=== PATIENT | female | born 1945 | race Caucasian/White ===

== ENCOUNTER 2018-01-29 22:33 | Inpatient (IN) | payer MEDICARE, MEDICAID ==
[~2018-01-29] VITALS: Ht 152.4 cm; Wt 46.2 kg
[2018-01-29 22:36] VITALS: BP 134/92; PULSE 168; RESP 20; O2SAT 98
[2018-01-29] MEDS ORDERED: ADENOSINE IV SOLN 3 MG/ML 2 ML VIAL ONE (22:41)
[2018-01-29] MEDS ORDERED: ADENOSINE IV SOLN 3 MG/ML 2 ML VIAL IV PUSH ONE (22:45)
[2018-01-29] MEDS ORDERED: METOPROLOL TARTRATE 5 MG/5 ML VIAL IV PUSH ONE (22:45)
--- NOTE | 2018-01-29 23:15 | RADRPT ---
EXAM DATE: 01/29/2018 11:09 PM EDT AGE/SEX: 72 years / Female INDICATIONS: Palpitations. CLINICAL DATA: This is the patient's initial encounter. Patient reports that signs and symptoms have been present for 1 day and indicates a pain score of 0/10. MEDICAL/SURGICAL HISTORY: . Hypertension. Chronic obstructive pulmonary disease. SVT None. COMPARISON: POI, CT CHEST W/ CONTRAST, 02/04/2017. . FINDINGS: A single AP view of the chest demonstrates the lungs to be symmetrically aerated without evidence of mass, infiltrate or effusion. The heart is mildly enlarged. Stable prominence of the right pulmonary artery. PICC line catheter tip in mid superior vena cava.. Osseous structures are intact. CONCLUSION: The lungs are clear. Electronically signed by: Anthony Marcos MD 01/29/2018 11:14 PM EDT
[2018-01-29] MEDS ORDERED: LOSA100T PO (23:19)
[2018-01-29] MEDS ORDERED: LOPE2CAP PO (23:19)
[2018-01-29] MEDS ORDERED: ASPI-516 CHEW (23:19)
[2018-01-29] MEDS ORDERED: OMEP10CA PO (23:19)
[2018-01-29] MEDS ORDERED: MULTTAB67 PO (23:19)
[2018-01-29] MEDS ORDERED: METO50TA PO (23:19)
[2018-01-29] MEDS ORDERED: FLUT1INH INH (23:19)
[2018-01-29] MEDS ORDERED: GABA300C5 PO (23:19)
[2018-01-29] MEDS ORDERED: INVA1INJ IV (23:19)
[2018-01-29] MEDS ORDERED: TYLE325T PO (23:19)
[2018-01-29] MEDS ORDERED: ZOFR8TAB4 SL (23:19)
[2018-01-29] MEDS ORDERED: REST15CA PO (23:19)
[2018-01-29] MEDS ORDERED: IPRA0.02 NEB (23:19)
[2018-01-29 23:20] VITALS: BP 152/72; PULSE 91; RESP 20; O2SAT 97
[2018-01-29 23:30] LABS: AUTOMATED NEUTROPHIL # 9.8 TH/MM3 (1.8-7.7); BASOPHIL # 0.2 TH/MM3 (0-0.2); BASOPHIL % 1.4 % (0.0-2.0); EOSINOPHIL # 0.7 TH/MM3 (0-0.4); EOSINOPHIL % 4.9 % (0.0-4.0); HEMATOCRIT 26.8 % (35.0-46.0); HEMOGLOBIN 8.6 GM/DL (11.6-15.3); LYMPH % 15.4 % (9.0-44.0); LYMPHOCYTE # 2.1 TH/MM3 (1.0-4.8); MEAN CELL VOLUME 92.2 FL (80.0-100.0); MEAN CORPUSCULAR HEMOGLOBIN 29.5 PG (27.0-34.0); MEAN PLATELET VOLUME 8.7 FL (7.0-11.0); MONO % 6.5 % (0.0-8.0); MONOCYTE # 0.9 TH/MM3 (0-0.9); NEUT % 71.8 % (16.0-70.0); PLATELET COUNT 510 TH/MM3 (150-450); RED BLOOD COUNT 2.91 MIL/MM3 (4.00-5.30); RED CELL DISTRIBUTION WIDTH 14.5 % (11.6-17.2); WHITE BLOOD COUNT 13.6 TH/MM3 (4.0-11.0)
[2018-01-29] MEDS ORDERED: ESMOLOL 2500 MG/NS 250 ML PREMIX DRIP IV PRN (23:30)
[2018-01-29 23:55] LABS: ALKALINE PHOSPHATASE 103 U/L (45-117); ALT (GPT) 13 U/L (10-53); AST (GOT) 21 U/L (15-37); BICARBONATE 18.2 MEQ/L (21.0-32.0); BLOOD UREA NITROGEN 14 MG/DL (7-18); CALCIUM 6.7 MG/DL (8.5-10.1); CHLORIDE 107 MEQ/L (98-107); CREATININE 0.87 MG/DL (0.50-1.00); GLOMERULAR FILTRATION RATE 64 ML/MIN (>89); GLUCOSE,RANDOM 159 MG/DL (74-106); SODIUM (NA) 140 MEQ/L (136-145); TOTAL BILIRUBIN ADULT 0.2 MG/DL (0.2-1.0); TOTAL PROTEIN 6.3 GM/DL (6.4-8.2); TROPONIN I LESS THAN 0.02 NG/ML (0.02-0.05)
[2018-01-29 23:57] LABS: CALCIUM-PROTEIN CORRECTED 7.1 MG/DL (8.5-10.1)
[2018-01-30] VITALS (9 sets, daily range): BP systolic 140–188; BP diastolic 64–87; PULSE 80–94; RESP 16–20; TEMP 98.1–98.2; O2SAT 97–100
--- NOTE | 2018-01-30 00:06 | PD ---
HPI . palpitation Chief Complaint: Cardiac Complaint Time Seen by Provider: 22:38 Travel History International Travel<30 days: No Contact w/Intl Traveler<30days: No Traveled to known affect area: No History of Present Illness HPI Patient is from [facility] she had a run of palpitations she was found to be in SVT given 50 p.o. of Lopressor which helped and 20 minutes later her heart rate seemed slow to 88 that after 30 minutes it went back into SVT paramedics were called they found her to be at a rate of 170 if occult access they brought her in unable to give her adenosine she has a PICC line which we access and then pushed 6 of adenosine which broke her SVT from 167 down to 90. Patient is then given 2.5 of Lopressor and an esmolol drip at 25 mics per kick per minute is ordered and bedside in case she returns into SVT. Patient reports having a sensation that her chest is fluttering she said she knows when she is going fast she feels a little bit short of breath and she can just feel it in her chest she denies chest pain. arrives after we have given adenosine with good results and he says this happened once 2 weeks ago she was admitted into the hospital at [facility] for a week of ICU due to electrolyte imbalances and SVT. Labs are sent to check her calcium potassium magnesium and the beta-deepika drip is bedside in case needed first EKG is sinus tach at a rate of 169 after the adenosine push her repeat EKG is sinus rhythm at 94 bpm. Patient is pain-free at this time and feels much improved PFSH Past Medical History Heart Rhythm Problems: Yes (SVT) Cancer: Yes (COLON) Cardiac Catheterization: Yes (STENT PLACED ) Cardiovascular Problems: Yes COPD: Yes Diminished Hearing: Yes ([place]) Diverticulitis: Yes Gastrointestinal Disorders: Yes GERD: Yes Hypertension: Yes Respiratory: Yes Past Surgical History Cholecystectomy: Yes Hysterectomy: Yes Other Surgery: Yes ("BACK SURGERY") Social History Alcohol Use: Yes (3 DRINKS/ DAILY) Tobacco Use: Yes (1/2 PPD- HAS NOT SMOKED IN 1 MONTH ) Substance Use: No Allergies-Medications (Allergen,Severity, Reaction): Coded Allergies: No Known Allergies (Unverified , 01/29/18) Reported Meds & Prescriptions Reported Meds & Active Scripts Active Reported Zofran Odt (Ondansetron Odt) 8 Mg Tab 8 Mg SL Q8HR Tylenol (Acetaminophen) 325 Mg Tab 650 Mg PO Q6H PRN Restoril (Temazepam) 15 Mg Cap 15 Mg PO HS PRN Omeprazole 10 Mg Cap 10 Mg PO BID Multiple Vitamin 1 Tab 1 Tab PO DAILY Metoprolol Tartrate 50 Mg Tab 50 Mg PO DAILY Losartan (Losartan Potassium) 100 Mg Tab 100 Mg PO DAILY Loperamide (Loperamide HCl) 2 Mg Cap 2 Mg PO DIRECTED PRN One capsule after each loose stool. Not to exceed 8 capsules per day. Ipratropium Neb (Ipratropium [place]) 0.5 Mg/2.5 Ml Amp 0.5 Mg NEB Q6HR NEB PRN Gabapentin 300 Mg Cap 300 Mg PO BID Invanz Inj (Ertapenem) 1 Gm Addvial 1 Gm IV Q24H ADMINISTER IN 100ML NS Breo Ellipta Inh (Fluticasone/Vilanterol) 100-25 Mcg/Act Inh 1 Puff INH DAILY Use daily at the same time. Aspirin 81 Mg Chew 81 Mg CHEW DAILY Review of Systems Except as stated in HPI: all other systems reviewed are Neg Cardiovascular: Positive: Palpitations Physical Exam Narrative GENERAL: pale and tchy at 167 BPM SKIN: Warm and dry. HEAD: Atraumatic. Normocephalic. EYES: Pupils equal and round. No scleral icterus. No injection or drainage. ENT: No nasal bleeding or discharge. Mucous membranes pink and moist. NECK: Trachea midline. No JVD. CARDIOVASCULAR: 167 rapid rate and rhythm. RESPIRATORY: No accessory muscle use. Clear to auscultation. Breath sounds equal bilaterally. GASTROINTESTINAL: Abdomen soft, non-tender, nondistended. Hepatic and splenic margins not palpable. MUSCULOSKELETAL: Extremities without clubbing, cyanosis, or edema. No obvious deformities. NEUROLOGICAL: Awake and alert. No obvious cranial nerve deficits. Motor grossly within normal limits. Five out of 5 muscle strength in the arms and legs. Normal speech. PSYCHIATRIC: Appropriate mood and affect; insight and judgment normal. Data Data Last Documented VS Vital Signs Date Time Temp Pulse Resp B/P (MAP) Pulse Ox O2 Delivery O2 Flow Rate FiO2 01/30/18 00:14 89 20 162/76 (104) 100 Nasal Cannula 2.00 Orders Orders Adenosine Inj (Adenocard Inj) (01/29/18 22:41) Adenosine Inj (Adenocard Inj) (01/29/18 22:45) Metoprolol Tartrate Inj (Lopressor Inj) (01/29/18 22:45) Complete Blood Count With Diff (01/29/18 22:48) Comprehensive Metabolic Panel (01/29/18 22:48) Ckmb (Isoenzyme) Profile (01/29/18 22:48) Troponin I (01/29/18 22:48) Lipase (01/29/18 22:48) Urinalysis - C+S If Indicated (01/29/18 22:48) Thyroid Stimulating Hormone (01/29/18 22:48) Chest, Single Ap (01/29/18 22:48) Esmolol Drip Inj Premix (Brevibloc Drip (01/29/18 23:30) Calcium Gluconate Inj (Calcium Gluconate (01/30/18 00:15) Potassium Chloride (Kcl) (01/30/18 09:00) 1/2 Ns + Kcl 20 Meq Inj (1/2 Ns + Kcl 20 (01/30/18 00:45) Magnesium (Mg) (01/30/18 00:48) Admit To Inpatient (01/30/18 ) Vital Signs (Adult) Q4H (01/30/18 00:48) Activity Oob Ad Alexa (01/30/18 00:48) Sanitary Engineer / Telemetry .CONTINUOUS (01/30/18 00:48) Diet Heart Healthy (01/30/18 Breakfast) Sodium Chloride 0.9% Flush (Ns Flush) (01/30/18 01:00) Sodium Chloride 0.9% Flush (Ns Flush) (01/30/18 09:00) Acetaminophen (Tylenol) (01/30/18 01:00) Basic Metabolic Panel (Bmp) (01/31/18 06:00) Complete Blood Count With Diff (01/31/18 06:00) Resp Oxygen Froy C Titrat 1-4 L (01/30/18 ) Enoxaparin Inj (Lovenox Inj) (01/30/18 01:00) Naloxone Inj (Narcan Inj) (01/30/18 01:00) Magnesium Hydroxide Liq (Milk Of Magnesi (01/30/18 01:00) Sennosides (Senokot) (01/30/18 01:00) Bisacodyl Supp (Dulcolax Supp) (01/30/18 01:00) Lactulose Liq (Lactulose Liq) (01/30/18 01:00) Inpatient Certification (01/30/18 ) Aspirin Chew (Aspirin Chew) (01/30/18 09:00) Gabapentin (Neurontin) (01/30/18 09:00) Temazepam (Restoril) (01/30/18 01:00) Pantoprazole (Protonix) (01/30/18 09:00) Admit Order (Ed Use Only) (01/30/18 00:50) Metoprolol Tartrate (Lopressor) (01/30/18 09:00) Labs Laboratory Tests Test 01/29/18 22:58 01/29/18 23:57 White Blood Count 13.6 TH/MM3 Red Blood Count 2.91 MIL/MM3 Hemoglobin 8.6 GM/DL Hematocrit 26.8 % Mean Corpuscular Volume 92.2 FL Mean Corpuscular Hemoglobin 29.5 PG Mean Corpuscular Hemoglobin Concent 32.0 % Red Cell Distribution Width 14.5 % Platelet Count 510 TH/MM3 Mean Platelet Volume 8.7 FL Neutrophils (%) (Auto) 71.8 % Lymphocytes (%) (Auto) 15.4 % Monocytes (%) (Auto) 6.5 % Eosinophils (%) (Auto) 4.9 % Basophils (%) (Auto) 1.4 % Neutrophils # (Auto) 9.8 TH/MM3 Lymphocytes # (Auto) 2.1 TH/MM3 Monocytes # (Auto) 0.9 TH/MM3 Eosinophils # (Auto) 0.7 TH/MM3 Basophils # (Auto) 0.2 TH/MM3 CBC Comment AUTO DIFF Differential Comment AUTO DIFF CONFIRMED Platelet Estimate HIGH Platelet Morphology Comment NORMAL Blood Urea Nitrogen 14 MG/DL Creatinine 0.87 MG/DL Random Glucose 159 MG/DL Total Protein 6.3 GM/DL Albumin 2.0 GM/DL Calcium Level 6.7 MG/DL Alkaline Phosphatase 103 U/L Aspartate Amino Transf (AST/SGOT) 21 U/L Alanine Aminotransferase (ALT/SGPT) 13 U/L Total Bilirubin 0.2 MG/DL Sodium Level 140 MEQ/L Potassium Level 3.0 MEQ/L Chloride Level 107 MEQ/L Carbon Dioxide Level 18.2 MEQ/L Anion Gap 15 MEQ/L Estimat Glomerular Filtration Rate 64 ML/MIN Protein Corrected Calcium 7.1 MG/DL Magnesium Level 0.6 MG/DL Total Creatine Kinase 61 U/L Troponin I LESS THAN 0.02 NG/ML Lipase 253 U/L Thyroid Stimulating Hormone 3rd Gen 2.330 uIU/ML Urine Color YELLOW Urine Turbidity CLEAR Urine pH 6.0 Urine Specific [place] 1.020 Urine Protein 100 mg/dL Urine Glucose (UA) NEG mg/dL Urine Ketones NEG mg/dL Urine Occult Blood NEG Urine Nitrite NEG Urine Bilirubin NEG Urine Urobilinogen 2.0 MG/DL Urine Leukocyte Esterase NEG Urine RBC 1 /hpf Urine WBC 5 /hpf Urine Transitional Epithelial Cells <1 /hpf Urine Renal Epithelial Cells <1 /hpf Urine Hyaline Casts 9 /lpf Urine Mucus FEW /lpf Microscopic Urinalysis Comment CATH-CULT NOT IND MDM Medical Decision Making Medical Screen Exam Complete: Yes Emergency Medical Condition: Yes Medical Record Reviewed: Yes Differential Diagnosis afib svt VTACH vs aflutter MD pericarditis electrolytwe abnormality Narrative Course adenosine . IVP 6mg with breaking of the SVT and now she is in sinus rhythm at 90 BPM lopressor 5 mg ivp and then esmolol drip calcium replaced and admit Critical Care Narrative 30 minutes of critical care cardiac time Diagnosis Primary Impression: Supraventricular tachycardia Additional Impression: Electrolyte abnormality Nas Giles MD January 30, 2018 00:06
[2018-01-30 00:11] LABS: BILIRUBIN, URINE NEG (NEG); BLOOD, URINE NEG (NEG); GLUCOSE,URINE NEG (NEG); HYALINE CAST, URINE 9 /lpf (RARE); KETONE, URINE NEG (NEG); MUCUS URINE FEW /lpf (OCC); NITRITE,URINE NEG (NEG); RENAL EPITHELIAL CELLS <1 /hpf; TRANSITIONAL EPI CELLS, URINE <1 /hpf; URINE COLOR YELLOW (YELLW/STRAW); URINE LEUKOCYTE ESTERASE NEG (NEG)
[2018-01-30] MEDS ORDERED: CALCIUM GLUCONATE INJ 1 GM in DEXTROSE 5% IN WATER 100ML INJ 100 ML IV ONE ×2 (00:15)
[2018-01-30] MEDS ORDERED: MAGNESIUM HYDROXIDE SUSP 30 ML CUP PO PRN (01:00)
[2018-01-30] MEDS ORDERED: LACTULOSE SYRUP 20 GM/30 ML CUP PO PRN (01:00)
[2018-01-30] MEDS ORDERED: SODIUM CHLORIDE 0.9% FLUSH 10 ML FLUSH IV FLUSH PRN (01:00)
[2018-01-30] MEDS ORDERED: NALOXONE HCL 0.4 MG/ML AMP IV PUSH PRN (01:00)
[2018-01-30] MEDS ORDERED: SENNOSIDES 8.6 MG TAB PO PRN (01:00)
[2018-01-30] MEDS ORDERED: BISACODYL 10 MG SUPP RECTAL PRN (01:00)
--- NOTE | 2018-01-30 01:44 | HHI.HP ---
[facility] Silvino Bennett MD Admission Diagnosis SVT electrolyte abnormality low Ca low K Diagnoses: Chief Complaint: Palpitations. Travel History International Travel<30 Days: No Contact w/Intl Traveler <30 Da: No Traveled to Known Affected Are: No History of Present Illness Ms. Zhou is a pleasant 72-year-old female with a history of supraventricular tachycardia who presented to the emergency department due to palpitations. A day prior to this admission and on the day of admission patient felt her heart was racing. She denies any chest pain, shortness of breath, fever or chills. She reports that her medications especially metoprolol tartrate was recently changed from twice daily dosing to once a day dosing in a recent hospitalization. She believes because of this change she started having this heart racing feelings. Patient also complains of significant diarrhea in the last 9 weeks. She has been on vancomycin per rehab documentations. She denies any changes in bladder habits. No cough or abdominal pain. With regards to SVT patient was given adenosine 6 mg in the ED. Review of Systems Except as stated in HPI: all other systems reviewed are Neg Past Family Social History Past Medical History Supraventricular tachycardia, colon cancer, COPD, diverticulitis, hypertension, C. difficile colitis Past Surgical History Cholecystectomy, hysterectomy, back surgery Reported Medications Zofran Odt (Ondansetron Odt) 8 Mg Tab 8 Mg SL Q8HR Tylenol (Acetaminophen) 325 Mg Tab 650 Mg PO Q6H PRN Restoril (Temazepam) 15 Mg Cap 15 Mg PO HS PRN Omeprazole 10 Mg Cap 10 Mg PO BID Multiple Vitamin 1 Tab 1 Tab PO DAILY Metoprolol Tartrate 50 Mg Tab 50 Mg PO DAILY Losartan (Losartan Potassium) 100 Mg Tab 100 Mg PO DAILY Loperamide (Loperamide HCl) 2 Mg Cap 2 Mg PO DIRECTED PRN One capsule after each loose stool. Not to exceed 8 capsules per day. Ipratropium Neb (Ipratropium [place]) 0.5 Mg/2.5 Ml Amp 0.5 Mg NEB Q6HR NEB PRN Gabapentin 300 Mg Cap 300 Mg PO BID Invanz Inj (Ertapenem) 1 Gm Addvial 1 Gm IV Q24H ADMINISTER IN 100ML NS Breo Ellipta Inh (Fluticasone/Vilanterol) 100-25 Mcg/Act Inh 1 Puff INH DAILY Use daily at the same time. Aspirin 81 Mg Chew 81 Mg CHEW DAILY Allergies: Coded Allergies: No Known Allergies (Unverified , 01/29/18) Family History No family history of Alzheimer's dementia or Parkinson's disease Social History Alcohol Use: Yes (3 DRINKS/ DAILY) Tobacco Use: Yes (1/2 PPD- HAS NOT SMOKED IN 1 MONTH ) Substance Use: No Physical Exam Vital Signs Vital Signs Date Time Temp Pulse Resp B/P (MAP) Pulse Ox O2 Delivery O2 Flow Rate FiO2 01/30/18 00:14 89 20 162/76 (104) 100 Nasal Cannula 2.00 01/29/18 23:20 91 20 152/72 (98) 97 Nasal Cannula 2.00 01/29/18 22:42 168 20 100 Nasal Cannula 2.00 01/29/18 22:36 168 20 134/92 (106) 98 Physical Exam GENERAL: This is a well-nourished, well-developed patient, in no apparent distress. SKIN: No rashes, ecchymoses or lesions. Warm and dry. HEAD: Atraumatic. Normocephalic. No temporal or scalp tenderness. EYES: Pupils equal round and reactive. No injection or drainage. ENT: Nose without bleeding, purulent drainage or septal hematoma. Airway patent. NECK: Trachea midline. No lymphadenopathy. Supple, nontender, no meningeal signs. CARDIOVASCULAR: Regular rate and rhythm without murmurs, gallops, or rubs. No JVD. RESPIRATORY: Clear to auscultation. Breath sounds equal bilaterally. No wheezes , rales, or rhonchi. GASTROINTESTINAL: Abdomen soft, non-tender, nondistended. No guarding. MUSCULOSKELETAL: Extremities without clubbing, cyanosis, or edema. NEUROLOGICAL: Awake and alert. Cranial nerves II through XII intact. No focal neurological deficits. Normal speech. Laboratory Laboratory Tests Test 01/29/18 22:58 01/29/18 23:57 White Blood Count 13.6 Red Blood Count 2.91 Hemoglobin 8.6 Hematocrit 26.8 Mean Corpuscular Volume 92.2 Mean Corpuscular Hemoglobin 29.5 Mean Corpuscular Hemoglobin Concent 32.0 Red Cell Distribution Width 14.5 Platelet Count 510 Mean Platelet Volume 8.7 Neutrophils (%) (Auto) 71.8 Lymphocytes (%) (Auto) 15.4 Monocytes (%) (Auto) 6.5 Eosinophils (%) (Auto) 4.9 Basophils (%) (Auto) 1.4 Neutrophils # (Auto) 9.8 Lymphocytes # (Auto) 2.1 Monocytes # (Auto) 0.9 Eosinophils # (Auto) 0.7 Basophils # (Auto) 0.2 CBC Comment AUTO DIFF Differential Comment AUTO DIFF CONFIRMED Platelet Estimate HIGH Platelet Morphology Comment NORMAL Blood Urea Nitrogen 14 Creatinine 0.87 Random Glucose 159 Total Protein 6.3 Albumin 2.0 Calcium Level 6.7 Alkaline Phosphatase 103 Aspartate Amino Transf (AST/SGOT) 21 Alanine Aminotransferase (ALT/SGPT) 13 Total Bilirubin 0.2 Sodium Level 140 Potassium Level 3.0 Chloride Level 107 Carbon Dioxide Level 18.2 Anion Gap 15 Estimat Glomerular Filtration Rate 64 Protein Corrected Calcium 7.1 Magnesium Level 0.6 Total Creatine Kinase 61 Troponin I LESS THAN 0.02 Lipase 253 Thyroid Stimulating Hormone 3rd Gen 2.330 Urine Color YELLOW Urine Turbidity CLEAR Urine pH 6.0 Urine Specific [place] 1.020 Urine Protein 100 Urine Glucose (UA) NEG Urine Ketones NEG Urine Occult Blood NEG Urine Nitrite NEG Urine Bilirubin NEG Urine Urobilinogen 2.0 Urine Leukocyte Esterase NEG Urine RBC 1 Urine WBC 5 Urine Transitional Epithelial Cells <1 Urine Renal Epithelial Cells <1 Urine Hyaline Casts 9 Urine Mucus FEW Microscopic Urinalysis Comment CATH-CULT NOT IND Result Diagram: 01/29/18225701/29/182257 Imaging Last Impressions Chest X-Ray 01/29/182247 Signed Impressions: CONCLUSION: The lungs are clear. Caprini VTE Risk Assessment Caprini VTE Risk Assessment: Mod/High Risk (score >= 2) Caprini Risk Assessment Model Point Value = 1 Point Value = 2 Point Value = 3 Point Value = 5 Age 41-60 Minor surgery BMI > 25 kg/m2 Swollen legs Varicose veins or History of unexplained or recurrent spontaneous Oral contraceptives or hormone replacement Sepsis (< 1 month) Serious lung disease, including pneumonia (< 1 month) Abnormal pulmonary function Acute myocardial infarction Congestive heart failure (< 1 month) History of inflammatory bowel disease Medical patient at bed rest Age 61-74 Arthroscopic surgery Major open surgery (> 45 min) Laparoscopic surgery (> 45 min) Malignancy Confined to bed (> 72 hours) Immobilizing plaster cast Central venous access Age >= 75 History of VTE Family history of VTE Factor V Leiden Prothrombin [id number] Lupus anticoagulant Anticardiolipin antibodies Elevated serum homocysteine Heparin-induced thrombocytopenia Other congenital or acquired thrombophilia Stroke (< 1 month) Elective arthroplasty Hip, pelvis, or leg fracture Acute spinal cord injury (< 1 month) Prophylaxis Regimen Total Risk Factor Score Risk Level Prophylaxis Regimen 0-1 Low Early ambulation 2 Moderate Order ONE of the following: *Sequential Compression Device (SCD) *Heparin 5000 units SQ BID 3-4 Higher Order ONE of the following medications: *Heparin 5000 units SQ TID *Enoxaparin/Lovenox 40 mg SQ daily (WT < 150 kg, CrCl > 30 mL/min) *Enoxaparin/Lovenox 30 mg SQ daily (WT < 150 kg, CrCl > 10-29 mL/min) *Enoxaparin/Lovenox 30 mg SQ BID (WT < 150 kg, CrCl > 30 mL/min) AND/OR *Sequential Compression Device (SCD) 5 or more Highest Order ONE of the following medications: *Heparin 5000 units SQ TID (Preferred with Epidurals) *Enoxaparin/Lovenox 40 mg SQ daily (WT < 150 kg, CrCl > 30 mL/min) *Enoxaparin/Lovenox 30 mg SQ daily (WT < 150 kg, CrCl > 10-29 mL/min) *Enoxaparin/Lovenox 30 mg SQ BID (WT < 150 kg, CrCl > 30 mL/min) AND *Sequential Compression Device (SCD) Assessment and Plan Problem List: (1) Supraventricular tachycardia ICD Code: I47.1 - Supraventricular tachycardia (2) C. difficile colitis ICD Code: A04.72 - Enterocolitis due to Clostridium difficile, not specified as recurrent Assessment and Plan Ms. Zhou is a pleasant 72-year-old female with a history of C. difficile colitis, SVT who presents to the emergency department due to 2 day duration of a feeling of her heart racing. In the emergency department patient received 6 mg of adenosine. Supraventricular tachycardia -Currently patient is in normal sinus rhythm. -We will try to replete electrolytes especially potassium, calcium -Patient follows up with Dr. Arevalo with regards to SVT. C. Diff colitis -Patient is still having a lot of diarrhea. This is likely the reason for her electrolyte depletion. -We will obtain another C. difficile PCR -Start treatment with vancomycin 125 mg 3 times daily p.o. Upon discharge consider tapering dose of vancomycin oral. Hypokalemia Hypocalcemia Hypomagnesemia -Potassium and calcium replacement done in the ER. -Magnesium level 0.6. Will start patient on IV magnesium sulfate replacement. -Total 5 g of IV magnesium sulfate ordered. May need 1-2 more gram of magnesium sulfate. Full code. Lovenox. Physician Certification 2 Midnight Certification Type: Admission for Inpatient Services Order for Inpatient Services The services are ordered in accordance with Medicare regulations or non- Medicare payer requirements, as applicable. In the case of services not specified as inpatient-only, they are appropriately provided as inpatient services in accordance with the 2-midnight benchmark. Estimated LOS (days): 2 days is the estimated time the patient will need to remain in the hospital, assuming treatment plan goals are met and no additional complications. Post-Hospital Plan: Home Carlee Duron DO January 30, 2018 1:44 am
[2018-01-30] MEDS: ENOXAPARIN SODIUM 40 MG/0.4 ML SYRINGE SQ SCH (02:49)
[2018-01-30] MEDS: MAGNESIUM SULFATE 1 GM PREMIX 100 ML IV SCH ×4 (02:49→09:40)
[2018-01-30] MEDS: 1/2 NS + KCL 20 MEQ INJ 1,000 ML IV SCH ×4 (02:49→22:50)
[2018-01-30] MEDS: TEMAZEPAM 15 MG CAP PO PRN ×2 (04:01→22:05)
[2018-01-30] MEDS ORDERED: MAGNESIUM SULFATE 1 GM PREMIX 100 ML IV ONE (09:00)
[2018-01-30] MEDS ORDERED: POTASSIUM CHLORIDE 20 MEQ CONTROLLED RELEASE TAB PO SCH (09:00)
[2018-01-30] MEDS: PANTOPRAZOLE SOD 20 MG DELAYED RELEASE TAB PO SCH ×2 (09:39→22:05)
[2018-01-30] MEDS: METOPROLOL TARTRATE 25 MG TAB PO SCH ×2 (09:40→22:05)
[2018-01-30] MEDS: GABAPENTIN 300 MG CAP PO SCH ×2 (09:40→22:05)
[2018-01-30] MEDS: POTASSIUM CHLORIDE 20 MEQ CONTROLLED RELEASE TAB PO SCH ×2 (09:40→22:05)
[2018-01-30] MEDS: SODIUM CHLORIDE 0.9% FLUSH 10 ML FLUSH IV FLUSH SCH ×2 (09:44→21:00)
[2018-01-30] MEDS: ASPIRIN 81 MG CHEW TAB CHEW SCH (10:18)
[2018-01-30] MEDS: VANCOMYCIN 500 MG VIAL (FOR ORAL USE ONLY) PO SCH ×4 (10:59→22:05)
--- NOTE | 2018-01-30 11:36 | HHI.PR ---
Subjective Remarks in no acute distress. still with some diarrhea. no chest pain or palpitations today. no fever/ abdominal pain/ nausea. Objective Vitals Vital Signs Date Time Temp Pulse Resp B/P (MAP) Pulse Ox O2 Delivery O2 Flow Rate FiO2 01/30/18 09:35 92 19 176/81 (112) 99 Room Air 01/30/18 07:27 100 21 01/30/18 06:00 80 16 140/64 (89) 99 Nasal Cannula 2.00 01/30/18 04:00 82 16 188/82 (117) 99 Nasal Cannula 2.00 01/30/18 02:00 86 18 186/87 (120) 100 Nasal Cannula 2.00 01/30/18 00:14 89 20 162/76 (104) 100 Nasal Cannula 2.00 01/29/18 23:20 91 20 152/72 (98) 97 Nasal Cannula 2.00 01/29/18 22:42 168 20 100 Nasal Cannula 2.00 01/29/18 22:36 168 20 134/92 (106) 98 I/O 01/29/18 01/29/18 01/29/18 01/30/18 01/30/18 01/30/18 07:00 15:00 23:00 07:00 15:00 23:00 Intake Total 310 ml Balance 310 ml Intake IV Total 310 ml # Bowel Movements 1 Result Diagram: 01/29/18225701/29/182257 Imaging Last Impressions Chest X-Ray 01/29/182247 Signed Impressions: CONCLUSION: The lungs are clear. Objective Remarks GENERAL: This is a well-nourished, well-developed patient, in no apparent distress. CARDIOVASCULAR: Regular rate and regular rhythm without murmurs, gallops, or rubs. RESPIRATORY: Clear to auscultation. Breath sounds equal bilaterally. No wheezes , rales, or rhonchi. GASTROINTESTINAL: Abdomen soft, non-tender, nondistended. Normal, active bowel sounds MUSCULOSKELETAL: Extremities without clubbing, cyanosis, or edema. NEURO: Alert & Oriented x4 to person, place, time, situation. Moves all ext x4 Medications and IVs Inpatient Medications Acetaminophen (Tylenol) 650 mg Q4H PRN PO RTOHMAN, fever, pain 1-4; Start 01/30/18 at 01:00 Adenosine (Adenocard Inj) 6 mg ONCE ONCE IV PUSH Last administered on at 22:47; Start 01/29/18 at 22:45; Stop 01/29/18 at 22:47; Status DC Aspirin (Aspirin Chew) 81 mg DAILY CHEW Last administered on 01/30/18at 10:18; Start 01/30/18 at 09:00 Bisacodyl (Dulcolax Supp) 10 mg DAILY PRN RECTAL SEVERE CONSITIPATION / IF NPO ; Start 01/30/18 at 01:00 Calcium Gluconate 1 gm/Dextrose 110 ml @ 110 mls/hr ONCE ONCE IV Last administered on 01/30/18at 00:16; Start 01/30/18 at 00:15; Stop 01/30/18 at 01:14 ; Status DC Enoxaparin Sodium (Lovenox Inj) 40 mg Q24H SQ Last administered on 01/30/18at 02 :49; Start 01/30/18 at 01:00 Esmolol HCl/ Sodium Chloride 250 ml @ 6.75 mls/hr TITRATE PRN IV Blood Pressure Management; Start 01/29/18 at 23:30; Stop 01/30/18 at 03:25; Status DC Gabapentin (Neurontin) 300 mg BID PO Last administered on 01/30/18at 09:40; Start 01/30/18 at 09:00 Lactulose (Lactulose Liq) 30 ml DAILY PRN PO SEVERE CONSITIPATION/ IF PO; Start 01/30/18 at 01:00 Magnesium Hydroxide (Milk Of Magnesia Liq) 30 ml Q12H PRN PO Mild constipation ; Start 01/30/18 at 01:00 Magnesium Sulfate/ Dextrose 100 ml @ 100 mls/hr ONCE ONCE IV Last administered on 01/30/18at 10:59; Start 01/30/18 at 09:00; Stop 01/30/18 at 09:59 ; Status DC Metoprolol Tartrate (Lopressor Inj) 5 mg ONCE ONCE IV PUSH Last administered on 01/29/18at 22:48; Start 01/29/18 at 22:45; Stop 01/29/18 at 22:47; Status DC Metoprolol Tartrate (Lopressor) 25 mg Q12HR PO Last administered on 01/30/18at 09:40; Start 01/30/18 at 09:00 Naloxone HCl (Narcan Inj) 0.4 mg UNSCH PRN IV PUSH SEE LABEL COMMENTS; Start at 01:00 Pantoprazole Sodium (Protonix) 20 mg BID PO Last administered on 01/30/18 09: 39; Start 01/30/18 at 09:00 Potassium Chloride/Sodium Chloride 1,000 ml @ 125 mls/hr Q8H IV Last administered on 01/30/18 02:49; Start 01/30/18 at 00:45 Potassium Chloride (KCl) 20 meq BID PO Last administered on 01/30/18 09:40; Start 01/30/18 at 09:00; Stop 02/04/18 at 08:59 Sennosides (Senokot) 17.2 mg Q12H PRN PO Moderate constipation; Start 01/30/18 at 01:00 Sodium Chloride (NS Flush) 2 ml BID IV FLUSH Last administered on 01/30/18 09: 44; Start 01/30/18 at 09:00 Temazepam (Restoril) 15 mg HS PRN PO INSOMNIA Last administered on 01/30/18 04 :01; Start 01/30/18 at 01:00 Vancomycin HCl (VANCOMYCIN for oral use only) 125 mg QID PO Last administered on 01/30/18 10:59; Start 01/30/18 at 09:00 A/P Problem List: (1) Supraventricular tachycardia ICD Code: I47.1 - Supraventricular tachycardia (2) C. difficile colitis ICD Code: A04.72 - Enterocolitis due to Clostridium difficile, not specified as recurrent Assessment and Plan Supraventricular tachycardia -Currently patient is in normal sinus rhythm. -We will try to replete electrolytes especially potassium, calcium -Patient follows up with Dr. Arevalo with regards to SVT. C. Diff colitis -Patient is still having a lot of diarrhea. This is likely the reason for her electrolyte depletion. -We will obtain another C. difficile PCR -continue po Vancomycin Hypokalemia Hypocalcemia Hypomagnesemia -electrolytes replaced; will monitor the levels. Full code. Bari Castillo MD January 30, 2018 11:36
[2018-01-30 13:35] LABS: BICARBONATE 21.2 MEQ/L (21.0-32.0); CALCIUM 7.4 MG/DL (8.5-10.1); CREATININE 0.74 MG/DL (0.50-1.00)
[2018-01-30 13:49] LABS: CALCIUM-PROTEIN CORRECTED 7.8 MG/DL (8.5-10.1); TOTAL PROTEIN 6.3 GM/DL (6.4-8.2)
[2018-01-30] MEDS: ACETAMINOPHEN 325 MG TAB PO PRN ×2 (14:27→22:04)
--- NOTE | 2018-01-30 19:37 | EKG ---
Date Performed: 01/29/2018 Time Performed: 22:39:12 PTAGE: 72 years EKG: SUPRAVENTRICULAR TACHYCARDIA MODERATE ST DEPRESSION ABNORMAL ECG Compared to PREVIOUS TRACING , the patient is now tachycardic. PREVIOUS TRACING DOCTOR: Paulette Abdalla Interpretating Date/Time 01/30/2018 19:36:57
--- NOTE | 2018-01-30 19:38 | EKG ---
Date Performed: 01/29/2018 Time Performed: 22:46:20 PTAGE: 72 years EKG: Sinus rhythm NORMAL ECG Compared to PREVIOUS TRACING , the patient is no longer tachycardic. PREVIOUS TRACIN01/29/2018 22. 45 DOCTOR: Paulette Abdalla Interpretating Date/Time 01/30/2018 19:37:11
--- NOTE | 2018-01-30 19:38 | EKG ---
Date Performed: 01/30/2018 Time Performed: 09:35:36 PTAGE: 72 years EKG: Sinus rhythm WITH SINUS ARRHYTHMIA NORMAL ECG Since PREVIOUS TRACING , no significant change noted PREVIOUS TRACIN01/29/2018 22.46 DOCTOR: Paulette Abdalla Interpretating Date/Time 01/30/2018 19:37:20
[2018-01-31] VITALS (12 sets, daily range): BP systolic 154–198; BP diastolic 70–110; PULSE 90–105; RESP 17–20; TEMP 97.6–98.2; O2SAT 93–97
[2018-01-31] MEDS: ENOXAPARIN SODIUM 40 MG/0.4 ML SYRINGE SQ SCH (01:55)
[2018-01-31] MEDS: 1/2 NS + KCL 20 MEQ INJ 1,000 ML IV SCH ×2 (05:49→08:46)
[2018-01-31 06:09] LABS: AUTOMATED NEUTROPHIL # 6.3 TH/MM3 (1.8-7.7); BASOPHIL # 0.1 TH/MM3 (0-0.2); BASOPHIL % 1.2 % (0.0-2.0); EOSINOPHIL # 0.9 TH/MM3 (0-0.4); EOSINOPHIL % 9.4 % (0.0-4.0); HEMATOCRIT 21.2 % (35.0-46.0); HEMOGLOBIN 7.1 GM/DL (11.6-15.3); LYMPH % 11.6 % (9.0-44.0); LYMPHOCYTE # 1.1 TH/MM3 (1.0-4.8); MEAN CELL VOLUME 91.9 FL (80.0-100.0); MEAN CORPUSCULAR HGB CONC 33.7 % (32.0-36.0); MEAN PLATELET VOLUME 7.6 FL (7.0-11.0); MONO % 8.5 % (0.0-8.0); MONOCYTE # 0.8 TH/MM3 (0-0.9); NEUT % 69.3 % (16.0-70.0); PLATELET COUNT 408 TH/MM3 (150-450); RED CELL DISTRIBUTION WIDTH 14.5 % (11.6-17.2); WHITE BLOOD COUNT 9.1 TH/MM3 (4.0-11.0)
[2018-01-31 06:52] LABS: BICARBONATE 21.8 MEQ/L (21.0-32.0); CALCIUM 7.7 MG/DL (8.5-10.1); CREATININE 0.7 MG/DL (0.50-1.00)
[2018-01-31] MEDS: PANTOPRAZOLE SOD 20 MG DELAYED RELEASE TAB PO SCH ×2 (08:42→20:53)
[2018-01-31] MEDS: POTASSIUM CHLORIDE 20 MEQ CONTROLLED RELEASE TAB PO SCH ×2 (08:42→20:53)
[2018-01-31] MEDS: GABAPENTIN 300 MG CAP PO SCH ×2 (08:42→20:53)
[2018-01-31] MEDS: METOPROLOL TARTRATE 25 MG TAB PO SCH ×2 (08:42→20:53)
[2018-01-31] MEDS: VANCOMYCIN 500 MG VIAL (FOR ORAL USE ONLY) PO SCH ×4 (08:42→20:54)
[2018-01-31] MEDS: SODIUM CHLORIDE 0.9% FLUSH 10 ML FLUSH IV FLUSH SCH ×2 (08:43→20:54)
[2018-01-31] MEDS: ASPIRIN 81 MG CHEW TAB CHEW SCH (08:45)
--- NOTE | 2018-01-31 10:21 | HHI.PR ---
Subjective Remarks in no acute distress. but with mild sob and wheezing. still with some diarrhea. no fever or abdominal pain. Objective Vitals Vital Signs Date Time Temp Pulse Resp B/P (MAP) Pulse Ox O2 Delivery O2 Flow Rate FiO2 01/31/18 09:37 93 21 01/31/18 04:00 98.1 98 18 154/70 (98) 96 01/31/18 04:00 105 01/31/18 00:50 98.2 100 20 159/86 (110) 97 01/30/18 23:04 12 01/30/18 20:50 98.2 90 20 149/69 (95) 98 01/30/18 20:15 98 Room Air 01/30/18 15:15 98.1 94 18 154/74 (100) 97 01/30/18 15:09 01/30/18 15:00 91 16 155/72 (99) 98 Room Air I/O 01/30/18 01/30/18 01/30/18 01/31/18 01/31/18 01/31/18 07:00 15:00 23:00 07:00 15:00 23:00 Intake Total 310 ml 200 ml 240 ml Balance 310 ml 200 ml 240 ml Intake Oral 240 ml IV Total 310 ml 200 ml # Voids 2 # Bowel Movements 1 1 Result Diagram: 01/31/18 0601/31/18 0600 Imaging Last Impressions Chest X-Ray 01/29/188 Signed Impressions: CONCLUSION: The lungs are clear. Objective Remarks GENERAL: This is a well-nourished, well-developed patient, in no apparent distress. CARDIOVASCULAR: Regular rate and regular rhythm without murmurs, gallops, or rubs. RESPIRATORY: Clear to auscultation. Breath sounds equal bilaterally. No wheezes , rales, or rhonchi. GASTROINTESTINAL: Abdomen soft, non-tender, nondistended. Normal, active bowel sounds MUSCULOSKELETAL: Extremities without clubbing, cyanosis, or edema. NEURO: Alert & Oriented x4 to person, place, time, situation. Moves all ext x4 Medications and IVs Inpatient Medications Acetaminophen (Tylenol) 650 mg Q4H PRN PO ROTHMAN, fever, pain 1-4 Last administered on 01/30/18at 22:04; Start 01/30/18 at 01:00 Adenosine (Adenocard Inj) 6 mg ONCE ONCE IV PUSH Last administered on at 22:47; Start 01/29/18 at 22:45; Stop 01/29/18 at 22:47; Status DC Aspirin (Aspirin Chew) 81 mg DAILY CHEW Last administered on 01/31/18at 08:45; Start 01/30/18 at 09:00 Bisacodyl (Dulcolax Supp) 10 mg DAILY PRN RECTAL SEVERE CONSITIPATION / IF NPO ; Start 01/30/18 at 01:00 Calcium Gluconate 1 gm/Dextrose 110 ml @ 110 mls/hr ONCE ONCE IV Last administered on 01/30/18at 00:16; Start 01/30/18 at 00:15; Stop 01/30/18 at 01:14 ; Status DC Enoxaparin Sodium (Lovenox Inj) 40 mg Q24H SQ Last administered on 01/31/18at 01 :55; Start 01/30/18 at 01:00 Esmolol HCl/ Sodium Chloride 250 ml @ 6.75 mls/hr TITRATE PRN IV Blood Pressure Management; Start 01/29/18 at 23:30; Stop 01/30/18 at 03:25; Status DC Gabapentin (Neurontin) 300 mg BID PO Last administered on 01/31/18at 08:42; Start 01/30/18 at 09:00 Lactulose (Lactulose Liq) 30 ml DAILY PRN PO SEVERE CONSITIPATION/ IF PO; Start 01/30/18 at 01:00 Magnesium Hydroxide (Milk Of Magnesia Liq) 30 ml Q12H PRN PO Mild constipation ; Start 01/30/18 at 01:00 Magnesium Sulfate/ Dextrose 100 ml @ 100 mls/hr ONCE ONCE IV Last administered on 01/30/18at 10:59; Start 01/30/18 at 09:00; Stop 01/30/18 at 09:59 ; Status DC Metoprolol Tartrate (Lopressor Inj) 5 mg ONCE ONCE IV PUSH Last administered on 01/29/18at 22:48; Start 01/29/18 at 22:45; Stop 01/29/18 at 22:47; Status DC Metoprolol Tartrate (Lopressor) 25 mg Q12HR PO Last administered on 01/31/18at 08:42; Start 01/30/18 at 09:00 Naloxone HCl (Narcan Inj) 0.4 mg UNSCH PRN IV PUSH SEE LABEL COMMENTS; Start at 01:00 Pantoprazole Sodium (Protonix) 20 mg BID PO Last administered on 01/31/18 08: 42; Start 01/30/18 at 09:00 Potassium Chloride/Sodium Chloride 1,000 ml @ 125 mls/hr Q8H IV Last administered on 01/31/18 08:46; Start 01/30/18 at 00:45 Potassium Chloride (KCl) 20 meq BID PO Last administered on 01/31/18 08:42; Start 01/30/18 at 09:00; Stop 02/04/18 at 08:59 Sennosides (Senokot) 17.2 mg Q12H PRN PO Moderate constipation; Start 01/30/18 at 01:00 Sodium Chloride (NS Flush) 2 ml BID IV FLUSH Last administered on 01/31/18 08: 43; Start 01/30/18 at 09:00 Temazepam (Restoril) 15 mg HS PRN PO INSOMNIA Last administered on 01/30/18 22 :05; Start 01/30/18 at 01:00 Vancomycin HCl (VANCOMYCIN for oral use only) 125 mg QID PO Last administered on 01/31/18 08:42; Start 01/30/18 at 09:00 A/P Problem List: (1) Supraventricular tachycardia ICD Code: I47.1 - Supraventricular tachycardia (2) C. difficile colitis ICD Code: A04.72 - Enterocolitis due to Clostridium difficile, not specified as recurrent Assessment and Plan Supraventricular tachycardia -Currently patient is in normal sinus rhythm. -Patient follows up with Dr. Arevalo with regards to SVT. C. Diff colitis -Patient is still having a lot of diarrhea. -continue po Vancomycin -will add Questran Hypokalemia Hypocalcemia Hypomagnesemia -electrolytes replaced; will monitor the levels. anemia- due to dilution?- will monitor H/H; repeat the levels this evening. mild sob/ wheezing- due to fluid overload stop IV fluid- will give one dose of lasix Full code. Lovenox. Bari Kent MD January 31, 2018 10:21
[2018-01-31] MEDS ORDERED: FUROSEMIDE 20 MG/2 ML VIAL IV PUSH ONE (10:30)
[2018-01-31] MEDS: CHOLESTYRAMINE 4 GM PACKET PO SCH ×2 (10:40→20:54)
[2018-01-31] MEDS: ACETAMINOPHEN 325 MG TAB PO PRN (16:00)
[2018-01-31 18:26] LABS: HEMATOCRIT 25.1 % (35.0-46.0); HEMOGLOBIN 8.5 GM/DL (11.6-15.3)
[2018-02-01] VITALS (11 sets, daily range): BP systolic 161–188; BP diastolic 70–103; PULSE 90–105; RESP 16–20; TEMP 97.3–98.5; O2SAT 92–98
[2018-02-01] MEDS: ENOXAPARIN SODIUM 40 MG/0.4 ML SYRINGE SQ SCH ×2 (00:06→23:55)
[2018-02-01] MEDS: TEMAZEPAM 15 MG CAP PO PRN ×2 (00:06→23:55)
[2018-02-01] MEDS: cloNIDine HCL 0.1 MG TAB PO PRN ×2 (00:06→23:55)
[2018-02-01 05:45] LABS: HEMOGLOBIN 8.4 GM/DL (11.6-15.3)
[2018-02-01] MEDS: CHOLESTYRAMINE 4 GM PACKET PO SCH ×2 (08:35→20:43)
[2018-02-01] MEDS: POTASSIUM CHLORIDE 20 MEQ CONTROLLED RELEASE TAB PO SCH ×2 (08:36→20:45)
[2018-02-01] MEDS: ASPIRIN 81 MG CHEW TAB CHEW SCH (08:36)
[2018-02-01] MEDS: GABAPENTIN 300 MG CAP PO SCH ×2 (08:36→20:45)
[2018-02-01] MEDS: VANCOMYCIN 500 MG VIAL (FOR ORAL USE ONLY) PO SCH ×4 (08:36→20:51)
[2018-02-01] MEDS: PANTOPRAZOLE SOD 20 MG DELAYED RELEASE TAB PO SCH ×2 (08:36→20:51)
[2018-02-01] MEDS: METOPROLOL TARTRATE 25 MG TAB PO SCH (08:36)
[2018-02-01] MEDS: SODIUM CHLORIDE 0.9% FLUSH 10 ML FLUSH IV FLUSH SCH ×2 (09:00→20:55)
--- NOTE | 2018-02-01 10:57 | HHI.PR ---
Subjective Remarks in no acute distress. still with diarrhea. no fever or abdominal pain. mildly tachycardic- no chest pain or sob. Objective Vitals Vital Signs Date Time Temp Pulse Resp B/P (MAP) Pulse Ox O2 Delivery O2 Flow Rate FiO2 02/01/18 08:54 98.3 99 18 169/79 (109) 92 02/01/18 04:00 97.3 101 16 161/95 (117) 95 02/01/18 03:59 90 02/01/18 00:00 98.2 104 17 182/70 (107) 98 02/01/18 00:00 102 01/31/18 20:00 97.9 103 18 197/106 (136) 96 01/31/18 19:59 103 01/31/18 19:45 Room Air 01/31/18 18:18 93 21 01/31/18 16:00 98.0 99 17 190/82 (118) 96 01/31/18 15:49 95 01/31/18 12:00 97.8 90 17 198/110 (139) 93 01/31/18 11:34 95 I/O 01/31/18 01/31/18 01/31/18 02/01/18 02/01/18 02/01/18 07:00 15:00 23:00 07:00 15:00 23:00 Intake Total 760 ml 1050 ml Output Total 150 ml Balance 760 ml 900 ml Intake Oral 760 ml 1050 ml Output Urine Total 150 ml # Voids 4 3 # Bowel Movements 3 1 Result Diagram: 02/01/18 0525 01/31/18 0600 Imaging Last Impressions Chest X-Ray 01/29/18 [id number] Signed Impressions: CONCLUSION: The lungs are clear. Objective Remarks GENERAL: This is a well-nourished, well-developed patient, in no apparent distress. CARDIOVASCULAR: Regular rate and regular rhythm without murmurs, gallops, or rubs. RESPIRATORY: Clear to auscultation. Breath sounds equal bilaterally. No wheezes , rales, or rhonchi. GASTROINTESTINAL: Abdomen soft, non-tender, nondistended. Normal, active bowel sounds MUSCULOSKELETAL: Extremities without clubbing, cyanosis, or edema. NEURO: Alert & Oriented x4 to person, place, time, situation. Moves all ext x4 Medications and IVs Inpatient Medications Acetaminophen (Tylenol) 650 mg Q4H PRN PO ROTHMAN, fever, pain 1-4 Last administered on 01/31/18at 16:00; Start 01/30/18 at 01:00 Adenosine (Adenocard Inj) 6 mg ONCE ONCE IV PUSH Last administered on at 22:47; Start 01/29/18 at 22:45; Stop 01/29/18 at 22:47; Status DC Aspirin (Aspirin Chew) 81 mg DAILY CHEW Last administered on 02/01/18at 08:36; Start 01/30/18 at 09:00 Bisacodyl (Dulcolax Supp) 10 mg DAILY PRN RECTAL SEVERE CONSITIPATION / IF NPO ; Start 01/30/18 at 01:00 Calcium Gluconate 1 gm/Dextrose 110 ml @ 110 mls/hr ONCE ONCE IV Last administered on 01/30/18at 00:16; Start 01/30/18 at 00:15; Stop 01/30/18 at 01:14 ; Status DC Cholestyramine Resin (Questran 4 Gm Pkt) 4 gm Q12HR PO Last administered on at 08:35; Start 01/31/18 at 10:30 Clonidine (Catapres) 0.1 mg Q6H PRN PO SBP>160, DBP>90 Last administered on at 00:06; Start 01/31/18 at 23:45 Enoxaparin Sodium (Lovenox Inj) 40 mg Q24H SQ Last administered on 02/01/18at 00 :06; Start 01/30/18 at 01:00 Esmolol HCl/ Sodium Chloride 250 ml @ 6.75 mls/hr TITRATE PRN IV Blood Pressure Management; Start 01/29/18 at 23:30; Stop 01/30/18 at 03:25; Status DC Furosemide (Lasix Inj) 20 mg ONCE ONCE IV PUSH Last administered on 01/31/18at 10:40; Start 01/31/18 at 10:30; Stop 01/31/18 at 10:31; Status DC Gabapentin (Neurontin) 300 mg BID PO Last administered on 02/01/18at 08:36; Start 01/30/18 at 09:00 Lactulose (Lactulose Liq) 30 ml DAILY PRN PO SEVERE CONSITIPATION/ IF PO; Start 01/30/18 at 01:00 Magnesium Hydroxide (Milk Of Magnteena Liq) 30 ml Q12H PRN PO Mild constipation ; Start 01/30/18 at 01:00 Magnesium Sulfate/ Dextrose 100 ml @ 100 mls/hr ONCE ONCE IV Last administered on 01/30/18at 10:59; Start 01/30/18 at 09:00; Stop 01/30/18 at 09:59 ; Status DC Metoprolol Tartrate (Lopressor Inj) 5 mg ONCE ONCE IV PUSH Last administered on 01/29/18at 22:48; Start 01/29/18 at 22:45; Stop 01/29/18 at 22:47; Status DC Metoprolol Tartrate (Lopressor) 25 mg Q12HR PO Last administered on 02/01/18at 08:36; Start 01/30/18 at 09:00 Naloxone HCl (Narcan Inj) 0.4 mg UNSCH PRN IV PUSH SEE LABEL COMMENTS; Start at 01:00 Pantoprazole Sodium (Protonix) 20 mg BID PO Last administered on 02/01/18at 08: 36; Start 01/30/18 at 09:00 Potassium Chloride/Sodium Chloride 1,000 ml @ 125 mls/hr Q8H IV Last administered on 01/31/18at 08:46; Start 01/30/18 at 00:45; Stop 01/31/18 at 10:19 ; Status DC Potassium Chloride (KCl) 20 meq BID PO Last administered on 02/01/18 08:36; Start 01/30/18 at 09:00; Stop 02/04/18 at 08:59 Sennosides (Senokot) 17.2 mg Q12H PRN PO Moderate constipation; Start 01/30/18 at 01:00 Sodium Chloride (NS Flush) 2 ml BID IV FLUSH Last administered on 01/31/18at 20: 54; Start 01/30/18 at 09:00 Temazepam (Restoril) 15 mg HS PRN PO INSOMNIA Last administered on 02/01/18at 00 :06; Start 01/30/18 at 01:00 Vancomycin HCl (VANCOMYCIN for oral use only) 125 mg QID PO Last administered on 02/01/18at 08:36; Start 01/30/18 at 09:00 A/P Problem List: (1) Supraventricular tachycardia ICD Code: I47.1 - Supraventricular tachycardia (2) C. difficile colitis ICD Code: A04.72 - Enterocolitis due to Clostridium difficile, not specified as recurrent Assessment and Plan Supraventricular tachycardia -Currently patient is in normal sinus rhythm. -Patient follows up with Dr. Arevalo with regards to SVT. - will increase metoprolol C. Diff colitis -continue po Vancomycin - added Questran -send stool for C/S Hypokalemia Hypocalcemia Hypomagnesemia -electrolytes replaced; will monitor the levels. anemia- due to dilution?- H/H stable. mild sob/ wheezing- due to fluid overload- better. stopped IV fluid- Full code. Lovenox. Discharge Planning dc home tomorrow if diarrhea improves. Bari Kent MD February 01, 2018 10:57
[2018-02-01] MEDS: LOPERAMIDE HCL 2 MG CAP PO PRN (20:43)
[2018-02-01] MEDS: ACETAMINOPHEN 325 MG TAB PO PRN (20:44)
[2018-02-01] MEDS: METOPROLOL TARTRATE 50 MG TAB PO SCH (20:44)
[2018-02-02] VITALS (9 sets, daily range): BP systolic 135–170; BP diastolic 68–84; PULSE 80–96; RESP 14–20; TEMP 97.4–98.6; O2SAT 95–97
[2018-02-02] MEDS: cloNIDine HCL 0.1 MG TAB PO PRN (06:28)
[2018-02-02] MEDS: METOPROLOL TARTRATE 50 MG TAB PO SCH ×2 (09:17→23:07)
[2018-02-02] MEDS: CHOLESTYRAMINE 4 GM PACKET PO SCH (09:17)
[2018-02-02] MEDS: GABAPENTIN 300 MG CAP PO SCH ×2 (09:18→23:07)
[2018-02-02] MEDS: ASPIRIN 81 MG CHEW TAB CHEW SCH (09:18)
[2018-02-02] MEDS: PANTOPRAZOLE SOD 20 MG DELAYED RELEASE TAB PO SCH ×2 (09:18→23:07)
[2018-02-02] MEDS: POTASSIUM CHLORIDE 20 MEQ CONTROLLED RELEASE TAB PO SCH ×2 (09:18→23:07)
[2018-02-02] MEDS: SODIUM CHLORIDE 0.9% FLUSH 10 ML FLUSH IV FLUSH SCH ×2 (09:19→23:07)
[2018-02-02] MEDS: VANCOMYCIN 500 MG VIAL (FOR ORAL USE ONLY) PO SCH ×4 (09:19→23:07)
--- NOTE | 2018-02-02 11:19 | HHI.PR ---
Subjective Remarks in no acute distress. says that her diarrhea is getting better. has some swelling/ erythema and tenderness over the right hand/ doesn't report any trauma. no fever. Objective Vitals Vital Signs Date Time Temp Pulse Resp B/P (MAP) Pulse Ox O2 Delivery O2 Flow Rate FiO2 02/02/18 09:19 95 02/02/18 08:05 98.0 89 17 148/78 (101) 95 02/02/18 08:00 Room Air 02/02/18 04:09 83 02/02/18 04:08 97.4 80 14 170/79 (109) 95 02/02/18 00:18 96 02/01/18 23:49 98.5 96 16 188/103 (131) 95 02/01/18 20:15 Room Air 02/01/18 20:14 105 02/01/18 17:24 95 02/01/18 16:00 90 02/01/18 15:41 98.5 95 20 183/99 (127) 96 02/01/18 12:00 94 02/01/18 12:00 98.1 94 18 178/99 (125) 95 I/O 02/01/18 02/01/18 02/01/18 02/02/18 02/02/18 02/02/18 07:00 15:00 23:00 07:00 15:00 23:00 Intake Total 1050 ml 242 ml Output Total 150 ml Balance 900 ml 242 ml Intake Oral 1050 ml 240 ml IV Total 2 ml Output Urine Total 150 ml # Voids 3 2 4 # Bowel Movements 1 4 Result Diagram: 02/01/18 0525 01/31/18 0600 Imaging Last Impressions Chest X-Ray 01/29/18 [id number] Signed Impressions: CONCLUSION: The lungs are clear. Objective Remarks GENERAL: This is a well-nourished, well-developed patient, in no apparent distress. CARDIOVASCULAR: Regular rate and regular rhythm without murmurs, gallops, or rubs. RESPIRATORY: Clear to auscultation. Breath sounds equal bilaterally. No wheezes , rales, or rhonchi. GASTROINTESTINAL: Abdomen soft, non-tender, nondistended. Normal, active bowel sounds MUSCULOSKELETAL: Extremities without clubbing, cyanosis, or edema. NEURO: Alert & Oriented x4 to person, place, time, situation. Moves all ext x4 Medications and IVs Inpatient Medications Acetaminophen (Tylenol) 650 mg Q4H PRN PO ROTHMAN, fever, pain 1-4 Last administered on 02/01/18at 20:44; Start 01/30/18 at 01:00 Adenosine (Adenocard Inj) 6 mg ONCE ONCE IV PUSH Last administered on at 22:47; Start 01/29/18 at 22:45; Stop 01/29/18 at 22:47; Status DC Aspirin (Aspirin Chew) 81 mg DAILY CHEW Last administered on 02/02/18at 09:18; Start 01/30/18 at 09:00 Bisacodyl (Dulcolax Supp) 10 mg DAILY PRN RECTAL SEVERE CONSITIPATION / IF NPO ; Start 01/30/18 at 01:00 Calcium Gluconate 1 gm/Dextrose 110 ml @ 110 mls/hr ONCE ONCE IV Last administered on 01/30/18at 00:16; Start 01/30/18 at 00:15; Stop 01/30/18 at 01:14 ; Status DC Cholestyramine Resin (Questran 4 Gm Pkt) 4 gm Q12HR PO Last administered on at 09:17; Start 01/31/18 at 10:30 Clonidine (Catapres) 0.1 mg Q6H PRN PO SBP>160, DBP>90 Last administered on at 06:28; Start 01/31/18 at 23:45 Enoxaparin Sodium (Lovenox Inj) 40 mg Q24H SQ Last administered on 02/01/18at 23 :55; Start 01/30/18 at 01:00 Esmolol HCl/ Sodium Chloride 250 ml @ 6.75 mls/hr TITRATE PRN IV Blood Pressure Management; Start 01/29/18 at 23:30; Stop 01/30/18 at 03:25; Status DC Furosemide (Lasix Inj) 20 mg ONCE ONCE IV PUSH Last administered on 01/31/18at 10:40; Start 01/31/18 at 10:30; Stop 01/31/18 at 10:31; Status DC Gabapentin (Neurontin) 300 mg BID PO Last administered on 02/02/18at 09:18; Start 01/30/18 at 09:00 Lactulose (Lactulose Liq) 30 ml DAILY PRN PO SEVERE CONSITIPATION/ IF PO; Start 01/30/18 at 01:00 Loperamide HCl (Imodium) 2 mg Q6H PRN PO DIARRHEA Last administered on at 20:43; Start 02/01/18 at 11:00 Magnesium Hydroxide (Milk Of Magnteena Liq) 30 ml Q12H PRN PO Mild constipation ; Start 01/30/18 at 01:00 Magnesium Sulfate/ Dextrose 100 ml @ 100 mls/hr ONCE ONCE IV Last administered on 01/30/18at 10:59; Start 01/30/18 at 09:00; Stop 01/30/18 at 09:59 ; Status DC Metoprolol Tartrate (Lopressor Inj) 5 mg ONCE ONCE IV PUSH Last administered on 01/29/18at 22:48; Start 01/29/18 at 22:45; Stop 01/29/18 at 22:47; Status DC Metoprolol Tartrate (Lopressor) 50 mg Q12HR PO Last administered on 02/02/18at 09:17; Start 02/01/18 at 21:00 Naloxone HCl (Narcan Inj) 0.4 mg UNSCH PRN IV PUSH SEE LABEL COMMENTS; Start at 01:00 Pantoprazole Sodium (Protonix) 20 mg BID PO Last administered on 02/02/18at 09: 18; Start 01/30/18 at 09:00 Potassium Chloride/Sodium Chloride 1,000 ml @ 125 mls/hr Q8H IV Last administered on 01/31/18at 08:46; Start 01/30/18 at 00:45; Stop 01/31/18 at 10:19 ; Status DC Potassium Chloride (KCl) 20 meq BID PO Last administered on 02/02/18at 09:18; Start 01/30/18 at 09:00; Stop 02/04/18 at 08:59 Sennosides (Senokot) 17.2 mg Q12H PRN PO Moderate constipation; Start 01/30/18 at 01:00 Sodium Chloride (NS Flush) 2 ml BID IV FLUSH Last administered on 02/02/18at 09: 19; Start 01/30/18 at 09:00 Temazepam (Restoril) 15 mg HS PRN PO INSOMNIA Last administered on 02/01/18at 23 :55; Start 01/30/18 at 01:00 Vancomycin HCl (VANCOMYCIN for oral use only) 125 mg QID PO Last administered on 02/02/18at 09:19; Start 01/30/18 at 09:00 A/P Problem List: (1) Supraventricular tachycardia ICD Code: I47.1 - Supraventricular tachycardia (2) C. difficile colitis ICD Code: A04.72 - Enterocolitis due to Clostridium difficile, not specified as recurrent Assessment and Plan A/P Supraventricular tachycardia -Currently patient is in normal sinus rhythm. -Patient follows up with Dr. Dumont with regards to SVT. - increased metoprolol metoprolol recently treated C. Diff colitis -continue po Vancomycin cellulitis of the right hand; start on IV Ancef- keep the right hand elevated- obtain the soft tissue sonogram Hypokalemia/Hypocalcemia/Hypomagnesemia -electrolytes replaced. anemia- due to dilution?- H/H stable. mild sob/ wheezing- due to fluid overload- better. Full code. Lovenox. Discharge Planning dc home tomorrow if diarrhea/ cellulitis of the right hand improves. Bari Kent MD February 02, 2018 11:19
[2018-02-02] MEDS: ACETAMINOPHEN 325 MG TAB PO PRN ×3 (12:03→23:06)
[2018-02-02 12:58] LABS: AUTOMATED NEUTROPHIL # 6.7 TH/MM3 (1.8-7.7); BASOPHIL # 0.1 TH/MM3 (0-0.2); BASOPHIL % 1.1 % (0.0-2.0); EOSINOPHIL # 0.6 TH/MM3 (0-0.4); EOSINOPHIL % 6.3 % (0.0-4.0); HEMATOCRIT 25.1 % (35.0-46.0); HEMOGLOBIN 8.4 GM/DL (11.6-15.3); LYMPH % 13.2 % (9.0-44.0); LYMPHOCYTE # 1.2 TH/MM3 (1.0-4.8); MEAN CELL VOLUME 90.9 FL (80.0-100.0); MEAN CORPUSCULAR HEMOGLOBIN 30.4 PG (27.0-34.0); MEAN CORPUSCULAR HGB CONC 33.5 % (32.0-36.0); MEAN PLATELET VOLUME 8.1 FL (7.0-11.0); MONO % 8.9 % (0.0-8.0); MONOCYTE # 0.8 TH/MM3 (0-0.9); NEUT % 70.5 % (16.0-70.0); PLATELET COUNT 446 TH/MM3 (150-450); RED BLOOD COUNT 2.76 MIL/MM3 (4.00-5.30); RED CELL DISTRIBUTION WIDTH 14.4 % (11.6-17.2); WHITE BLOOD COUNT 9.5 TH/MM3 (4.0-11.0)
[2018-02-02] MEDS: LOPERAMIDE HCL 2 MG CAP PO PRN (23:07)
[2018-02-03] VITALS (11 sets, daily range): BP systolic 134–171; BP diastolic 69–88; PULSE 82–97; RESP 16–20; TEMP 97.8–98.4; O2SAT 97–98
[2018-02-03] MEDS: CHOLESTYRAMINE 4 GM PACKET PO SCH ×2 (00:23→09:18)
[2018-02-03] MEDS: TEMAZEPAM 15 MG CAP PO PRN ×2 (00:23→23:56)
[2018-02-03] MEDS: ENOXAPARIN SODIUM 40 MG/0.4 ML SYRINGE SQ SCH ×2 (00:24→23:57)
[2018-02-03] MEDS: ACETAMINOPHEN 325 MG TAB PO PRN ×3 (08:06→18:38)
[2018-02-03] MEDS: ASPIRIN 81 MG CHEW TAB CHEW SCH (09:11)
[2018-02-03] MEDS: METOPROLOL TARTRATE 50 MG TAB PO SCH ×2 (09:11→21:26)
[2018-02-03] MEDS: PANTOPRAZOLE SOD 20 MG DELAYED RELEASE TAB PO SCH ×2 (09:12→21:27)
[2018-02-03] MEDS: VANCOMYCIN 500 MG VIAL (FOR ORAL USE ONLY) PO SCH ×4 (09:12→21:27)
[2018-02-03] MEDS: POTASSIUM CHLORIDE 20 MEQ CONTROLLED RELEASE TAB PO SCH ×2 (09:12→21:27)
[2018-02-03] MEDS: GABAPENTIN 300 MG CAP PO SCH ×2 (09:12→21:27)
[2018-02-03] MEDS: SODIUM CHLORIDE 0.9% FLUSH 10 ML FLUSH IV FLUSH SCH ×2 (09:19→21:27)
--- NOTE | 2018-02-03 10:08 | HHI.PR ---
Subjective Remarks in no acute distress. diarrhea is better; stool is soft. no fever. redness of the right hand is better but still swollen and painful. d/w the RN. Objective Vitals Vital Signs Date Time Temp Pulse Resp B/P (MAP) Pulse Ox O2 Delivery O2 Flow Rate FiO2 02/03/18 08:00 98.1 91 16 134/74 (94) 97 02/03/18 04:00 Room Air 02/03/18 04:00 97.9 86 20 148/72 (97) 97 02/03/18 03:52 87 02/03/18 00:04 97 02/03/18 00:00 Room Air 02/03/18 00:00 98.4 95 20 171/88 (115) 98 02/02/18 20:05 89 02/02/18 20:00 Room Air 02/02/18 20:00 97.9 89 20 148/84 (105) 97 02/02/18 16:05 98.6 87 17 135/71 (92) 97 02/02/18 13:03 20 02/02/18 12:05 98.1 86 17 136/68 (90) 96 I/O 02/02/18 02/02/18 02/02/18 02/03/18 02/03/18 02/03/18 07:00 15:00 23:00 07:00 15:00 23:00 Intake Total 100 ml 720 ml 670 ml Output Total 200 ml Balance 100 ml 720 ml 470 ml Intake Oral 720 ml 470 ml IV Total 100 ml 200 ml Output Urine Total 200 ml # Voids 1 6 # Bowel Movements 2 4 Result Diagram: 02/02/18 1235 01/31/18 0600 Imaging Last Impressions Chest X-Ray 01/29/18 [id number] Signed Impressions: CONCLUSION: The lungs are clear. Objective Remarks GENERAL: This is a well-nourished, well-developed patient, in no apparent distress. CARDIOVASCULAR: Regular rate and regular rhythm without murmurs, gallops, or rubs. RESPIRATORY: Clear to auscultation. Breath sounds equal bilaterally. No wheezes , rales, or rhonchi. GASTROINTESTINAL: Abdomen soft, non-tender, nondistended. Normal, active bowel sounds MUSCULOSKELETAL: Extremities without clubbing, cyanosis, or edema. NEURO: Alert & Oriented x4 to person, place, time, situation. Moves all ext x4 Medications and IVs Inpatient Medications Acetaminophen (Tylenol) 650 mg Q4H PRN PO ROTHMAN, fever, pain 1-4 Last administered on 02/03/18at 08:06; Start 01/30/18 at 01:00 Adenosine (Adenocard Inj) 6 mg ONCE ONCE IV PUSH Last administered on at 22:47; Start 01/29/18 at 22:45; Stop 01/29/18 at 22:47; Status DC Aspirin (Aspirin Chew) 81 mg DAILY CHEW Last administered on 02/03/18at 09:11; Start 01/30/18 at 09:00 Bisacodyl (Dulcolax Supp) 10 mg DAILY PRN RECTAL SEVERE CONSITIPATION / IF NPO ; Start 01/30/18 at 01:00 Calcium Gluconate 1 gm/Dextrose 110 ml @ 110 mls/hr ONCE ONCE IV Last administered on 01/30/18at 00:16; Start 01/30/18 at 00:15; Stop 01/30/18 at 01:14 ; Status DC Cefazolin Sodium 1000 mg/Sodium Chloride 100 ml @ 200 mls/hr Q8H IV Last administered on 02/03/18at 04:00; Start 02/02/18 at 12:00 Cholestyramine Resin (Questran 4 Gm Pkt) 4 gm Q12HR PO Last administered on at 09:18; Start 01/31/18 at 10:30 Clonidine (Catapres) 0.1 mg Q6H PRN PO SBP>160, DBP>90 Last administered on at 06:28; Start 01/31/18 at 23:45 Enoxaparin Sodium (Lovenox Inj) 40 mg Q24H SQ Last administered on 02/03/18at 00 :24; Start 01/30/18 at 01:00 Esmolol HCl/ Sodium Chloride 250 ml @ 6.75 mls/hr TITRATE PRN IV Blood Pressure Management; Start 01/29/18 at 23:30; Stop 01/30/18 at 03:25; Status DC Furosemide (Lasix Inj) 20 mg ONCE ONCE IV PUSH Last administered on 01/31/18at 10:40; Start 01/31/18 at 10:30; Stop 01/31/18 at 10:31; Status DC Gabapentin (Neurontin) 300 mg BID PO Last administered on 02/03/18 09:12; Start 01/30/18 at 09:00 Lactulose (Lactulose Liq) 30 ml DAILY PRN PO SEVERE CONSITIPATION/ IF PO; Start 01/30/18 at 01:00 Loperamide HCl (Imodium) 2 mg Q6H PRN PO DIARRHEA Last administered on at 23:07; Start 02/01/18 at 11:00 Magnesium Hydroxide (Milk Of Magnesia Liq) 30 ml Q12H PRN PO Mild constipation ; Start 01/30/18 at 01:00 Magnesium Sulfate/ Dextrose 100 ml @ 100 mls/hr ONCE ONCE IV Last administered on 01/30/18at 10:59; Start 01/30/18 at 09:00; Stop 01/30/18 at 09:59 ; Status DC Metoprolol Tartrate (Lopressor Inj) 5 mg ONCE ONCE IV PUSH Last administered on 01/29/18at 22:48; Start 01/29/18 at 22:45; Stop 01/29/18 at 22:47; Status DC Metoprolol Tartrate (Lopressor) 50 mg Q12HR PO Last administered on 02/03/18 09:11; Start 02/01/18 at 21:00 Naloxone HCl (Narcan Inj) 0.4 mg UNSCH PRN IV PUSH SEE LABEL COMMENTS; Start at 01:00 Pantoprazole Sodium (Protonix) 20 mg BID PO Last administered on 02/03/18 09: 12; Start 01/30/18 at 09:00 Potassium Chloride/Sodium Chloride 1,000 ml @ 125 mls/hr Q8H IV Last administered on 01/31/18at 08:46; Start 01/30/18 at 00:45; Stop 01/31/18 at 10:19 ; Status DC Potassium Chloride (KCl) 20 meq BID PO Last administered on 02/03/18 09:12; Start 01/30/18 at 09:00; Stop 02/04/18 at 08:59 Sennosides (Senokot) 17.2 mg Q12H PRN PO Moderate constipation; Start 01/30/18 at 01:00 Sodium Chloride (NS Flush) 2 ml BID IV FLUSH Last administered on 5/29/18at 09: 19; Start 01/30/18 at 09:00 Temazepam (Restoril) 15 mg HS PRN PO INSOMNIA Last administered on 02/03/18at 00 :23; Start 01/30/18 at 01:00 Vancomycin HCl (VANCOMYCIN for oral use only) 125 mg QID PO Last administered on 02/03/18at 09:12; Start 01/30/18 at 09:00 A/P Problem List: (1) Supraventricular tachycardia ICD Code: I47.1 - Supraventricular tachycardia (2) C. difficile colitis ICD Code: A04.72 - Enterocolitis due to Clostridium difficile, not specified as recurrent Assessment and Plan A/P Supraventricular tachycardia -Currently patient is in normal sinus rhythm. -Patient follows up with Dr. Dumont with regards to SVT. - increased metoprolol recently treated C. Diff colitis- diarrhea is better. -continue po Vancomycin for now cellulitis of the right hand; started on IV Ancef- keep the right hand elevated - soft tissue sonogram pending. will consider hand surgery evaluation if no improvement within the next 24 hrs - Hypokalemia/Hypocalcemia/Hypomagnesemia -electrolytes replaced. anemia- due to dilution?- H/H stable. mild sob/ wheezing- due to fluid overload- better. Full code. Lovenox. Discharge Planning not ready for discharge today. Bari Kent MD February 03, 2018 10:08
--- NOTE | 2018-02-03 11:26 | RADRPT ---
EXAM DATE: 02/03/2018 10:49 AM EDT AGE/SEX: 72 years / Female INDICATIONS: Right wrist abcess. CLINICAL DATA: This is the patient's initial encounter. Patient reports that signs and symptoms have been present for 3 days and indicates a pain score of 8/10. Location: Laterality: MEDICAL/SURGICAL HISTORY: Hypertension. Chronic obstructive pulmonary disease. Diverticulitis . Hearing loss. Supraventricular tachycardia. Gastroesophageal reflux disease. Colon cancer. Back mckeon rgery. Hysterectomy. Cholecystectomy. Cardiac catheterization with stent. COMPARISON: POI, CTA UPPER EXTREMITY, 08/05/2017. . FINDINGS: Sonographic evaluation of the dorsal right hand demonstrates mild diffuse soft tissue swelling withou t focal fluid collections. There is echogenic shadowing lesion measuring 1.2 x 1.5 x 0.7 cm likely re flecting calcification corresponding to palpable abnormality. Patient reports the palpable abnormalit y is a chronic finding. CONCLUSION: 1. 1.2 x 1.5 x 0.7 cm calcified lesion in the dorsum of the right hand corresponding to apparent chr onic palpable abnormality. This finding is nonspecific but may reflect sequela of prior infection/hem orrhage or calcific tendinitis. If this lesion is enlarging, MRI of the wrist for further characteriz ation may be performed on an outpatient basis. 2. Mild soft tissue swelling without focal drainable fluid collections. Electronically signed by: Fazal Hanna MD 02/03/2018 11:24 AM EDT
[2018-02-03] MEDS ORDERED: Vancomycin Consult Pharmacy 1 EA OTHER SCH (14:00)
[2018-02-03] MEDS ORDERED: VANCOMYCIN INJ 1,000 MG in SODIUM CHLOR 0.9% 250 ML INJ 250 ML IV ONE (15:00)
[2018-02-03] MEDS: cloNIDine HCL 0.1 MG TAB PO PRN (23:56)
[2018-02-03] MEDS: LOPERAMIDE HCL 2 MG CAP PO PRN (23:56)
[2018-02-04] VITALS (7 sets, daily range): BP systolic 128–198; BP diastolic 63–93; PULSE 81–92; RESP 15–20; TEMP 97.6–98.2; O2SAT 95–98
[2018-02-04 07:27] LABS: CREATININE 0.78 MG/DL (0.50-1.00)
[2018-02-04] MEDS: ACETAMINOPHEN 325 MG TAB PO PRN (08:59)
[2018-02-04] MEDS: VANCOMYCIN 500 MG VIAL (FOR ORAL USE ONLY) PO SCH ×4 (09:00→23:03)
[2018-02-04] MEDS: SODIUM CHLORIDE 0.9% FLUSH 10 ML FLUSH IV FLUSH SCH ×2 (09:00→23:05)
[2018-02-04] MEDS: METOPROLOL TARTRATE 50 MG TAB PO SCH ×2 (09:00→23:05)
[2018-02-04] MEDS: GABAPENTIN 300 MG CAP PO SCH ×2 (09:00→23:05)
[2018-02-04] MEDS: PANTOPRAZOLE SOD 20 MG DELAYED RELEASE TAB PO SCH ×2 (09:01→23:04)
[2018-02-04] MEDS: ASPIRIN 81 MG CHEW TAB CHEW SCH (09:01)
--- NOTE | 2018-02-04 10:54 | HHI.PR ---
Subjective Remarks in no acute distress. no fever. right hand is still swollen, tender with some erythema- hasn't changed as much over the past 24 hrs. diarrhea has resolved. Objective Vitals Vital Signs Date Time Temp Pulse Resp B/P (MAP) Pulse Ox O2 Delivery O2 Flow Rate FiO2 02/04/18 04:00 86 02/04/18 04:00 97.8 83 15 170/86 (114) 96 02/04/18 04:00 Room Air 02/04/18 00:00 97.6 83 16 198/93 (128) 95 02/04/18 00:00 81 02/04/18 00:00 Room Air 02/03/18 20:00 Room Air 02/03/18 20:00 98.1 91 16 165/81 (109) 97 02/03/18 20:00 93 02/03/18 17:24 97 21 02/03/18 16:05 82 02/03/18 16:00 98.0 83 16 146/76 (99) 97 02/03/18 12:00 86 02/03/18 12:00 97.8 83 16 143/69 (93) 98 I/O 02/03/18 02/03/18 02/03/18 02/04/18 02/04/18 02/04/18 07:00 15:00 23:00 07:00 15:00 23:00 Intake Total 670 ml 1420 ml 400 ml Output Total 200 ml Balance 470 ml 1420 ml 400 ml Intake Oral 470 ml 1320 ml 400 ml IV Total 200 ml 100 ml Output Urine Total 200 ml # Voids 6 5 5 # Bowel Movements 4 3 1 Result Diagram: 02/02/18 1235 02/04/18 0631 Imaging Last Impressions Soft Tissue Ultrasound 02/03/18 0000 Signed Impressions: CONCLUSION: 1. 1.2 x 1.5 x 0.7 cm calcified lesion in the dorsum of the right hand corresp onding to apparent chronic palpable abnormality. This finding is nonspecific bu t may reflect sequela of prior infection/hemorrhage or calcific tendinitis. If this lesion is enlarging, MRI of the wrist for further characterization may be performed on an outpatient basis. 2. Mild soft tissue swelling without focal drainable fluid collections. Chest X-Ray 01/29/18 6058 Signed Impressions: CONCLUSION: The lungs are clear. Objective Remarks GENERAL: This is a well-nourished, well-developed patient, in no apparent distress. CARDIOVASCULAR: Regular rate and regular rhythm without murmurs, gallops, or rubs. RESPIRATORY: Clear to auscultation. Breath sounds equal bilaterally. No wheezes , rales, or rhonchi. GASTROINTESTINAL: Abdomen soft, non-tender, nondistended. Normal, active bowel sounds MUSCULOSKELETAL: Extremities without clubbing, cyanosis, or edema. NEURO: Alert & Oriented x4 to person, place, time, situation. Moves all ext x4 Medications and IVs Inpatient Medications Acetaminophen (Tylenol) 650 mg Q4H PRN PO ROTHMAN, fever, pain 1-4 Last administered on 02/04/18 08:59; Start 01/30/18 at 01:00 Adenosine (Adenocard Inj) 6 mg ONCE ONCE IV PUSH Last administered on at 22:47; Start 01/29/18 at 22:45; Stop 01/29/18 at 22:47; Status DC Aspirin (Aspirin Chew) 81 mg DAILY CHEW Last administered on 02/04/18at 09:01; Start 01/30/18 at 09:00 Bisacodyl (Dulcolax Supp) 10 mg DAILY PRN RECTAL SEVERE CONSITIPATION / IF NPO ; Start 01/30/18 at 01:00 Calcium Gluconate 1 gm/Dextrose 110 ml @ 110 mls/hr ONCE ONCE IV Last administered on 01/30/18at 00:16; Start 01/30/18 at 00:15; Stop 01/30/18 at 01:14 ; Status DC Cefazolin Sodium 1000 mg/Sodium Chloride 100 ml @ 200 mls/hr Q8H IV Last administered on 02/04/18at 04:02; Start 02/02/18 at 12:00 Cholestyramine Resin (Questran 4 Gm Pkt) 4 gm Q12HR PO Last administered on at 09:18; Start 01/31/18 at 10:30; Stop 02/03/18 at 13:56; Status DC Clonidine (Catapres) 0.1 mg Q6H PRN PO SBP>160, DBP>90 Last administered on at 23:56; Start 01/31/18 at 23:45 Enoxaparin Sodium (Lovenox Inj) 40 mg Q24H SQ Last administered on 02/03/18at 23 :57; Start 01/30/18 at 01:00 Esmolol HCl/ Sodium Chloride 250 ml @ 6.75 mls/hr TITRATE PRN IV Blood Pressure Management; Start 01/29/18 at 23:30; Stop 01/30/18 at 03:25; Status DC Furosemide (Lasix Inj) 20 mg ONCE ONCE IV PUSH Last administered on 01/31/18at 10:40; Start 01/31/18 at 10:30; Stop 01/31/18 at 10:31; Status DC Gabapentin (Neurontin) 300 mg BID PO Last administered on 02/04/18at 09:00; Start 01/30/18 at 09:00 Lactulose (Lactulose Liq) 30 ml DAILY PRN PO SEVERE CONSITIPATION/ IF PO; Start 01/30/18 at 01:00 Loperamide HCl (Imodium) 2 mg Q6H PRN PO DIARRHEA Last administered on at 23:56; Start 02/01/18 at 11:00 Magnesium Hydroxide (Milk Of Magnesia Liq) 30 ml Q12H PRN PO Mild constipation ; Start 01/30/18 at 01:00 Magnesium Sulfate/ Dextrose 100 ml @ 100 mls/hr ONCE ONCE IV Last administered on 01/30/18at 10:59; Start 01/30/18 at 09:00; Stop 01/30/18 at 09:59 ; Status DC Metoprolol Tartrate (Lopressor Inj) 5 mg ONCE ONCE IV PUSH Last administered on 01/29/18at 22:48; Start 01/29/18 at 22:45; Stop 01/29/18 at 22:47; Status DC Metoprolol Tartrate (Lopressor) 50 mg Q12HR PO Last administered on 02/04/18at 09:00; Start 02/01/18 at 21:00 Miscellaneous Information ([facility] Ordered Lab Info) SPECIFIC LAB TO BE ... ONCE ONCE .XX ; Start 02/06/18 at 14:45; Stop 02/06/18 at 14:46 Naloxone HCl (Narcan Inj) 0.4 mg UNSCH PRN IV PUSH SEE LABEL COMMENTS; Start at 01:00 Pantoprazole Sodium (Protonix) 20 mg BID PO Last administered on 02/04/18at 09: 01; Start 01/30/18 at 09:00 Pharmacy Profile Note 0 ml @ 0 mls/hr UNSCH OTHER ; Start 02/03/18 at 14:00 Potassium Chloride/Sodium Chloride 1,000 ml @ 125 mls/hr Q8H IV Last administered on 01/31/18at 08:46; Start 01/30/18 at 00:45; Stop 01/31/18 at 10:19 ; Status DC Potassium Chloride (KCl) 20 meq BID PO Last administered on 02/03/18at 21:27; Start 01/30/18 at 09:00; Stop 02/04/18 at 08:59; Status DC Sennosides (Senokot) 17.2 mg Q12H PRN PO Moderate constipation; Start 01/30/18 at 01:00 Sodium Chloride (NS Flush) 2 ml BID IV FLUSH Last administered on 02/04/18at 09: 00; Start 01/30/18 at 09:00 Temazepam (Restoril) 15 mg HS PRN PO INSOMNIA Last administered on 02/03/18at 23 :56; Start 01/30/18 at 01:00 Vancomycin HCl (VANCOMYCIN for oral use only) 125 mg QID PO Last administered on 02/04/18at 09:00; Start 01/30/18 at 09:00 Vancomycin HCl 750 mg/Sodium Chloride 257.5 ml @ 250 mls/hr Q24H IV ; Start at 15:00 Vancomycin HCl 1000 mg/Sodium Chloride 250 ml @ 250 mls/hr ONCE ONCE IV Last administered on 02/03/18at 15:15; Start 02/03/18 at 15:00; Stop 02/03/18 at 15:59 ; Status DC A/P Problem List: (1) Supraventricular tachycardia ICD Code: I47.1 - Supraventricular tachycardia (2) C. difficile colitis ICD Code: A04.72 - Enterocolitis due to Clostridium difficile, not specified as recurrent Assessment and Plan A/P Supraventricular tachycardia- resolved. -Currently patient is in normal sinus rhythm. -Patient follows up with Dr. Dumont with regards to SVT. - increased metoprolol recently treated C. Diff colitis- diarrhea is better. -continue po Vancomycin for now cellulitis of the right hand- hasn't changed as much despite antibiotic treatment. consult hand surgery- continue pain control. keep the right hand elevated. Hypokalemia/Hypocalcemia/Hypomagnesemia -electrolytes replaced. anemia- due to dilution?- H/H stable. mild sob/ wheezing- due to fluid overload- resolved. Full code. Lovenox. Discharge Planning not ready for discharge today. hand surgery consulted. Bari Kent MD February 04, 2018 10:54
[2018-02-04] MEDS: PIPERACIL-TAZO 3.375 GM PREMIX 50 ML IV SCH ×2 (12:36→23:01)
[2018-02-04] MEDS: KETOROLAC TROMETHAMINE 30 MG/ML (IVP) VIAL IV PUSH PRN ×2 (12:36→18:49)
[2018-02-04] MEDS: VANCOMYCIN INJ 750 MG in SODIUM CHLOR 0.9% 250 ML INJ 250 ML IV SCH (15:25)
--- NOTE | 2018-02-04 19:57 | MB ---
cc: Sathish Garcia MD, Srikanth MD DATE: 02/04/2018 REASON FOR CONSULTATION: Right wrist and hand infection. HISTORY OF PRESENT ILLNESS: The patient is a 72-year-old right hand dominant female admitted to the hospital for irregular heartbeat about 5 days ago, was noticed to have pain, swelling and redness over the dorsal aspect of the right hand and wrist 2-3 days ago. The patient was started on antibiotics and hand surgery was consulted as there was no improvement in pain symptoms. The patient complains of pain, swelling, redness involving the right hand and wrist. She also complains of worsening pain with range of motion. Denies any injury. Denies any history of penetrating injury over the region. Denies any fever. The patient gives a history of a mass over the dorsal aspect of the right wrist of several years duration, which was asymptomatic. She now states the mass is tender to touch. She denies any tingling or numbness. Denies any drainage. Denies any history of similar complaints in the past. PAST MEDICAL HISTORY: Reviewed. Significant for SVT, COPD, diverticulitis, hypertension. C. diff colitis. PAST SURGICAL HISTORY: Significant for cholecystectomy, hysterectomy and back surgery. PHYSICAL EXAMINATION: GENERAL: The patient is alert, oriented x3. Examination of right upper extremity reveals a mass over the dorsal ulnar aspect of the wrist, just distal to the ulnar styloid process region. There is evidence of swelling and redness involving whole of the dorsal aspect of the wrist and hand. Minimal swelling of the fingers noted. Increased warmth noted over the region. Mass is palpable over the dorsal ulnar aspect of the wrist, measures about 2 cm and tender to palpate and mobile, hard in consistency. Transillumination test is negative. She has diffuse tenderness over the dorsal aspect of the wrist and the hand. Wrist range of motion is painful and limited. Finger range of motion is limited and painful. Forearm rotations are painful and limited. No fluctuation noted over the region. She has intact distal capillary refill. She has intact distal sensation. LABORATORY DATA: She has a white count of 9.5 and a neutrophil shift of 70%. IMAGING STUDIES: The patient had ultrasound of the right hand and wrist that shows a 1.2 x 1.5 x 0.7 cm calcified lesion in the dorsal aspect of the right hand and wrist corresponding to apparent chronic palpable abnormality. This finding is nonspecific, but may reflect a sequelae of prior infection, hemorrhage or calcific tendinitis. She has mild soft tissue swelling without any focal drainable fluid collection over the dorsal aspect of the hand or wrist. ASSESSMENT AND PLAN: A 72-year-old female with extensor tenosynovitis/cellulitis right hand and wrist. Plan will be to continue with antibiotics, obtain infectious disease consult, as there is no evidence of drainable collection. We will continue with IV antibiotics, limb elevation and observation. If there is no improvement in symptoms, we will proceed with incision and drainage. Sathish Garcia MD SE/ , 07:04 PM , 07:55 PM LEXIE
[2018-02-05] VITALS: BP 170/85; PULSE 85; PULSE 87; RESP 18; TEMP 98.4; O2SAT 97
[2018-02-05] MEDS: ENOXAPARIN SODIUM 40 MG/0.4 ML SYRINGE SQ SCH (01:05)
[2018-02-05] MEDS: TEMAZEPAM 15 MG CAP PO PRN (01:05)
[2018-02-05] MEDS: cloNIDine HCL 0.1 MG TAB PO PRN (02:45)
[2018-02-05 04:00] VITALS: BP 157/86; PULSE 76; PULSE 98; RESP 18; TEMP 98.4; O2SAT 98
[2018-02-05] MEDS: PIPERACIL-TAZO 3.375 GM PREMIX 50 ML IV SCH ×2 (04:43→13:19)
[2018-02-05 08:00] VITALS: BP 142/85; PULSE 85; PULSE 91; RESP 16; TEMP 98.5; O2SAT 97
[2018-02-05] MEDS: METOPROLOL TARTRATE 50 MG TAB PO SCH ×2 (09:32→22:19)
[2018-02-05] MEDS: ASPIRIN 81 MG CHEW TAB CHEW SCH (09:32)
[2018-02-05] MEDS: VANCOMYCIN 500 MG VIAL (FOR ORAL USE ONLY) PO SCH ×4 (09:32→22:18)
[2018-02-05] MEDS: GABAPENTIN 300 MG CAP PO SCH ×2 (09:32→22:19)
[2018-02-05] MEDS: PANTOPRAZOLE SOD 20 MG DELAYED RELEASE TAB PO SCH ×2 (09:32→22:20)
[2018-02-05] MEDS: KETOROLAC TROMETHAMINE 30 MG/ML (IVP) VIAL IV PUSH PRN ×2 (09:33→16:28)
[2018-02-05] MEDS: SODIUM CHLORIDE 0.9% FLUSH 10 ML FLUSH IV FLUSH SCH ×2 (09:34→22:20)
--- NOTE | 2018-02-05 10:04 | PD.ID.CON ---
History of Present Illness Service Infectious disease Consult Requested By Hospitalist service - Dr. Kent Reason for Consult Cellulitis right hand Primary Care Physician Silvino Bennett MD Diagnoses: History of Present Illness Patient seen and examined on behalf of Dr. Ahn This is a 72yo female with PMHX of supraventricular tachycardia who presented to the emergency department due to palpitations secondary to SVT and was treated with adenosine. While in the hospital, she developed increased pain, redness and swelling of the dorsal aspect of the right hand. She has a history of a mass over the dorsal aspect of the right wrist that developed several years ago. She denies any known trauma to the area. She denies the mass has been enlarging. She has not had any treatment in the past to the mass. She denies any associated fever, chills, numbness, tingling, erythema, drainage or pain associated with the mass until this admission. She does report it was bothersome because she would hit it on things. She has a history of recent Cdiff infection and was admitted at [facility] for 2 weeks then transferred to rehab about a week ago before being sent to our ED for irregular heart beat and palpitations. She was on Vancomycin at the rehab facility. Testing for Cdiff was negative here. Patient suddenly developed pain, swelling and redness of the right right hand and wrist that has improved some since she was started on IV antibiotics. She was initially treated with IV Ancef starting on 02/02 but was changed to IV Zosyn yesterday. Imaging revealed 1.2 x 1.5 x 0.7 cm calcified lesion in the dorsal aspect of the right hand and wrist with mild soft tissue swelling without any drainable fluid collection. Patient has been seen in consultation by Dr. Garcia who is observing the patient currently as no drainable fluid collection is apparent. Infectious disease consultation has been requested for evaluation and management of right hand cellulitis. Patient has not had any fever. Her white count was 13.6 at ED presentation but has been within normal limits since. She denies any fever or chills. She denies any nausea, vomiting or abdominal pain. She continues to have pain in the right hand and wrist. She reports loose stools but states her stooling is much improved since her admission at [facility]. (Jaylene Kraft) Review of Systems Except as stated in HPI: all other systems reviewed are Neg (Jaylene Kraft) Past Family Social History Allergies: Coded Allergies: No Known Allergies (Unverified , 01/29/18) Past Medical History Supraventricular tachycardia colon cancer COPD diverticulitis hypertension C. difficile colitis Past Surgical History Cholecystectomy Hysterectomy Back surgery with instrumentation Left sided subclavian stent implant Reported Medications Zofran Odt (Ondansetron Odt) 8 Mg Tab 8 Mg SL Q8HR Tylenol (Acetaminophen) 325 Mg Tab 650 Mg PO Q6H PRN Restoril (Temazepam) 15 Mg Cap 15 Mg PO HS PRN Omeprazole 10 Mg Cap 10 Mg PO BID Multiple Vitamin 1 Tab 1 Tab PO DAILY Metoprolol Tartrate 50 Mg Tab 50 Mg PO DAILY Losartan (Losartan Potassium) 100 Mg Tab 100 Mg PO DAILY Loperamide (Loperamide HCl) 2 Mg Cap 2 Mg PO DIRECTED PRN One capsule after each loose stool. Not to exceed 8 capsules per day. Ipratropium Neb (Ipratropium [place]) 0.5 Mg/2.5 Ml Amp 0.5 Mg NEB Q6HR NEB PRN Gabapentin 300 Mg Cap 300 Mg PO BID Invanz Inj (Ertapenem) 1 Gm Addvial 1 Gm IV Q24H ADMINISTER IN 100ML NS Breo Ellipta Inh (Fluticasone/Vilanterol) 100-25 Mcg/Act Inh 1 Puff INH DAILY Use daily at the same time. Aspirin 81 Mg Chew 81 Mg CHEW DAILY Active Ordered Medications IV Zosyn PO Vanco Current Medications Medications (Trade) Dose Ordered Sig/Nichelle Route Start Time Stop Time Status Last Admin (NS Flush) 2 ml UNSCH PRN IV FLUSH 01/30/18 01:00 (NS Flush) 2 ml BID IV FLUSH 01/30/18 09:00 02/05/18 09:34 (Tylenol) 650 mg Q4H PRN PO 01/30/18 01:00 02/04/18 08:59 (Lovenox Inj) 40 mg Q24H SQ 01/30/18 01:00 02/05/18 01:05 (Narcan Inj) 0.4 mg UNSCH PRN IV PUSH 01/30/18 01:00 (Milk Of Magnesia Liq) 30 ml Q12H PRN PO 01/30/18 01:00 (Senokot) 17.2 mg Q12H PRN PO 01/30/18 01:00 (Dulcolax Supp) 10 mg DAILY PRN RECTAL 01/30/18 01:00 (Lactulose Liq) 30 ml DAILY PRN PO 01/30/18 01:00 (Aspirin Chew) 81 mg DAILY CHEW 01/30/18 09:00 02/05/18 09:32 (Neurontin) 300 mg BID PO 01/30/18 09:00 02/05/18 09:32 (Restoril) 15 mg HS PRN PO 01/30/18 01:00 02/05/18 01:05 (Protonix) 20 mg BID PO 01/30/18 09:00 02/05/18 09:32 (VANCOMYCIN for oral use only) 125 mg QID PO 01/30/18 09:00 02/05/18 09:32 (Catapres) 0.1 mg Q6H PRN PO 01/31/18 23:45 02/05/18 02:45 (Lopressor) 50 mg Q12HR PO 02/01/18 21:00 02/05/18 09:32 (Imodium) 2 mg Q6H PRN PO 02/01/18 11:00 02/03/18 23:56 Pharmacy Profile Note 0 ml @ 0 mls/hr UNSCH OTHER 02/03/18 14:00 Vancomycin HCl 750 mg/Sodium Chloride 257.5 ml @ 250 mls/hr Q24H IV 02/04/18 15:00 02/04/18 15:25 ([facility] Ordered Lab Info) SPECIFIC LAB TO BE JORDAN... ONCE ONCE .XX 02/06/18 14:45 02/06/18 14:46 Piperacillin Sod/ Tazobactam Sod 50 ml @ 100 mls/hr Q8H IV 02/04/18 12:00 02/05/18 04:43 (Toradol Inj) 15 mg Q6HR PRN IV PUSH 02/04/18 11:00 02/09/18 10:59 02/05/18 09:33 Family History Reviewed with patient and noncontributory Social History Patient smokes 1/2 ppd. She reports 3 alcoholic beverages daily. She denies any illicit drug use. (Jaylene Kraft) Physical Exam Vital Signs Vital Signs Date Time Temp Pulse Resp B/P (MAP) Pulse Ox O2 Delivery O2 Flow Rate FiO2 5/31/18 04:00 98.4 76 18 157/86 (109) 98 02/05/18 04:00 98 02/05/18 00:00 98.4 87 18 170/85 (113) 97 02/05/18 00:00 85 02/04/18 20:00 92 02/04/18 20:00 97.9 89 20 159/72 (101) 95 02/04/18 20:00 Room Air 02/04/18 16:00 82 02/04/18 16:00 98.2 82 16 160/72 (101) 98 02/04/18 13:49 98 21 02/04/18 12:00 98.1 82 16 128/63 (84) 97 02/04/18 12:00 84 Physical Exam GENERAL: This is a well-nourished, well-developed elderly female patient, in no apparent distress. SKIN: No rashes, ecchymoses or lesions. Cool and dry. HEAD: Atraumatic. Normocephalic. No temporal or scalp tenderness. EYES: Pupils equal round and reactive. Extraocular motions intact. No scleral icterus. No injection or drainage. ENT: Nose without bleeding, purulent drainage or septal hematoma. Throat without erythema, tonsillar hypertrophy or exudate. Uvula midline. Airway patent. Upper and lower lips edematous and reddened with chapped skin. NECK: Trachea midline. No JVD or lymphadenopathy. Supple, nontender, no meningeal signs. CARDIOVASCULAR: Regular rate and rhythm without murmurs, gallops, or rubs. RESPIRATORY: Clear to auscultation. Breath sounds equal bilaterally. No wheezes , rales, or rhonchi. GASTROINTESTINAL: Abdomen soft, non-tender, nondistended. No hepato-splenomegaly , or palpable masses. No guarding. MUSCULOSKELETAL: Extremities without clubbing or cyanosis. No BLE edema noted. +edema and mild erythema on the dorsal aspect of the right hand extending distally over the MCP joints and proximally to the wrist, tender to palpation, + warmth. + 2x2cm tender firm mobile mass over the dorsal ulnar aspect of the right wrist. Decreased ROM, unable to make a fist, secondary to pain. NEUROLOGICAL: Awake and alert. Cranial nerves II through XII intact. Motor and sensory grossly within normal limits except right hand. No focal neurologic findings appreciated. Normal speech. PSYCHIATRIC: Calm and cooperative PIV with no e/o infection (Jaylene Kraft) Result Diagram: 02/02/18 1235 02/04/18 0631 Imaging Last Impressions Soft Tissue Ultrasound 02/03/18 0000 Signed Impressions: CONCLUSION: 1. 1.2 x 1.5 x 0.7 cm calcified lesion in the dorsum of the right hand corresp onding to apparent chronic palpable abnormality. This finding is nonspecific bu t may reflect sequela of prior infection/hemorrhage or calcific tendinitis. If this lesion is enlarging, MRI of the wrist for further characterization may be performed on an outpatient basis. 2. Mild soft tissue swelling without focal drainable fluid collections. Chest X-Ray 01/29/18 2248 Signed Impressions: CONCLUSION: The lungs are clear. (Jaylene Kraft) Assessment and Plan Assessment and Plan Right hand/wrist extensor cellulitis Right hand/wrist extensor tenosynovitis Mass dorsal ulnar aspect right wrist -US shows 1.2 x 1.5 x 0.7 cm calcified lesion in the dorsal aspect of the right hand and wrist Recent C diff infection, still on po Vancomycin RECS: Continue on po Vancomycin Continue on IV Zosyn Keep right hand elevated Monitor for clinical improvement Follow up on Dr. Garcia's recommendations (Jaylene Kraft) Assessment and Plan The exam, history, and the medical decision-making described in the above note were completed with the assistance of the mid-level provider. I reviewed and agree with the findings presented. I attest that I had a [id number] encounter with the patient on the same day, and personally performed and documented my assessment and findings in the medical record. dw patient and . showed me images from yesterday. Significantly improved since yesterday but still swollen. No fevers No rash No diarrhea On Exam CTA BL Right hand with swelling, induration and tenderness noted. Central bone spur like growth patient reports as present for years. aware and thinks likely calcification. Elevate hand Continue Vanco IV DC Zosyn IV Continue oral vanco for recent Cdiff. PCR can be negative as she was on Rx for 2 weeks prior to admission. While on systemic abx would recommend continuing vanco oral to prevent flare ups. Will follow along. (Aparna Ahn MD) Jaylene Kraft February 05, 2018 10:04 Aparna Ahn MD February 05, 2018 18:43
--- NOTE | 2018-02-05 11:02 | HHI.PR ---
Subjective Remarks f/u hand pain hand pain stable, not better, still swollen, no fever, denies sob Objective Vitals Vital Signs Date Time Temp Pulse Resp B/P (MAP) Pulse Ox O2 Delivery O2 Flow Rate FiO2 02/05/18 08:00 85 02/05/18 08:00 98.5 91 16 142/85 (104) 97 02/05/18 04:00 98.4 76 18 157/86 (109) 98 02/05/18 04:00 98 02/05/18 00:00 98.4 87 18 170/85 (113) 97 02/05/18 00:00 85 02/04/18 20:00 92 02/04/18 20:00 97.9 89 20 159/72 (101) 95 02/04/18 20:00 Room Air 02/04/18 16:00 82 02/04/18 16:00 98.2 82 16 160/72 (101) 98 02/04/18 13:49 98 21 02/04/18 12:00 98.1 82 16 128/63 (84) 97 02/04/18 12:00 84 I/O 02/04/18 02/04/18 02/04/18 02/05/18 02/05/18 02/05/18 06:59 14:59 22:59 06:59 14:59 22:59 Intake Total 400 ml Balance 400 ml Intake Oral 400 ml # Voids 5 2 # Bowel Movements 1 5 1 Result Diagram: 02/02/18 1235 02/04/18 0631 Imaging Last Impressions Soft Tissue Ultrasound 02/03/18 0000 Signed Impressions: CONCLUSION: 1. 1.2 x 1.5 x 0.7 cm calcified lesion in the dorsum of the right hand corresp onding to apparent chronic palpable abnormality. This finding is nonspecific bu t may reflect sequela of prior infection/hemorrhage or calcific tendinitis. If this lesion is enlarging, MRI of the wrist for further characterization may be performed on an outpatient basis. 2. Mild soft tissue swelling without focal drainable fluid collections. Chest X-Ray 01/29/18 9802 Signed Impressions: CONCLUSION: The lungs are clear. Objective Remarks GENERAL: This is a well-nourished, well-developed patient, in no apparent distress. CARDIOVASCULAR: Regular rate and regular rhythm without murmurs, gallops, or rubs. RESPIRATORY: Clear to auscultation. Breath sounds equal bilaterally. GASTROINTESTINAL: Abdomen soft, non-tender, nondistended. MUSCULOSKELETAL:R hand swollen, warm reid dorsal surface, erythematous, tender, decreased ROM. L hand normal NEURO: Alert & Oriented x4 to person, place, time, situation. Moves all ext x4 A/P Problem List: (1) Supraventricular tachycardia ICD Code: I47.1 - Supraventricular tachycardia (2) C. difficile colitis ICD Code: A04.72 - Enterocolitis due to Clostridium difficile, not specified as recurrent Assessment and Plan A/P Supraventricular tachycardia- resolved. -Currently patient is in normal sinus rhythm. -Patient follows up with Dr. Dumont with regards to SVT. Cont metoprolol recently treated C. Diff colitis- diarrhea is better, continue po Vancomycin for now Cellulitis/tenosynovitis of the right hand- hasn't changed as much despite antibiotic treatment. Hand surgery saw the patient, recommended to observe on ABx, if no response, will do I&D, US hand showed chronic calcification. Cont Vancomycin IV and Zosyn Hypokalemia/Hypocalcemia/Hypomagnesemia -electrolytes replaced. anemia- due to dilution?- H/H stable. mild sob/ wheezing- due to fluid overload- resolved. Full code. Lovenox. Discharge Planning dc back to [facility] once cleared by Hand Tae Dumont MD February 05, 2018 11:02
[2018-02-05 12:00] VITALS: BP 145/71; PULSE 83; RESP 16; TEMP 98.3; O2SAT 98
[2018-02-05] MEDS: VANCOMYCIN INJ 750 MG in SODIUM CHLOR 0.9% 250 ML INJ 250 ML IV SCH (15:43)
[2018-02-05 16:00] VITALS: BP 172/79; PULSE 79; PULSE 83; RESP 18; TEMP 98.1; O2SAT 98
[2018-02-05 20:00] VITALS: BP 168/82; PULSE 81; RESP 16; TEMP 97.9; O2SAT 95
--- NOTE | 2018-02-05 21:40 | HHI.PR ---
Subjective Remarks pain better decreased swelling no numbness no fever Objective Vital Signs Date Time Temp Pulse Resp B/P (MAP) Pulse Ox O2 Delivery O2 Flow Rate FiO2 02/05/18 17:27 Room Air 02/05/18 16:00 98.1 83 18 172/79 (110) 98 02/05/18 16:00 79 02/05/18 12:00 83 02/05/18 12:00 Room Air 02/05/18 12:00 98.3 83 16 145/71 (95) 98 02/05/18 08:30 Room Air 02/05/18 08:00 85 02/05/18 08:00 98.5 91 16 142/85 (104) 97 02/05/18 04:00 98.4 76 18 157/86 (109) 98 02/05/18 04:00 98 02/05/18 00:00 98.4 87 18 170/85 (113) 97 02/05/18 00:00 85 I/O 02/04/18 02/04/18 02/04/18 02/05/18 02/05/18 02/05/18 06:59 14:59 22:59 06:59 14:59 22:59 Intake Total 400 ml 480 ml Output Total 100 ml Balance 400 ml 380 ml Intake Oral 400 ml 480 ml Output Urine Total 100 ml # Voids 5 2 # Bowel Movements 1 5 1 3 right hand and wrist: decreased swelling and erythema mass noted over the dorsoulnar aspect of the wrist mass is tender no fluctuation noted able to make a better fist intact sensation distally Result Diagram: 02/02/18 1235 02/04/18 0631 Assessment and Plan Assessment and Plan 72 year old female with improving extensor tenosynovitis/cellulitis with mass over the dorso ulnar aspect of the right wrist Plan: continue with antibiotics based on ID recommendations keep the part elevated active range of motion exercises hand surgery will follow. Sathish Garcia MD February 05, 2018 21:40
[2018-02-06] VITALS (9 sets, daily range): BP systolic 154–194; BP diastolic 62–101; PULSE 77–98; RESP 18–20; TEMP 97.8–98.3; O2SAT 95–98
[2018-02-06] MEDS: TEMAZEPAM 15 MG CAP PO PRN (00:23)
[2018-02-06] MEDS: ENOXAPARIN SODIUM 40 MG/0.4 ML SYRINGE SQ SCH (00:23)
[2018-02-06] MEDS: KETOROLAC TROMETHAMINE 30 MG/ML (IVP) VIAL IV PUSH PRN ×3 (05:23→21:05)
[2018-02-06 07:59] LABS: CREATININE 0.82 MG/DL (0.50-1.00)
[2018-02-06] MEDS: SODIUM CHLORIDE 0.9% FLUSH 10 ML FLUSH IV FLUSH SCH ×2 (08:51→20:15)
[2018-02-06] MEDS: ASPIRIN 81 MG CHEW TAB CHEW SCH (08:51)
[2018-02-06] MEDS: GABAPENTIN 300 MG CAP PO SCH ×2 (08:52→20:14)
[2018-02-06] MEDS: VANCOMYCIN 500 MG VIAL (FOR ORAL USE ONLY) PO SCH ×3 (08:52→21:05)
[2018-02-06] MEDS: PANTOPRAZOLE SOD 20 MG DELAYED RELEASE TAB PO SCH (08:52)
[2018-02-06] MEDS: METOPROLOL TARTRATE 50 MG TAB PO SCH ×2 (08:52→20:14)
[2018-02-06] MEDS: LOPERAMIDE HCL 2 MG CAP PO PRN (08:59)
--- NOTE | 2018-02-06 09:15 | HHI.IDPN ---
Subjective Subjective Remarks Patient seen and examined on behalf of Dr. Ahn This is a 72yo female with PMHX of supraventricular tachycardia who presented to the emergency department due to palpitations secondary to SVT and was treated with adenosine. While in the hospital, she developed increased pain, redness and swelling of the dorsal aspect of the right hand. She has a history of a mass over the dorsal aspect of the right wrist that developed several years ago. She denies any known trauma to the area. She denies the mass has been enlarging. She has not had any treatment in the past to the mass. She denies any associated fever, chills, numbness, tingling, erythema, drainage or pain associated with the mass until this admission. She does report it was bothersome because she would hit it on things. She has a history of recent Cdiff infection and was admitted at [facility] for 2 weeks then transferred to rehab about a week ago before being sent to our ED for irregular heart beat and palpitations. She was on Vancomycin at the rehab facility. Testing for Cdiff was negative here. Patient suddenly developed pain, swelling and redness of the right right hand and wrist that has improved some since she was started on IV antibiotics. She was initially treated with IV Ancef starting on 02/02 but was changed to IV Zosyn yesterday. Imaging revealed 1.2 x 1.5 x 0.7 cm calcified lesion in the dorsal aspect of the right hand and wrist with mild soft tissue swelling without any drainable fluid collection. Patient has been seen in consultation by Dr. Garcia who is observing the patient currently as no drainable fluid collection is apparent. Infectious disease consultation has been requested for evaluation and management of right hand cellulitis. Patient has not had any fever. Her white count was 13.6 at ED presentation but has been within normal limits since. She denies any fever or chills. She denies any nausea, vomiting or abdominal pain. She continues to have pain in the right hand and wrist. She reports loose stools but states her stooling is much improved since her admission at [facility]. Notes reviewed patient reports right hand swelling has improved but still very painful no fever or chills no rash no N/V +diarrhea, reports 4-5 loose stools this morning and states she has to go again afebrile WBC WNL 02/02 BCX pending Antibiotics IV Vanco Current Medications Medications (Trade) Dose Ordered Sig/Nichelle Route Start Time Stop Time Status Last Admin (NS Flush) 2 ml UNSCH PRN IV FLUSH 01/30/18 01:00 (NS Flush) 2 ml BID IV FLUSH 01/30/18 09:00 02/06/18 08:51 (Tylenol) 650 mg Q4H PRN PO 01/30/18 01:00 02/04/18 08:59 (Lovenox Inj) 40 mg Q24H SQ 01/30/18 01:00 02/06/18 00:23 (Narcan Inj) 0.4 mg UNSCH PRN IV PUSH 01/30/18 01:00 (Milk Of Magnesia Liq) 30 ml Q12H PRN PO 01/30/18 01:00 (Senokot) 17.2 mg Q12H PRN PO 01/30/18 01:00 (Dulcolax Supp) 10 mg DAILY PRN RECTAL 01/30/18 01:00 (Lactulose Liq) 30 ml DAILY PRN PO 01/30/18 01:00 (Aspirin Chew) 81 mg DAILY CHEW 01/30/18 09:00 02/06/18 08:51 (Neurontin) 300 mg BID PO 01/30/18 09:00 02/06/18 08:52 (Restoril) 15 mg HS PRN PO 01/30/18 01:00 02/06/18 00:23 (Protonix) 20 mg BID PO 01/30/18 09:00 02/06/18 08:52 (VANCOMYCIN for oral use only) 125 mg QID PO 01/30/18 09:00 02/05/18 22:18 (Catapres) 0.1 mg Q6H PRN PO 01/31/18 23:45 02/05/18 02:45 (Lopressor) 50 mg Q12HR PO 02/01/18 21:00 02/06/18 08:52 (Imodium) 2 mg Q6H PRN PO 02/01/18 11:00 02/06/18 08:59 Pharmacy Profile Note 0 ml @ 0 mls/hr UNSCH OTHER 02/03/18 14:00 Vancomycin HCl 750 mg/Sodium Chloride 257.5 ml @ 250 mls/hr Q24H IV 02/04/18 15:00 02/05/18 15:43 ([facility] Ordered Lab Info) SPECIFIC LAB TO BE JORDAN... ONCE ONCE .XX 02/06/18 14:45 02/06/18 14:46 (Toradol Inj) 15 mg Q6HR PRN IV PUSH 02/04/18 11:00 02/09/18 10:59 02/06/18 05:23 Lines PIV with no e/o infection Past Medical History Supraventricular tachycardia colon cancer COPD diverticulitis hypertension C. difficile colitis (Jaylene Kraft) Allergies: Coded Allergies: No Known Allergies (Unverified , 01/29/18) Objective . Vital Signs Date Time Temp Pulse Resp B/P (MAP) Pulse Ox O2 Delivery O2 Flow Rate FiO2 02/06/18 04:00 98.3 88 18 158/62 (94) 95 02/06/18 00:00 98.0 81 18 166/90 (115) 97 02/05/18 20:00 Room Air 02/05/18 20:00 97.9 81 16 168/82 (110) 95 02/05/18 17:27 Room Air 02/05/18 16:00 98.1 83 18 172/79 (110) 98 02/05/18 16:00 79 02/05/18 12:00 83 02/05/18 12:00 Room Air 02/05/18 12:00 98.3 83 16 145/71 (95) 98 . Laboratory Tests Test 02/05/18 10:20 02/06/18 06:15 C-Reactive Protein 4.70 MG/DL Creatinine 0.82 MG/DL Estimat Glomerular Filtration Rate 69 ML/MIN Microbiology Date/Time Source Procedure Growth Status 02/05/18 11:30 Blood Peripheral Aerobic Blood Culture Pending Received 02/05/18 11:30 Blood Peripheral Anaerobic Blood Culture Pending Received 02/05/18 10:20 Blood Peripheral Aerobic Blood Culture Pending Received 02/05/18 10:20 Blood Peripheral Anaerobic Blood Culture Pending Received Imaging Last Impressions Soft Tissue Ultrasound 02/03/18 0000 Signed Impressions: CONCLUSION: 1. 1.2 x 1.5 x 0.7 cm calcified lesion in the dorsum of the right hand corresp onding to apparent chronic palpable abnormality. This finding is nonspecific bu t may reflect sequela of prior infection/hemorrhage or calcific tendinitis. If this lesion is enlarging, MRI of the wrist for further characterization may be performed on an outpatient basis. 2. Mild soft tissue swelling without focal drainable fluid collections. Chest X-Ray 01/29/182247 Signed Impressions: CONCLUSION: The lungs are clear. Physical Exam GENERAL: This is a well-nourished, well-developed elderly female patient, in no apparent distress. Awake and alert. SKIN: No rashes, ecchymoses or lesions. Cool and dry. HEAD: Atraumatic. Normocephalic. No temporal or scalp tenderness. EYES: Pupils equal round and reactive. Extraocular motions intact. No scleral icterus. No injection or drainage. ENT: Nose without bleeding or purulent drainage. Throat without erythema, tonsillar hypertrophy or exudate. Uvula midline. Airway patent. Upper and lower lips much less edematous. NECK: Trachea midline. No JVD or lymphadenopathy. Supple, nontender, no meningeal signs. CARDIOVASCULAR: Regular rate and rhythm without murmurs, gallops, or rubs. RESPIRATORY: Clear to auscultation. Breath sounds equal bilaterally. No wheezes , rales, or rhonchi. GASTROINTESTINAL: Abdomen soft, non-tender, nondistended. No hepato-splenomegaly , or palpable masses. No guarding. MUSCULOSKELETAL: Extremities without clubbing or cyanosis. No BLE edema noted. +mild erythema on the dorsal aspect of the right hand extending distally over the MCP joints and proximally to the wrist, tender to palpation, edema much improved today. +warmth. + 2x2cm tender firm mobile mass over the dorsal ulnar aspect of the right wrist. Decreased ROM, unable to make a fist, secondary to pain. NEUROLOGICAL: Awake and alert. Cranial nerves II through XII intact. Motor and sensory grossly within normal limits except right hand. No focal neurologic findings appreciated. Normal speech. PSYCHIATRIC: Calm and cooperative PIV with no e/o infection (Jaylene Kraft) Assessment & Plan Remarks Right hand/wrist extensor cellulitis Right hand/wrist extensor tenosynovitis Mass dorsal ulnar aspect right wrist -US shows 1.2 x 1.5 x 0.7 cm calcified lesion in the dorsal aspect of the right hand and wrist Recent C diff infection -Cdiff neg 01/30 -c/o worsening diarrhea RECS: Continue on po and IV Vancomycin Keep right hand elevated Check Cdiff PCR Hold Imodium and Protonix. Change to Zantac for now. follow blood cultures until finalized Monitor for clinical improvement (Jaylene Kraft) Remarks The exam, history, and the medical decision-making described in the above note were completed with the assistance of the mid-level provider. I reviewed and agree with the findings presented. I attest that I had a [id number] encounter with the patient on the same day, and personally performed and documented my assessment and findings in the medical record. No fevers No rash Diarrhea Cdiff neg but was on vanco for 2 wks prior to testing. On Exam CTA BL Right hand with swelling, induration and tenderness noted. Central bone spur like growth patient reports as present for years. aware and thinks likely calcification. Elevate hand DC Vanco IV Start oral Doxy (less likely to cause Cdfiff flares) Continue oral vanco for recent Cdiff. PCR can be negative as she was on Rx for 2 weeks prior to admission. While on systemic abx would recommend continuing vanco oral to prevent flare ups. If continues to do well ok to discharge from ID standpoint on following regimen: 1. Doxy 100 mg po bid for 10 days. 2. Vanco 125 mg po q6hrs for 20 days. kacy Turcios discharge plan Will sign off please call back if any change in clinical condition or questions (Aparna Ahn MD) Jaylene Kraft Feb 06, 2018 09:15 Aparna Ahn MD Feb 06, 2018 18:52
[2018-02-06] MEDS ORDERED: VANCOMYCIN 500 MG VIAL (FOR ORAL USE ONLY) PO SCH (13:00)
[2018-02-06] MEDS: LACTOBACILLUS ACIDOPHILUS TAB PO SCH ×2 (13:39→17:58)
[2018-02-06] MEDS ORDERED: PHARMACY ORDERED LAB ONE (14:45)
[2018-02-06] MEDS: VANCOMYCIN INJ 750 MG in SODIUM CHLOR 0.9% 250 ML INJ 250 ML IV SCH (16:55)
[2018-02-06 16:58] LABS: AUTOMATED NEUTROPHIL # 5.2 TH/MM3 (1.8-7.7); BASOPHIL # 0.1 TH/MM3 (0-0.2); BASOPHIL % 1.2 % (0.0-2.0); EOSINOPHIL # 0.7 TH/MM3 (0-0.4); EOSINOPHIL % 8.1 % (0.0-4.0); HEMATOCRIT 25.1 % (35.0-46.0); HEMOGLOBIN 8.3 GM/DL (11.6-15.3); LYMPH % 19.2 % (9.0-44.0); LYMPHOCYTE # 1.6 TH/MM3 (1.0-4.8); MEAN CELL VOLUME 90.3 FL (80.0-100.0); MEAN CORPUSCULAR HEMOGLOBIN 29.7 PG (27.0-34.0); MEAN CORPUSCULAR HGB CONC 32.9 % (32.0-36.0); MEAN PLATELET VOLUME 7.9 FL (7.0-11.0); MONO % 9.3 % (0.0-8.0); MONOCYTE # 0.8 TH/MM3 (0-0.9); NEUT % 62.2 % (16.0-70.0); PLATELET COUNT 472 TH/MM3 (150-450); RED BLOOD COUNT 2.78 MIL/MM3 (4.00-5.30); WHITE BLOOD COUNT 8.3 TH/MM3 (4.0-11.0)
[2018-02-06] MEDS: ALTEPLASE RECOMBINANT 2 MG VIAL INTRACATH PRN ×2 (18:38→18:39)
--- NOTE | 2018-02-06 19:02 | HHI.PR ---
Subjective Remarks Patient states that her right hand is feeling better, less painful, less red following antibiotics. She complains of diarrhea. Objective Vitals Vital Signs Date Time Temp Pulse Resp B/P (MAP) Pulse Ox O2 Delivery O2 Flow Rate FiO2 02/06/18 16:35 98.2 77 20 182/93 (122) 96 02/06/18 16:00 82 02/06/18 13:00 79 02/06/18 12:38 98.2 81 20 154/76 (102) 98 02/06/18 09:00 Room Air 02/06/18 08:40 97.8 98 20 165/71 (102) 95 02/06/18 08:00 79 02/06/18 04:00 98.3 88 18 158/62 (94) 95 02/06/18 00:00 98.0 81 18 166/90 (115) 97 02/05/18 20:00 Room Air 02/05/18 20:00 97.9 81 16 168/82 (110) 95 I/O 02/05/18 02/05/18 02/05/18 02/06/18 02/06/18 02/06/18 06:59 14:59 22:59 06:59 14:59 22:59 Intake Total 480 ml Output Total 100 ml 600 ml Balance 380 ml -600 ml Intake Oral 480 ml Output Urine Total 100 ml 600 ml # Voids 2 1 # Bowel Movements 1 3 5 Result Diagram: 02/06/18 1624 02/06/18 0615 Objective Remarks GENERAL: Well-nourished, well-developed patient. SKIN: Warm and dry. HEAD: Normocephalic. EYES: No scleral icterus. No injection or drainage. NECK: Supple, trachea midline. No JVD or lymphadenopathy. CARDIOVASCULAR: Regular rate and rhythm without murmurs, gallops, or rubs. RESPIRATORY: Breath sounds equal bilaterally. No accessory muscle use. GASTROINTESTINAL: Abdomen soft, non-tender, nondistended. EXTREMITIES: No cyanosis, or edema. Right hand is red and warm, moderately swollen, minimally tender NEUROLOGICAL: Awake, alert, and oriented x 3. Non-focal. A/P Problem List: (1) Supraventricular tachycardia ICD Code: I47.1 - Supraventricular tachycardia (2) C. difficile colitis ICD Code: A04.72 - Enterocolitis due to Clostridium difficile, not specified as recurrent Assessment and Plan Cellulitis of right hand Cellulitis versus tenosynovitis, improving with antibiotic treatment Continue IV vancomycin and Zosyn Calcified nodule is chronic Hand surgery opting for nonsurgical intervention at this time, continue antibiotics Appreciate hand surgery consult Appreciate infectious disease consult Diarrhea Recently treated for C. difficile C. difficile PCR was negative Continue p.o. vancomycin per infectious disease Continue Imodium Supraventricular tachycardia Continue metoprolol, currently stable DVT prophylaxis Lovenox Discharge Planning Back to [facility] rehab when hand improves and cleared by hand surgery Cody Lyles MD Feb 06, 2018 19:02
--- NOTE | 2018-02-06 19:45 | HHI.PR ---
Subjective Remarks still complains of pain, but better decreased swelling no numbness no fever Objective Vital Signs Date Time Temp Pulse Resp B/P (MAP) Pulse Ox O2 Delivery O2 Flow Rate FiO2 02/06/18 19:00 Room Air 02/06/18 16:35 98.2 77 20 182/93 (122) 96 02/06/18 16:00 82 02/06/18 13:00 79 02/06/18 12:38 98.2 81 20 154/76 (102) 98 02/06/18 09:00 Room Air 02/06/18 08:40 97.8 98 20 165/71 (102) 95 02/06/18 08:00 79 02/06/18 04:00 98.3 88 18 158/62 (94) 95 02/06/18 00:00 98.0 81 18 166/90 (115) 97 02/05/18 20:00 Room Air 02/05/18 20:00 97.9 81 16 168/82 (110) 95 I/O 02/05/18 02/05/18 02/05/18 02/06/18 02/06/18 02/06/18 07:00 15:00 23:00 07:00 15:00 23:00 Intake Total 480 ml 680 ml Output Total 100 ml 600 ml Balance 380 ml -600 ml 680 ml Intake Oral 480 ml 680 ml Output Urine Total 100 ml 600 ml # Voids 2 1 3 # Bowel Movements 1 3 5 5 examination of left hand: decreased swelling and erythema mass noted over the dorsoulnar aspect of the wrist, tender range of motion of the fingers limited flexion at MP Joint, improved intact circulation and sensation Result Diagram: 02/06/18 1624 02/06/18 0615 Assessment and Plan Assessment and Plan 72 year old female with improving extensor tenosynovitis/cellulitis with mass over the dorso ulnar aspect of the right wrist Plan: continue with antibiotics based on ID recommendations keep the part elevated active range of motion exercises hand surgery will follow. Sathish Garcia MD Feb 06, 2018 19:45
[2018-02-06] MEDS: DOXYCYCLINE HYCLATE 100 MG TAB PO SCH (22:28)
[2018-02-06] MEDS: cloNIDine HCL 0.1 MG TAB PO PRN (23:47)
[2018-02-07] VITALS (9 sets, daily range): BP systolic 164–210; BP diastolic 80–105; PULSE 73–84; RESP 18–20; TEMP 97.7–98.4; O2SAT 96–98
[2018-02-07] MEDS: TEMAZEPAM 15 MG CAP PO PRN (00:35)
[2018-02-07] MEDS: ENOXAPARIN SODIUM 40 MG/0.4 ML SYRINGE SQ SCH (03:03)
[2018-02-07] MEDS: cloNIDine HCL 0.1 MG TAB PO PRN ×2 (05:41→19:03)
[2018-02-07] MEDS: KETOROLAC TROMETHAMINE 30 MG/ML (IVP) VIAL IV PUSH PRN ×3 (06:10→21:01)
[2018-02-07] MEDS: METOPROLOL TARTRATE 50 MG TAB PO SCH ×2 (08:56→21:00)
[2018-02-07] MEDS: LACTOBACILLUS ACIDOPHILUS TAB PO SCH ×3 (08:56→18:00)
[2018-02-07] MEDS: GABAPENTIN 300 MG CAP PO SCH ×2 (08:56→21:00)
[2018-02-07] MEDS: VANCOMYCIN 500 MG VIAL (FOR ORAL USE ONLY) PO SCH ×4 (08:56→21:01)
[2018-02-07] MEDS: DOXYCYCLINE HYCLATE 100 MG TAB PO SCH ×2 (08:56→21:00)
[2018-02-07] MEDS: ASPIRIN 81 MG CHEW TAB CHEW SCH (08:57)
[2018-02-07] MEDS: SODIUM CHLORIDE 0.9% FLUSH 10 ML FLUSH IV FLUSH SCH ×2 (08:57→21:01)
--- NOTE | 2018-02-07 17:12 | HHI.PR ---
Subjective Remarks 72-year-old female who remains in the hospital for treatment of a right hand cellulitis. The redness has improved drastically since yesterday, swelling is also improving at a slower rate. Objective Vitals Vital Signs Date Time Temp Pulse Resp B/P (MAP) Pulse Ox O2 Delivery O2 Flow Rate FiO2 02/07/18 09:00 170/81 (110) 02/07/18 04:00 97.7 84 18 175/99 (124) 98 02/07/18 00:00 97.8 80 18 187/93 (124) 97 02/06/18 20:00 98.2 87 18 194/101 (132) 96 02/06/18 19:00 Room Air I/O 02/06/18 02/06/18 02/06/18 02/07/18 02/07/18 02/07/18 07:00 15:00 23:00 07:00 15:00 23:00 Intake Total 680 ml 800 ml Output Total 600 ml 1200 ml Balance -600 ml 680 ml -400 ml Intake Oral 680 ml 800 ml Output Urine Total 600 ml 1200 ml # Voids 1 3 # Bowel Movements 5 5 2 Result Diagram: 02/06/18 1624 02/06/18 0615 Objective Remarks GENERAL: Well-nourished, well-developed patient. SKIN: Warm and dry. HEAD: Normocephalic. EYES: No scleral icterus. No injection or drainage. NECK: Supple, trachea midline. No JVD or lymphadenopathy. CARDIOVASCULAR: Regular rate and rhythm without murmurs, gallops, or rubs. RESPIRATORY: Breath sounds equal bilaterally. No accessory muscle use. GASTROINTESTINAL: Abdomen soft, non-tender, nondistended. EXTREMITIES: No cyanosis, or edema. Right hand has significantly less redness today, reduce swelling at a slower rate NEUROLOGICAL: Awake, alert, and oriented x 3. Non-focal. A/P Problem List: (1) Supraventricular tachycardia ICD Code: I47.1 - Supraventricular tachycardia (2) C. difficile colitis ICD Code: A04.72 - Enterocolitis due to Clostridium difficile, not specified as recurrent Assessment and Plan Cellulitis of right hand Cellulitis versus tenosynovitis, improving with antibiotic treatment Continue IV vancomycin and Zosyn Calcified nodule is chronic Hand surgery opting for nonsurgical, patient cleared from their standpoint Appreciate hand surgery consult Appreciate infectious disease consult Diarrhea Recently treated for C. difficile C. difficile PCR was negative Continue p.o. vancomycin per infectious disease Lomotil added, Imodium stopped Hypertension Clonidine added for rate through Supraventricular tachycardia Continue metoprolol, currently stable DVT prophylaxis Lovenox Discharge Planning Back to [facility] rehab when infection improves and timing of treatment determined by infectious disease Cody Lyles MD Feb 07, 2018 17:12
[2018-02-07] MEDS: DIPHENOXYLATE/ATROPINE 2.5 MG/0.025 MG TAB PO PRN (21:01)
[2018-02-08] VITALS (7 sets, daily range): BP systolic 117–195; BP diastolic 71–90; PULSE 70–87; RESP 17–18; TEMP 97.5–98.3; O2SAT 96–98
[2018-02-08] MEDS: ENOXAPARIN SODIUM 40 MG/0.4 ML SYRINGE SQ SCH (01:00)
[2018-02-08] MEDS: cloNIDine HCL 0.1 MG TAB PO PRN (01:15)
[2018-02-08] MEDS: TEMAZEPAM 15 MG CAP PO PRN (01:50)
[2018-02-08] MEDS: KETOROLAC TROMETHAMINE 30 MG/ML (IVP) VIAL IV PUSH PRN ×3 (05:05→17:24)
[2018-02-08 07:29] LABS: CREATININE 0.97 MG/DL (0.50-1.00)
[2018-02-08] MEDS: DOXYCYCLINE HYCLATE 100 MG TAB PO SCH ×2 (09:35→20:24)
[2018-02-08] MEDS: METOPROLOL TARTRATE 50 MG TAB PO SCH ×2 (09:36→20:24)
[2018-02-08] MEDS: ASPIRIN 81 MG CHEW TAB CHEW SCH (09:36)
[2018-02-08] MEDS: GABAPENTIN 300 MG CAP PO SCH ×2 (09:36→20:24)
[2018-02-08] MEDS: LACTOBACILLUS ACIDOPHILUS TAB PO SCH ×3 (09:36→17:25)
[2018-02-08] MEDS: SODIUM CHLORIDE 0.9% FLUSH 10 ML FLUSH IV FLUSH SCH ×2 (09:36→20:25)
[2018-02-08] MEDS: VANCOMYCIN 500 MG VIAL (FOR ORAL USE ONLY) PO SCH ×4 (09:37→20:24)
--- NOTE | 2018-02-08 13:28 | HHI.PR ---
Subjective Remarks Patient's right hand is a lot less swelling than yesterday wants to go home Discharge to SNF when bed is available Continue on doxycycline 100 mg twice daily 10 days Vancomycin oral 125 mg p.o. every 6 hours for 20 days DC TO HOME [facility] today if bed is available SEE 3008 Objective Vitals Vital Signs Date Time Temp Pulse Resp B/P (MAP) Pulse Ox O2 Delivery O2 Flow Rate FiO2 02/08/18 12:00 73 02/08/18 12:00 98.0 72 18 146/78 (100) 98 02/08/18 08:00 97.5 73 18 158/71 (100) 97 02/08/18 08:00 70 02/08/18 07:00 Room Air 02/08/18 04:00 97.8 77 18 195/84 (121) 97 02/08/18 03:44 74 02/08/18 00:00 97.8 78 18 180/90 (120) 98 02/08/18 00:00 Room Air 02/07/18 23:43 75 02/07/18 20:00 98.4 84 20 182/80 (114) 97 02/07/18 19:43 81 02/07/18 19:00 Room Air 02/07/18 16:00 98.3 84 20 210/105 (140) 97 I/O 02/07/18 02/07/18 02/07/18 02/08/18 02/08/18 02/08/18 07:00 15:00 23:00 07:00 15:00 23:00 Intake Total 800 ml 360 ml 860 ml Output Total 1200 ml 1200 ml Balance -400 ml 360 ml -340 ml Intake Oral 800 ml 360 ml 860 ml Output Urine Total 1200 ml 1200 ml # Voids 4 # Bowel Movements 2 3 2 Result Diagram: 02/06/18 1624 02/08/18 0635 Other Results Laboratory Tests Test 02/06/18 06:15 02/06/18 10:45 02/06/18 13:30 02/06/18 16:24 Creatinine 0.82 MG/DL Estimat Glomerular Filtration Rate 69 ML/MIN Stool C. difficile Toxin (PCR) NEGATIVE Stl C. difficile Toxin Epiderm 027 PRESUMPTIVE NEGATIVE Vancomycin Level Trough 13.4 MCG/ML White Blood Count 8.3 TH/MM3 Red Blood Count 2.78 MIL/MM3 Hemoglobin 8.3 GM/DL Hematocrit 25.1 % Mean Corpuscular Volume 90.3 FL Mean Corpuscular Hemoglobin 29.7 PG Mean Corpuscular Hemoglobin Concent 32.9 % Red Cell Distribution Width 15.0 % Platelet Count 472 TH/MM3 Mean Platelet Volume 7.9 FL Neutrophils (%) (Auto) 62.2 % Lymphocytes (%) (Auto) 19.2 % Monocytes (%) (Auto) 9.3 % Eosinophils (%) (Auto) 8.1 % Basophils (%) (Auto) 1.2 % Neutrophils # (Auto) 5.2 TH/MM3 Lymphocytes # (Auto) 1.6 TH/MM3 Monocytes # (Auto) 0.8 TH/MM3 Eosinophils # (Auto) 0.7 TH/MM3 Basophils # (Auto) 0.1 TH/MM3 CBC Comment DIFF FINAL Differential Comment Test 02/08/18 06:35 Creatinine 0.97 MG/DL Estimat Glomerular Filtration Rate 57 ML/MIN Imaging Last Impressions Soft Tissue Ultrasound 02/03/18 0000 Signed Impressions: CONCLUSION: 1. 1.2 x 1.5 x 0.7 cm calcified lesion in the dorsum of the right hand corresp onding to apparent chronic palpable abnormality. This finding is nonspecific bu t may reflect sequela of prior infection/hemorrhage or calcific tendinitis. If this lesion is enlarging, MRI of the wrist for further characterization may be performed on an outpatient basis. 2. Mild soft tissue swelling without focal drainable fluid collections. Chest X-Ray 01/29/18 2248 Signed Impressions: CONCLUSION: The lungs are clear. Objective Remarks GENERAL: Awake alert and oriented 3 talkative and cooperative SKIN: Warm and dry. HEAD: Atraumatic. Normocephalic. EYES: Pupils equal and round. No scleral icterus. No injection or drainage. ENT: No nasal bleeding or discharge. Mucous membranes pink and moist. NECK: Trachea midline. No JVD. CARDIOVASCULAR: Regular rate and rhythm. S1-S2 no S3 or S4 RESPIRATORY: No accessory muscle use. Clear to auscultation. Breath sounds equal bilaterally. GASTROINTESTINAL: Abdomen soft, non-tender, nondistended. Hepatic and splenic margins not palpable. MUSCULOSKELETAL: Extremities without clubbing, cyanosis, or edema. No obvious deformities. Right hand less swelling and better range of motion NEUROLOGICAL: Awake and alert. No obvious cranial nerve deficits. Motor grossly within normal limits. 4 out of 5 muscle strength in the arms and legs. Normal speech. PSYCHIATRIC: Appropriate mood and affect; insight and judgment normal. Procedures NONE Medications and IVs Current Medications Adenosine (Adenocard Inj) 6 mg STK-MED ONCE .ROUTE ; Start 01/29/18 at 22:41; Stop 01/29/18 at 22:42; Status DC Adenosine (Adenocard Inj) 6 mg ONCE ONCE IV PUSH Last administered on at 22:47; Start 01/29/18 at 22:45; Stop 01/29/18 at 22:47; Status DC Metoprolol Tartrate (Lopressor Inj) 5 mg ONCE ONCE IV PUSH Last administered on 01/29/18at 22:48; Start 01/29/18 at 22:45; Stop 01/29/18 at 22:47; Status DC Esmolol HCl/ Sodium Chloride 250 ml @ 6.75 mls/hr TITRATE PRN IV Blood Pressure Management; Start 01/29/18 at 23:30; Stop 01/30/18 at 03:25; Status DC Calcium Gluconate 1 gm/Dextrose 110 ml @ 110 mls/hr ONCE ONCE IV Last administered on 01/30/18at 00:16; Start 01/30/18 at 00:15; Stop 01/30/18 at 01:14 ; Status DC Potassium Chloride (KCl) 20 meq DAILY PO ; Start 01/30/18 at 09:00; Stop at 09:00; Status DC Potassium Chloride/Sodium Chloride 1,000 ml @ 125 mls/hr Q8H IV Last administered on 01/31/18at 08:46; Start 01/30/18 at 00:45; Stop 01/31/18 at 10:19 ; Status DC Sodium Chloride (NS Flush) 2 ml UNSCH PRN IV FLUSH FLUSH AFTER USING IV ACCESS Last administered on 02/08/18at 05:05; Start 01/30/18 at 01:00 Sodium Chloride (NS Flush) 2 ml BID IV FLUSH Last administered on 02/08/18at 09: 36; Start 01/30/18 at 09:00 Acetaminophen (Tylenol) 650 mg Q4H PRN PO ROTHMAN, fever, pain 1-4 Last administered on 02/04/18at 08:59; Start 01/30/18 at 01:00 Enoxaparin Sodium (Lovenox Inj) 40 mg Q24H SQ Last administered on 02/08/18at 01: 00; Start 01/30/18 at 01:00 Naloxone HCl (Narcan Inj) 0.4 mg UNSCH PRN IV PUSH SEE LABEL COMMENTS; Start at 01:00 Magnesium Hydroxide (Milk Of Magnesia Liq) 30 ml Q12H PRN PO Mild constipation ; Start 01/30/18 at 01:00 Sennosides (Senokot) 17.2 mg Q12H PRN PO Moderate constipation; Start 01/30/18 at 01:00 Bisacodyl (Dulcolax Supp) 10 mg DAILY PRN RECTAL SEVERE CONSITIPATION / IF NPO ; Start 01/30/18 at 01:00 Lactulose (Lactulose Liq) 30 ml DAILY PRN PO SEVERE CONSITIPATION/ IF PO; Start 01/30/18 at 01:00 Aspirin (Aspirin Chew) 81 mg DAILY CHEW Last administered on 02/08/18at 09:36; Start 01/30/18 at 09:00 Gabapentin (Neurontin) 300 mg BID PO Last administered on 02/08/18at 09:36; Start 01/30/18 at 09:00 Temazepam (Restoril) 15 mg HS PRN PO INSOMNIA Last administered on 02/08/18at 01: 50; Start 01/30/18 at 01:00 Pantoprazole Sodium (Protonix) 20 mg BID PO Last administered on 02/06/18at 08:52 ; Start 01/30/18 at 09:00; Status Future Hold Metoprolol Tartrate (Lopressor) 25 mg Q12HR PO Last administered on 02/01/18at 08:36; Start 01/30/18 at 09:00; Stop 02/01/18 at 10:55; Status DC Magnesium Sulfate/ Dextrose 100 ml @ 100 mls/hr Q1H IV Last administered on at 04:01; Start 01/30/18 at 01:45; Stop 01/30/18 at 03:44; Status DC Magnesium Sulfate/ Dextrose 100 ml @ 100 mls/hr Q1H IV Last administered on at 09:40; Start 01/30/18 at 06:00; Stop 01/30/18 at 07:59; Status DC Magnesium Sulfate/ Dextrose 100 ml @ 100 mls/hr ONCE ONCE IV Last administered on 01/30/18at 10:59; Start 01/30/18 at 09:00; Stop 01/30/18 at 09:59 ; Status DC Vancomycin HCl (VANCOMYCIN for oral use only) 125 mg QID PO Last administered on 02/05/18at 22:18; Start 01/30/18 at 09:00; Stop 02/06/18 at 13:35; Status DC Potassium Chloride (KCl) 20 meq BID PO Last administered on 02/03/18at 21:27; Start 01/30/18 at 09:00; Stop 02/04/18 at 08:59; Status DC Furosemide (Lasix Inj) 20 mg ONCE ONCE IV PUSH Last administered on 01/31/18at 10:40; Start 01/31/18 at 10:30; Stop 01/31/18 at 10:31; Status DC Cholestyramine Resin (Questran 4 Gm Pkt) 4 gm Q12HR PO Last administered on at 09:18; Start 01/31/18 at 10:30; Stop 02/03/18 at 13:56; Status DC Clonidine (Catapres) 0.1 mg Q6H PRN PO SBP>160, DBP>90 Last administered on 02/07at 05:41; Start 01/31/18 at 23:45 Metoprolol Tartrate (Lopressor) 50 mg Q12HR PO Last administered on 02/08/18at 09 :36; Start 02/01/18 at 21:00 Loperamide HCl (Imodium) 2 mg Q6H PRN PO DIARRHEA Last administered on at 08:59; Start 02/01/18 at 11:00; Stop 02/07/18 at 12:25; Status DC Cefazolin Sodium 1000 mg/Sodium Chloride 100 ml @ 200 mls/hr Q8H IV Last administered on 02/04/18at 04:02; Start 02/02/18 at 12:00; Stop 02/04/18 at 10:51 ; Status DC Vancomycin HCl 1000 mg/Sodium Chloride 250 ml @ 250 mls/hr ONCE ONCE IV Last administered on 02/03/18at 15:15; Start 02/03/18 at 15:00; Stop 02/03/18 at 15:59 ; Status DC Pharmacy Profile Note 0 ml @ 0 mls/hr UNSCH OTHER ; Start 02/03/18 at 14:00; Stop 02/06/18 at 18:26; Status DC Vancomycin HCl 750 mg/Sodium Chloride 257.5 ml @ 250 mls/hr Q24H IV Last administered on 02/06/18at 16:55; Start 02/04/18 at 15:00; Stop 02/06/18 at 18:26; Status DC Miscellaneous Information ([facility] Ordered Lab Info) SPECIFIC LAB TO BE JORDAN... ONCE ONCE .XX Last administered on 02/06/18at 13:39; Start 02/06/18 at 14: 45; Stop 02/06/18 at 14:46; Status DC Piperacillin Sod/ Tazobactam Sod 50 ml @ 100 mls/hr Q8H IV Last administered on 02/05/18at 13:19; Start 02/04/18 at 12:00; Stop 02/05/18 at 18:43; Status DC Ketorolac Tromethamine (Toradol Inj) 15 mg Q6HR PRN IV PUSH PAIN 5-10 Last administered on 02/08/18at 11:21; Start 02/04/18 at 11:00; Stop 02/09/18 at 10:59 Vancomycin HCl (VANCOMYCIN for oral use only) 125 mg QID PO ; Start 02/06/18 at 13:00; Stop 02/06/18 at 13:35; Status DC Lactobacillus Acidophilus (Lactinex) 1 tab TID PO Last administered on at 13:01; Start 02/06/18 at 13:00 Alteplase, Recombinant (Cathflo Activase Inj) 2 mg Q2H PRN INTRACATH CLOTTED IV ACESS Last administered on 02/06/18at 18:39; Start 02/06/18 at 16:30 Heparin Sodium (Porcine) (Heparin Central Flush) 100 unit DAILY IV FLUSH Last administered on 02/08/18at 09:36; Start 02/07/18 at 09:00 Doxycycline Hyclate (Vibratab) 100 mg Q12HR PO Last administered on 02/08/18at 09 :35; Start 02/06/18 at 21:00 Vancomycin HCl (VANCOMYCIN for oral use only) 125 mg QID PO Last administered on 02/08/18at 13:04; Start 02/06/18 at 21:00 Diphenoxylate HCl/ Atropine (Lomotil Tab) 1 tab Q6H PRN PO diarrhea Last administered on 02/07/18at 21:01; Start 02/07/18 at 12:30 Clonidine (Catapres) 0.1 mg Q6H PRN PO SBP > 165 Last administered on 02/08/18at 01:15; Start 02/07/18 at 17:15 A/P Problem List: (1) Supraventricular tachycardia ICD Code: I47.1 - Supraventricular tachycardia (2) C. difficile colitis ICD Code: A04.72 - Enterocolitis due to Clostridium difficile, not specified as recurrent Assessment and Plan Cellulitis of right hand Cellulitis versus tenosynovitis, improving with antibiotic treatment Continue IV vancomycin and Zosyn Calcified nodule is chronic Hand surgery opting for nonsurgical, patient cleared from their standpoint Appreciate hand surgery consult Appreciate infectious disease consult Diarrhea Recently treated for C. difficile C. difficile PCR was negative Continue p.o. vancomycin per infectious disease Lomotil added, Imodium stopped Hypertension Clonidine added for rate through Supraventricular tachycardia Continue metoprolol, currently stable DVT prophylaxis Lovenox Discharge Planning Back to [facility] rehab when infection improves and timing of treatment determined by infectious disease Discharge Planning Back to [facility] today if bed is available Johan Carrion DO Feb 08, 2018 13:28
[2018-02-08] MEDS ORDERED: OMEP10CA PO (13:32)
[2018-02-08] MEDS ORDERED: DOXY100T PO (13:32)
[2018-02-08] MEDS ORDERED: REST15CA PO (13:32)
[2018-02-08] MEDS ORDERED: LACT PO (13:32)
[2018-02-08] MEDS ORDERED: ASPI-516 CHEW (13:32)
[2018-02-08] MEDS ORDERED: LOSA100T PO (13:32)
[2018-02-08] MEDS ORDERED: VANC500I3 PO (13:32)
[2018-02-08] MEDS ORDERED: CLON.1 PO (13:32)
[2018-02-08] MEDS ORDERED: METO50TA PO (13:32)
--- NOTE | 2018-02-08 13:38 | HHI.DS ---
Discharge Summary Admission Date January 30, 2018 at 00:52 Discharge Date: Feb 08, 2018 Admitting Diagnosis SVT electrolyte abnormality low Ca low K (1) Supraventricular tachycardia ICD Code: I47.1 - Supraventricular tachycardia Diagnosis: Secondary (2) C. difficile colitis ICD Code: A04.72 - Enterocolitis due to Clostridium difficile, not specified as recurrent Diagnosis: Principal (3) Electrolyte abnormality ICD Code: E87.8 - Other disorders of electrolyte and fluid balance, not elsewhere classified Diagnosis: Principal Status: Acute Procedures NONE Brief History - From Admission Ms. Zhou is a pleasant 72-year-old female with a history of supraventricular tachycardia who presented to the emergency department due to palpitations. A day prior to this admission and on the day of admission patient felt her heart was racing. She denies any chest pain, shortness of breath, fever or chills. She reports that her medications especially metoprolol tartrate was recently changed from twice daily dosing to once a day dosing in a recent hospitalization. She believes because of this change she started having this heart racing feelings. Patient also complains of significant diarrhea in the last 9 weeks. She has been on vancomycin per rehab documentations. She denies any changes in bladder habits. No cough or abdominal pain. With regards to SVT patient was given adenosine 6 mg in the ED. CBC/BMP: 02/06/18 1624 02/08/18 0635 Significant Findings Laboratory Tests Test 02/06/18 06:15 02/06/18 10:45 02/06/18 13:30 02/06/18 16:24 Estimat Glomerular Filtration Rate 69 ML/MIN (>89) Vancomycin Level Trough 13.4 MCG/ML (5.0-10.0) Red Blood Count 2.78 MIL/MM3 (4.00-5.30) Hemoglobin 8.3 GM/DL (11.6-15.3) Hematocrit 25.1 % (35.0-46.0) Platelet Count 472 TH/MM3 (150-450) Monocytes (%) (Auto) 9.3 % (0.0-8.0) Eosinophils (%) (Auto) 8.1 % (0.0-4.0) Eosinophils # (Auto) 0.7 TH/MM3 (0-0.4) Test 02/08/18 06:35 Estimat Glomerular Filtration Rate 57 ML/MIN (>89) Imaging Last Impressions Soft Tissue Ultrasound 02/03/18 0000 Signed Impressions: CONCLUSION: 1. 1.2 x 1.5 x 0.7 cm calcified lesion in the dorsum of the right hand corresp onding to apparent chronic palpable abnormality. This finding is nonspecific bu t may reflect sequela of prior infection/hemorrhage or calcific tendinitis. If this lesion is enlarging, MRI of the wrist for further characterization may be performed on an outpatient basis. 2. Mild soft tissue swelling without focal drainable fluid collections. Chest X-Ray 01/29/18 2248 Signed Impressions: CONCLUSION: The lungs are clear. PE at Discharge GENERAL: Awake alert and oriented 3 talkative and cooperative SKIN: Warm and dry. HEAD: Atraumatic. Normocephalic. EYES: Pupils equal and round. No scleral icterus. No injection or drainage. ENT: No nasal bleeding or discharge. Mucous membranes pink and moist. NECK: Trachea midline. No JVD. CARDIOVASCULAR: Regular rate and rhythm. S1-S2 no S3 or S4 RESPIRATORY: No accessory muscle use. Clear to auscultation. Breath sounds equal bilaterally. GASTROINTESTINAL: Abdomen soft, non-tender, nondistended. Hepatic and splenic margins not palpable. MUSCULOSKELETAL: Extremities without clubbing, cyanosis, or edema. No obvious deformities. Right hand less swelling and better range of motion NEUROLOGICAL: Awake and alert. No obvious cranial nerve deficits. Motor grossly within normal limits. 4 out of 5 muscle strength in the arms and legs. Normal speech. PSYCHIATRIC: Appropriate mood and affect; insight and judgment normal. Hospital Course Patient's right hand is a lot less swelling than yesterday wants to go home Discharge to SNF when bed is available Continue on doxycycline 100 mg twice daily 10 days Vancomycin oral 125 mg p.o. every 6 hours for 20 days DC TO HOME Back to [facility] today if bed is available SEE 3008 Cellulitis of right hand Cellulitis versus tenosynovitis, improving with antibiotic treatment Continue IV vancomycin and Zosyn Calcified nodule is chronic Hand surgery opting for nonsurgical, patient cleared from their standpoint Appreciate hand surgery consult Appreciate infectious disease consult Diarrhea Recently treated for C. difficile C. difficile PCR was negative Continue p.o. vancomycin per infectious disease Lomotil added, Imodium stopped Hypertension Clonidine added for rate through Supraventricular tachycardia Continue metoprolol, currently stable DVT prophylaxis Lovenox CAN BE SWITCHED TO PO DOXYCYCLINE SWITCH TO PO VANCO DC TO HOME TODAY 3008 DONE Pt Condition on Discharge: Good Discharge Disposition: Discharge to SNF Discharge Time: > 30 minutes Discharge Instructions DIET: Follow Instructions for: Heart Healthy Diet Speech Therapy-Diet Recommends: Regular Activities you can perform: Regular-No Restrictions Follow up Referrals: Hand Surgery - 3-5 Days with Sathish Garcia MD Infectious Disease - 3-5 Days with Patricia Reilly MD New Medications: Clonidine (Catapres) 0.1 Mg Tab 0.1 MG PO Q6H PRN for SBP>160, DBP>90, #30 TAB Doxycycline Hyclate (Doxycycline Hyclate) 100 Mg Tab 100 MG PO Q12HR for Infection, #20 TAB Lactobacillus Acidophilus (Acidophilus/l-Sporogenes) 35 Million Cell-25 Million Cell Tab 1 TAB PO TID for Nutritional Supplement, #90 TAB Vancomycin Inj (Vancomycin Inj) 500 Mg Inj 125 MG PO QID for Infection for 20 Days, #80 EACH Continued Medications: Acetaminophen (Tylenol) 325 Mg Tab 650 MG PO Q6H PRN for PAIN SCALE 1 TO 7, TAB 0 Refills Aspirin (Aspirin) 81 Mg Chew 81 MG CHEW DAILY for Blood Clot Prevention, #30 TAB 0 Refills (This prescription has been renewed) Fluticasone-Vilanterol Inh (Breo Ellipta Inh) 100-25 Mcg/Act Inh 1 PUFF INH DAILY, #1 INHALER 0 Refills Use daily at the same time. Gabapentin (Gabapentin) 300 Mg Cap 300 MG PO BID, #60 CAP 0 Refills Ipratropium Neb (Ipratropium Neb) 0.5 Mg/2.5 Ml Amp 0.5 MG NEB Q6HR NEB PRN for SHORTNESS OF BREATH, #120 NEBULE 0 Refills Loperamide (Loperamide) 2 Mg Cap 2 MG PO DIRECTED PRN for DIARRHEA, CAP 0 Refills One capsule after each loose stool. Not to exceed 8 capsules per day. Losartan (Losartan) 100 Mg Tab 100 MG PO DAILY for Blood Pressure Management, #30 TAB 0 Refills (This prescription has been renewed) Metoprolol Tartrate (Metoprolol Tartrate) 50 Mg Tab 50 MG PO DAILY for Blood Pressure Management, #60 TAB 0 Refills (This prescription has been renewed) Multiple Vitamin (Multiple Vitamin) 1 Tab 1 TAB PO DAILY for Nutritional Supplement, TAB 0 Refills Omeprazole (Omeprazole) 10 Mg Cap 10 MG PO BID for Manage Heartburn, #60 CAP 0 Refills (This prescription has been renewed) Ondansetron Odt (Zofran Odt) 8 Mg Tab 8 MG SL Q8HR for Nausea/Vomiting, TAB 0 Refills Temazepam (Restoril) 15 Mg Cap 15 MG PO HS PRN for INSOMNIA, #30 CAP 0 Refills (This prescription has been renewed) Discontinued Medications: Ertapenem Inj (Invanz Inj) 1 Gm Addvial 1 GM IV Q24H for Infection, INJECTION 0 Refills ADMINISTER IN 100ML NS Johan Carrion DO Feb 08, 2018 13:38
[2018-02-08] MEDS: LOSARTAN 50 MG TAB PO SCH (15:03)
[2018-02-09] VITALS (7 sets, daily range): BP systolic 148–181; BP diastolic 66–86; PULSE 65–86; RESP 17–20; TEMP 97.9–98.3; O2SAT 96–99
[2018-02-09] MEDS: ENOXAPARIN SODIUM 40 MG/0.4 ML SYRINGE SQ SCH (00:12)
[2018-02-09] MEDS: KETOROLAC TROMETHAMINE 30 MG/ML (IVP) VIAL IV PUSH PRN ×2 (00:13→10:55)
[2018-02-09] MEDS: TEMAZEPAM 15 MG CAP PO PRN (00:13)
[2018-02-09] MEDS: cloNIDine HCL 0.1 MG TAB PO PRN ×2 (01:57→18:48)
[2018-02-09] MEDS: SODIUM CHLORIDE 0.9% FLUSH 10 ML FLUSH IV FLUSH SCH ×2 (09:00→20:34)
[2018-02-09] MEDS: LOSARTAN 50 MG TAB PO SCH (09:47)
[2018-02-09] MEDS: DOXYCYCLINE HYCLATE 100 MG TAB PO SCH ×2 (09:48→20:33)
[2018-02-09] MEDS: METOPROLOL TARTRATE 50 MG TAB PO SCH ×2 (09:48→20:34)
[2018-02-09] MEDS: LACTOBACILLUS ACIDOPHILUS TAB PO SCH ×3 (09:48→17:29)
[2018-02-09] MEDS: ASPIRIN 81 MG CHEW TAB CHEW SCH (09:48)
[2018-02-09] MEDS: VANCOMYCIN 500 MG VIAL (FOR ORAL USE ONLY) PO SCH ×4 (09:48→20:33)
[2018-02-09] MEDS: GABAPENTIN 300 MG CAP PO SCH ×2 (09:54→20:33)
--- NOTE | 2018-02-09 13:22 | HHI.PR ---
Subjective Remarks Patient's right hand is a lot less swelling than yesterday wants to go home Discharge to SNF when bed is available Continue on doxycycline 100 mg twice daily 10 days Vancomycin oral 125 mg p.o. every 6 hours for 20 days DC TO HOME Back to [facility] today if bed is available SEE 3008 6-4 AWAIT PLACEMENT ON PO MEDS 3008 FILLED OUT RX WRITTEN AWAIT ACCEPTANCE BACK AT THE [facility] SNF HAS SOME DIARRHEA NOW BUT IS ON TREATMENT Objective Vitals Vital Signs Date Time Temp Pulse Resp B/P (MAP) Pulse Ox O2 Delivery O2 Flow Rate FiO2 02/09/18 12:00 98.0 83 18 148/66 (93) 98 02/09/18 08:00 97.9 76 18 152/76 (101) 98 02/09/18 04:00 65 02/09/18 04:00 98.3 69 18 170/79 (109) 97 02/09/18 00:00 97.9 77 17 181/86 (117) 96 02/09/18 00:00 75 02/08/18 20:00 87 02/08/18 20:00 98.3 82 17 117/88 (98) 96 02/08/18 20:00 Room Air 02/08/18 16:00 71 02/08/18 16:00 98.1 73 18 164/75 (104) 98 I/O 02/08/18 02/08/18 02/08/18 02/09/18 02/09/18 02/09/18 07:00 15:00 23:00 07:00 15:00 23:00 Intake Total 860 ml 480 ml Output Total 1200 ml Balance -340 ml 480 ml Intake Oral 860 ml 480 ml Output Urine Total 1200 ml # Voids 3 2 # Bowel Movements 2 2 4 Result Diagram: 02/06/18 1624 02/08/18 0635 Other Results Laboratory Tests Test 02/06/18 13:30 02/06/18 16:24 02/08/18 06:35 Vancomycin Level Trough 13.4 MCG/ML White Blood Count 8.3 TH/MM3 Red Blood Count 2.78 MIL/MM3 Hemoglobin 8.3 GM/DL Hematocrit 25.1 % Mean Corpuscular Volume 90.3 FL Mean Corpuscular Hemoglobin 29.7 PG Mean Corpuscular Hemoglobin Concent 32.9 % Red Cell Distribution Width 15.0 % Platelet Count 472 TH/MM3 Mean Platelet Volume 7.9 FL Neutrophils (%) (Auto) 62.2 % Lymphocytes (%) (Auto) 19.2 % Monocytes (%) (Auto) 9.3 % Eosinophils (%) (Auto) 8.1 % Basophils (%) (Auto) 1.2 % Neutrophils # (Auto) 5.2 TH/MM3 Lymphocytes # (Auto) 1.6 TH/MM3 Monocytes # (Auto) 0.8 TH/MM3 Eosinophils # (Auto) 0.7 TH/MM3 Basophils # (Auto) 0.1 TH/MM3 CBC Comment DIFF FINAL Differential Comment Creatinine 0.97 MG/DL Estimat Glomerular Filtration Rate 57 ML/MIN Imaging Last Impressions Soft Tissue Ultrasound 02/03/18 0000 Signed Impressions: CONCLUSION: 1. 1.2 x 1.5 x 0.7 cm calcified lesion in the dorsum of the right hand corresp onding to apparent chronic palpable abnormality. This finding is nonspecific bu t may reflect sequela of prior infection/hemorrhage or calcific tendinitis. If this lesion is enlarging, MRI of the wrist for further characterization may be performed on an outpatient basis. 2. Mild soft tissue swelling without focal drainable fluid collections. Chest X-Ray 01/29/18 2248 Signed Impressions: CONCLUSION: The lungs are clear. Objective Remarks GENERAL: Awake alert and oriented 3 talkative and cooperative SKIN: Warm and dry. HEAD: Atraumatic. Normocephalic. EYES: Pupils equal and round. No scleral icterus. No injection or drainage. ENT: No nasal bleeding or discharge. Mucous membranes pink and moist. NECK: Trachea midline. No JVD. CARDIOVASCULAR: Regular rate and rhythm. S1-S2 no S3 or S4 RESPIRATORY: No accessory muscle use. Clear to auscultation. Breath sounds equal bilaterally. GASTROINTESTINAL: Abdomen soft, non-tender, nondistended. Hepatic and splenic margins not palpable. MUSCULOSKELETAL: Extremities without clubbing, cyanosis, or edema. No obvious deformities. Right hand less swelling and better range of motion NEUROLOGICAL: Awake and alert. No obvious cranial nerve deficits. Motor grossly within normal limits. 4 out of 5 muscle strength in the arms and legs. Normal speech. PSYCHIATRIC: Appropriate mood and affect; insight and judgment normal. Procedures NONE Medications and IVs Current Medications Adenosine (Adenocard Inj) 6 mg STK-MED ONCE .ROUTE ; Start 01/29/18 at 22:41; Stop 01/29/18 at 22:42; Status DC Adenosine (Adenocard Inj) 6 mg ONCE ONCE IV PUSH Last administered on at 22:47; Start 01/29/18 at 22:45; Stop 01/29/18 at 22:47; Status DC Metoprolol Tartrate (Lopressor Inj) 5 mg ONCE ONCE IV PUSH Last administered on 01/29/18at 22:48; Start 01/29/18 at 22:45; Stop 01/29/18 at 22:47; Status DC Esmolol HCl/ Sodium Chloride 250 ml @ 6.75 mls/hr TITRATE PRN IV Blood Pressure Management; Start 01/29/18 at 23:30; Stop 01/30/18 at 03:25; Status DC Calcium Gluconate 1 gm/Dextrose 110 ml @ 110 mls/hr ONCE ONCE IV Last administered on 01/30/18at 00:16; Start 01/30/18 at 00:15; Stop 01/30/18 at 01:14 ; Status DC Potassium Chloride (KCl) 20 meq DAILY PO ; Start 01/30/18 at 09:00; Stop at 09:00; Status DC Potassium Chloride/Sodium Chloride 1,000 ml @ 125 mls/hr Q8H IV Last administered on 01/31/18at 08:46; Start 01/30/18 at 00:45; Stop 01/31/18 at 10:19 ; Status DC Sodium Chloride (NS Flush) 2 ml UNSCH PRN IV FLUSH FLUSH AFTER USING IV ACCESS Last administered on 02/08/18at 05:05; Start 01/30/18 at 01:00 Sodium Chloride (NS Flush) 2 ml BID IV FLUSH Last administered on 02/09/18at 09: 00; Start 01/30/18 at 09:00 Acetaminophen (Tylenol) 650 mg Q4H PRN PO ROTHMAN, fever, pain 1-4 Last administered on 02/04/18at 08:59; Start 01/30/18 at 01:00 Enoxaparin Sodium (Lovenox Inj) 40 mg Q24H SQ Last administered on 02/09/18at 00: 12; Start 01/30/18 at 01:00 Naloxone HCl (Narcan Inj) 0.4 mg UNSCH PRN IV PUSH SEE LABEL COMMENTS; Start at 01:00 Magnesium Hydroxide (Milk Of Magnesia Liq) 30 ml Q12H PRN PO Mild constipation ; Start 01/30/18 at 01:00 Sennosides (Senokot) 17.2 mg Q12H PRN PO Moderate constipation; Start 01/30/18 at 01:00 Bisacodyl (Dulcolax Supp) 10 mg DAILY PRN RECTAL SEVERE CONSITIPATION / IF NPO ; Start 01/30/18 at 01:00 Lactulose (Lactulose Liq) 30 ml DAILY PRN PO SEVERE CONSITIPATION/ IF PO; Start 01/30/18 at 01:00 Aspirin (Aspirin Chew) 81 mg DAILY CHEW Last administered on 02/09/18at 09:48; Start 01/30/18 at 09:00 Gabapentin (Neurontin) 300 mg BID PO Last administered on 02/09/18at 09:54; Start 01/30/18 at 09:00 Temazepam (Restoril) 15 mg HS PRN PO INSOMNIA Last administered on 02/09/18at 00: 13; Start 01/30/18 at 01:00 Pantoprazole Sodium (Protonix) 20 mg BID PO Last administered on 02/06/18at 08:52 ; Start 01/30/18 at 09:00; Status Future Hold Metoprolol Tartrate (Lopressor) 25 mg Q12HR PO Last administered on 02/01/18at 08:36; Start 01/30/18 at 09:00; Stop 02/01/18 at 10:55; Status DC Magnesium Sulfate/ Dextrose 100 ml @ 100 mls/hr Q1H IV Last administered on at 04:01; Start 01/30/18 at 01:45; Stop 01/30/18 at 03:44; Status DC Magnesium Sulfate/ Dextrose 100 ml @ 100 mls/hr Q1H IV Last administered on at 09:40; Start 01/30/18 at 06:00; Stop 01/30/18 at 07:59; Status DC Magnesium Sulfate/ Dextrose 100 ml @ 100 mls/hr ONCE ONCE IV Last administered on 01/30/18at 10:59; Start 01/30/18 at 09:00; Stop 01/30/18 at 09:59 ; Status DC Vancomycin HCl (VANCOMYCIN for oral use only) 125 mg QID PO Last administered on 02/05/18at 22:18; Start 01/30/18 at 09:00; Stop 02/06/18 at 13:35; Status DC Potassium Chloride (KCl) 20 meq BID PO Last administered on 02/03/18at 21:27; Start 01/30/18 at 09:00; Stop 02/04/18 at 08:59; Status DC Furosemide (Lasix Inj) 20 mg ONCE ONCE IV PUSH Last administered on 01/31/18at 10:40; Start 01/31/18 at 10:30; Stop 01/31/18 at 10:31; Status DC Cholestyramine Resin (Questran 4 Gm Pkt) 4 gm Q12HR PO Last administered on at 09:18; Start 01/31/18 at 10:30; Stop 02/03/18 at 13:56; Status DC Clonidine (Catapres) 0.1 mg Q6H PRN PO SBP>160, DBP>90 Last administered on 02/09at 01:57; Start 01/31/18 at 23:45 Metoprolol Tartrate (Lopressor) 50 mg Q12HR PO Last administered on 02/09/18at 09 :48; Start 02/01/18 at 21:00 Loperamide HCl (Imodium) 2 mg Q6H PRN PO DIARRHEA Last administered on at 08:59; Start 02/01/18 at 11:00; Stop 02/07/18 at 12:25; Status DC Cefazolin Sodium 1000 mg/Sodium Chloride 100 ml @ 200 mls/hr Q8H IV Last administered on 02/04/18at 04:02; Start 02/02/18 at 12:00; Stop 02/04/18 at 10:51 ; Status DC Vancomycin HCl 1000 mg/Sodium Chloride 250 ml @ 250 mls/hr ONCE ONCE IV Last administered on 02/03/18at 15:15; Start 02/03/18 at 15:00; Stop 02/03/18 at 15:59 ; Status DC Pharmacy Profile Note 0 ml @ 0 mls/hr UNSCH OTHER ; Start 02/03/18 at 14:00; Stop 02/06/18 at 18:26; Status DC Vancomycin HCl 750 mg/Sodium Chloride 257.5 ml @ 250 mls/hr Q24H IV Last administered on 02/06/18 16:55; Start 02/04/18 at 15:00; Stop 02/06/18 at 18:26; Status DC Miscellaneous Information ([facility] Ordered Lab Info) SPECIFIC LAB TO BE JORDAN... ONCE ONCE .XX Last administered on 02/06/18at 13:39; Start 02/06/18 at 14: 45; Stop 02/06/18 at 14:46; Status DC Piperacillin Sod/ Tazobactam Sod 50 ml @ 100 mls/hr Q8H IV Last administered on 02/05/18 13:19; Start 02/04/18 at 12:00; Stop 02/05/18 at 18:43; Status DC Ketorolac Tromethamine (Toradol Inj) 15 mg Q6HR PRN IV PUSH PAIN 5-10 Last administered on 02/09/18at 10:55; Start 02/04/18 at 11:00; Stop 02/09/18 at 10:59; Status DC Vancomycin HCl (VANCOMYCIN for oral use only) 125 mg QID PO ; Start 02/06/18 at 13:00; Stop 02/06/18 at 13:35; Status DC Lactobacillus Acidophilus (Lactinex) 1 tab TID PO Last administered on 09:48; Start 02/06/18 at 13:00 Alteplase, Recombinant (Cathflo Activase Inj) 2 mg Q2H PRN INTRACATH CLOTTED IV ACESS Last administered on 02/06/18at 18:39; Start 02/06/18 at 16:30 Heparin Sodium (Porcine) (Heparin Central Flush) 100 unit DAILY IV FLUSH Last administered on 02/09/18 09:49; Start 02/07/18 at 09:00 Doxycycline Hyclate (Vibratab) 100 mg Q12HR PO Last administered on 02/09/18 09 :48; Start 02/06/18 at 21:00 Vancomycin HCl (VANCOMYCIN for oral use only) 125 mg QID PO Last administered on 02/09/18 09:48; Start 02/06/18 at 21:00 Diphenoxylate HCl/ Atropine (Lomotil Tab) 1 tab Q6H PRN PO diarrhea Last administered on 02/07/18 21:01; Start 02/07/18 at 12:30 Clonidine (Catapres) 0.1 mg Q6H PRN PO SBP > 165 Last administered on 02/08/18at 01:15; Start 02/07/18 at 17:15 Losartan Potassium (Cozaar) 100 mg DAILY PO Last administered on 02/09/18at 09:47 ; Start 02/08/18 at 14:30 A/P Problem List: (1) Supraventricular tachycardia ICD Code: I47.1 - Supraventricular tachycardia (2) C. difficile colitis ICD Code: A04.72 - Enterocolitis due to Clostridium difficile, not specified as recurrent (3) Electrolyte abnormality ICD Code: E87.8 - Other disorders of electrolyte and fluid balance, not elsewhere classified Status: Acute Assessment and Plan Cellulitis of right hand Cellulitis versus tenosynovitis, improving with antibiotic treatment Continue IV vancomycin and Zosyn Calcified nodule is chronic Hand surgery opting for nonsurgical, patient cleared from their standpoint Appreciate hand surgery consult Appreciate infectious disease consult Diarrhea Recently treated for C. difficile C. difficile PCR was negative Continue p.o. vancomycin per infectious disease Lomotil added, Imodium stopped Hypertension Clonidine added for rate through Supraventricular tachycardia Continue metoprolol, currently stable DVT prophylaxis Lovenox Discharge Planning Back to [facility] when infection improves and timing of treatment determined by infectious disease CLEARED FOR DC TO SNF RX WRITTEN Discharge Planning Back to [facility] today if bed is available Johan Carrion DO Feb 09, 2018 13:22
[2018-02-09] MEDS: ACETAMINOPHEN 325 MG TAB PO PRN ×2 (17:30→22:23)
[2018-02-09] MEDS: DIPHENOXYLATE/ATROPINE 2.5 MG/0.025 MG TAB PO PRN (20:33)
[2018-02-10] VITALS: BP 172/84; PULSE 70; PULSE 71; RESP 20; TEMP 97.8; O2SAT 98
[2018-02-10] MEDS: TEMAZEPAM 15 MG CAP PO PRN (00:58)
[2018-02-10] MEDS: cloNIDine HCL 0.1 MG TAB PO PRN (00:58)
[2018-02-10] MEDS: ENOXAPARIN SODIUM 40 MG/0.4 ML SYRINGE SQ SCH (00:59)
[2018-02-10 04:00] VITALS: BP 142/68; PULSE 77; PULSE 81; RESP 20; TEMP 97.3; O2SAT 99
[2018-02-10 08:00] VITALS: BP 170/86; PULSE 78; PULSE 81; RESP 14; TEMP 97.8; O2SAT 99
[2018-02-10] MEDS: SODIUM CHLORIDE 0.9% FLUSH 10 ML FLUSH IV FLUSH SCH (09:00)
[2018-02-10] MEDS: GABAPENTIN 300 MG CAP PO SCH (09:01)
[2018-02-10] MEDS: ASPIRIN 81 MG CHEW TAB CHEW SCH (09:01)
[2018-02-10] MEDS: DOXYCYCLINE HYCLATE 100 MG TAB PO SCH (09:01)
[2018-02-10] MEDS: METOPROLOL TARTRATE 50 MG TAB PO SCH (09:01)
[2018-02-10] MEDS: LACTOBACILLUS ACIDOPHILUS TAB PO SCH ×2 (09:01→12:35)
[2018-02-10] MEDS: LOSARTAN 50 MG TAB PO SCH (09:01)
[2018-02-10] MEDS: VANCOMYCIN 500 MG VIAL (FOR ORAL USE ONLY) PO SCH ×2 (09:02→12:35)
[2018-02-10] MEDS: ACETAMINOPHEN 325 MG TAB PO PRN ×2 (11:23→16:33)
[2018-02-10 12:00] VITALS: BP 155/70; PULSE 82; PULSE 87; RESP 18; TEMP 97.6
--- NOTE | 2018-02-10 14:04 | HHI.PR ---
Subjective Remarks Follow-up C. difficile diarrhea/hand cellulitis/SVT February 10, 2018-patient seen and examined, still complains of loose stool, however states improved from yesterday. Denies any chest pain or shortness of breath Objective Vitals Vital Signs Date Time Temp Pulse Resp B/P (MAP) Pulse Ox O2 Delivery O2 Flow Rate FiO2 02/10/18 12:00 87 02/10/18 12:00 97.6 82 18 155/70 (98) 02/10/18 08:00 78 02/10/18 08:00 97.8 81 14 170/86 (114) 99 02/10/18 04:00 81 02/10/18 04:00 97.3 77 20 142/68 (92) 99 02/10/18 00:00 97.8 71 20 172/84 (113) 98 02/10/18 00:00 70 02/09/18 22:00 158/72 (100) 02/09/18 20:00 98.3 74 20 174/78 (110) 99 02/09/18 20:00 Room Air 02/09/18 20:00 82 02/09/18 16:00 98.1 80 20 173/82 (112) 98 02/09/18 16:00 80 I/O 02/09/18 02/09/18 02/09/18 02/10/18 02/10/18 02/10/18 07:00 15:00 23:00 07:00 15:00 23:00 Intake Total 600 ml Balance 600 ml Intake Oral 600 ml # Voids 2 5 # Bowel Movements 4 4 Result Diagram: 02/06/18 1624 02/08/18 0635 Imaging Last Impressions Soft Tissue Ultrasound 02/03/18 0000 Signed Impressions: CONCLUSION: 1. 1.2 x 1.5 x 0.7 cm calcified lesion in the dorsum of the right hand corresp onding to apparent chronic palpable abnormality. This finding is nonspecific bu t may reflect sequela of prior infection/hemorrhage or calcific tendinitis. If this lesion is enlarging, MRI of the wrist for further characterization may be performed on an outpatient basis. 2. Mild soft tissue swelling without focal drainable fluid collections. Chest X-Ray 01/29/18 4535 Signed Impressions: CONCLUSION: The lungs are clear. Objective Remarks GENERAL: NAD SKIN: Warm and dry. HEAD: Normocephalic. EYES: No scleral icterus. No injection or drainage. NECK: Supple, trachea midline. No JVD or lymphadenopathy. CARDIOVASCULAR: Irregular regular rate and rhythm without murmurs, gallops, or rubs. RESPIRATORY: Breath sounds equal bilaterally. No accessory muscle use. GASTROINTESTINAL: Abdomen soft, non-tender, nondistended. MUSCULOSKELETAL: No cyanosis, or edema. BACK: Nontender without obvious deformity. No CVA tenderness. Procedures NONE A/P Problem List: (1) Supraventricular tachycardia ICD Code: I47.1 - Supraventricular tachycardia (2) C. difficile colitis ICD Code: A04.72 - Enterocolitis due to Clostridium difficile, not specified as recurrent (3) Electrolyte abnormality ICD Code: E87.8 - Other disorders of electrolyte and fluid balance, not elsewhere classified Status: Acute Assessment and Plan 72-year-old female with Cellulitis of right hand Cellulitis versus tenosynovitis, improving with antibiotic treatment s/p IV vancomycin and Zosyn, and currently on Doxy 100 mg twice daily 10 days total Calcified nodule is chronic Hand surgery opting for nonsurgical, patient cleared from their standpoint Appreciate infectious disease consult Diarrhea Recently treated for C. difficile C. difficile PCR was negative However per ID, will continue p.o. vancomycin 20 days Hypertension Clonidine, Lopressor Supraventricular tachycardia Continue metoprolol DVT prophylaxis Lovenox Discharge Planning Awaiting for placement Russ Quach MD Feb 10, 2018 14:04
--- NOTE | 2018-02-10 14:35 | HHI.DS ---
Discharge Summary Admission Date January 30, 2018 at 00:52 Discharge Date: Feb 10, 2018 Admitting Diagnosis SVT electrolyte abnormality low Ca low K (1) Supraventricular tachycardia ICD Code: I47.1 - Supraventricular tachycardia Diagnosis: Secondary (2) C. difficile colitis ICD Code: A04.72 - Enterocolitis due to Clostridium difficile, not specified as recurrent Diagnosis: Principal (3) Electrolyte abnormality ICD Code: E87.8 - Other disorders of electrolyte and fluid balance, not elsewhere classified Diagnosis: Principal Status: Acute Procedures NONE Brief History - From Admission Ms. Zhou is a pleasant 72-year-old female with a history of supraventricular tachycardia who presented to the emergency department due to palpitations. A day prior to this admission and on the day of admission patient felt her heart was racing. She denies any chest pain, shortness of breath, fever or chills. She reports that her medications especially metoprolol tartrate was recently changed from twice daily dosing to once a day dosing in a recent hospitalization. She believes because of this change she started having this heart racing feelings. Patient also complains of significant diarrhea in the last 9 weeks. She has been on vancomycin per rehab documentations. She denies any changes in bladder habits. No cough or abdominal pain. With regards to SVT patient was given adenosine 6 mg in the ED. CBC/BMP: 02/06/18 1624 02/08/18 0635 Significant Findings Laboratory Tests Test 02/08/18 06:35 Estimat Glomerular Filtration Rate 57 ML/MIN (>89) Imaging Last Impressions Soft Tissue Ultrasound 02/03/18 0000 Signed Impressions: CONCLUSION: 1. 1.2 x 1.5 x 0.7 cm calcified lesion in the dorsum of the right hand corresp onding to apparent chronic palpable abnormality. This finding is nonspecific bu t may reflect sequela of prior infection/hemorrhage or calcific tendinitis. If this lesion is enlarging, MRI of the wrist for further characterization may be performed on an outpatient basis. 2. Mild soft tissue swelling without focal drainable fluid collections. Chest X-Ray 01/29/18 8438 Signed Impressions: CONCLUSION: The lungs are clear. PE at Discharge GENERAL: NAD SKIN: Warm and dry. HEAD: Normocephalic. EYES: No scleral icterus. No injection or drainage. NECK: Supple, trachea midline. No JVD or lymphadenopathy. CARDIOVASCULAR: Irregular regular rate and rhythm without murmurs, gallops, or rubs. RESPIRATORY: Breath sounds equal bilaterally. No accessory muscle use. GASTROINTESTINAL: Abdomen soft, non-tender, nondistended. MUSCULOSKELETAL: No cyanosis, or edema. BACK: Nontender without obvious deformity. No CVA tenderness. Hospital Course While In hospital, patient was treated for: Cellulitis of right hand Cellulitis versus tenosynovitis, improving with antibiotic treatment She was treated with IV vancomycin and Zosyn, and switched to doxy 100 mg twice daily 10 days total Calcified nodule is chronic Hand surgery opting for nonsurgical, patient cleared from their standpoint Appreciate infectious disease consult Diarrhea Recently treated for C. difficile C. difficile PCR was negative However per ID, will continue p.o. vancomycin 20 days Hypertension She was treated with clonidine, Lopressor Supraventricular tachycardia She was treated with metoprolol and placed on telemetry monitoring DVT prophylaxis Lovenox Pt Condition on Discharge: Good Discharge Disposition: Discharge to SNF Discharge Time: > 30 minutes Discharge Instructions DIET: Follow Instructions for: Heart Healthy Diet Speech Therapy-Diet Recommends: Regular Activities you can perform: Regular-No Restrictions Follow up Referrals: Hand Surgery - 3-5 Days with Sathish Garcia MD Infectious Disease - 3-5 Days with Patricia Reilly MD New Medications: Clonidine (Catapres) 0.1 Mg Tab 0.1 MG PO Q6H PRN for SBP>160, DBP>90, #30 TAB Doxycycline Hyclate (Doxycycline Hyclate) 100 Mg Tab 100 MG PO Q12HR for Infection, #20 TAB Lactobacillus Acidophilus (Acidophilus/l-Sporogenes) 35 Million Cell-25 Million Cell Tab 1 TAB PO TID for Nutritional Supplement, #90 TAB Vancomycin Inj (Vancomycin Inj) 500 Mg Inj 125 MG PO QID for Infection for 20 Days, #80 EACH Continued Medications: Acetaminophen (Tylenol) 325 Mg Tab 650 MG PO Q6H PRN for PAIN SCALE 1 TO 7, TAB 0 Refills Aspirin (Aspirin) 81 Mg Chew 81 MG CHEW DAILY for Blood Clot Prevention, #30 TAB 0 Refills (This prescription has been renewed) Fluticasone-Vilanterol Inh (Breo Ellipta Inh) 100-25 Mcg/Act Inh 1 PUFF INH DAILY, #1 INHALER 0 Refills Use daily at the same time. Gabapentin (Gabapentin) 300 Mg Cap 300 MG PO BID, #60 CAP 0 Refills Ipratropium Neb (Ipratropium Neb) 0.5 Mg/2.5 Ml Amp 0.5 MG NEB Q6HR NEB PRN for SHORTNESS OF BREATH, #120 NEBULE 0 Refills Loperamide (Loperamide) 2 Mg Cap 2 MG PO DIRECTED PRN for DIARRHEA, CAP 0 Refills One capsule after each loose stool. Not to exceed 8 capsules per day. Losartan (Losartan) 100 Mg Tab 100 MG PO DAILY for Blood Pressure Management, #30 TAB 0 Refills (This prescription has been renewed) Metoprolol Tartrate (Metoprolol Tartrate) 50 Mg Tab 50 MG PO DAILY for Blood Pressure Management, #60 TAB 0 Refills (This prescription has been renewed) Multiple Vitamin (Multiple Vitamin) 1 Tab 1 TAB PO DAILY for Nutritional Supplement, TAB 0 Refills Omeprazole (Omeprazole) 10 Mg Cap 10 MG PO BID for Manage Heartburn, #60 CAP 0 Refills (This prescription has been renewed) Ondansetron Odt (Zofran Odt) 8 Mg Tab 8 MG SL Q8HR for Nausea/Vomiting, TAB 0 Refills Temazepam (Restoril) 15 Mg Cap 15 MG PO HS PRN for INSOMNIA, #30 CAP 0 Refills (This prescription has been renewed) Discontinued Medications: Ertapenem Inj (Invanz Inj) 1 Gm Addvial 1 GM IV Q24H for Infection, INJECTION 0 Refills ADMINISTER IN 100ML NS Russ Quach MD Feb 10, 2018 14:35
[2018-02-10 16:00] VITALS: BP 166/77; PULSE 81; RESP 18; TEMP 98; O2SAT 100
[2018-02-11] MEDS ORDERED: FLUT1INH INH (17:17)
== END 2018-02-10 18:04 | DRG 309 ==
LOC: NEPE 22:33 → NEDA 01-30 00:52 → NEDH 01-30 05:04 → N04B 01-30 15:20
PROVIDERS: ADMIT Hospitalist; ATTEND Hospitalist
DX: I47.1 Supraventricular tachycardia (principal); A04.72 Enterocolitis due to Clostridium difficile, not specified as recurrent; E83.42 Hypomagnesemia; E83.51 Hypocalcemia; E87.70 Fluid overload, unspecified; L03.113 Cellulitis of right upper limb; J44.9 Chronic obstructive pulmonary disease, unspecified; H91.90 Unspecified hearing loss, unspecified ear; K21.9 Gastro-esophageal reflux disease without esophagitis; I10 Essential (primary) hypertension; E87.6 Hypokalemia; M65.831 Other synovitis and tenosynovitis, right forearm; M77.9 Enthesopathy, unspecified; D64.9 Anemia, unspecified; F17.210 Nicotine dependence, cigarettes, uncomplicated; Z85.038 Personal history of other malignant neoplasm of large intestine
CPT/HCPCS: 71045; 76999; 80048; 80053; 80202; 81001; 82550; 82565; 83690; 83735; 84155; 84443; 84484; 85014; 85018; 85025; 86140; 87040; 87493; 93005; 96365; 96375; J0153; J0610; J0690; J1650; J1885; J1940; J2543; J2997; J3370; J3475; J7050

== ENCOUNTER 2018-02-11 16:45 | Inpatient (IN) | payer MEDICARE, MEDICAID ==
[~2018-02-11] VITALS: Ht 152.4 cm; Wt 60.0 kg
[~2018-02-11 16:45] MED LIST: ASPI-516 CHEW; CLON.1 PO; DOXY100T PO; FLUT1INH INH; GABA300C5 PO; IPRA0.02 NEB; LACT PO; LOPE2CAP PO; LOSA100T PO; METO50TA PO; MULTTAB67 PO; OMEP10CA PO; REST15CA PO; TYLE325T PO; VANC500I3 PO; ZOFR8TAB4 SL
[2018-02-11 17:05] VITALS: BP 181/85; PULSE 96; RESP 16; TEMP 99; O2SAT 98
[2018-02-11] MEDS ORDERED: FLUT1INH INH (17:17)
[2018-02-11 17:27] VITALS: RESP 16; O2SAT 98
[2018-02-11] MEDS ORDERED: SODIUM CHLORIDE 0.9% FLUSH 10 ML FLUSH IV FLUSH PRN ×2 (17:30→22:45)
--- NOTE | 2018-02-11 17:43 | PD ---
HPI Chief Complaint: Abnormal Results Time Seen by Provider: 17:17 Travel History International Travel<30 days: No Contact w/Intl Traveler<30days: No Traveled to known affect area: No History of Present Illness HPI Patient is a 72-year-old female presented to the emergency department from a skilled facility for evaluation of abnormal labs. Patient is a poor historian, per medical records patient's calcium level was 5.8. She does report muscle spasms in her shoulders and neck. She also reports chronic diarrhea. She denies any shortness of breath, chest pain, abdominal pain. Patient has a history of C. difficile colitis, hypertension, weakness, diverticulitis, COPD, colon cancer. Symptom onset is unknown. PFSH Past Medical History Arthritis: Yes Heart Rhythm Problems: Yes (SVT) Cancer: Yes (COLON) Cardiac Catheterization: Yes (STENT PLACED ) COPD: Yes Diminished Hearing: Yes ([place]) Diverticulitis: Yes Gastrointestinal Disorders: Yes (C. difficile colitis) GERD: Yes Hypertension: Yes Seizures: No Tetanus Vaccination: > 5 Years Influenza Vaccination: Yes ?: Not Past Surgical History Cholecystectomy: Yes Hysterectomy: Yes Other Surgery: Yes ("BACK SURGERY") Social History Alcohol Use: Yes (3 DRINKS/ DAILY) Tobacco Use: No (QUIT ) Substance Use: No Allergies-Medications (Allergen,Severity, Reaction): Coded Allergies: No Known Allergies (Unverified , 01/29/18) Reported Meds & Prescriptions Reported Meds & Active Scripts Active Acidophilus/l-Sporogenes (Lactobacillus Acidophilus) 35 Million Cell-25 Million Cell Tab 1 Tab PO TID Catapres (Clonidine) 0.1 Mg Tab 0.1 Mg PO Q6H PRN Vancomycin Inj (Vancomycin HCl) 500 Mg Inj 125 Mg PO QID 20 Days Doxycycline Hyclate 100 Mg Tab 100 Mg PO Q12HR Restoril (Temazepam) 15 Mg Cap 15 Mg PO HS PRN Omeprazole 10 Mg Cap 10 Mg PO BID Metoprolol Tartrate 50 Mg Tab 50 Mg PO DAILY Losartan (Losartan Potassium) 100 Mg Tab 100 Mg PO DAILY Aspirin 81 Mg Chew 81 Mg CHEW DAILY Reported Breo Ellipta Inh (Fluticasone/Vilanterol) 100-25 Mcg/Act Inh 1 Puff INH DAILY Use daily at the same time. Zofran Odt (Ondansetron Odt) 8 Mg Tab 8 Mg SL Q8HR Tylenol (Acetaminophen) 325 Mg Tab 650 Mg PO Q6H PRN Multiple Vitamin 1 Tab 1 Tab PO DAILY Loperamide (Loperamide HCl) 2 Mg Cap 2 Mg PO DIRECTED PRN One capsule after each loose stool. Not to exceed 8 capsules per day. Ipratropium Neb (Ipratropium [place]) 0.5 Mg/2.5 Ml Amp 0.5 Mg NEB Q6HR NEB PRN Gabapentin 300 Mg Cap 300 Mg PO BID Review of Systems Except as stated in HPI: all other systems reviewed are Neg Gastrointestinal: Positive: Diarrhea Musculoskeletal: Positive: Myalgias, Cramping Physical Exam Narrative GENERAL: Thin, alert elderly female. Presenting in no acute distress. SKIN: Warm and dry. HEAD: Atraumatic. Normocephalic. EYES: Pupils equal and round. No scleral icterus. No injection or drainage. ENT: No nasal bleeding or discharge. Mucous membranes pink and moist. NECK: Trachea midline. No JVD. CARDIOVASCULAR: Regular rate and rhythm. RESPIRATORY: No accessory muscle use. Clear to auscultation. Breath sounds equal , diminished in bases. GASTROINTESTINAL: Abdomen soft, non-tender, nondistended. Hepatic and splenic margins not palpable. Hypoactive bowel sounds. No rebound, no guarding. MUSCULOSKELETAL: Extremities without clubbing, cyanosis, or edema. No obvious deformities. NEUROLOGICAL: Awake and alert. No obvious cranial nerve deficits. Motor grossly within normal limits. Five out of 5 muscle strength in the arms and legs. Normal speech. PSYCHIATRIC: Appropriate mood and affect; insight and judgment normal. Data Data Last Documented VS Vital Signs Date Time Temp Pulse Resp B/P (MAP) Pulse Ox O2 Delivery O2 Flow Rate FiO2 02/11/18 19:07 94 18 193/87 (122) 96 Room Air 02/11/18 17:05 99.0 Orders Orders Complete Blood Count With Diff (02/11/18 17:18) Comprehensive Metabolic Panel (02/11/18 17:18) Lipase (02/11/18 17:18) Lactic Acid (02/11/18 17:18) Urinalysis - C+S If Indicated (02/11/18 17:18) Iv Access Insert/Monitor (02/11/18 17:18) Ecg Monitoring (02/11/18 17:18) Oximetry (02/11/18 17:18) Sodium Chloride 0.9% Flush (Ns Flush) (02/11/18 17:30) Magnesium (Mg) (02/11/18 17:24) Chest, Single Ap (02/11/18 ) Electrocardiogram (02/11/18 ) Promethazine Inj (Phenergan Inj) (02/11/18 17:45) Sodium Chlorid 0.9% 500 Ml Inj (Ns 500 M (02/11/18 17:45) Magnesium Sulfate 1 Gm Premix (Magnesium (02/11/18 19:00) Calcium Gluconate Inj (Calcium Gluconate (02/11/18 19:00) Ct Thorax/ Chest W Iv Contrast (02/11/18 ) Iohexol 350 Inj (Omnipaque 350 Inj) (02/11/18 19:48) Admit Order (Ed Use Only) (02/11/18 19:51) Labs Laboratory Tests Test 02/11/18 17:20 02/11/18 17:24 White Blood Count 15.2 TH/MM3 Red Blood Count 2.94 MIL/MM3 Hemoglobin 8.8 GM/DL Hematocrit 27.1 % Mean Corpuscular Volume 92.0 FL Mean Corpuscular Hemoglobin 30.0 PG Mean Corpuscular Hemoglobin Concent 32.6 % Red Cell Distribution Width 16.3 % Platelet Count 447 TH/MM3 Mean Platelet Volume 8.2 FL Neutrophils (%) (Auto) 81.7 % Lymphocytes (%) (Auto) 9.5 % Monocytes (%) (Auto) 6.8 % Eosinophils (%) (Auto) 1.3 % Basophils (%) (Auto) 0.7 % Neutrophils # (Auto) 12.4 TH/MM3 Lymphocytes # (Auto) 1.4 TH/MM3 Monocytes # (Auto) 1.0 TH/MM3 Eosinophils # (Auto) 0.2 TH/MM3 Basophils # (Auto) 0.1 TH/MM3 CBC Comment DIFF FINAL Differential Comment Blood Urea Nitrogen 22 MG/DL Creatinine 0.93 MG/DL Random Glucose 92 MG/DL Total Protein 6.6 GM/DL Albumin 2.5 GM/DL Calcium Level 6.0 MG/DL Alkaline Phosphatase 72 U/L Aspartate Amino Transf (AST/SGOT) 19 U/L Alanine Aminotransferase (ALT/SGPT) 10 U/L Total Bilirubin 0.3 MG/DL Sodium Level 140 MEQ/L Potassium Level 4.1 MEQ/L Chloride Level 110 MEQ/L Carbon Dioxide Level 14.6 MEQ/L Anion Gap 15 MEQ/L Estimat Glomerular Filtration Rate 59 ML/MIN Lactic Acid Level 0.7 mmol/L Protein Corrected Calcium 6.2 MG/DL Lipase 156 U/L Magnesium Level 0.5 MG/DL MDM Medical Decision Making Medical Screen Exam Complete: Yes Emergency Medical Condition: Yes Medical Record Reviewed: Yes Interpretation(s) Last Impressions Chest X-Ray 02/11/18 0000 Signed Impressions: CONCLUSION: 2 nodular densities projecting over the left lower lobe and left lower ribs. I' m unsure if this relates to parenchymal consolidations involving the lung or th cameron could relate to areas of increased density involving the ribs. CT could be utilized to further assess. Laboratory Tests Test 02/11/18 17:20 02/11/18 17:24 White Blood Count 15.2 TH/MM3 Red Blood Count 2.94 MIL/MM3 Hemoglobin 8.8 GM/DL Hematocrit 27.1 % Mean Corpuscular Volume 92.0 FL Mean Corpuscular Hemoglobin 30.0 PG Mean Corpuscular Hemoglobin Concent 32.6 % Red Cell Distribution Width 16.3 % Platelet Count 447 TH/MM3 Mean Platelet Volume 8.2 FL Neutrophils (%) (Auto) 81.7 % Lymphocytes (%) (Auto) 9.5 % Monocytes (%) (Auto) 6.8 % Eosinophils (%) (Auto) 1.3 % Basophils (%) (Auto) 0.7 % Neutrophils # (Auto) 12.4 TH/MM3 Lymphocytes # (Auto) 1.4 TH/MM3 Monocytes # (Auto) 1.0 TH/MM3 Eosinophils # (Auto) 0.2 TH/MM3 Basophils # (Auto) 0.1 TH/MM3 CBC Comment DIFF FINAL Differential Comment Blood Urea Nitrogen 22 MG/DL Creatinine 0.93 MG/DL Random Glucose 92 MG/DL Total Protein 6.6 GM/DL Albumin 2.5 GM/DL Calcium Level 6.0 MG/DL Alkaline Phosphatase 72 U/L Aspartate Amino Transf (AST/SGOT) 19 U/L Alanine Aminotransferase (ALT/SGPT) 10 U/L Total Bilirubin 0.3 MG/DL Sodium Level 140 MEQ/L Potassium Level 4.1 MEQ/L Chloride Level 110 MEQ/L Carbon Dioxide Level 14.6 MEQ/L Anion Gap 15 MEQ/L Estimat Glomerular Filtration Rate 59 ML/MIN Lactic Acid Level 0.7 mmol/L Protein Corrected Calcium 6.2 MG/DL Lipase 156 U/L Magnesium Level 0.5 MG/DL Vital Signs Date Time Temp Pulse Resp B/P (MAP) Pulse Ox O2 Delivery O2 Flow Rate FiO2 02/11/18 17:27 16 98 Room Air 02/11/18 17:05 99.0 96 16 181/85 (117) 98 02/11/18 17:05 96 16 98 Room Air Differential Diagnosis Metabolic abnormality versus cardiac arrhythmia versus tetany versus other Narrative Course Patient is a 72-year-old female presenting to the emergency department for evaluation after abnormal labs resulted at her skilled facility. Patient's vital signs are stable, labs ordered and pending. Patient reported nausea on arrival, she was given Phenergan IM and IV fluids. CBC with a white count of 15.2 with left shift, hemoglobin and hematocrit 8.8/ 27.1, this is stable when compared to prior. Chemistry with a protein corrected calcium was 6.2, magnesium 0.5. 2 g of calcium gluconate and 2 g of magnesium IV ordered. Chest x-ray shows 2 nodular densities projecting over the left lower lobe and left lower ribs. Is unsure if it relates to parenchymal consolidations involving the lungs or they could relate to increased area of density involving the ribs. CT scan of the chest ordered and pending. Patient was admitted to residents, please see my attending physician's note. Diagnosis Primary Impression: Hypocalcemia Additional Impressions: Hypomagnesemia Abnormal chest x-ray Admitting Information Admitting Physician Requests: Admit Condition: Stable Mary Wallace Feb 11, 2018 17:43
[2018-02-11] MEDS ORDERED: SODIUM CHLORID 0.9% 500 ML INJ 500 ML IV ONE (17:45)
[2018-02-11] MEDS ORDERED: PROMETHAZINE INJ 25 MG/ML VIAL IM ONE (17:45)
--- NOTE | 2018-02-11 17:52 | RADRPT ---
EXAM DATE: 02/11/2018 5:46 PM EDT AGE/SEX: 72 years / Female INDICATIONS: Wheezing. CLINICAL DATA: This is the patient's initial encounter. Patient reports that signs and symptoms have been present for 1 day and indicates a pain score of 0/10. MEDICAL/SURGICAL HISTORY: Hypertension. Chronic obstructive pulmonary disease. SVT. Colon canc er. . Stent. COMPARISON: . FINDINGS: A single AP view of the chest demonstrates 2 nodular densities projecting over the left lower lobe. T hese also project over the posterior aspects of the left ninth and eighth ribs. These nodular densiti es are new from the prior exam. No effusions. No pneumothoraces. Heart is normal in size. Orthopedic hardware is seen involving the upper lumbar spine. CONCLUSION: 2 nodular densities projecting over the left lower lobe and left lower ribs. I'm unsure if this relat es to parenchymal consolidations involving the lung or these could relate to areas of increased densi ty involving the ribs. CT could be utilized to further assess. Electronically signed by: Anthony Lott MD 02/11/2018 5:50 PM EDT
[2018-02-11 18:00] LABS: AUTOMATED NEUTROPHIL # 12.4 TH/MM3 (1.8-7.7); BASOPHIL # 0.1 TH/MM3 (0-0.2); BASOPHIL % 0.7 % (0.0-2.0); EOSINOPHIL # 0.2 TH/MM3 (0-0.4); EOSINOPHIL % 1.3 % (0.0-4.0); HEMATOCRIT 27.1 % (35.0-46.0); HEMOGLOBIN 8.8 GM/DL (11.6-15.3); LYMPH % 9.5 % (9.0-44.0); LYMPHOCYTE # 1.4 TH/MM3 (1.0-4.8); MEAN CORPUSCULAR HGB CONC 32.6 % (32.0-36.0); MEAN PLATELET VOLUME 8.2 FL (7.0-11.0); MONO % 6.8 % (0.0-8.0); NEUT % 81.7 % (16.0-70.0); PLATELET COUNT 447 TH/MM3 (150-450); RED BLOOD COUNT 2.94 MIL/MM3 (4.00-5.30); RED CELL DISTRIBUTION WIDTH 16.3 % (11.6-17.2); WHITE BLOOD COUNT 15.2 TH/MM3 (4.0-11.0)
[2018-02-11 18:36] LABS: ALBUMIN 2.5 GM/DL (3.4-5.0); BICARBONATE 14.6 MEQ/L (21.0-32.0); CREATININE 0.93 MG/DL (0.50-1.00); TOTAL BILIRUBIN ADULT 0.3 MG/DL (0.2-1.0); TOTAL PROTEIN 6.6 GM/DL (6.4-8.2)
[2018-02-11 18:39] LABS: CALCIUM-PROTEIN CORRECTED 6.2 MG/DL (8.5-10.1)
[2018-02-11] MEDS ORDERED: CALCIUM GLUCONATE INJ 2 GM in DEXTROSE 5% IN WATER 100ML INJ 100 ML IV ONE ×2 (19:00)
[2018-02-11] MEDS: MAGNESIUM SULFATE 1 GM PREMIX 100 ML IV SCH ×2 (19:06→20:27)
[2018-02-11 19:07] VITALS: BP 193/87; PULSE 94; RESP 18; O2SAT 96
--- NOTE | 2018-02-11 19:30 | PD ---
Physical Exam Date Seen by Provider: Feb 11, 2018 Time Seen by Provider: 18:00 Narrative I, Dr. Bauer, have reviewed the advance practice practitioner's documentation and am in agreement, met with the patient face to face, made the diagnosis, and the medical decision making was done by me. *My assessment and Findings: Patient seen and evaluated with PA, please see PA notes for further details. Here because she has had diarrhea, and had an evaluation sent by primary care doctor, has electrolyte abnormalities, likely secondary to dehydration as well. IV electrolyte replacement for calcium and magnesium was initiated in the ER. At this point considering that she is doing poorly at home, plan would be to admit her for further evaluation. Chest x- rays also showing some abnormalities to the left lower lobe and rib area and CAT scan was ordered for further evaluation as well. Case is discussed with family practice resident service for admission. Laboratory Tests Test 02/11/18 17:20 02/11/18 17:24 White Blood Count 15.2 TH/MM3 (4.0-11.0) Red Blood Count 2.94 MIL/MM3 (4.00-5.30) Hemoglobin 8.8 GM/DL (11.6-15.3) Hematocrit 27.1 % (35.0-46.0) Neutrophils (%) (Auto) 81.7 % (16.0-70.0) Neutrophils # (Auto) 12.4 TH/MM3 (1.8-7.7) Monocytes # (Auto) 1.0 TH/MM3 (0-0.9) Blood Urea Nitrogen 22 MG/DL (7-18) Albumin 2.5 GM/DL (3.4-5.0) Calcium Level 6.0 MG/DL (8.5-10.1) Chloride Level 110 MEQ/L (98-107) Carbon Dioxide Level 14.6 MEQ/L (21.0-32.0) Estimat Glomerular Filtration Rate 59 ML/MIN (>89) Protein Corrected Calcium 6.2 MG/DL (8.5-10.1) Magnesium Level 0.5 MG/DL (1.5-2.5) Last 24 hours Impressions Chest X-Ray 02/11/18 0000 Signed Impressions: CONCLUSION: 2 nodular densities projecting over the left lower lobe and left lower ribs. I' m unsure if this relates to parenchymal consolidations involving the lung or th cameron could relate to areas of increased density involving the ribs. CT could be utilized to further assess. Data Data Last Documented VS Vital Signs Date Time Temp Pulse Resp B/P (MAP) Pulse Ox O2 Delivery O2 Flow Rate FiO2 02/11/18 19:07 94 18 193/87 (122) 96 Room Air 02/11/18 17:05 99.0 Orders Orders Complete Blood Count With Diff (02/11/18 17:18) Comprehensive Metabolic Panel (02/11/18 17:18) Lipase (02/11/18 17:18) Lactic Acid (02/11/18 17:18) Urinalysis - C+S If Indicated (02/11/18 17:18) Iv Access Insert/Monitor (02/11/18 17:18) Ecg Monitoring (02/11/18 17:18) Oximetry (02/11/18 17:18) Sodium Chloride 0.9% Flush (Ns Flush) (02/11/18 17:30) Magnesium (Mg) (02/11/18 17:24) Chest, Single Ap (02/11/18 ) Electrocardiogram (02/11/18 ) Promethazine Inj (Phenergan Inj) (02/11/18 17:45) Sodium Chlorid 0.9% 500 Ml Inj (Ns 500 M (02/11/18 17:45) Magnesium Sulfate 1 Gm Premix (Magnesium (02/11/18 19:00) Calcium Gluconate Inj (Calcium Gluconate (02/11/18 19:00) Labs Laboratory Tests Test 02/11/18 17:20 02/11/18 17:24 White Blood Count 15.2 TH/MM3 Red Blood Count 2.94 MIL/MM3 Hemoglobin 8.8 GM/DL Hematocrit 27.1 % Mean Corpuscular Volume 92.0 FL Mean Corpuscular Hemoglobin 30.0 PG Mean Corpuscular Hemoglobin Concent 32.6 % Red Cell Distribution Width 16.3 % Platelet Count 447 TH/MM3 Mean Platelet Volume 8.2 FL Neutrophils (%) (Auto) 81.7 % Lymphocytes (%) (Auto) 9.5 % Monocytes (%) (Auto) 6.8 % Eosinophils (%) (Auto) 1.3 % Basophils (%) (Auto) 0.7 % Neutrophils # (Auto) 12.4 TH/MM3 Lymphocytes # (Auto) 1.4 TH/MM3 Monocytes # (Auto) 1.0 TH/MM3 Eosinophils # (Auto) 0.2 TH/MM3 Basophils # (Auto) 0.1 TH/MM3 CBC Comment DIFF FINAL Differential Comment Blood Urea Nitrogen 22 MG/DL Creatinine 0.93 MG/DL Random Glucose 92 MG/DL Total Protein 6.6 GM/DL Albumin 2.5 GM/DL Calcium Level 6.0 MG/DL Alkaline Phosphatase 72 U/L Aspartate Amino Transf (AST/SGOT) 19 U/L Alanine Aminotransferase (ALT/SGPT) 10 U/L Total Bilirubin 0.3 MG/DL Sodium Level 140 MEQ/L Potassium Level 4.1 MEQ/L Chloride Level 110 MEQ/L Carbon Dioxide Level 14.6 MEQ/L Anion Gap 15 MEQ/L Estimat Glomerular Filtration Rate 59 ML/MIN Lactic Acid Level 0.7 mmol/L Protein Corrected Calcium 6.2 MG/DL Lipase 156 U/L Magnesium Level 0.5 MG/DL [facility] Medical Record Reviewed: Yes Supervised Visit with JOSÉ: Yes Diagnosis Primary Impression: C. difficile colitis Additional Impressions: Hypocalcemia Hypomagnesemia Admitting Information Admitting Physician Requests: Admit Winston Bauer MD Feb 11, 2018 19:30
[2018-02-11] MEDS ORDERED: IOHEXOL 350 MG/ML 10 ML VIAL (for RAD DIAG) IVCONTRAST ONE (19:48)
--- NOTE | 2018-02-11 20:05 | RADRPT ---
EXAM DATE: 02/11/2018 7:52 PM EDT AGE/SEX: 72 years / Female INDICATIONS: Shortness of breath, abnormal chest x-ray. CLINICAL DATA: This is the patient's initial encounter. Patient reports that signs and symptoms have been present for 1 day and indicates a pain score of 0/10. MEDICAL/SURGICAL HISTORY: Cardiovascular disease. Hypertension. Chronic obstructive pulmonary dis ease. Colon cancer. None. RADIATION DOSE: 4.05 CTDI (mGy) COMPARISON: . TECHNIQUE: Multiple contiguous axial images were obtained through the chest during bolus infusion of 65 ml Omnipaque 350 (iohexol) nonionic water-soluble contrast as a single exam dose. Images were obtained in suspended respiration using multiple row detector helical technique. Using automated exp osure control and adjustment of the mA and/or kV according to patient size, radiation dose was kept a s low as reasonably achievable to obtain optimal diagnostic quality images. FINDINGS: Lungs: Pronounced emphysematous changes throughout both lungs. Mild chronic interstitial changes wit hin the subpleural aspects of both lower lobes. No nodules. No infiltrates. No bronchiectasis.. Mediastinum: Diffuse calcified atherosclerotic plaque throughout the thoracic aorta. The aorta and p ulmonary arteries are normal in caliber. Heart is normal in size. No pericardial effusion. No mass or adenopathy.. Pleurae: No evidence of focal thickening or pleural effusion. Axillae: Unremarkable. Bony Structures: Old left sixth through 12th rib fractures .. This correlates to the density seen on the stressed x-ray. Old right posterior ninth rib fracture. Miscellaneous: The examination was extended to include the upper abdomen, and both adrenal glands ar e normal in size and configuration. CONCLUSION: 1. The density seen on the prior chest x-ray relates to old rib fractures. Some show lack of union. 2. Emphysematous change and chronic interstitial change. 3. No pulmonary mass. Electronically signed by: Anthony Lott MD 02/11/2018 8:03 PM EDT
[2018-02-11 21:22] VITALS: BP 171/72; PULSE 96; RESP 18; O2SAT 97
[2018-02-11 22:32] VITALS: BP 186/78; PULSE 97; RESP 18; O2SAT 95
[2018-02-11] MEDS ORDERED: SODIUM CHLOR 0.9% IV SCH (22:41)
[2018-02-11] MEDS ORDERED: POTASSIUM CHLORIDE IV SCH (22:41)
[2018-02-11] MEDS ORDERED: NALOXONE HCL 0.4 MG/ML AMP IV PUSH PRN (22:45)
[2018-02-11] MEDS ORDERED: SENNOSIDES 8.6 MG TAB PO PRN (22:45)
[2018-02-11] MEDS ORDERED: RESP: IPRATROPIUM 0.5 MG/2.5 ML NEB NEB PRN (22:45)
[2018-02-11] MEDS ORDERED: TEMAZEPAM 15 MG CAP PO PRN (22:45)
[2018-02-11] MEDS ORDERED: BISACODYL 10 MG SUPP RECTAL PRN (22:45)
[2018-02-11] MEDS ORDERED: ACETAMINOPHEN 325 MG TAB PO PRN ×2 (22:45)
[2018-02-11] MEDS ORDERED: MAGNESIUM HYDROXIDE SUSP 30 ML CUP PO PRN (22:45)
[2018-02-11] MEDS ORDERED: LACTULOSE SYRUP 20 GM/30 ML CUP PO PRN (22:45)
--- NOTE | 2018-02-11 22:50 | HHI.HP ---
[facility] Service Family Medicine Primary Care Physician Myron Bush MD Admission Diagnosis Hypocalcemia/hypomagnesemia/C. difficile diarrhea Diagnoses: International Travel<30 Days: No Contact w/Intl Traveler<30days: No Known Affected Area: No History of Present Illness Most history obtained by reviewing old records this patient is a poor historian. 72 yo female with history of essential hypertension, COPD, Clostridium difficile colitis, diverticulitis, supraventricular tachycardia, colon cancer in situ presenting with muscle aches and chills since yesterday. She was evaluated by a physician at her nursing facility, [facility], noted that her calcium level was 5.8. Therefore they sent her to the ER for further evaluation and treatment. Of note, she is also currently being treated for Clostridium difficile colitis as well as possible diverticulitis with oral vancomycin and doxycycline. She denies abdominal pain but has persistent diarrhea for the last month or so. Review of Systems ROS Limitations: Poor Historian Constitutional: COMPLAINS OF: Chills, DENIES: Fever Endocrine: COMPLAINS OF: Heat/cold intolerance Eyes: DENIES: Blurred vision Ears, nose, mouth, throat: DENIES: Nasal discharge, Throat pain, Ear Pain Respiratory: DENIES: Cough, Wheezing, Shortness of breath Cardiovascular: DENIES: Chest pain, Palpitations Gastrointestinal: COMPLAINS OF: Diarrhea, Nausea, DENIES: Abdominal pain, Vomiting Genitourinary: DENIES: Urinary frequency, Dysuria Musculoskeletal: COMPLAINS OF: Joint pain, Muscle aches, DENIES: Joint Swelling Integumentary: DENIES: Abnormal pigmentation, Rash Hematologic/lymphatic: DENIES: Bruising Immunologic/allergic: DENIES: Urticaria Neurologic: DENIES: Headache, Localized weakness Psychiatric: DENIES: Anxiety, Confusion, Depression Past Family Social History Past Medical History Supraventricular tachycardia COPD Hypertension C. difficile colitis Diverticulitis Colon cancer in situ Past Surgical History Cholecystectomy Hysterectomy Back surgery Reported Medications Reported Meds & Active Scripts Active Acidophilus/l-Sporogenes (Lactobacillus Acidophilus) 35 Million Cell-25 Million Cell Tab 1 Tab PO TID Catapres (Clonidine) 0.1 Mg Tab 0.1 Mg PO Q6H PRN Vancomycin Inj (Vancomycin HCl) 500 Mg Inj 125 Mg PO QID 20 Days Doxycycline Hyclate 100 Mg Tab 100 Mg PO Q12HR Restoril (Temazepam) 15 Mg Cap 15 Mg PO HS PRN Omeprazole 10 Mg Cap 10 Mg PO BID Metoprolol Tartrate 50 Mg Tab 50 Mg PO DAILY Losartan (Losartan Potassium) 100 Mg Tab 100 Mg PO DAILY Aspirin 81 Mg Chew 81 Mg CHEW DAILY Reported Breo Ellipta Inh (Fluticasone/Vilanterol) 100-25 Mcg/Act Inh 1 Puff INH DAILY Use daily at the same time. Zofran Odt (Ondansetron Odt) 8 Mg Tab 8 Mg SL Q8HR Tylenol (Acetaminophen) 325 Mg Tab 650 Mg PO Q6H PRN Multiple Vitamin 1 Tab 1 Tab PO DAILY Loperamide (Loperamide HCl) 2 Mg Cap 2 Mg PO DIRECTED PRN One capsule after each loose stool. Not to exceed 8 capsules per day. Ipratropium Neb (Ipratropium [place]) 0.5 Mg/2.5 Ml Amp 0.5 Mg NEB Q6HR NEB PRN Gabapentin 300 Mg Cap 300 Mg PO BID Allergies: Coded Allergies: No Known Allergies (Unverified , 01/29/18) Active Ordered Medications Current Medications Medications (Trade) Dose Ordered Sig/Nichelle Route Start Time Stop Time Status Last Admin (NS Flush) 2 ml UNSCH PRN IV FLUSH 02/11/18 17:30 02/11/18 17:33 (Tylenol) 650 mg Q6H PRN PO 02/11/18 22:45 (Aspirin Chew) 81 mg DAILY CHEW 02/12/18 09:00 (Breo Ellipta 100-25 Inh) 1 puff DAILY INH 02/12/18 09:00 (Neurontin) 300 mg BID PO 02/12/18 09:00 (Atrovent Neb) 0.5 mg Q6HR NEB PRN NEB 02/11/18 22:45 (Lactinex) 1 tab TID PO 02/12/18 09:00 (Cozaar) 100 mg DAILY PO 02/12/18 09:00 (Lopressor) 50 mg DAILY PO 02/12/18 09:00 (Restoril) 15 mg HS PRN PO 02/11/18 22:45 (Theragran) 1 tab DAILY PO 02/12/18 09:00 (Prevacid Odt) 15 mg BID PO 02/12/18 09:00 Potassium Chloride 0.04 meq/ Sodium Chloride 1 ml @ 100 mls/hr Q1M IV 02/11/18 22:41 UNV (NS Flush) 2 ml UNSCH PRN IV FLUSH 02/11/18 22:45 (NS Flush) 2 ml BID IV FLUSH 02/12/18 09:00 (Tylenol) 650 mg Q4H PRN PO 02/11/18 22:45 (Lovenox Inj) 40 mg Q24H SQ 02/11/18 22:45 02/12/18 00:39 (Narcan Inj) 0.4 mg UNSCH PRN IV PUSH 02/11/18 22:45 (Elizabeth-Colace) 1 tab BID PO 02/12/18 09:00 (Milk Of Magnesia Liq) 30 ml Q12H PRN PO 02/11/18 22:45 (Senokot) 17.2 mg Q12H PRN PO 02/11/18 22:45 (Dulcolax Supp) 10 mg DAILY PRN RECTAL 02/11/18 22:45 (Lactulose Liq) 30 ml DAILY PRN PO 02/11/18 22:45 (VANCOMYCIN for oral use only) 125 mg QID PO 02/12/18 09:00 (Flagyl) 500 mg Q8HR PO 02/12/18 06:00 (Vibramycin) 100 mg BID PO 02/12/18 09:00 (Lactinex Pkt) 1 gm TID PO 02/12/18 09:00 Magnesium Sulfate/ Dextrose 100 ml @ 100 mls/hr Q1H IV 02/12/18 01:15 02/12/18 03:14 (Ferrous Sulfate) 325 mg BID PO 02/12/18 09:00 Family History Negative for Alzheimer's disease Social History Tobacco: Smoked half pack a day, quit a couple months ago Alcohol: Drinks 2-3 liquor based beverages per day Drug use: Denies current or past use States she lives at home with her , but was transferred from [facility], so unclear Physical Exam Vital Signs Vital Signs Date Time Temp Pulse Resp B/P (MAP) Pulse Ox O2 Delivery O2 Flow Rate FiO2 02/11/18 22:32 97 18 186/78 (114) 95 Room Air 02/11/18 21:22 96 18 171/72 (105) 97 Room Air 02/11/18 19:07 94 18 193/87 (122) 96 Room Air 02/11/18 17:27 16 98 Room Air 02/11/18 17:05 99.0 96 16 181/85 (117) 98 02/11/18 17:05 96 16 98 Room Air Physical Exam GENERAL: Thin elderly white female lying on her side in bed appearing uncomfortable but in no acute distress SKIN: Cool and moist. Stage I sacral decubitus ulcer with mild erythema without skin breakdown. HEAD: NC/AT EYES: PERRL. EOMI. No conjunctival injection or drainage. ENT: MMM, OP without erythema, tonsillar swelling, or exudate. NECK: Supple, no lymphadenopathy. No JVD. CARDIOVASCULAR: NRRR. Normal S1/S2. No MRG RESPIRATORY: CTAB. No crackles or wheezes. GASTROINTESTINAL: Abdomen soft, non-distended, non-tender. No hepato- splenomegaly or palpable masses. MUSCULOSKELETAL: Extremities without clubbing, cyanosis, or edema. NEUROLOGICAL: Awake and alert. Cranial nerves II through XII grossly intact. Moves all extremities without difficulty. Normal speech. Laboratory Laboratory Tests Test 02/11/18 17:20 02/11/18 17:24 White Blood Count 15.2 Red Blood Count 2.94 Hemoglobin 8.8 Hematocrit 27.1 Mean Corpuscular Volume 92.0 Mean Corpuscular Hemoglobin 30.0 Mean Corpuscular Hemoglobin Concent 32.6 Red Cell Distribution Width 16.3 Platelet Count 447 Mean Platelet Volume 8.2 Neutrophils (%) (Auto) 81.7 Lymphocytes (%) (Auto) 9.5 Monocytes (%) (Auto) 6.8 Eosinophils (%) (Auto) 1.3 Basophils (%) (Auto) 0.7 Neutrophils # (Auto) 12.4 Lymphocytes # (Auto) 1.4 Monocytes # (Auto) 1.0 Eosinophils # (Auto) 0.2 Basophils # (Auto) 0.1 CBC Comment DIFF FINAL Differential Comment Blood Urea Nitrogen 22 Creatinine 0.93 Random Glucose 92 Total Protein 6.6 Albumin 2.5 Calcium Level 6.0 Alkaline Phosphatase 72 Aspartate Amino Transf (AST/SGOT) 19 Alanine Aminotransferase (ALT/SGPT) 10 Total Bilirubin 0.3 Sodium Level 140 Potassium Level 4.1 Chloride Level 110 Carbon Dioxide Level 14.6 Anion Gap 15 Estimat Glomerular Filtration Rate 59 Lactic Acid Level 0.7 Protein Corrected Calcium 6.2 Lipase 156 Magnesium Level 0.5 Result Diagram: 6/6/18 1720 02/11/18 1720 Imaging Last Impressions Chest X-Ray 02/11/18 0000 Signed Impressions: CONCLUSION: 2 nodular densities projecting over the left lower lobe and left lower ribs. I' m unsure if this relates to parenchymal consolidations involving the lung or th cameron could relate to areas of increased density involving the ribs. CT could be utilized to further assess. Chest CT 02/11/18 0000 Signed Impressions: CONCLUSION: 1. The density seen on the prior chest x-ray relates to old rib fractures. Bladimir e show lack of union. 2. Emphysematous change and chronic interstitial change. 3. No pulmonary mass. Caprini VTE Risk Assessment Caprin VTE Risk Assessment: Mod/High Risk (score >= 2) Assessment and Plan Assessment and Plan 72-year-old female with past medical history of C. difficile colitis, diverticulitis, COPD, hypertension, SVT, colon cancer in situ presenting with: Problem List: (1) Muscular aches ICD Codes: M79.1 - Myalgia Status: Acute Plan: Likely secondary to electrolyte abnormalities, but clinical picture could also suggest viral syndrome like flu or systemic manifestation of colitis -Treat electrolyte disturbances as below -Check viral PCR -Treat colitis as below (2) C. difficile colitis ICD Codes: A04.72 - Enterocolitis due to Clostridium difficile, not specified as recurrent Status: Chronic Plan: Persistent diarrhea without abdominal pain, currently undergoing treatment for C diff colitis plus possible diverticulitis -Check C diff PCR -Continue vancomycin PO and doxycycline PO -Add Flagyl 500 mg PO TID -Lactobacillus TID -Hemoccult stool (3) Hypomagnesemia ICD Codes: E83.42 - Hypomagnesemia Status: Acute Plan: Mg very low at 0.5, likely due to diarrhea S/p 2 gm Mg SO4 in ER - Give additional 2 gm magnesium - Neuro checks while on magnesium (4) Hypocalcemia ICD Codes: E83.51 - Hypocalcemia Status: Acute Plan: Calcium very low S/p 2 gm calcium gluconate IV in ER - Repeat calcium level in AM - Telemetry (5) Normocytic anemia ICD Codes: D64.9 - Anemia, unspecified Status: Chronic Plan: Likely due to iron deficiency from malnutrition - Check hemoccult - Check ferritin, B12, folate (6) Supraventricular tachycardia ICD Codes: I47.1 - Supraventricular tachycardia Status: Chronic Plan: h/o svt, currently stable, rate controlled - continue home metoprolol (7) Essential hypertension ICD Codes: I10 - Essential (primary) hypertension Status: Chronic Plan: BP slightly elevated - Continue home meds - Monitor BP (8) COPD (chronic obstructive pulmonary disease) ICD Codes: J44.9 - Chronic obstructive pulmonary disease, unspecified Status: Chronic Plan: Stable Continue home Breo DuoNebs PRN (9) FEN/PP Plan: Fluids: NS + KCL 40 meq/L at 100 cc/hr Elecs: See above Nutrition: Diet regular basic DVT: Lovenox Code status: Full code Discussed case with ER physician Physician Certification 2 Midnight Certification Type: Admission for Inpatient Services Order for Inpatient Services The services are ordered in accordance with Medicare regulations or non- Medicare payer requirements, as applicable. In the case of services not specified as inpatient-only, they are appropriately provided as inpatient services in accordance with the 2-midnight benchmark. Estimated LOS (days): 2 days is the estimated time the patient will need to remain in the hospital, assuming treatment plan goals are met and no additional complications. Post-Hospital Plan: SNF Problem Qualifiers (1) COPD (chronic obstructive pulmonary disease): Qualified Codes: J44.9 - Chronic obstructive pulmonary disease, unspecified Jeff Edwards MD R2 Feb 11, 2018 10:50 pm
[2018-02-11 23:46] LABS: FOLATE 4.8 NG/ML (3.1-17.5)
[2018-02-12] VITALS (15 sets, daily range): BP systolic 138–205; BP diastolic 76–95; PULSE 66–185; RESP 16–20; TEMP 97.3–98.1; O2SAT 93–99
[2018-02-12] MEDS: ENOXAPARIN SODIUM 40 MG/0.4 ML SYRINGE SQ SCH ×2 (00:39→23:15)
[2018-02-12 01:27] LABS: BACTERIA, URINE OCC /hpf; BILIRUBIN, URINE NEG (NEG); BLOOD, URINE SMALL (NEG); GLUCOSE,URINE NEG (NEG); KETONE, URINE NEG (NEG); MUCUS URINE FEW /lpf (OCC); NITRITE,URINE NEG (NEG); PH, URINE 5.5 (5.0-8.5); SQUAMOUS EPITHELIAL CELL URINE 1 /hpf (0-5); URINE COLOR YELLOW (YELLW/STRAW); URINE LEUKOCYTE ESTERASE LARGE (NEG)
[2018-02-12] MEDS: MAGNESIUM SULFATE 1 GM PREMIX 100 ML IV SCH ×2 (01:40→03:46)
[2018-02-12] MEDS ORDERED: ADENOSINE IV SOLN 3 MG/ML 2 ML VIAL ONE (05:48)
[2018-02-12] MEDS ORDERED: metroNIDAZOLE 500 MG TAB PO SCH (06:00)
[2018-02-12] MEDS ORDERED: METOPROLOL TARTRATE 5 MG/5 ML VIAL IV PUSH SCH (06:00)
--- NOTE | 2018-02-12 06:12 | HHI.PR ---
Addendum to Inpatient Note Addendum Reason: Additional Documentation Additional Information Responded to [facility] for patient having HR in the 180s and chest pressure. Patient has history of SVT and was in SVT on telemetry on MD arrival. Awake and endorsing chest pain and palpitations and malaise. No shortness of breath. Vitals: HR 184, BP 139/92, O2 97% on 2L NC Gen: Sitting up in bed, anxious, mild distress CV: Tachycardic and regular, no murmur Resp: CTAB MSK: No edema Neuro: Awake, alert, oriented to place and person Lopressor 5 mg IV push given, HR decreased to 84, patient felt better (no more chest pain/palpitation) A/P 72 yo female with h/o SVT admitted for colitis, electrolyte disturbance now in SVT -HR corrected after lopressor IV -Give AM lopressor dose -Check troponin, CBC, BMP -Continue telemetry sdw Jeff Lee MD R2 Feb 12, 2018 06:12
[2018-02-12 06:21] LABS: BASOPHIL # 0.1 TH/MM3 (0-0.2); BASOPHIL % 0.9 % (0.0-2.0); EOSINOPHIL # 0.1 TH/MM3 (0-0.4); EOSINOPHIL % 0.4 % (0.0-4.0); HEMATOCRIT 29.8 % (35.0-46.0); HEMOGLOBIN 9.8 GM/DL (11.6-15.3); LYMPH % 12.6 % (9.0-44.0); LYMPHOCYTE # 2.1 TH/MM3 (1.0-4.8); MEAN CELL VOLUME 90.3 FL (80.0-100.0); MEAN CORPUSCULAR HEMOGLOBIN 29.9 PG (27.0-34.0); MEAN CORPUSCULAR HGB CONC 33.1 % (32.0-36.0); MONOCYTE # 1.2 TH/MM3 (0-0.9); NEUT % 79.1 % (16.0-70.0); PLATELET COUNT 459 TH/MM3 (150-450); WHITE BLOOD COUNT 16.4 TH/MM3 (4.0-11.0)
[2018-02-12] MEDS: METOPROLOL TARTRATE 50 MG TAB PO SCH ×3 (06:34→20:33)
[2018-02-12 07:05] LABS: BICARBONATE 13.8 MEQ/L (21.0-32.0); CALCIUM 7.4 MG/DL (8.5-10.1); CREATININE 0.92 MG/DL (0.50-1.00); MAGNESIUM 2.3 MG/DL (1.5-2.5); PHOSPHORUS 4.3 MG/DL (2.5-4.9); TROPONIN I 0.04 NG/ML (0.02-0.05)
[2018-02-12] MEDS ORDERED: POTASSIUM CHLORIDE 25 MEQ EFFERVESCENT TAB PO ONE (07:15)
[2018-02-12 07:24] LABS: CALCIUM-PROTEIN CORRECTED 7.6 MG/DL (8.5-10.1); TOTAL PROTEIN 6.8 GM/DL (6.4-8.2)
[2018-02-12] MEDS: VANCOMYCIN 500 MG VIAL (FOR ORAL USE ONLY) PO SCH ×4 (08:45→20:32)
[2018-02-12] MEDS: LACTOBACILLUS ACIDOPHILUS TAB PO SCH ×3 (08:45→17:31)
[2018-02-12] MEDS: LOSARTAN 50 MG TAB PO SCH (08:45)
[2018-02-12] MEDS: GABAPENTIN 300 MG CAP PO SCH ×2 (08:45→20:32)
[2018-02-12] MEDS: MULTIVITAMIN TAB PO SCH (08:45)
[2018-02-12] MEDS: FERROUS SULFATE 325 MG (65 MG ELEMENTAL IRON) TAB PO SCH ×2 (08:45→20:33)
[2018-02-12] MEDS: ASPIRIN 81 MG CHEW TAB CHEW SCH (08:45)
[2018-02-12] MEDS: CALCIUM CARBONATE 500 MG CHEWABLE TAB CHEW SCH ×2 (08:45→20:31)
[2018-02-12] MEDS: DOCUSATE SODIUM 50 MG/SENNA 8.6 MG TAB PO SCH ×2 (08:46→20:32)
[2018-02-12] MEDS: SODIUM CHLORIDE 0.9% FLUSH 10 ML FLUSH IV FLUSH SCH ×2 (08:47→20:34)
[2018-02-12] MEDS ORDERED: LACTOBACILLUS ACIDOPHILUS 1 GM PACKET PO SCH (09:00)
[2018-02-12] MEDS ORDERED: METOPROLOL TARTRATE 50 MG TAB PO SCH (09:00)
[2018-02-12] MEDS: FLUTICASONE 100 MCG/VILANTEROL 25 MCG INHALER INH SCH (09:12)
[2018-02-12] MEDS: DOXYCYCLINE HYCLATE 100 MG CAP PO SCH ×2 (09:12→22:32)
[2018-02-12] MEDS: LANSOPRAZOLE SOLUTAB 15 MG TAB PO SCH ×2 (09:12→20:34)
[2018-02-12] MEDS: cloNIDine HCL 0.1 MG TAB PO PRN ×2 (11:52→22:42)
[2018-02-12] MEDS: ONDANSETRON ODT 4 MG TAB PO PRN ×2 (11:52→20:47)
--- NOTE | 2018-02-12 13:43 | HHI.FPPN ---
Subjective Remarks This is a 72-year-old female from [facility] who presented to the emergency department with a 24-hour history of muscle aches, chills, and pain in her neck and shoulder. She is chronically on vancomycin and doxycycline for colitis. She had some electrolyte abnormalities at the time of admission. Gives history of SVT and colon cancer, hypertension and C. difficile colitis. Early this morning, Maria L was called because she had SVT and she was given Lopressor IV which resolved the issue. This morning, she does not have an appetite due to her medications. She still has pain in her left shoulder and her neck. No further heart racing today. She still feels chilled. No chest pain, no shortness of breath this morning. Objective Vitals Vital Signs Date Time Temp Pulse Resp B/P (MAP) Pulse Ox O2 Delivery O2 Flow Rate FiO2 02/12/18 06:05 78 20 161/76 (104) 98 02/12/18 06:02 82 20 164/76 (105) 98 02/12/18 05:55 185 20 139/94 (109) 98 02/12/18 05:40 98 3.00 02/12/18 05:34 97.3 183 19 138/92 (107) 96 02/12/18 05:33 99 2.00 02/12/18 04:00 98.1 101 16 139/82 (101) 95 02/12/18 00:33 02/12/18 00:00 97.7 96 16 143/83 (103) 94 02/11/18 22:32 97 18 186/78 (114) 95 Room Air 02/11/18 21:22 96 18 171/72 (105) 97 Room Air 02/11/18 19:07 94 18 193/87 (122) 96 Room Air 02/11/18 17:27 16 98 Room Air 02/11/18 17:05 99.0 96 16 181/85 (117) 98 02/11/18 17:05 96 16 98 Room Air I/O 02/11/18 02/11/18 02/11/18 02/12/18 02/12/18 02/12/18 07:00 15:00 23:00 07:00 15:00 23:00 Intake Total 720 ml 440 ml Balance 720 ml 440 ml Intake Oral 240 ml IV Total 720 ml 200 ml # Voids 3 # Bowel Movements 6 Result Diagram: 02/12/18 0611 02/12/18 0611 Other Results Laboratory Tests Test 02/11/18 17:20 02/11/18 17:24 02/11/18 22:30 02/12/18 01:00 White Blood Count 15.2 TH/MM3 Red Blood Count 2.94 MIL/MM3 Hemoglobin 8.8 GM/DL Hematocrit 27.1 % Mean Corpuscular Volume 92.0 FL Mean Corpuscular Hemoglobin 30.0 PG Mean Corpuscular Hemoglobin Concent 32.6 % Red Cell Distribution Width 16.3 % Platelet Count 447 TH/MM3 Mean Platelet Volume 8.2 FL Neutrophils (%) (Auto) 81.7 % Lymphocytes (%) (Auto) 9.5 % Monocytes (%) (Auto) 6.8 % Eosinophils (%) (Auto) 1.3 % Basophils (%) (Auto) 0.7 % Neutrophils # (Auto) 12.4 TH/MM3 Lymphocytes # (Auto) 1.4 TH/MM3 Monocytes # (Auto) 1.0 TH/MM3 Eosinophils # (Auto) 0.2 TH/MM3 Basophils # (Auto) 0.1 TH/MM3 CBC Comment DIFF FINAL Differential Comment Blood Urea Nitrogen 22 MG/DL Creatinine 0.93 MG/DL Random Glucose 92 MG/DL Total Protein 6.6 GM/DL Albumin 2.5 GM/DL Calcium Level 6.0 MG/DL Alkaline Phosphatase 72 U/L Aspartate Amino Transf (AST/SGOT) 19 U/L Alanine Aminotransferase (ALT/SGPT) 10 U/L Total Bilirubin 0.3 MG/DL Sodium Level 140 MEQ/L Potassium Level 4.1 MEQ/L Chloride Level 110 MEQ/L Carbon Dioxide Level 14.6 MEQ/L Anion Gap 15 MEQ/L Estimat Glomerular Filtration Rate 59 ML/MIN Lactic Acid Level 0.7 mmol/L Protein Corrected Calcium 6.2 MG/DL Ferritin 11 NG/ML Lipase 156 U/L Vitamin B12 Level 624 PG/ML Folate 4.8 NG/ML Magnesium Level 0.5 MG/DL Adenovirus (PCR) NOT DETECTED Bordetella holmesii (PCR) NOT DETECTED Bordetella pertussis DNA (PCR) NOT DETECTED B. parapertussis/bronchi (PCR) NOT DETECTED Human Metapneumovirus (PCR) NOT DETECTED Influenza Type A (RT-PCR) NOT DETECTED Influenza Type A (H1) (PCR) NOT DETECTED Influenza Type A (H3) (PCR) NOT DETECTED Influenza Type B (RT-PCR) NOT DETECTED Parainfluenza Type 1 (PCR) NOT DETECTED Parainfluenza Type 2 (PCR) NOT DETECTED Parainfluenza Type 3 (PCR) NOT DETECTED Parainfluenza Type 4 (PCR) NOT DETECTED Resp Syncytial Virus Type A (PCR) NOT DETECTED Resp Syncytial Virus Type B (PCR) NOT DETECTED Rhinovirus (PCR) NOT DETECTED Urine Color YELLOW Urine Turbidity HAZY Urine pH 5.5 Urine Specific [place] 1.041 Urine Protein 30 mg/dL Urine Glucose (UA) NEG mg/dL Urine Ketones NEG mg/dL Urine Occult Blood SMALL Urine Nitrite NEG Urine Bilirubin NEG Urine Urobilinogen LESS THAN 2.0 MG/DL Urine Leukocyte Esterase LARGE Urine RBC 3 /hpf Urine WBC 7 /hpf Urine Squamous Epithelial Cells 1 /hpf Urine Bacteria OCC /hpf Urine Granular Casts 2 /lpf Urine Mucus FEW /lpf Microscopic Urinalysis Comment CULT NOT INDICATED Test 02/12/18 03:00 02/12/18 06:11 Stool C. difficile Toxin (PCR) NEGATIVE Stl C. difficile Toxin Epiderm 027 PRESUMPTIVE NEGATIVE White Blood Count 16.4 TH/MM3 Red Blood Count 3.30 MIL/MM3 Hemoglobin 9.8 GM/DL Hematocrit 29.8 % Mean Corpuscular Volume 90.3 FL Mean Corpuscular Hemoglobin 29.9 PG Mean Corpuscular Hemoglobin Concent 33.1 % Red Cell Distribution Width 16.0 % Platelet Count 459 TH/MM3 Mean Platelet Volume 8.0 FL Neutrophils (%) (Auto) 79.1 % Lymphocytes (%) (Auto) 12.6 % Monocytes (%) (Auto) 7.0 % Eosinophils (%) (Auto) 0.4 % Basophils (%) (Auto) 0.9 % Neutrophils # (Auto) 13.0 TH/MM3 Lymphocytes # (Auto) 2.1 TH/MM3 Monocytes # (Auto) 1.2 TH/MM3 Eosinophils # (Auto) 0.1 TH/MM3 Basophils # (Auto) 0.1 TH/MM3 CBC Comment DIFF FINAL Differential Comment Blood Urea Nitrogen 19 MG/DL Creatinine 0.92 MG/DL Random Glucose 114 MG/DL Total Protein 6.8 GM/DL Calcium Level 7.4 MG/DL Phosphorus Level 4.3 MG/DL Magnesium Level 2.3 MG/DL Sodium Level 139 MEQ/L Potassium Level 3.2 MEQ/L Chloride Level 109 MEQ/L Carbon Dioxide Level 13.8 MEQ/L Anion Gap 16 MEQ/L Estimat Glomerular Filtration Rate 60 ML/MIN Protein Corrected Calcium 7.6 MG/DL Troponin I 0.04 NG/ML Imaging Last Impressions Chest X-Ray 02/11/18 Signed Impressions: CONCLUSION: 2 nodular densities projecting over the left lower lobe and left lower ribs. I' m unsure if this relates to parenchymal consolidations involving the lung or th cameron could relate to areas of increased density involving the ribs. CT could be utilized to further assess. Chest CT 02/11/18 Signed Impressions: CONCLUSION: 1. The density seen on the prior chest x-ray relates to old rib fractures. Bladimir e show lack of union. 2. Emphysematous change and chronic interstitial change. 3. No pulmonary mass. Objective Remarks O. CONSTITUTIONAL/GEN: under nourished, pale, complaining of anorexia. EYES: conjunctiva pale, PERRLA, EOMI. ENT: Mouth and pharynx with dry mucous membranes. NECK: No thyromegaly LUNGS: clear A-P, respiratory effort is normal. CARDIOVASCULAR: RR without murmur or gallop. No significant edema. GI/ABD: soft without masses, without organomegaly. Active bowel sounds NEURO: No focal deficits. Gait is normal SKIN: color normal, no rashes noted. HEME/LYMPH: no bruising, petechia or significant adenopathy MUSC: back is normal in appearance. Extremities show some muscle wasting. PSYCH/MENTAL STATUS: Alert and oriented x 3. A/P Assessment and Plan 72-year-old female with past medical history of C. difficile colitis, diverticulitis, COPD, hypertension, SVT, colon cancer in situ presenting with: Attending Attestation Patient seen and examined. Case reviewed and discussed with the resident team. Agree with plan of care as discussed with me and documented in the resident note. Problem List: (1) Muscular aches ICD Codes: M79.1 - Myalgia Status: Acute Plan: Likely secondary to electrolyte abnormalities, but clinical picture could also suggest viral syndrome like flu or systemic manifestation of colitis -Treat electrolyte disturbances as below -Check viral PCR -Treat colitis as below (2) C. difficile colitis ICD Codes: A04.72 - Enterocolitis due to Clostridium difficile, not specified as recurrent Status: Chronic Plan: Persistent diarrhea without abdominal pain, currently undergoing treatment for C diff colitis plus possible diverticulitis -C diff PCR negative -Continue vancomycin PO and doxycycline PO -Discontinue Flagyl -Lactobacillus TID -Hemoccult stool positive (3) Hypomagnesemia ICD Codes: E83.42 - Hypomagnesemia Status: Acute Plan: Mg very low at 0.5, likely due to diarrhea S/p 2 gm Mg SO4 in ER - Give additional 2 gm magnesium - Neuro checks while on magnesium (4) Hypocalcemia ICD Codes: E83.51 - Hypocalcemia Status: Acute Plan: Calcium very low S/p 2 gm calcium gluconate IV in ER - Repeat calcium level in AM - Telemetry (5) Normocytic anemia ICD Codes: D64.9 - Anemia, unspecified Status: Chronic Plan: Likely due to iron deficiency from malnutrition - Check hemoccult -Ferritin level 11 -B12 and folate within normal limits (6) Supraventricular tachycardia ICD Codes: I47.1 - Supraventricular tachycardia Status: Chronic Plan: h/o svt, currently stable, rate controlled - continue home metoprolol 50 mg twice daily (7) Essential hypertension ICD Codes: I10 - Essential (primary) hypertension Status: Chronic Plan: BP slightly elevated - Continue home meds - Monitor BP (8) COPD (chronic obstructive pulmonary disease) ICD Codes: J44.9 - Chronic obstructive pulmonary disease, unspecified Status: Chronic Plan: Stable Continue home Breo DuoNebs PRN (9) FEN/PP Plan: Fluids: NS + KCL 40 meq/L at 100 cc/hr Elecs: See above Nutrition: Diet regular basic DVT: Lovenox Code status: Full code Discussed case with ER physician Problem Qualifiers (1) COPD (chronic obstructive pulmonary disease): Qualified Codes: J44.9 - Chronic obstructive pulmonary disease, unspecified Khushboo Chapman MD Feb 12, 2018 13:43
[2018-02-12] MEDS: NS + KCL 40 MEQ INJ 1,000 ML IV SCH ×2 (15:51→23:15)
--- NOTE | 2018-02-12 19:59 | EKG ---
Date Performed: 02/11/2018 Time Performed: 17:39:22 PTAGE: 72 years EKG: Sinus rhythm WITH OCCASIONAL SUPRAVENTRICULAR PREMATURE COMPLEXES BORDERLINE ECG Since PREVIOUS TRACING ,the premature atrial contractions are new. PREVIOUS TRACIN01/30/2018 09.35 DOCTOR: Daniela Rosen Interpretating Date/Time 02/12/2018 19:57:31
--- NOTE | 2018-02-12 20:01 | EKG ---
Date Performed: 02/12/2018 Time Performed: 05:48:12 PTAGE: 72 years EKG: Probable supraventricular tachycardia Lead(s) unsuitable for analysis: V2 rSr'(V1) - probab le normal variant Poor R wave progression - probable normal variant Extensive ST-T changes suggest my ocardial injury/ischemia Since previous tracing,the rapid superventricular tachycardia is new. it is probably on the basis of re-entry. Although i can't entirely exclude atrial flutter. The diffuse ST s egment changes are also new. Clinical correlation is recommended Abnormal ECG PREVIOUS TRACING : 02/11/2018 17.39 DOCTOR: Daniela Rosen Interpretating Date/Time 02/12/2018 19:59:29
[2018-02-13] VITALS (7 sets, daily range): BP systolic 155–215; BP diastolic 70–86; PULSE 66–81; RESP 16–18; TEMP 97.2–98.4; O2SAT 95–98
[2018-02-13 04:57] LABS: AUTOMATED NEUTROPHIL # 12.3 TH/MM3 (1.8-7.7); BASOPHIL # 0.1 TH/MM3 (0-0.2); BASOPHIL % 0.7 % (0.0-2.0); EOSINOPHIL # 0.1 TH/MM3 (0-0.4); HEMATOCRIT 27.1 % (35.0-46.0); LYMPH % 9.8 % (9.0-44.0); LYMPHOCYTE # 1.5 TH/MM3 (1.0-4.8); MEAN CELL VOLUME 89.7 FL (80.0-100.0); MEAN CORPUSCULAR HEMOGLOBIN 29.7 PG (27.0-34.0); MEAN CORPUSCULAR HGB CONC 33.1 % (32.0-36.0); MEAN PLATELET VOLUME 8.1 FL (7.0-11.0); MONOCYTE # 1.1 TH/MM3 (0-0.9); NEUT % 81.5 % (16.0-70.0); PLATELET COUNT 431 TH/MM3 (150-450); RED BLOOD COUNT 3.02 MIL/MM3 (4.00-5.30); RED CELL DISTRIBUTION WIDTH 15.9 % (11.6-17.2)
[2018-02-13 05:24] LABS: CALCIUM 7.6 MG/DL (8.5-10.1)
[2018-02-13 05:27] LABS: ALBUMIN 2.3 GM/DL (3.4-5.0); AST (GOT) 9 U/L (15-37); BICARBONATE 17.8 MEQ/L (21.0-32.0); BLOOD UREA NITROGEN 21 MG/DL (7-18); CALCIUM 7.7 MG/DL (8.5-10.1); CHLORIDE 113 MEQ/L (98-107); CREATININE 0.89 MG/DL (0.50-1.00); GLOMERULAR FILTRATION RATE 63 ML/MIN (>89); GLUCOSE,RANDOM 104 MG/DL (74-106); SODIUM (NA) 143 MEQ/L (136-145)
[2018-02-13 05:28] LABS: ALT (GPT) 11 U/L (10-53)
[2018-02-13 05:31] LABS: ALKALINE PHOSPHATASE 71 U/L (45-117); CALCIUM-PROTEIN CORRECTED 8.2 MG/DL (8.5-10.1); TOTAL BILIRUBIN ADULT 0.3 MG/DL (0.2-1.0); TOTAL PROTEIN 6.1 GM/DL (6.4-8.2)
[2018-02-13] MEDS: CALCIUM CARBONATE 500 MG CHEWABLE TAB CHEW SCH (08:01)
[2018-02-13] MEDS: ASPIRIN 81 MG CHEW TAB CHEW SCH (08:02)
[2018-02-13] MEDS: DOXYCYCLINE HYCLATE 100 MG CAP PO SCH (08:02)
[2018-02-13] MEDS: METOPROLOL TARTRATE 50 MG TAB PO SCH (08:03)
[2018-02-13] MEDS: LOSARTAN 50 MG TAB PO SCH (08:03)
[2018-02-13] MEDS ORDERED: METO50TA PO (08:04)
[2018-02-13] MEDS: GABAPENTIN 300 MG CAP PO SCH (08:04)
[2018-02-13] MEDS: MULTIVITAMIN TAB PO SCH (08:04)
[2018-02-13] MEDS: DOCUSATE SODIUM 50 MG/SENNA 8.6 MG TAB PO SCH (08:05)
[2018-02-13] MEDS: LACTOBACILLUS ACIDOPHILUS TAB PO SCH ×2 (08:05→11:29)
[2018-02-13] MEDS: LANSOPRAZOLE SOLUTAB 15 MG TAB PO SCH (08:05)
[2018-02-13] MEDS: VANCOMYCIN 500 MG VIAL (FOR ORAL USE ONLY) PO SCH ×2 (08:06→11:30)
[2018-02-13] MEDS: FLUTICASONE 100 MCG/VILANTEROL 25 MCG INHALER INH SCH (08:07)
[2018-02-13] MEDS: SODIUM CHLORIDE 0.9% FLUSH 10 ML FLUSH IV FLUSH SCH (08:07)
[2018-02-13] MEDS: FERROUS SULFATE 325 MG (65 MG ELEMENTAL IRON) TAB PO SCH (08:12)
[2018-02-13] MEDS ORDERED: LOPERAMIDE HCL 2 MG CAP PO PRN (08:15)
--- NOTE | 2018-02-13 08:54 | HHI.FPPN ---
Subjective Remarks 72 yo female with COPD admitted for electrolyte abnormalities likely secondary to malnutrition and diarrhea being seen today for follow up. This morning her body aches have improved. She continues to have diarrhea which is chronic for her. No fevers or chills, no CP/SOB. No abdominal pain. (Jeff Edwards MD R2) Objective Vitals Vital Signs Date Time Temp Pulse Resp B/P (MAP) Pulse Ox O2 Delivery O2 Flow Rate FiO2 02/13/18 04:59 97.8 76 18 176/75 (108) 97 02/13/18 00:00 98.4 81 18 192/86 (121) 98 02/12/18 22:40 76 205/86 (125) 02/12/18 20:09 76 02/12/18 20:00 97.8 70 16 195/81 (119) 97 02/12/18 16:00 98.1 66 18 183/84 (117) 93 02/12/18 14:12 95 Nasal Cannula 2.00 02/12/18 12:00 97.6 68 16 198/95 (129) 97 I/O 02/12/18 02/12/18 02/12/18 02/13/18 02/13/18 02/13/18 07:00 15:00 23:00 07:00 15:00 23:00 Intake Total 440 ml 620 ml 1000 ml Output Total 104 ml 500 ml Balance 440 ml 516 ml 500 ml Intake Oral 240 ml 620 ml IV Total 200 ml 1000 ml Output Urine Total 4 ml Stool Total 500 ml Emesis 100 ml # Voids 3 2 # Bowel Movements 6 10 (Jeff Edwards MD R2) Result Diagram: 02/13/181 02/13/18 0441 Imaging Last Impressions Chest X-Ray 02/11/18 0000 Signed Impressions: CONCLUSION: 2 nodular densities projecting over the left lower lobe and left lower ribs. I' m unsure if this relates to parenchymal consolidations involving the lung or th cameron could relate to areas of increased density involving the ribs. CT could be utilized to further assess. Chest CT 02/11/18 0000 Signed Impressions: CONCLUSION: 1. The density seen on the prior chest x-ray relates to old rib fractures. Bladimir e show lack of union. 2. Emphysematous change and chronic interstitial change. 3. No pulmonary mass. Objective Remarks CONSTITUTIONAL/GEN: under nourished, pale, resting comfortably in bed, pleasant , NAD LUNGS: CTAB, respiratory effort is normal. CARDIOVASCULAR: RR without murmur or gallop. No edema. GI/ABD: Soft, NDNT NEURO: No focal deficits. SKIN: color normal, no rashes noted. MUSC: back is normal in appearance. Extremities show some muscle wasting. PSYCH/MENTAL STATUS: Alert and oriented x 3. Medications and IVs Current Medications Medications (Trade) Dose Ordered Sig/Nichelle Route Start Time Stop Time Status Last Admin (Tylenol) 650 mg Q6H PRN PO 02/11/18 22:45 (Aspirin Chew) 81 mg DAILY CHEW 02/12/18 09:00 02/13/18 08:02 (Breo Ellipta 100-25 Inh) 1 puff DAILY INH 02/12/18 09:00 02/13/18 08:07 (Neurontin) 300 mg BID PO 02/12/18 09:00 02/13/18 08:04 (Atrovent Neb) 0.5 mg Q6HR NEB PRN NEB 02/11/18 22:45 (Lactinex) 1 tab TID PO 02/12/18 09:00 02/13/18 08:05 (Cozaar) 100 mg DAILY PO 02/12/18 09:00 02/13/18 08:03 (Restoril) 15 mg HS PRN PO 02/11/18 22:45 02/12/18 22:33 (Theragran) 1 tab DAILY PO 02/12/18 09:00 02/13/18 08:04 (Prevacid Odt) 15 mg BID PO 02/12/18 09:00 02/13/18 08:05 (NS Flush) 2 ml UNSCH PRN IV FLUSH 02/11/18 22:45 (NS Flush) 2 ml BID IV FLUSH 02/12/18 09:00 02/12/18 08:47 (Tylenol) 650 mg Q4H PRN PO 02/11/18 22:45 02/12/18 01:40 (Lovenox Inj) 40 mg Q24H SQ 02/11/18 22:45 02/12/18 23:15 (Narcan Inj) 0.4 mg UNSCH PRN IV PUSH 02/11/18 22:45 (Elizabeth-Colace) 1 tab BID PO 02/12/18 09:00 (Milk Of Magnesia Liq) 30 ml Q12H PRN PO 02/11/18 22:45 (Senokot) 17.2 mg Q12H PRN PO 02/11/18 22:45 (Dulcolax Supp) 10 mg DAILY PRN RECTAL 02/11/18 22:45 (Lactulose Liq) 30 ml DAILY PRN PO 02/11/18 22:45 (VANCOMYCIN for oral use only) 125 mg QID PO 02/12/18 09:00 02/13/18 08:06 (Vibramycin) 100 mg BID PO 02/12/18 09:00 02/13/18 08:02 (Ferrous Sulfate) 325 mg BID PO 02/12/18 09:00 02/13/18 08:12 (Tums Chew) 1,000 mg Q12HR CHEW 02/12/18 09:00 02/13/18 08:01 (Lopressor) 50 mg BID PO 02/12/18 21:00 02/13/18 08:03 (Zofran Odt) 4 mg Q6H PRN PO 02/12/18 10:15 02/12/18 20:47 (Catapres) 0.1 mg Q6H PRN PO 02/12/18 11:15 02/12/18 22:42 Potassium Chloride/Sodium Chloride 1,000 ml @ 100 mls/hr Q10H IV 02/12/18 14:30 02/12/18 23:15 (Imodium) 2 mg Q6H PRN PO 02/13/18 08:15 (Jeff Edwards MD R2) A/P Assessment and Plan 72-year-old female with past medical history of C. difficile colitis, diverticulitis, COPD, hypertension, SVT, colon cancer in situ presenting with: (Jeff Edwards MD R2) Attending Attestation Patient seen and examined. Case reviewed and discussed with the resident team. Agree with plan of care as discussed with me and documented in the resident note. (Khushboo Chapman MD) Problem List: (1) Muscular aches ICD Codes: M79.1 - Myalgia Status: Acute Plan: Patient reports improvement Likely secondary to electrolyte abnormalities, but clinical picture could be systemic manifestation of colitis Respiratory viral panel negative -Treat electrolyte disturbances as below -Treat diarrhea as below (2) C. difficile colitis ICD Codes: A04.72 - Enterocolitis due to Clostridium difficile, not specified as recurrent Status: Resolved Plan: Persistent diarrhea without abdominal pain, had beenundergoing treatment for C diff colitis plus possible diverticulitis Hemoccult stool positive C diff PCR negative -Discontinue antibiotics as C diff is negative and it is likely her diarrhea is not infectious -Lactobacillus TID (3) Diarrhea ICD Codes: R19.7 - Diarrhea, unspecified Plan: The diarrhea patient is having may be in fact due to antibiotic use versus GI bleed from possible malignancy. - Stop Abx as above - Resume loperamide - Lactinex as above - Recommend f/u with her GI physician for repeat colonoscopy (4) Hypomagnesemia ICD Codes: E83.42 - Hypomagnesemia Status: Resolved Plan: Mg corrected On admission very low at 0.5, likely due to diarrhea Received 4 gm magnesium IV in total - Replete via diet (multivitamin) (5) Hypocalcemia ICD Codes: E83.51 - Hypocalcemia Status: Resolved Plan: Calcium improved to 7.7 S/p 2 gm calcium gluconate IV in ER - Continue Calcium carbonate 1 gm PO BID (6) Normocytic anemia ICD Codes: D64.9 - Anemia, unspecified Status: Chronic Plan: Due to iron deficiency Hemoccult positive B12, Folate normal - Ferrous sulfate 325 mg PO BID (7) Supraventricular tachycardia ICD Codes: I47.1 - Supraventricular tachycardia Status: Chronic Plan: h/o svt, currently stable, rate controlled - continue home metoprolol 50 mg twice daily (8) Essential hypertension ICD Codes: I10 - Essential (primary) hypertension Status: Chronic Plan: BP slightly elevated - Continue home meds - Monitor BP (9) COPD (chronic obstructive pulmonary disease) ICD Codes: J44.9 - Chronic obstructive pulmonary disease, unspecified Status: Chronic Plan: Stable Continue home Breo DuoNebs PRN (10) FEN/PP Plan: Fluids: Stopping Elecs: See above Nutrition: Diet regular basic DVT: Lovenox Code status: Full code Dispo: Likely can be discharged back to rehab facility today (Jeff Edwards MD R2) Problem Qualifiers (1) Diarrhea: Qualified Codes: R19.7 - Diarrhea, unspecified (2) COPD (chronic obstructive pulmonary disease): Qualified Codes: J44.9 - Chronic obstructive pulmonary disease, unspecified Jeff Edwards MD R2 Feb 13, 2018 08:54 Khushboo Chapman MD Feb 13, 2018 12:33
[2018-02-13] MEDS: NS + KCL 40 MEQ INJ 1,000 ML IV SCH (10:30)
[2018-02-13] MEDS ORDERED: Calcium Carbonate Chew CHEW (10:40)
--- NOTE | 2018-02-13 10:41 | HHI.DCPOC ---
Discharge Care Plan Diagnosis: (1) Hypomagnesemia (2) Hypocalcemia (3) Diarrhea (4) Supraventricular tachycardia (5) Essential hypertension (6) COPD (chronic obstructive pulmonary disease) Goals to Promote Your Health * To prevent worsening of your condition and complications * To maintain your health at the optimal level Directions to Meet Your Goals Take your medications as prescribed Follow your dietary instruction Follow activity as directed Keep your appointments as scheduled Take your immunizations and boosters as scheduled If your symptoms worsen call your PCP, if no PCP go to Urgent Care Center or Emergency Room Smoking is Dangerous to Your Health. Avoid second hand smoke Call the 24-hour hour crisis hotline for domestic abuse at Jeff Edwards MD R2 Feb 13, 2018 10:41 am
[2018-02-13] MEDS ORDERED: FERR325T20 PO (10:53)
[2018-02-13] MEDS: cloNIDine HCL 0.1 MG TAB PO PRN (14:01)
--- NOTE | 2018-02-13 15:18 | HHI.DS ---
Discharge Summary Admission Date Feb 11, 2018 at 7:52 pm Discharge Date: Feb 13, 2018 Admitting Diagnosis Hypocalcemia/hypomagnesemia/C. difficile diarrhea (1) Muscular aches Diagnosis: Principal ICD Codes: M79.1 - Myalgia Status: Acute (2) Diarrhea Diagnosis: Secondary ICD Codes: R19.7 - Diarrhea, unspecified (3) Hypocalcemia Diagnosis: Principal ICD Codes: E83.51 - Hypocalcemia Status: Resolved (4) Hypomagnesemia Diagnosis: Principal ICD Codes: E83.42 - Hypomagnesemia Status: Resolved (5) Normocytic anemia Diagnosis: Secondary ICD Codes: D64.9 - Anemia, unspecified Status: Chronic (6) Supraventricular tachycardia Diagnosis: Secondary ICD Codes: I47.1 - Supraventricular tachycardia Status: Chronic (7) Essential hypertension Diagnosis: Secondary ICD Codes: I10 - Essential (primary) hypertension Status: Chronic (8) COPD (chronic obstructive pulmonary disease) Diagnosis: Secondary ICD Codes: J44.9 - Chronic obstructive pulmonary disease, unspecified Status: Chronic Brief History Most history obtained by reviewing old records this patient is a poor historian. 72 yo female with history of essential hypertension, COPD, Clostridium difficile colitis, diverticulitis, supraventricular tachycardia, colon cancer in situ presenting with muscle aches and chills since yesterday. She was evaluated by a physician at her nursing facility, [facility], noted that her calcium level was 5.8. Therefore they sent her to the ER for further evaluation and treatment. Of note, she is also currently being treated for Clostridium difficile colitis as well as possible diverticulitis with oral vancomycin and doxycycline. She denies abdominal pain but has persistent diarrhea for the last month or so. CBC/BMP: 02/13/18 0441 02/13/18 0441 Significant Findings Laboratory Tests Test 02/11/18 17:20 02/11/18 17:24 02/11/18 22:30 02/12/18 01:00 White Blood Count 15.2 TH/MM3 (4.0-11.0) Red Blood Count 2.94 MIL/MM3 (4.00-5.30) Hemoglobin 8.8 GM/DL (11.6-15.3) Hematocrit 27.1 % (35.0-46.0) Neutrophils (%) (Auto) 81.7 % (16.0-70.0) Neutrophils # (Auto) 12.4 TH/MM3 (1.8-7.7) Monocytes # (Auto) 1.0 TH/MM3 (0-0.9) Blood Urea Nitrogen 22 MG/DL (7-18) Albumin 2.5 GM/DL (3.4-5.0) Calcium Level 6.0 MG/DL (8.5-10.1) Chloride Level 110 MEQ/L (98-107) Carbon Dioxide Level 14.6 MEQ/L (21.0-32.0) Estimat Glomerular Filtration Rate 59 ML/MIN (>89) Protein Corrected Calcium 6.2 MG/DL (8.5-10.1) Magnesium Level 0.5 MG/DL (1.5-2.5) Urine Turbidity HAZY (CLEAR) Urine Specific [employer] 1.041 (1.002-1.035) Urine Protein 30 mg/dL (NEG-TRACE) Urine Occult Blood SMALL (NEG) Urine Leukocyte Esterase LARGE (NEG) Urine WBC 7 /hpf (0-5) Urine Bacteria OCC /hpf (NONE) Urine Mucus FEW /lpf (OCC) Test 02/12/18 03:00 02/12/18 06:11 02/13/18 04:41 White Blood Count 16.4 TH/MM3 (4.0-11.0) 15.0 TH/MM3 (4.0-11.0) Red Blood Count 3.30 MIL/MM3 (4.00-5.30) 3.02 MIL/MM3 (4.00-5.30) Hemoglobin 9.8 GM/DL (11.6-15.3) 9.0 GM/DL (11.6-15.3) Hematocrit 29.8 % (35.0-46.0) 27.1 % (35.0-46.0) Platelet Count 459 TH/MM3 (150-450) Neutrophils (%) (Auto) 79.1 % (16.0-70.0) 81.5 % (16.0-70.0) Neutrophils # (Auto) 13.0 TH/MM3 (1.8-7.7) 12.3 TH/MM3 (1.8-7.7) Monocytes # (Auto) 1.2 TH/MM3 (0-0.9) 1.1 TH/MM3 (0-0.9) Blood Urea Nitrogen 19 MG/DL (7-18) 21 MG/DL (7-18) Random Glucose 114 MG/DL (74-106) Calcium Level 7.4 MG/DL (8.5-10.1) 7.7 MG/DL (8.5-10.1) Potassium Level 3.2 MEQ/L (3.5-5.1) Chloride Level 109 MEQ/L (98-107) 113 MEQ/L (98-107) Carbon Dioxide Level 13.8 MEQ/L (21.0-32.0) 17.8 MEQ/L (21.0-32.0) Anion Gap 16 MEQ/L (5-15) Estimat Glomerular Filtration Rate 60 ML/MIN (>89) 63 ML/MIN (>89) Protein Corrected Calcium 7.6 MG/DL (8.5-10.1) 8.2 MG/DL (8.5-10.1) Total Protein 6.1 GM/DL (6.4-8.2) Albumin 2.3 GM/DL (3.4-5.0) Aspartate Amino Transf (AST/SGOT) 9 U/L (15-37) Imaging Last Impressions Chest X-Ray 02/11/18 0000 Signed Impressions: CONCLUSION: 2 nodular densities projecting over the left lower lobe and left lower ribs. I' m unsure if this relates to parenchymal consolidations involving the lung or th cameron could relate to areas of increased density involving the ribs. CT could be utilized to further assess. Chest CT 02/11/18 0000 Signed Impressions: CONCLUSION: 1. The density seen on the prior chest x-ray relates to old rib fractures. Bladimir e show lack of union. 2. Emphysematous change and chronic interstitial change. 3. No pulmonary mass. PE at Discharge CONSTITUTIONAL/GEN: under nourished, pale, resting comfortably in bed, pleasant , NAD LUNGS: CTAB, respiratory effort is normal. CARDIOVASCULAR: RR without murmur or gallop. No edema. GI/ABD: Soft, NDNT NEURO: No focal deficits. SKIN: color normal, no rashes noted. MUSC: back is normal in appearance. Extremities show some muscle wasting. PSYCH/MENTAL STATUS: Alert and oriented x 3. Hospital Course Admitted due to muscle aches likely secondary to severe hypocalcemia and hypomagnesemia, which are themselves secondary to chronic diarrhea. Her muscle aches improved with correction of the electrolyte abnormalities. Regarding her diarrhea, she had been receiving treatment for a cellulitis with doxycycline and suspected C difficile colitis with vancomycin. Her cellulitis has resolved so doxycycline was discontinued to avoid antibiotic associated diarrhea. Her C difficile PCR was negative this hospital stay as well as last admission in late January, but at last admission infectious disease recommended 20 days of antibiotics with oral vancomycin, so this was continued. Of note, her hemoccult was positive and she has a documented history of colonic carcinoma in situ, though patient does not recall ever having been told she has colon cancer. It is recommended she get a repeat colonoscopy as an outpatient. She was also started on iron secondary to iron deficiency anemia, a likely side effect of malnutrition and low grade GIB. Pt Condition on Discharge: Stable Discharge Disposition: Discharge to SNF Discharge Instructions DIET: Follow Instructions for: As Tolerated, No Restrictions Activities you can perform: Regular-No Restrictions Follow up Referrals: Gastroenterology - 1 Week with Obed Aguero M.d. PCP Follow-up - 3-5 Days New Orders: BASIC METABOLIC PROF - 1 Week CALCIUM - 1 Week CBC WITH DIFF - 1 Week MAGNESIUM (MG) - 1 Week New Medications: Ferrous Sulfate (Ferosul) 325 Mg (65 Mg Iron) Tablet 325 MG PO BID, #60 TAB [Calcium Carbonate Chew] () 500 MG CHEW 1000 MG CHEW Q12HR, #120 CHEW Continued Medications: Acetaminophen (Tylenol) 325 Mg Tab 650 MG PO Q6H PRN for PAIN SCALE 1 TO 7, TAB 0 Refills Aspirin (Aspirin) 81 Mg Chew 81 MG CHEW DAILY for Blood Clot Prevention, #30 TAB 0 Refills Fluticasone-Vilanterol Inh (Breo Ellipta Inh) 100-25 Mcg/Act Inh 1 PUFF INH DAILY, #1 INHALER 0 Refills Use daily at the same time. Gabapentin (Gabapentin) 300 Mg Cap 300 MG PO BID, #60 CAP 0 Refills Ipratropium Neb (Ipratropium Neb) 0.5 Mg/2.5 Ml Amp 0.5 MG NEB Q6HR NEB PRN for SHORTNESS OF BREATH, #120 NEBULE 0 Refills Lactobacillus Acidophilus (Acidophilus/l-Sporogenes) 35 Million Cell-25 Million Cell Tab 1 TAB PO TID for Nutritional Supplement, #90 TAB Loperamide (Loperamide) 2 Mg Cap 2 MG PO DIRECTED PRN for DIARRHEA, CAP 0 Refills One capsule after each loose stool. Not to exceed 8 capsules per day. Losartan (Losartan) 100 Mg Tab 100 MG PO DAILY for Blood Pressure Management, #30 TAB 0 Refills Metoprolol Tartrate (Metoprolol Tartrate) 50 Mg Tab 50 MG PO BID for Blood Pressure Management, #60 TAB 0 Refills Multiple Vitamin (Multiple Vitamin) 1 Tab 1 TAB PO DAILY for Nutritional Supplement, TAB 0 Refills Omeprazole (Omeprazole) 10 Mg Cap 10 MG PO BID for Manage Heartburn, #60 CAP 0 Refills Ondansetron Odt (Zofran Odt) 8 Mg Tab 8 MG SL Q8HR for Nausea/Vomiting, TAB 0 Refills Temazepam (Restoril) 15 Mg Cap 15 MG PO HS PRN for INSOMNIA, #30 CAP 0 Refills Vancomycin Inj (Vancomycin Inj) 500 Mg Inj 125 MG PO QID for Infection for 20 Days, #80 EACH Discontinued Medications: Clonidine (Catapres) 0.1 Mg Tab 0.1 MG PO Q6H PRN for SBP>160, DBP>90, #30 TAB Doxycycline Hyclate (Doxycycline Hyclate) 100 Mg Tab 100 MG PO Q12HR for Infection, #20 TAB Jeff Edwards MD R2 Feb 13, 2018 3:18 pm
[2018-02-13] MEDS ORDERED: TEMA15CA PO (16:13)
== END 2018-02-13 18:15 | DRG 372 ==
LOC: NEPC 16:45 → NEDA 19:52 → N07A 23:15
PROVIDERS: ADMIT Family Medicine; ATTEND Family Medicine
DX: A04.72 Enterocolitis due to Clostridium difficile, not specified as recurrent (principal); E46 Unspecified protein-calorie malnutrition; L89.151 Pressure ulcer of sacral region, stage 1; J44.9 Chronic obstructive pulmonary disease, unspecified; I47.1 Supraventricular tachycardia; E83.51 Hypocalcemia; E83.42 Hypomagnesemia; D50.9 Iron deficiency anemia, unspecified; Z68.25 Body mass index [BMI] 25.0-25.9, adult; I10 Essential (primary) hypertension; H91.90 Unspecified hearing loss, unspecified ear; Z95.5 Presence of coronary angioplasty implant and graft; Z85.038 Personal history of other malignant neoplasm of large intestine; Z87.891 Personal history of nicotine dependence
CPT/HCPCS: 71045; 71260; 80048; 80053; 81001; 82272; 82330; 82607; 82728; 82746; 83605; 83690; 83735; 84100; 84155; 84484; 85025; 87493; 87633; 93005; 96361; 96365; 96372; J0153; J0610; J1650; J2550; J3475; J3480; J7040; Q9967

== ENCOUNTER 2018-04-11 12:10 | Inpatient (IN) ==
[2018-04-11] MEDS ORDERED: Naloxone Inj 0.4 MG/ML Vial IV.PUSH PRN ×2 (12:47→12:54)
[2018-04-11] MEDS: Morphine Inj 4 MG/ML Vial IV.PUSH PRN ×3 (13:02→22:29)
[2018-04-11] MEDS: Sod Chloride 0.9% Inj 1,000 ML IV.CONT SCH (13:12)
--- NOTE | 2018-04-11 14:20 | P.CONGS ---
[facility] Gen Surgery Consult Note Consult date: 04/11/18 Reason for consult: abdominal pain Narrative: 72 yo F with complicated recent medical history now with ileus, abdominal pain, nausea. She underwent ileocectomy on 03/25/18 at [facility] for ischemia bowel questionable acute mesenteric ischemia. I have not seen an op note. 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 She was transferred to inpatient rehab here on 04/08/18 and has had persistent and worsening abdominal pain and nausea. She has started to have some nonbloody emesis. She has longstanding h/o c dif colitis but stool testing on 04/09/18 negative. Review of Systems All other systems reviewed negative except as stated in [facility] - History History Provided By: Patient - Medical History Medical History: Medical History (Last Reviewed 04/09/18 @ 14:13 by SAVAGE Kline) COPD (chronic obstructive pulmonary disease) History of hysterectomy Hypertension Insomnia SVT (supraventricular tachycardia) - Surgical History Surgical History: Surgical History (Last Reviewed 04/09/18 @ 14:13 by SAVAGE Kline) Previous back surgery Stented coronary artery - Family History Family History: Family History (Last Reviewed 04/09/18 @ 14:13 by SAVAGE Kline) Other Unknown family medical history - Tobacco History Second Hand Smoke Exposure: No Tobacco Use In Past 30 Days: No Smoking Status: Former smoker Tobacco Type: Cigarettes - Alcohol History How Often Do You Have a Drink Containing Alcohol: 4 or more times a week - Substance Use History Substance History: No History of Abuse Medications and Allergies Active Medications: Active Medications Acetaminophen (Tylenol) 650 mg PO Q4H PRN PRN Reason: Temp > 100.4 Clonidine HCl (Catapress-Tts 0.1 Mg Patch.7d) 1 patch T-DERMAL Q7D [facility] Enalaprilat (Vasotec Inj) 1.25 mg IV.PUSH Q6H PRN PRN Reason: SEE LABEL COMMENTS Ergocalciferol (Vitamind2) 50,000 unit PO Q7D [facility] Last Admin: 04/11/18 14:06 Dose: Not Given Fluticasone/Vilanterol (Breo Ellipta 100/25 Mcg Inh) 1 puff INH DAILY [facility] Gabapentin (Neurontin) 100 mg PO BID [facility] Sodium Chloride (Ns Inj) 1,000 mls @ 100 mls/hr IV.CONT .Q10H [facility] Last Admin: 04/11/18 13:12 Dose: 100 mls/hr Metronidazole/Sodium Chloride (Flagyl 500 Mg Inj) 100 mls @ 100 mls/hr IV.SIG Q8H [facility] Stop: 04/17/18 14:00 Cefepime HCl 1,000 mg/ Sodium (Chloride) 100 mls @ 200 mls/hr IV.SIG Q12H [facility] Stop: 04/16/18 13:59 Metoprolol Tartrate (Lopressor) 100 mg PO BID [facility] Morphine Sulfate (Morphine Inj) 2 mg IV.PUSH Q4H PRN PRN Reason: BREAKTHROUGH PAIN Last Admin: 04/11/18 13:02 Dose: 2 mg Naloxone HCl (Narcan Inj) 0.4 mg IV.PUSH UNSCH PRN PRN Reason: SEE LABEL COMMENTS Naloxone HCl (Narcan Inj) 0.4 mg IV.PUSH UNSCH PRN PRN Reason: SEE LABEL COMMENTS Ondansetron HCl (Zofran Inj) 4 mg IV.PUSH Q6H PRN PRN Reason: NAUSEA OR VOMITING Last Admin: 04/11/18 13:03 Dose: 4 mg Oxycodone/Acetaminophen (Percocet 10/325 Mg) 1 tab PO Q6H PRN PRN Reason: PAIN SCALE 6 TO 10 Oxycodone/Acetaminophen (Percocet 5/325 Mg) 1 tab PO Q6H PRN PRN Reason: PAIN SCALE 3 TO 5 Pantoprazole Sodium (Protonix Inj) 40 mg IV.PUSH Q24H [facility] Patch Removal (Remove Old Patch) 1 each T-DERMAL Q7D [facility] Allergies Allergy/AdvReac Type Severity Reaction Status Date / Time No Known Allergies Allergy Unverified 01/29/18 22:40 Home Medications Medication Instructions Recorded Confirmed Type Saccharomyces boulardii 250 mg PO BID 04/08/18 04/11/18 History aspirin 81 mg PO DAILY 04/08/18 04/11/18 History ergocalciferol (vitamin D2) 50,000 unit PO QWEEK 04/08/18 04/11/18 History fluticasone-vilanterol 1 inh INHALATION DAILY 04/08/18 04/11/18 History gabapentin 100 mg PO BID 04/08/18 04/11/18 History metoprolol tartrate 100 mg PO BID 04/08/18 04/11/18 History metronidazole 500 mg PO TID 04/08/18 04/11/18 History nitroglycerin 0.4 mg SUBLINGUAL Q5-15M PRN 04/08/18 04/11/18 History oxycodone-acetaminophen [Percocet] 2 tab PO Q6H PRN 04/08/18 04/11/18 History simvastatin 40 mg PO QPM 04/08/18 04/11/18 History tramadol 50 mg PO Q4H PRN 04/08/18 04/11/18 History Exam Vital signs: Vital Signs 04/11/18 14:06 Respiratory Rate 16 Intake & Output 04/10/18 04/11/18 04/11/18 18:59 06:59 18:59 Weight 43.4 kg Other: Weight On Admission 43.4 kg Narrative: GENERAL: Awake and alert. Frail. Uncomfortable. Actively vomiting. HEAD: Normocephalic. Atraumatic. EYES: Pupils equal round and reactive to light bilaterally. No scleral icterus. ENT: Moist oral mucosa. NECK: Trachea midline. CHEST: Lungs clear to auscultation bilaterally with no wheezing or rhonchi. No respiratory distress. CARDIOVASCULAR: Regular rate and rhythm. ABDOMEN: distended, diffuse moderate ttp. Inc with patrick intact some old blood oozing from midlline EXTREMITIES: No cyanosis or edema. SKIN: cool, dry, nonjaundiced. Results - Labs 04/11/18 14:02 All other labs normal. - Imaging CT scan - abdomen: report reviewed, image reviewed CT scan - pelvis: report reviewed, image reviewed (CT a/p d/w Dr. Morillo) Assessment and Plan - Plan 72 yo F recent ex lap and ileocectomy. Severe peripheral vascular disease. ? occlusion of SMA. Now with ileus unclear etiology. Unsure what the cause of her pain is but I am concerned about persistent chronic or subacute vascular disease at the SMA. Place NGT to LIS. Obtain op report. May required CTA or angiogram for further evaluation.
[2018-04-11 14:32] LABS: Anion Gap 11 meq/L (5-15); Blood Urea Nitrogen 10 mg/dL (7-18); Calcium 7.3 mg/dL (8.5-10.1); Carbon Dioxide 21.6 meq/L (21.0-32.0); Chloride 105 meq/L (98-107); Glomerular Filtration Rate Greater Than 89 mL/min (>89); Glucose,Random 106 mg/dL (74-106); Sodium 138 meq/L (136-145)
[2018-04-11 14:43] LABS: Total Protein 5.9 g/dL (6.4-8.2)
[2018-04-11] MEDS: Pantoprazole Inj 40 MG Vial IV.PUSH SCH (15:10)
[2018-04-11] MEDS: Potassium Chlor 10 mEq Premix 10 MEQ/100 ML PIGGYBACK IV.SIG SCH ×3 (15:11→22:28)
[2018-04-11] MEDS ORDERED: Potassium Phosphate Inj 30 MMOL in Sodium Chlor 0.9% Inj 250 ML IV.SIG PRN (15:13)
[2018-04-11] MEDS ORDERED: Magnesium Sulfate Inj 4 GM in Sodium Chlor 0.9% Inj 92 ML IV.SIG PRN (15:13)
[2018-04-11] MEDS ORDERED: Potassium Phosphate 500 MG Soluble Tablet PO PRN ×2 (15:13)
[2018-04-11] MEDS ORDERED: Potassium Chlor 40 mEq Premix 40 MEQ/100 ML PIGGYBACK IV.SIG PRN ×2 (15:13)
[2018-04-11] MEDS ORDERED: Magnesium Sulfate Inj 2 GM in Sodium Chlor 0.9% Inj 96 ML IV.SIG PRN (15:13)
[2018-04-11] MEDS ORDERED: Potassium Chloride 25 MEQ Effervescent Tablet PO PRN (15:13)
[2018-04-11] MEDS ORDERED: Sodium Phosphate Inj 30 MMOL in Sodium Chlor 0.9% Inj 250 ML IV.SIG PRN (15:13)
[2018-04-11] MEDS ORDERED: Potassium Chlor 20 mEq Premix 20 MEQ/100 ML PIGGYBACK IV.SIG PRN ×2 (15:13)
[2018-04-11] MEDS ORDERED: Magnesium Oxide 400 MG Tablet PO PRN (15:13)
[2018-04-11] MEDS ORDERED: Dextrose 50% in Water 50 ML Vial IV.PUSH PRN (15:15)
[2018-04-11 16:17] LABS: Magnesium 1.5 mg/dL (1.5-2.5); Phosphorus 2.5 mg/dL (2.5-4.9)
--- NOTE | 2018-04-11 17:03 | P.HP ---
History of Present Illness Service: Hospitalist Primary Care Physician: UNKNOWN Chief Complaint: Abdominal pain History of Present Illness: Patient is a 72-year-old female with past medical history of alcohol abuse, hypertension, hyperlipidemia, paroxysmal A. fib that initially presented to the emergency department 03/21/18 with complaints of generalized weakness and palpitations. She was found to be in A. fib with RVR and placed on a Cardizem drip. CT abdomen and pelvis revealed mesenteric ischemia and occlusion of the SMA and she was transferred to [facility] as an emergency transfer. She is now status post ileocecectomy with primary anastomosis and abdominal closure on March 25 for necrotic sternal ileum and diffuse ischemia. Patient was also found to have an ischemic left lower extremity apparently a thrombectomy was performed but failed. She is now status post left BKA. Postoperative course was complicated by supraventricular tachycardia and patient was treated with amiodarone, metoprolol heart rate was noted to have improved. Also was treated for acute renal failure that apparently resolved. Prior to admit, her last set of labs appears to be April 01, 2018 at that time her white blood cell count was again 15.5, INR was 0.97, sodium 133, potassium 4.8, creatinine was down to 0.7. Hemoglobin was 10.4, platelet count 310. Leukocytosis was treated with IV Flagyl and vancomycin she was then transitioned to p.o. Flagyl 500 mg 3 times daily for 7 days. Admitted to [facility] for inpatient rehab on April 08, 2018 -patient continued to have uncontrolled nausea vomiting w/ ileus so was transferred back to [facility]. Patient is seen lying in bed. Patient reports that she is experiencing increasing abdominal pain as well as near constant nausea. She has vomited all p.o. intake including meds. She is complaining of some midsternal chest pain that she describes as a "burning". Denies any left-sided chest pain, radiating pain, or palpitations. No dizziness. No shortness of breath. She continues to have diarrhea and stomach cramping. Inpatient Certification: I certify that the inpatient services were ordered in accordance with Medicare regulations governing the order. This includes certification that hospital inpatient services are reasonable and necessary and in the case of services not specified as inpatient-only under 42 CFR 419.22(n), that they are appropriately provided as inpatient services in accordance to with the 2-midnight benchmark under 43 CFR 412.3(e) Estimated Total Length of Stay (Days): 3 Plans for Post Hospital Care: Not yet determined Review of Systems All other systems reviewed negative except as stated in [facility] - History History Provided By: Patient, Medical Record - Medical History Medical History: Medical History (Last Reviewed 04/11/18 @ 17:36 by SAVAGE Kline) COPD (chronic obstructive pulmonary disease) History of hysterectomy Hypertension Insomnia SVT (supraventricular tachycardia) - Surgical History Surgical History: Surgical History (Last Reviewed 04/11/18 @ 17:36 by SAVAGE Kline) Previous back surgery Stented coronary artery - Family History Family History: Family History (Last Reviewed 04/11/18 @ 17:36 by SAVAGE Kline) Other Unknown family medical history - Tobacco History Second Hand Smoke Exposure: No Tobacco Use In Past 30 Days: No Smoking Status: Former smoker Tobacco Type: Cigarettes - Alcohol History How Often Do You Have a Drink Containing Alcohol: 4 or more times a week - Substance Use History Substance History: No History of Abuse Medications and Allergies Active Medications: Active Medications Acetaminophen (Tylenol) 650 mg PO Q4H PRN PRN Reason: Temp > 100.4 Clonidine HCl (Catapress-Tts 0.1 Mg Patch.7d) 1 patch T-DERMAL Q7D [facility] Last Admin: 04/11/18 15:11 Dose: 1 patch Dextrose (D50w Vial) 50 ml IV.PUSH UNSCH PRN PRN Reason: PER HYPOGLYCEMIA PROTOCOL Enalaprilat (Vasotec Inj) 1.25 mg IV.PUSH Q6H PRN PRN Reason: SEE LABEL COMMENTS Last Admin: 04/11/18 16:43 Dose: 1.25 mg Ergocalciferol (Vitamind2) 50,000 unit PO Q7D [facility] Last Admin: 04/11/18 14:06 Dose: Not Given Fluticasone/Vilanterol (Breo Ellipta 100/25 Mcg Inh) 1 puff INH DAILY [facility] Gabapentin (Neurontin) 100 mg PO BID [facility] Glucagon (Glucagon Inj) 1 mg OTHER PRN PRN PRN Reason: for Hypoglycemia Protocol Sodium Chloride (Ns Inj) 1,000 mls @ 100 mls/hr IV.CONT .Q10H [facility] Last Admin: 04/11/18 13:12 Dose: 100 mls/hr Metronidazole/Sodium Chloride (Flagyl 500 Mg Inj) 100 mls @ 100 mls/hr IV.SIG Q8H [facility] Stop: 04/17/18 14:00 Last Admin: 04/11/18 15:11 Dose: 100 mls/hr Cefepime HCl 1,000 mg/ Sodium (Chloride) 100 mls @ 200 mls/hr IV.SIG Q12H [facility] Stop: 04/16/18 13:59 Last Admin: 04/11/18 15:11 Dose: 200 mls/hr Potassium Chloride (Kcl 10 Meq Premix Inj) 10 meq in 100 mls @ 100 mls/hr IV.SIG Q1H [facility] Stop: 04/11/18 17:59 Last Admin: 04/11/18 15:11 Dose: 100 mls/hr Magnesium Sulfate Inj 4 gm/ (Sodium Chloride) 100 mls @ 50 mls/hr IV.SIG UNSCH PRN PRN Reason: For Magnesium 0.9 - 1.1 mg/dL Magnesium Sulfate Inj 2 gm/ (Sodium Chloride) 100 mls @ 50 mls/hr IV.SIG UNSCH PRN PRN Reason: For Magnesium 1.2 - 1.6 mg/dL Potassium Chloride (Kcl 40 Meq Premix Inj) 40 meq in 100 mls @ 25 mls/hr IV.SIG Q2H PRN PRN Reason: For Potassium 2.8 - 3.2 mEq/L Potassium Chloride (Kcl 20 Meq Premix Inj) 20 meq in 100 mls @ 50 mls/hr IV.SIG Q2H PRN PRN Reason: For Potassium 3.3 - 3.5 mEq/L Potassium Chloride (Kcl 40 Meq Premix Inj) 40 meq in 100 mls @ 25 mls/hr IV.SIG UNSCH PRN PRN Reason: For Potassium 3.3 - 3.5 mEq/L Potassium Phosphate 30 mmol/ (Sodium Chloride) 260 mls @ 42 mls/hr IV.SIG UNSCH PRN PRN Reason: SEE LABEL COMMENTS Sodium Phosphate 30 mmol/ (Sodium Chloride) 260 mls @ 42 mls/hr IV.SIG UNSCH PRN PRN Reason: For Phosphorus < 2.5 mg/dL Potassium Chloride (Kcl 20 Meq Premix Inj) 20 meq in 100 mls @ 50 mls/hr IV.SIG Q2H PRN PRN Reason: For Potassium 2.8 - 3.2 mEq/L Magnesium Oxide (Mag-Ox) 800 mg PO UNSCH PRN PRN Reason: For Magnesium 1.2 - 1.6 mg/dL Metoprolol Tartrate (Lopressor) 100 mg PO BID [facility] Morphine Sulfate (Morphine Inj) 2 mg IV.PUSH Q4H PRN PRN Reason: BREAKTHROUGH PAIN Last Admin: 04/11/18 13:02 Dose: 2 mg Naloxone HCl (Narcan Inj) 0.4 mg IV.PUSH UNSCH PRN PRN Reason: SEE LABEL COMMENTS Naloxone HCl (Narcan Inj) 0.4 mg IV.PUSH UNSCH PRN PRN Reason: SEE LABEL COMMENTS Ondansetron HCl (Zofran Inj) 4 mg IV.PUSH Q6H PRN PRN Reason: NAUSEA OR VOMITING Last Admin: 04/11/18 13:03 Dose: 4 mg Oxycodone/Acetaminophen (Percocet 10/325 Mg) 1 tab PO Q6H PRN PRN Reason: PAIN SCALE 6 TO 10 Oxycodone/Acetaminophen (Percocet 5/325 Mg) 1 tab PO Q6H PRN PRN Reason: PAIN SCALE 3 TO 5 Pantoprazole Sodium (Protonix Inj) 40 mg IV.PUSH Q24H [facility] Last Admin: 04/11/18 15:10 Dose: 40 mg Patch Removal (Remove Old Patch) 1 each T-DERMAL Q7D [facility] Potassium Bicarb/Potassium Chloride (K-Lyte Cl Eff) 50 meq PO UNSCH PRN PRN Reason: For Potassium 3.3 - 3.5 mEq/L Potassium Phosphate (K-Phos Original) 2,000 mg PO Q4H PRN PRN Reason: Phosphorus Less Than 2.5 mg/dL Potassium Phosphate (K-Phos Original) 2,000 mg PO UNSCH PRN PRN Reason: SEE LABEL COMMENTS Allergies Allergy/AdvReac Type Severity Reaction Status Date / Time No Known Allergies Allergy Unverified 01/29/18 22:40 Home Medications Medication Instructions Recorded Confirmed Type Saccharomyces boulardii 250 mg PO BID 04/08/18 04/11/18 History aspirin 81 mg PO DAILY 04/08/18 04/11/18 History ergocalciferol (vitamin D2) 50,000 unit PO QWEEK 04/08/18 04/11/18 History fluticasone-vilanterol 1 inh INHALATION DAILY 04/08/18 04/11/18 History gabapentin 100 mg PO BID 04/08/18 04/11/18 History metoprolol tartrate 100 mg PO BID 04/08/18 04/11/18 History metronidazole 500 mg PO TID 04/08/18 04/11/18 History nitroglycerin 0.4 mg SUBLINGUAL Q5-15M PRN 04/08/18 04/11/18 History oxycodone-acetaminophen [Percocet] 2 tab PO Q6H PRN 04/08/18 04/11/18 History simvastatin 40 mg PO QPM 04/08/18 04/11/18 History tramadol 50 mg PO Q4H PRN 04/08/18 04/11/18 History Exam Vital signs: Vital Signs 04/11/18 14:06 04/11/18 16:00 Temperature 99 F Pulse Rate 94 H Respiratory Rate 16 14 Blood Pressure 174/126 H Pulse Oximetry 96 Intake & Output 04/10/18 04/11/18 04/11/18 18:59 06:59 18:59 Weight 43.4 kg Other: Weight On Admission 43.4 kg Narrative: GENERAL: Thin, well-developed adult female in mild distress. SKIN: Warm and dry. HEAD: Atraumatic. Normocephalic. CARDIOVASCULAR: Regular rate and rhythm. RESPIRATORY: No accessory muscle use. Clear to auscultation. Breath sounds equal bilaterally. GASTROINTESTINAL: Abdomen soft, tender, non-distended. Incision dressed with drainage noted. + bowel sounds. MUSCULOSKELETAL: Left BKA. All other extremities without clubbing, cyanosis, or edema. No obvious deformities. NEUROLOGICAL: Awake and alert. No obvious cranial nerve deficits. Motor grossly within normal limits. Normal speech. PSYCHIATRIC: Appropriate mood and affect; insight and judgment good. Results - Labs CBC & Chem 7: 04/11/18 14:02 Labs: Laboratory Results - last 24 hr 04/11/18 04/11/18 04/11/18 12:10 14:02 14:02 Sodium 138 Potassium 3.0 L Chloride 105 Carbon Dioxide 21.6 Anion Gap 11 BUN 10 Creatinine 0.63 Estimated GFR Greater than 89 Random Glucose 106 Lactic Acid Calcium 7.3 L* Prot Corrected Calcium 7.9 L Phosphorus 2.5 Magnesium 1.5 Total Protein 5.9 L Nasal Screen MRSA (PCR) Not detected 04/11/18 16:20 Sodium Potassium Chloride Carbon Dioxide Anion Gap BUN Creatinine Estimated GFR Random Glucose Lactic Acid 1.0 Calcium Prot Corrected Calcium Phosphorus Magnesium Total Protein Nasal Screen MRSA (PCR) Caprini VTE Risk Assessment Caprini VTE Risk Assessment: Moderate/High Risk (score >= 2) Caprini Risk Assessment Model: Point Value = 1 Point Value = 2 Point Value = 3 Point Value = 5 Age 41-60 Minor surgery BMI > 25 kg/m2 Swollen legs Varicose veins or History of unexplained or recurrent spontaneous Oral contraceptives or hormone replacement Sepsis (< 1 month) Serious lung disease, including pneumonia (< 1 month) Abnormal pulmonary function Acute myocardial infarction Congestive heart failure (< 1 month) History of inflammatory bowel disease Medical patient at bed rest Age 61-74 Arthroscopic surgery Major open surgery (> 45 min) Laparoscopic surgery (> 45 min) Malignancy Confined to bed (> 72 hours) Immobilizing plaster cast Central venous access Age >= 75 History of VTE Family history of VTE Factor V Leiden Prothrombin [id number] Lupus anticoagulant Anticardiolipin antibodies Elevated serum homocysteine Heparin-induced thrombocytopenia Other congenital or acquired thrombophilia Stroke (< 1 month) Elective arthroplasty Hip, pelvis, or leg fracture Acute spinal cord injury (< 1 month) Prophylaxis Regimen: Total Risk Factor Score Risk Level Prophylaxis Regimen 0-1 Low Early ambulation 2 Moderate Order ONE of the following: *Sequential Compression Device (SCD) *Heparin 5000 units SQ BID 3-4 Higher Order ONE of the following medications: *Heparin 5000 units SQ TID *Enoxaparin/Lovenox 40 mg SQ daily (WT < 150 kg, CrCl > 30 mL/min) *Enoxaparin/Lovenox 30 mg SQ daily (WT < 150 kg, CrCl > 10-29 mL/min) *Enoxaparin/Lovenox 30 mg SQ BID (WT < 150 kg, CrCl > 30 mL/min) AND/OR *Sequential Compression Device (SCD) 5 or more Highest Order ONE of the following medications: *Heparin 5000 units SQ TID (Preferred with Epidurals) *Enoxaparin/Lovenox 40 mg SQ daily (WT < 150 kg, CrCl > 30 mL/min) *Enoxaparin/Lovenox 30 mg SQ daily (WT < 150 kg, CrCl > 10-29 mL/min) *Enoxaparin/Lovenox 30 mg SQ BID (WT < 150 kg, CrCl > 30 mL/min) AND *Sequential Compression Device (SCD) Assessment and Plan - Plan 72-year-old female with past medical history of alcohol abuse, hypertension, hyperlipidemia, paroxysmal A. fib that initially presented to the emergency department 03/21/18 with complaints of generalized weakness and palpitations. She was found to be in A. fib with RVR and placed on a Cardizem drip. CT ab/pelvis revealed mesenteric ischemia and occlusion of the SMA and she was transferred to [facility] as an emergency transfer. She is now status post ileocecectomy with primary anastomosis and abdominal closure on March 25 for necrotic sternal ileum and diffuse ischemia. Patient was also found to have an ischemic left lower extremity apparently a thrombectomy was performed but failed. She is now status post left BKA. Postoperative course was complicated by supraventricular tachycardia and patient was treated with amiodarone & metoprolol. TIM resolved. Prior to admit , her last set of labs appears to be April 01, 2018 at that time her white blood cell count was again 15.5, INR was 0.97, sodium 133, potassium 4.8, creatinine was down to 0.7. Hemoglobin was 10.4, platelet count 310. Leukocytosis was treated with IV Flagyl and vancomycin she was then transitioned to p.o. Flagyl 500 mg 3 times daily for 7 days. Admitted to [facility] for inpatient rehab on 04/08; admitted back to [facility] on 04/11 due to nausea vomiting with ileus. Ischemic bowel S/P ileocecectomy -Monitor abdominal incision -On Flagyl -stop date 04/15 -changed from p.o. to IV on 04/11 due to NV. -Repeat CT AB/pelvis 04/11 -progressive ileus ; small stable bilateral pleural effusions; stable midline postoperative seroma -Surgical and GI consult placed; appreciate assistance A. fib RVR (w prior episode of SVT) / Hypertension -EKG done 04/08: Sinus rhythm with occasional supraventricular premature complexes. Repeat EKG done 04/11: SR -Continue metoprolol 100 mg twice daily; 04/11 -unable to give due to nausea vomiting. Add clonidine patch -ASA; denies blood thinners in past Anemia - stable -Postoperative but also likely due to chronic disease/EtOH -Hemoglobin currently stable as of 04/09; monitor Leukocytosis; resolved -Initially treated with IV Vanco and Flagyl; transitioned to Cipro and Flagyl; admitted on Flagyl p.o. only. -Cultures and C. difficile negative prior to admit. -WBC's WNL on 04/09. Afebrile C. difficile; resolved -Complaint of diarrhea -send stool for C. difficile -negative on 04/09 -Questran stopped by primary on 04/10 UTI - acute -UA sent for culture 04/08/18. Positive for E. coli and Enterobacter. Started cefepime 04/10. Hypokalemia - acute -Potassium 2.9 and magnesium 1.1 On 04/09. Replaced both potassium and magnesium 04/09. Magnesium normal and potassium 3.3 on 04/10. Primary ordered additional IV potassium. Likely due to ongoing diarrhea and possibly Questran. -04/11 - NS @ 100/ml hr. Will likely need TPN / cont electrolyte replacement. Consult placed to dietary; appreciate assistance COPD -On Brio and PRN DuoNeb DVT prophylaxis: Lovenox (hold 04/11 pending sx consult) Discussed with: Patient, nurse, Dr. Morton
--- NOTE | 2018-04-11 17:06 | P.CONGI ---
History of Present Illness Consult date: 04/11/18 Consult reason: Diarrhea abdominal pain Chief complaint: [facility] History of Present Illness: This is a 72-year-old female who was initially on rehabilitation today room 812. Patient has noted diarrhea for the past 24-48 hours with C. difficile negative on 04/09/2018 patient also has significant history of anemia and alcohol COPD atrial fib and positive UTI. Patient according to the record is status post ileocectomy on 03/25/2018 in [place] for ischemia bowel. Once she was stabilized she was sent to acute rehab for further conditioning. GI was consulted to assist with her abdominal pain and diarrhea. This a.m. patient became unstable per the rehab unit and was transitioned to intensive care patient was seen in room 525 and currently remains n.p.o. Patient is having some mild shortness of breath and continues to have some nausea. Heart rate 95 abdominal generalized discomfort with tautness noted with minimal bowel sounds. Patient not sure but she thinks she is passing gas. Currently patient is being managed with hydration increased IV rate to 100 cc an hour impending NG tube. Patient notes EGD approximately 3 years ago and last colonoscopy approximately 5 years ago when [place] unknown timing and findings otherwise. Patient appears to be uncomfortable with pain scale 9 out of 10 and currently being in given her pain meds. Patient states cholecystectomy many years ago as well as hysterectomy. No family history of colon cancer <Khushboo [place] - Last Filed: 04/11/18 17:08> Review of Systems All other systems reviewed negative except as stated in HPI (Limited review secondary to pa) <Khushboo [place] - Last Filed: 04/11/18 17:08> [facility] - History History Provided By: Patient - Medical History Medical History: Medical History (Last Reviewed 04/09/18 @ 14:13 by SAVAGE Kline) COPD (chronic obstructive pulmonary disease) History of hysterectomy Hypertension Insomnia SVT (supraventricular tachycardia) - Surgical History Surgical History: Surgical History (Last Reviewed 04/09/18 @ 14:13 by SAVAGE Kline) Previous back surgery Stented coronary artery - Family History Family History: Family History (Last Reviewed 04/09/18 @ 14:13 by SAVAGE Kline) Other Unknown family medical history - Tobacco History Second Hand Smoke Exposure: No Tobacco Use In Past 30 Days: No Smoking Status: Former smoker Tobacco Type: Cigarettes - Alcohol History How Often Do You Have a Drink Containing Alcohol: 4 or more times a week - Substance Use History Substance History: No History of Abuse <Khushboo [place] - Last Filed: 04/11/18 17:08> - Medical History Medical History: Medical History (Last Reviewed 04/09/18 @ 14:13 by SAVAGE Kline) COPD (chronic obstructive pulmonary disease) History of hysterectomy Hypertension Insomnia SVT (supraventricular tachycardia) - Surgical History Surgical History: Surgical History (Last Reviewed 04/09/18 @ 14:13 by SAVAGE Kline) Previous back surgery Stented coronary artery - Family History Family History: Family History (Last Reviewed 04/09/18 @ 14:13 by SAVAGE Kline) Other Unknown family medical history <Ernestina Hernandez - Last Filed: 04/12/18 14:28> Medications and Allergies Active Medications: Active Medications Acetaminophen (Tylenol) 650 mg PO Q4H PRN PRN Reason: Temp > 100.4 Clonidine HCl (Catapress-Tts 0.1 Mg Patch.7d) 1 patch T-DERMAL Q7D [facility] Last Admin: 04/11/18 15:11 Dose: 1 patch Dextrose (D50w Vial) 50 ml IV.PUSH UNSCH PRN PRN Reason: PER HYPOGLYCEMIA PROTOCOL Enalaprilat (Vasotec Inj) 1.25 mg IV.PUSH Q6H PRN PRN Reason: SEE LABEL COMMENTS Last Admin: 04/11/18 16:43 Dose: 1.25 mg Ergocalciferol (Vitamind2) 50,000 unit PO Q7D [facility] Last Admin: 04/11/18 14:06 Dose: Not Given Fluticasone/Vilanterol (Breo Ellipta 100/25 Mcg Inh) 1 puff INH DAILY [facility] Gabapentin (Neurontin) 100 mg PO BID [facility] Glucagon (Glucagon Inj) 1 mg OTHER PRN PRN PRN Reason: for Hypoglycemia Protocol Sodium Chloride (Ns Inj) 1,000 mls @ 100 mls/hr IV.CONT .Q10H [facility] Last Admin: 04/11/18 13:12 Dose: 100 mls/hr Metronidazole/Sodium Chloride (Flagyl 500 Mg Inj) 100 mls @ 100 mls/hr IV.SIG Q8H [facility] Stop: 04/17/18 14:00 Last Admin: 04/11/18 15:11 Dose: 100 mls/hr Cefepime HCl 1,000 mg/ Sodium (Chloride) 100 mls @ 200 mls/hr IV.SIG Q12H [facility] Stop: 04/16/18 13:59 Last Admin: 04/11/18 15:11 Dose: 200 mls/hr Potassium Chloride (Kcl 10 Meq Premix Inj) 10 meq in 100 mls @ 100 mls/hr IV.SIG Q1H [facility] Stop: 04/11/18 17:59 Last Admin: 04/11/18 15:11 Dose: 100 mls/hr Magnesium Sulfate Inj 4 gm/ (Sodium Chloride) 100 mls @ 50 mls/hr IV.SIG UNSCH PRN PRN Reason: For Magnesium 0.9 - 1.1 mg/dL Magnesium Sulfate Inj 2 gm/ (Sodium Chloride) 100 mls @ 50 mls/hr IV.SIG UNSCH PRN PRN Reason: For Magnesium 1.2 - 1.6 mg/dL Potassium Chloride (Kcl 40 Meq Premix Inj) 40 meq in 100 mls @ 25 mls/hr IV.SIG Q2H PRN PRN Reason: For Potassium 2.8 - 3.2 mEq/L Potassium Chloride (Kcl 20 Meq Premix Inj) 20 meq in 100 mls @ 50 mls/hr IV.SIG Q2H PRN PRN Reason: For Potassium 3.3 - 3.5 mEq/L Potassium Chloride (Kcl 40 Meq Premix Inj) 40 meq in 100 mls @ 25 mls/hr IV.SIG UNSCH PRN PRN Reason: For Potassium 3.3 - 3.5 mEq/L Potassium Phosphate 30 mmol/ (Sodium Chloride) 260 mls @ 42 mls/hr IV.SIG UNSCH PRN PRN Reason: SEE LABEL COMMENTS Sodium Phosphate 30 mmol/ (Sodium Chloride) 260 mls @ 42 mls/hr IV.SIG UNSCH PRN PRN Reason: For Phosphorus < 2.5 mg/dL Potassium Chloride (Kcl 20 Meq Premix Inj) 20 meq in 100 mls @ 50 mls/hr IV.SIG Q2H PRN PRN Reason: For Potassium 2.8 - 3.2 mEq/L Magnesium Oxide (Mag-Ox) 800 mg PO UNSCH PRN PRN Reason: For Magnesium 1.2 - 1.6 mg/dL Metoprolol Tartrate (Lopressor) 100 mg PO BID [facility] Morphine Sulfate (Morphine Inj) 2 mg IV.PUSH Q4H PRN PRN Reason: BREAKTHROUGH PAIN Last Admin: 04/11/18 13:02 Dose: 2 mg Naloxone HCl (Narcan Inj) 0.4 mg IV.PUSH UNSCH PRN PRN Reason: SEE LABEL COMMENTS Naloxone HCl (Narcan Inj) 0.4 mg IV.PUSH UNSCH PRN PRN Reason: SEE LABEL COMMENTS Ondansetron HCl (Zofran Inj) 4 mg IV.PUSH Q6H PRN PRN Reason: NAUSEA OR VOMITING Last Admin: 04/11/18 13:03 Dose: 4 mg Oxycodone/Acetaminophen (Percocet 10/325 Mg) 1 tab PO Q6H PRN PRN Reason: PAIN SCALE 6 TO 10 Oxycodone/Acetaminophen (Percocet 5/325 Mg) 1 tab PO Q6H PRN PRN Reason: PAIN SCALE 3 TO 5 Pantoprazole Sodium (Protonix Inj) 40 mg IV.PUSH Q24H [facility] Last Admin: 04/11/18 15:10 Dose: 40 mg Patch Removal (Remove Old Patch) 1 each T-DERMAL Q7D [facility] Potassium Bicarb/Potassium Chloride (K-Lyte Cl Eff) 50 meq PO UNSCH PRN PRN Reason: For Potassium 3.3 - 3.5 mEq/L Potassium Phosphate (K-Phos Original) 2,000 mg PO Q4H PRN PRN Reason: Phosphorus Less Than 2.5 mg/dL Potassium Phosphate (K-Phos Original) 2,000 mg PO UNSCH PRN PRN Reason: SEE LABEL COMMENTS <Khushboo [place] M - Last Filed: 04/11/18 17:08> Active Medications: Active Medications Acetaminophen (Tylenol) 650 mg PO Q4H PRN PRN Reason: Temp > 100.4 Dextrose (D50w Vial) 50 ml IV.PUSH UNSCH PRN PRN Reason: PER HYPOGLYCEMIA PROTOCOL Enalaprilat (Vasotec Inj) 1.25 mg IV.PUSH Q6H PRN PRN Reason: SEE LABEL COMMENTS Last Admin: 04/11/18 16:43 Dose: 1.25 mg Ergocalciferol (Vitamind2) 50,000 unit PO Q7D [facility] Last Admin: 04/11/18 14:06 Dose: Not Given Fluticasone/Vilanterol (Breo Ellipta 100/25 Mcg Inh) 1 puff INH DAILY [facility] Last Admin: 04/12/18 08:33 Dose: 1 puff Gabapentin (Neurontin) 100 mg PO BID [facility] Glucagon (Glucagon Inj) 1 mg OTHER PRN PRN PRN Reason: for Hypoglycemia Protocol Metronidazole/Sodium Chloride (Flagyl 500 Mg Inj) 100 mls @ 100 mls/hr IV.SIG Q8H [facility] Stop: 04/17/18 14:00 Last Infusion: 04/12/18 07:04 Dose: Infused Cefepime HCl 1,000 mg/ Sodium (Chloride) 100 mls @ 200 mls/hr IV.SIG Q12H [facility] Stop: 04/16/18 13:59 Last Infusion: 04/12/18 01:57 Dose: Infused Multivitamins 10 ml/ Folic Acid 1 mg/ Amino Acids/Electrolytes/Dextrose 2, 010.2 mls @ 55 mls/hr IV.SIG Q24H [facility] Fat Emulsion Intravenous (Intralipid 20% Inj) 250 mls @ 10 mls/hr IV.CENTRAL Q24H [facility] Magnesium Sulfate/Dextrose (Magnesium Sulfate 1 Gm/D5w 100 Ml Premix) 100 mls @ 100 mls/hr IV.SIG ONCE ONE Stop: 04/12/18 15:10 Magnesium Oxide (Mag-Ox) 800 mg PO UNSCH PRN PRN Reason: For Magnesium 1.2 - 1.6 mg/dL Metoprolol Tartrate (Lopressor) 100 mg PO BID [facility] Morphine Sulfate (Morphine Inj) 2 mg IV.PUSH Q4H PRN PRN Reason: BREAKTHROUGH PAIN Last Admin: 04/12/18 13:51 Dose: 2 mg Naloxone HCl (Narcan Inj) 0.4 mg IV.PUSH UNSCH PRN PRN Reason: SEE LABEL COMMENTS Naloxone HCl (Narcan Inj) 0.4 mg IV.PUSH UNSCH PRN PRN Reason: SEE LABEL COMMENTS Ondansetron HCl (Zofran Inj) 4 mg IV.PUSH Q6H PRN PRN Reason: NAUSEA OR VOMITING Last Admin: 04/12/18 10:01 Dose: 4 mg Oxycodone/Acetaminophen (Percocet 10/325 Mg) 1 tab PO Q6H PRN PRN Reason: PAIN SCALE 6 TO 10 Oxycodone/Acetaminophen (Percocet 5/325 Mg) 1 tab PO Q6H PRN PRN Reason: PAIN SCALE 3 TO 5 Pantoprazole Sodium (Protonix Inj) 40 mg IV.PUSH Q24H [facility] Last Admin: 04/11/18 15:10 Dose: 40 mg Patch Removal (Remove Old Patch) 1 each T-DERMAL Q7D [facility] Temazepam (Restoril) 15 mg PO HS PRN PRN Reason: SLEEP <Ernestina Hernandez - Last Filed: 04/12/18 14:28> Allergies Allergy/AdvReac Type Severity Reaction Status Date / Time No Known Allergies Allergy Unverified 01/29/18 22:40 Home Medications Medication Instructions Recorded Confirmed Type Saccharomyces boulardii 250 mg PO BID 04/08/18 04/11/18 History aspirin 81 mg PO DAILY 04/08/18 04/11/18 History ergocalciferol (vitamin D2) 50,000 unit PO QWEEK 04/08/18 04/11/18 History fluticasone-vilanterol 1 inh INHALATION DAILY 04/08/18 04/11/18 History gabapentin 100 mg PO BID 04/08/18 04/11/18 History metoprolol tartrate 100 mg PO BID 04/08/18 04/11/18 History metronidazole 500 mg PO TID 04/08/18 04/11/18 History nitroglycerin 0.4 mg SUBLINGUAL Q5-15M PRN 04/08/18 04/11/18 History oxycodone-acetaminophen [Percocet] 2 tab PO Q6H PRN 04/08/18 04/11/18 History simvastatin 40 mg PO QPM 04/08/18 04/11/18 History tramadol 50 mg PO Q4H PRN 04/08/18 04/11/18 History Exam Vital signs: Vital Signs 04/11/18 14:06 04/11/18 16:00 Temperature 99 F Pulse Rate 94 H Respiratory Rate 16 14 Blood Pressure 174/126 H Pulse Oximetry 96 Intake & Output 04/10/18 04/11/18 04/11/18 18:59 06:59 18:59 Weight 43.4 kg Other: Weight On Admission 43.4 kg - Constitutional moderate distress, thin - Routine HEENT Exam Head: Present: normocephalic ENT: Present: mucous membranes dry - Routine Neck Exam Present: supple - Routine Respiratory Exam Present: decreased breath sounds (Mild shortness of breath with current pain level) - Routine Cardiovascular Exam Present: RRR (Heart rate 93) - Routine Abdominal Exam Present: distended (Mild, taut, with some guarding, minimal bowel sounds) - Routine Skin Exam Present: intact (Midline incision clean dry and intact abdomen) - Routine Neurological Exam Present: alert (Awake but in a great deal of pain now) <Khushboo [place] - Last Filed: 04/11/18 17:08> Vital signs: Vital Signs 04/11/18 16:00 04/11/18 16:33 04/11/18 17:00 Temperature 99 F Pulse Rate 94 H 93 H 93 H Respiratory Rate 14 14 14 Blood Pressure 174/126 H 119/71 Pulse Oximetry 96 95 93 L 04/11/18 18:09 04/11/18 18:10 04/11/18 19:00 Temperature Pulse Rate 98 H 97 H 93 H Respiratory Rate 15 16 16 Blood Pressure 106/70 104/69 Pulse Oximetry 93 L 93 L 95 04/11/18 20:00 04/11/18 21:00 04/11/18 22:00 Temperature 97.9 F Pulse Rate 92 H 92 H 92 H Respiratory Rate 15 15 14 Blood Pressure 98/68 L 97/60 L 93/63 L Pulse Oximetry 93 L 93 L 95 04/11/18 22:58 04/11/18 23:00 04/12/18 00:00 Temperature 98 F Pulse Rate 92 H 91 H 106 H Respiratory Rate 14 20 Blood Pressure 89/65 L 99/69 L Pulse Oximetry 93 L 94 L 04/12/18 00:01 04/12/18 01:00 04/12/18 02:00 Temperature Pulse Rate 104 H 90 93 H Respiratory Rate 17 11 L 14 Blood Pressure 99/69 L 108/65 96/56 L Pulse Oximetry 95 89 L 90 L 04/12/18 03:00 04/12/18 04:00 04/12/18 05:00 Temperature 97.9 F Pulse Rate 96 H 86 95 H Respiratory Rate 19 13 15 Blood Pressure 102/67 98/61 L 90/59 L Pulse Oximetry 93 L 93 L 91 L 04/12/18 06:00 04/12/18 07:00 04/12/18 08:00 Temperature 98 F Pulse Rate 100 H 97 H 102 H Respiratory Rate 18 14 15 Blood Pressure 88/56 L 85/56 L 87/55 L Pulse Oximetry 93 L 94 L 88 L 04/12/18 09:00 04/12/18 10:00 04/12/18 11:00 Temperature Pulse Rate 88 98 H 96 H Respiratory Rate 15 18 16 Blood Pressure 94/61 L 96/54 L 94/59 L Pulse Oximetry 93 L 93 L 92 L 04/12/18 12:33 Temperature Pulse Rate Respiratory Rate Blood Pressure 106/72 Pulse Oximetry Intake & Output 04/11/18 04/12/18 04/12/18 18:59 06:59 18:59 Intake Total 500 / 500 1500 / 1500 200 / 200 Output Total 180 / 180 Balance 500 / 500 1500 / 1500 20 / 20 Weight 43.4 kg 44 kg Intake: IV 300 / 300 1400 / 1400 200 / 200 NS Inj 1,000 ML @ 100 mls/hr IV 1000 / 1000 .CONT .Q10H [facility] Rx#:[id number] Maxipime Inj 1,000 MG In NS Inj 100 / 100 100 / 100 100 ML @ 200 mls/hr IV.SIG Q12H [facility] Rx#:[id number] KCl 10 mEq Premix Inj 10 meq In 100 / 100 200 / 200 100 ml @ 100 mls/hr IV.SIG Q1H [facility] Rx#:[id number] KCl 20 mEq Premix Inj 20 meq In 100 / 100 100 ml @ 50 mls/hr IV.SIG Q2H PRN Rx#:[id number] Flagyl 500 MG Inj 100 ML @ 100 100 / 100 100 / 100 100 / 100 mls/hr IV.SIG Q8H [facility] Rx#: [id number] Oral 200 / 200 100 / 100 Output: Gastric Drainage 180 / 180 Right Nare 180 / 180 Other: # Voids 2 4 Date of Last Bowel Movement 04/11/18 # Bowel Movements 1 Weight On Admission 43.4 kg <Ernestina Hernandez - Last Filed: 04/12/18 14:28> Results - Labs CBC & Chem 7: 04/11/18 14:02 Labs: Laboratory Results - last 24 hr 04/11/18 04/11/18 04/11/18 12:10 14:02 14:02 Sodium 138 Potassium 3.0 L Chloride 105 Carbon Dioxide 21.6 Anion Gap 11 BUN 10 Creatinine 0.63 Estimated GFR Greater than 89 Random Glucose 106 Calcium 7.3 L* Prot Corrected Calcium 7.9 L Phosphorus 2.5 Magnesium 1.5 Total Protein 5.9 L Nasal Screen MRSA (PCR) Not detected <Khushboo [place] - Last Filed: 04/11/18 17:08> - Labs CBC & Chem 7: 04/12/18 05:46 04/12/18 05:46 Labs: Laboratory Results - last 24 hr 04/11/18 04/11/18 04/11/18 12:10 14:02 14:02 WBC RBC Hgb Hct MCV MCH MCHC RDW Plt Count MPV Neut % (Auto) Lymph % (Auto) [place] % (Auto) Eos % (Auto) Baso % (Auto) Neut # (Auto) Lymph # (Auto) [place] # (Auto) Eos # (Auto) Baso # (Auto) WBC Differential Differential Comment Sodium 138 Potassium 3.0 L Chloride 105 Carbon Dioxide 21.6 Anion Gap 11 BUN 10 Creatinine 0.63 Estimated GFR Greater than 89 Random Glucose 106 Lactic Acid Calcium 7.3 L* Prot Corrected Calcium 7.9 L Phosphorus 2.5 Magnesium 1.5 Total Protein 5.9 L Nasal Screen MRSA (PCR) Not detected 04/11/18 04/12/18 04/12/18 16:20 05:46 05:46 WBC 7.9 RBC 3.28 L Hgb 9.1 L D Hct 29.1 L MCV 88.6 MCH 27.8 MCHC 31.4 L RDW 18.1 H Plt Count 430 MPV 8.2 Neut % (Auto) 79.2 H Lymph % (Auto) 14.3 [place] % (Auto) 5.9 Eos % (Auto) 0.3 Baso % (Auto) 0.3 Neut # (Auto) 6.3 Lymph # (Auto) 1.1 [place] # (Auto) 0.5 Eos # (Auto) 0.0 Baso # (Auto) 0.0 WBC Differential . Differential Comment Auto diff final Sodium 141 Potassium 3.4 L Chloride 109 H Carbon Dioxide 19.1 L Anion Gap 13 BUN 8 Creatinine 0.57 Estimated GFR Greater than 89 Random Glucose 82 Lactic Acid 1.0 Calcium 6.7 L* Prot Corrected Calcium 7.9 L Phosphorus Magnesium 1.2 L Total Protein 4.8 L D Nasal Screen MRSA (PCR) - Imaging Impressions Abdomen MRA 04/11/18 00:00 CONCLUSION: 1. 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 2. 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 3. 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 <Ernestina Hernandez - Last Filed: 04/12/18 14:28> Assessment and Plan (1) Abdominal pain Status: Acute Code(s): R10.9 - Unspecified abdominal pain (2) Ischemia, bowel Status: Acute Code(s): K55.9 - Vascular disorder of intestine, unspecified (3) Anemia Status: Acute Code(s): D64.9 - Anemia, unspecified - Plan Abdominal pain nausea, Ileus with symptoms noted on #1 Diarrhea 48 hours placed on Questran, continued worsening of her abdominal pain as well as nausea and vomiting on 04/11/2018. Gastroenterology was initially consulted to see her on rehab patient's condition worsened and was sent to CT scan now with an ileus. Initial diarrhea could have been partial ileus forming . NG tube is pending IV fluids are infusing at 100 cc an hour Patient is status post ileocecostomy in the [place] area. General surgery also reviewed and evaluated today. Questionable mesenteric ischemia. Currently patient is having pain and nausea scale of 9-10. Most of any information is being gathered from the record and she is being monitored in the intensive care setting now. Plan N.p.o. NG tube clamped or to low intermittent suction Monitor labs and transfuse if necessary Further evaluation with MRA Small bowel follow-through with Gastrografin ordered Further recommendations to follow PPI Patient was seen per myself and Dr. Hernandez, note was written on his behalf <Khushboo [place] - Last Filed: 04/11/18 17:08> (1) Abdominal pain Status: Acute Code(s): R10.9 - Unspecified abdominal pain (2) Ischemia, bowel Status: Acute Code(s): K55.9 - Vascular disorder of intestine, unspecified (3) Anemia Status: Acute Code(s): D64.9 - Anemia, unspecified - Plan Seen and examined with SALES PROGRAM COORDINATOR< suspect mesenteric ischemia. MRA and gastrografin SBFT ordered. GS consult. NG to LIS. - Attending Attestation The exam, history, and the medical decision-making described in the above note were completed with the assistance of the mid-level provider. I reviewed and agree with the findings presented. I attest that I had a [id number] encounter with the patient on the same day, and personally performed and documented my assessment and findings in the medical record. <Ernestina Hernandez - Last Filed: 04/12/18 14:28> <Khushboo [place] - Last Filed: 04/11/18 17:08> (3) Anemia Qualifiers: Anemia type: unspecified type Qualified Code(s): D64.9 - Anemia, unspecified <Ernestina Hernandez - Last Filed: 04/12/18 14:28> (3) Anemia Qualifiers: Anemia type: unspecified type Qualified Code(s): D64.9 - Anemia, unspecified
--- NOTE | 2018-04-11 17:21 | P.PNGS ---
Subjective Interval history: Asked to see the patient in the capacity of general surgeon photoresist contact printer and received referral from the call service today. Dr Silvino Curiel already saw the patient, so I don't see any reason to have two general surgery evaluations. If vascular eval or intervention is contemplated please consult. Thanks J Physical Exam Vital signs: Vital Signs 04/11/18 14:06 04/11/18 16:00 Temperature 99 F Pulse Rate 94 H Respiratory Rate 16 14 Blood Pressure 174/126 H Pulse Oximetry 96 Intake & Output 04/10/18 04/11/18 04/11/18 18:59 06:59 18:59 Weight 43.4 kg Other: Weight On Admission 43.4 kg
[2018-04-11] MEDS ORDERED: Gadobutrol PF 10 MMOL/10 ML Vial (for RAD) IV.SIG ONE (17:31)
--- NOTE | 2018-04-11 18:48 | MR ---
EXAM DATE: 04/11/2018 6:30 PM EDT AGE/SEX: 72 years / Female INDICATIONS: . Mesenteric Ischemia. CLINICAL DATA: This is the patient's initial encounter. Patient reports that signs and symptoms have been present for 1 day and indicates a pain score of 0/10. MEDICAL/SURGICAL HISTORY: Hypertension. Chronic obstructive pulmonary disease. Coronary artery stent. Fusion, lumbar. BKA left, Ileocecectomy COMPARISON: [facility], CT ABDOMEN & PELVIS W CONTRAST, 04/11/2018. . TECHNIQUE: 20 ml Gadavist (gadobutrol) contrast infused MR angiography (single exam dose) was perfo rmed with digital subtraction. The data was postprocessed with a variety of visualization algorithms including full-volume maximum-intensity projection, multiplanar sliding thin slab reformation, and c urved planar reformation. FINDINGS: Abdominal Aorta: Diffuse atherosclerotic disease of the abdominal aorta. No evidence for aneurysm. There is plaque seen dorsally at the celiac origin indicating [id number] stenosis. A patent SMA origin is not seen. There are likely reconstitutes via collaterals approximately 3 cm distal to the origin but is very diminutive. Patent inferior mesenteric artery is seen proximally. Renal Arteries: There is a 6 mm segment of the proximal right renal artery that is not visualized an d likely represents a high-grade stenosis. This is 4 mm distal to the origin. Left renal artery is wi thin normal limits in diameter. Kidneys: Kidneys are symmetric in size and within normal limits. Pelvis: Atherosclerotic disease of the proximal common iliac arteries noted with focal plaque posteri tyrone in the proximal right common iliac artery resulting in mild to moderate external iliac and inter nal iliac arteries are widely patent. Grade stenosis. Retroperitoneum: The adrenal glands are unremarkable. No adenopathy seen. CONCLUSION: 1. 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 2. 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 3. 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 Electronically signed by: Ricardo Brown MD 04/11/2018 6:47 PM EDT
[2018-04-11] MEDS ORDERED: Metoprolol Tartrate 100 MG Tablet PO SCH (21:00)
[2018-04-11] MEDS ORDERED: Gabapentin 100 MG Capsule PO SCH (21:00)
[2018-04-12] MEDS: Sod Chloride 0.9% Inj 1,000 ML IV.CONT SCH (01:26)
[2018-04-12] MEDS: Morphine Inj 4 MG/ML Vial IV.PUSH PRN ×5 (06:01→22:16)
[2018-04-12 06:42] LABS: Baso % (Auto) 0.3 % (0.0-2.0); Eos % (Auto) 0.3 % (0.0-4.0); Hematocrit 29.1 % (35.0-46.0); Hemoglobin 9.1 gm/dL (11.6-15.3); Lymph # (Auto) 1.1 th/mm3 (1.0-4.8); Lymph % (Auto) 14.3 % (9.0-44.0); Mean Corpuscular HGB Conc 31.4 % (32.0-36.0); Mean Corpuscular Hemoglobin 27.8 pg (27.0-34.0); Mean Corpuscular Volume 88.6 fL (80.0-100.0); Mean Platelet Volume 8.2 fL (7.0-11.0); Mono # (Auto) 0.5 th/mm3 (0.0-0.9); Mono % (Auto) 5.9 % (0.0-8.0); Neut # (Auto) 6.3 th/mm3 (1.8-7.7); Neut % (Auto) 79.2 % (16.0-70.0); Platelet Count 430 th/mm3 (150-450); Red Blood Count 3.28 mil/mm3 (4.00-5.30); Red Cell Distribution Width 18.1 % (11.6-17.2); White Blood Count 7.9 th/mm3 (4.0-11.0)
[2018-04-12 06:50] LABS: Anion Gap 13 meq/L (5-15); Blood Urea Nitrogen 8 mg/dL (7-18); Calcium 6.7 mg/dL (8.5-10.1); Carbon Dioxide 19.1 meq/L (21.0-32.0); Chloride 109 meq/L (98-107); Glomerular Filtration Rate Greater Than 89 mL/min (>89); Glucose,Random 82 mg/dL (74-106); Magnesium 1.2 mg/dL (1.5-2.5); Potassium 3.4 meq/L (3.5-5.1); Sodium 141 meq/L (136-145)
[2018-04-12 07:06] LABS: Total Protein 4.8 g/dL (6.4-8.2)
[2018-04-12] MEDS ORDERED: KCL 20 mEq/NACL 0.45% Inj 1,000 ML IV.CONT SCH (07:45)
[2018-04-12] MEDS ORDERED: Sod Chloride 0.9% Inj 1,000 ML IV.SIG ONE ×2 (08:14→23:35)
--- NOTE | 2018-04-12 10:52 | P.DIET ---
Nutritional Evaluation Type of nutrition evaluation: initial Nutrition consult regarding: TPN/PPN Nutrition screening: [facility] Subjective Subjective Comments: Pt w/a 60kg(132-lb)Actual wt during previous admission here 02/11/18 Objective - Diagnosis Critical Care Unit - Objective Part of Body Amputated: Left below knee (6%) Weight Subtracted: Other (6.6lb(3kg)for LBKA) [place] body weight: 47 kg % IBW: 93 Body Weight Used for Calculations: Actual (43.4kg) Energy Needs - Lower Range (kCal/kg): 25 Energy Needs - Upper Range (kCal/kg): 30 Lower Limit kCal/kg (kCals): 1,085 Upper Limit kCal/kg (kCals): 1,302 Lower Limit Protein Factor (Grams per Kg): 1.2 Upper Limit Protein Factor (Grams per Kg): 1.5 Lower Protein Needs (Protein): 52 Upper Protein Needs (Protein): 65 Dietitian Reviewed in Medical Record: Current diet, Curent medications, Intake & Output, Labs, Medical history, Wound/DTI Diet Order: NPO Objective Comments: PMH: COPD, HTN, Insomnia, SVT, Alcohol abuse, hyperlipidemia, paroximal AFib, Ileocectomy 03/25 for ischemic bowel, questionale acute mesenteric ischemia, left lower below knee amputation; h/o [id number] 04/09/18; CT abd/pelvis 04/11 progressive ileus Labs Include: glucose 82 Mar Includes: Vit D, Neurontin, Protonix, Metoprolol, Flagyl, Zofran +1BM Assessment Assessment: Pt is at high nutritional risk r/t recent wt loss, progressive ileus w/need for alternative method of nutrition. Pt currently w/a peripheral line. For PPN, Rec Clinimix E 4.25/5 @ 55ml/hr and 20% Lipids @ 10ml/hr to offer 56g Protein and 929 kcal. PPN will provide 100% for protein needs and 86% for kcal needs. For PPN greater than 7-days, then Rec TPN w/ Clinimix E 5/25 @ 50ml/hr and 20% Lipids @ 31.25ml/hr twice weekly over 8-hours to offer 60g Protein and 1260 kcal. Lipids will offer an additional 1000 kcal/week. Rec an initial TG level, prior to initiating PN and repeat weekly. Additional Recs to follow r/t Clinical Course. Recommendations: 1. For PPN, Rec Clinimix E 4.25/5 @ 55ml/hr and 20% Lipids @ 10ml/hr 2. For PPN greater than 7-days, then Rec TPN w/ Clinimix E 5/25 @ 50ml/hr and 20 % Lipids @ 31.25ml/hr twice weekly over 8-hours 3. Rec an initial TG level, prior to initiating PN and repeat weekly 4. Additional Recs to follow r/t Clinical Course Dietitian to Monitor: Lab values, Electrolytes, Glucose level, Intake & Output, TPN/PPN tolerance, Weight change, Medical course (TG level)
[2018-04-12] MEDS ORDERED: Diatrizoate Meglum/Diatrizoate Sod Liq 120 ML Bottle (for RAD diag) PO ONE (11:05)
--- NOTE | 2018-04-12 11:32 | P.PN ---
Subjective Interval history: Patient is seen lying comfortably in bed. She reports the pain control has improved but her abdomen is still very painful and she continues to have cramping as well as nausea. Complains that her mouth is very dry. She is also complaining of intermittent pains in her left leg. Denies any chest pain or shortness of breath. Physical Exam Vital signs: Vital Signs 04/11/18 14:06 04/11/18 16:00 04/11/18 16:33 Temperature 99 F Pulse Rate 94 H 93 H Respiratory Rate 16 14 14 Blood Pressure 174/126 H Pulse Oximetry 96 95 04/11/18 17:00 04/11/18 18:09 04/11/18 18:10 Temperature Pulse Rate 93 H 98 H 97 H Respiratory Rate 14 15 16 Blood Pressure 119/71 106/70 Pulse Oximetry 93 L 93 L 93 L 04/11/18 19:00 04/11/18 20:00 04/11/18 21:00 Temperature 97.9 F Pulse Rate 93 H 92 H 92 H Respiratory Rate 16 15 15 Blood Pressure 104/69 98/68 L 97/60 L Pulse Oximetry 95 93 L 93 L 04/11/18 22:00 04/11/18 22:58 04/11/18 23:00 Temperature Pulse Rate 92 H 92 H 91 H Respiratory Rate 14 14 Blood Pressure 93/63 L 89/65 L Pulse Oximetry 95 93 L 04/12/18 00:00 04/12/18 00:01 04/12/18 01:00 Temperature 98 F Pulse Rate 106 H 104 H 90 Respiratory Rate 20 17 11 L Blood Pressure 99/69 L 99/69 L 108/65 Pulse Oximetry 94 L 95 89 L 04/12/18 02:00 04/12/18 03:00 04/12/18 04:00 Temperature 97.9 F Pulse Rate 93 H 96 H 86 Respiratory Rate 14 19 13 Blood Pressure 96/56 L 102/67 98/61 L Pulse Oximetry 90 L 93 L 93 L 04/12/18 05:00 04/12/18 06:00 04/12/18 07:00 Temperature Pulse Rate 95 H 100 H 97 H Respiratory Rate 15 18 14 Blood Pressure 90/59 L 88/56 L 85/56 L Pulse Oximetry 91 L 93 L 94 L 04/12/18 08:00 Temperature 98 F Pulse Rate 102 H Respiratory Rate 15 Blood Pressure 87/55 L Pulse Oximetry 88 L Intake & Output 04/11/18 04/12/18 04/12/18 18:59 06:59 18:59 Intake Total 500 / 500 1500 / 1500 200 / 200 Output Total 180 / 180 Balance 500 / 500 1500 / 1500 20 / 20 Weight 43.4 kg 44 kg Intake: IV 300 / 300 1400 / 1400 200 / 200 NS Inj 1,000 ML @ 100 mls/hr IV 1000 / 1000 .CONT .Q10H FRANCA Rx#:[id number] Maxipime Inj 1,000 MG In NS Inj 100 / 100 100 / 100 100 ML @ 200 mls/hr IV.SIG Q12H FRANCA Rx#:[id number] KCl 10 mEq Premix Inj 10 meq In 100 / 100 200 / 200 100 ml @ 100 mls/hr IV.SIG Q1H FRANCA Rx#:[id number] KCl 20 mEq Premix Inj 20 meq In 100 / 100 100 ml @ 50 mls/hr IV.SIG Q2H PRN Rx#:[id number] Flagyl 500 MG Inj 100 ML @ 100 100 / 100 100 / 100 100 / 100 mls/hr IV.SIG Q8H FRANCA Rx#: [id number] Oral 200 / 200 100 / 100 Output: Gastric Drainage 180 / 180 Right Nare 180 / 180 Other: # Voids 2 4 Date of Last Bowel Movement 04/11/18 # Bowel Movements 1 Weight On Admission 43.4 kg Narrative: GENERAL: Thin, well-developed adult female in no obvious distress. SKIN: Warm and dry. HEAD: Atraumatic. Normocephalic. CARDIOVASCULAR: Regular rate and rhythm. RESPIRATORY: No accessory muscle use. Clear to auscultation. Breath sounds equal bilaterally. GASTROINTESTINAL: Abdomen soft, tender, mildly-distended. Incision dressed with drainage noted. hypoactive bowel sounds. NG tube. MUSCULOSKELETAL: Left BKA. All other extremities without clubbing, cyanosis, or edema. No obvious deformities. NEUROLOGICAL: Awake and alert. No obvious cranial nerve deficits. Motor grossly within normal limits. Normal speech. PSYCHIATRIC: Appropriate mood and affect; insight and judgment good. Results - Labs CBC & Chem 7: 04/12/18 05:46 04/12/18 05:46 Laboratory Results - last 24 hr 04/11/18 04/11/18 04/11/18 12:10 14:02 14:02 WBC RBC Hgb Hct MCV MCH MCHC RDW Plt Count MPV Neut % (Auto) Lymph % (Auto) [place] % (Auto) Eos % (Auto) Baso % (Auto) Neut # (Auto) Lymph # (Auto) [place] # (Auto) Eos # (Auto) Baso # (Auto) WBC Differential Differential Comment Sodium 138 Potassium 3.0 L Chloride 105 Carbon Dioxide 21.6 Anion Gap 11 BUN 10 Creatinine 0.63 Estimated GFR Greater than 89 Random Glucose 106 Lactic Acid Calcium 7.3 L* Prot Corrected Calcium 7.9 L Phosphorus 2.5 Magnesium 1.5 Total Protein 5.9 L Nasal Screen MRSA (PCR) Not detected 04/11/18 04/12/18 04/12/18 16:20 05:46 05:46 WBC 7.9 RBC 3.28 L Hgb 9.1 L D Hct 29.1 L MCV 88.6 MCH 27.8 MCHC 31.4 L RDW 18.1 H Plt Count 430 MPV 8.2 Neut % (Auto) 79.2 H Lymph % (Auto) 14.3 [place] % (Auto) 5.9 Eos % (Auto) 0.3 Baso % (Auto) 0.3 Neut # (Auto) 6.3 Lymph # (Auto) 1.1 [place] # (Auto) 0.5 Eos # (Auto) 0.0 Baso # (Auto) 0.0 WBC Differential . Differential Comment Auto diff final Sodium 141 Potassium 3.4 L Chloride 109 H Carbon Dioxide 19.1 L Anion Gap 13 BUN 8 Creatinine 0.57 Estimated GFR Greater than 89 Random Glucose 82 Lactic Acid 1.0 Calcium 6.7 L* Prot Corrected Calcium 7.9 L Phosphorus Magnesium 1.2 L Total Protein 4.8 L D Nasal Screen MRSA (PCR) - Imaging Impressions Abdomen MRA 04/11/18 00:00 CONCLUSION: 1. 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 2. 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 3. 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 Assessment and Plan - Plan 72-year-old female with past medical history of alcohol abuse, hypertension, hyperlipidemia, paroxysmal A. fib that initially presented to the emergency department 03/21/18 with complaints of generalized weakness and palpitations. She was found to be in A. fib with RVR and placed on a Cardizem drip. CT ab/pelvis revealed mesenteric ischemia and occlusion of the SMA and she was transferred to [facility] as an emergency transfer. She is now status post ileocecectomy with primary anastomosis and abdominal closure on March 25 for necrotic sternal ileum and diffuse ischemia. Patient was also found to have an ischemic left lower extremity apparently a thrombectomy was performed but failed. She is now status post left BKA. Postoperative course was complicated by supraventricular tachycardia and patient was treated with amiodarone & metoprolol. TIM resolved. Prior to admit , her last set of labs appears to be April 01, 2018 at that time her white blood cell count was again 15.5, INR was 0.97, sodium 133, potassium 4.8, creatinine was down to 0.7. Hemoglobin was 10.4, platelet count 310. Leukocytosis was treated with IV Flagyl and vancomycin she was then transitioned to p.o. Flagyl 500 mg 3 times daily for 7 days. Admitted to [facility] for inpatient rehab on 04/08; admitted back to [place] on 04/11 due to nausea vomiting with ileus. Ischemic bowel S/P ileocecectomy -Monitor abdominal incision -On Flagyl -stop date 04/15 -changed from p.o. to IV on 04/11 due to NV. -Repeat CT AB/pelvis 04/11 -progressive ileus ; small stable bilateral pleural effusions; stable midline postoperative seroma. MRA of the abdomen done 04/11 indicates occlusion of the SMA proximally with reconstitution of small SMA. -Surgical and GI consult placed; appreciate assistance -NG tube placed 04/11. NPO -Surgery considering persistent chronic or subacute vascular disease at the SMA. Possible transfer back to her original surgeon in [place]. A. fib RVR (w prior episode of SVT) / Hypertension -EKG done 04/08: Sinus rhythm with occasional supraventricular premature complexes. Repeat EKG done 04/11: SR -Continue metoprolol 100 mg twice daily; 04/11 -unable to give due to nausea vomiting. Added clonidine patch - removed 04/12 due to hypotension. PRN Vasotec. -ASA; denies blood thinners in past Anemia - stable -Postoperative but also likely due to chronic disease/EtOH -Hemoglobin currently stable as of 04/09; monitor Leukocytosis; resolved -Initially treated with IV Vanco and Flagyl; transitioned to Cipro and Flagyl; admitted on Flagyl p.o. only. -Cultures and C. difficile negative prior to admit. -WBC's WNL on 04/09. Afebrile C. difficile; resolved -Complaint of diarrhea -send stool for C. difficile -negative on 04/09 -Questran stopped by primary on 04/10 UTI - acute -UA sent for culture 04/08/18. Positive for E. coli and Enterobacter. Started cefepime 04/10. Hypokalemia - acute - 04/12 Stop IVF fluid and change to PPN as recommended by dietary. -Patient has poor vascular access; request for PICC placed COPD -On Brio and PRN DuoNeb DVT prophylaxis: Lovenox Discussed with: Patient, nurse, Dr. Morton
[2018-04-12] MEDS ORDERED: KCL 20 mEq/D5W/LR Inj 1,000 ML IV.CONT SCH (12:00)
--- NOTE | 2018-04-12 12:24 | P.PNGI ---
Subjective Interval history: Patient is awake resting in the bed still notes some mid abdominal and left lower quadrant pain off and on requiring pain meds, pain scale 8 out of 10 NG tube now clamped preparing to go down for further radiology testing , previously was connected to low intermittent suction with light green bilious fluid noted No current nausea or vomiting Current hemoglobin 9.1 <Khushboo [place] M - Last Filed: 04/12/18 14:05> Physical Exam Vital signs: Vital Signs 04/11/18 14:06 04/11/18 16:00 04/11/18 16:33 Temperature 99 F Pulse Rate 94 H 93 H Respiratory Rate 16 14 14 Blood Pressure 174/126 H Pulse Oximetry 96 95 04/11/18 17:00 04/11/18 18:09 04/11/18 18:10 Temperature Pulse Rate 93 H 98 H 97 H Respiratory Rate 14 15 16 Blood Pressure 119/71 106/70 Pulse Oximetry 93 L 93 L 93 L 04/11/18 19:00 04/11/18 20:00 04/11/18 21:00 Temperature 97.9 F Pulse Rate 93 H 92 H 92 H Respiratory Rate 16 15 15 Blood Pressure 104/69 98/68 L 97/60 L Pulse Oximetry 95 93 L 93 L 04/11/18 22:00 04/11/18 22:58 04/11/18 23:00 Temperature Pulse Rate 92 H 92 H 91 H Respiratory Rate 14 14 Blood Pressure 93/63 L 89/65 L Pulse Oximetry 95 93 L 04/12/18 00:00 04/12/18 00:01 04/12/18 01:00 Temperature 98 F Pulse Rate 106 H 104 H 90 Respiratory Rate 20 17 11 L Blood Pressure 99/69 L 99/69 L 108/65 Pulse Oximetry 94 L 95 89 L 04/12/18 02:00 04/12/18 03:00 04/12/18 04:00 Temperature 97.9 F Pulse Rate 93 H 96 H 86 Respiratory Rate 14 19 13 Blood Pressure 96/56 L 102/67 98/61 L Pulse Oximetry 90 L 93 L 93 L 04/12/18 05:00 04/12/18 06:00 04/12/18 07:00 Temperature Pulse Rate 95 H 100 H 97 H Respiratory Rate 15 18 14 Blood Pressure 90/59 L 88/56 L 85/56 L Pulse Oximetry 91 L 93 L 94 L 04/12/18 08:00 Temperature 98 F Pulse Rate 102 H Respiratory Rate 15 Blood Pressure 87/55 L Pulse Oximetry 88 L Intake & Output 04/11/18 04/12/18 04/12/18 18:59 06:59 18:59 Intake Total 500 / 500 1500 / 1500 200 / 200 Output Total 180 / 180 Balance 500 / 500 1500 / 1500 20 / 20 Weight 43.4 kg 44 kg Intake: IV 300 / 300 1400 / 1400 200 / 200 NS Inj 1,000 ML @ 100 mls/hr IV 1000 / 1000 .CONT .Q10H FRANCA Rx#:[id number] Maxipime Inj 1,000 MG In NS Inj 100 / 100 100 / 100 100 ML @ 200 mls/hr IV.SIG Q12H FRANCA Rx#:[id number] KCl 10 mEq Premix Inj 10 meq In 100 / 100 200 / 200 100 ml @ 100 mls/hr IV.SIG Q1H FRANCA Rx#:[id number] KCl 20 mEq Premix Inj 20 meq In 100 / 100 100 ml @ 50 mls/hr IV.SIG Q2H PRN Rx#:[id number] Flagyl 500 MG Inj 100 ML @ 100 100 / 100 100 / 100 100 / 100 mls/hr IV.SIG Q8H FRANCA Rx#: [id number] Oral 200 / 200 100 / 100 Output: Gastric Drainage 180 / 180 Right Nare 180 / 180 Other: # Voids 2 4 Date of Last Bowel Movement 04/11/18 # Bowel Movements 1 Weight On Admission 43.4 kg - Constitutional mild distress, thin, cachectic (Pale), chronically ill appearing - Routine HEENT Exam Head: Present: normocephalic - Routine Neck Exam Present: supple - Routine Cardiovascular Exam Present: S1, S2, tachycardia (Mild heart rate 102) - Routine Abdominal Exam Present: soft (Round, soft minimal bowel sounds), guarding (Mid abdominal dressing without any obvious bleeding clean dry and intact), surgical scars - Routine Skin Exam Present: dry, pallor - Routine Neurological Exam Present: alert (Answer simple questions mild drowsiness) <Khushboo [place] - Last Filed: 04/12/18 14:05> Vital signs: Vital Signs 04/11/18 16:00 04/11/18 16:33 04/11/18 17:00 Temperature 99 F Pulse Rate 94 H 93 H 93 H Respiratory Rate 14 14 14 Blood Pressure 174/126 H 119/71 Pulse Oximetry 96 95 93 L 04/11/18 18:09 04/11/18 18:10 04/11/18 19:00 Temperature Pulse Rate 98 H 97 H 93 H Respiratory Rate 15 16 16 Blood Pressure 106/70 104/69 Pulse Oximetry 93 L 93 L 95 04/11/18 20:00 04/11/18 21:00 04/11/18 22:00 Temperature 97.9 F Pulse Rate 92 H 92 H 92 H Respiratory Rate 15 15 14 Blood Pressure 98/68 L 97/60 L 93/63 L Pulse Oximetry 93 L 93 L 95 04/11/18 22:58 04/11/18 23:00 04/12/18 00:00 Temperature 98 F Pulse Rate 92 H 91 H 106 H Respiratory Rate 14 20 Blood Pressure 89/65 L 99/69 L Pulse Oximetry 93 L 94 L 04/12/18 00:01 04/12/18 01:00 04/12/18 02:00 Temperature Pulse Rate 104 H 90 93 H Respiratory Rate 17 11 L 14 Blood Pressure 99/69 L 108/65 96/56 L Pulse Oximetry 95 89 L 90 L 04/12/18 03:00 04/12/18 04:00 04/12/18 05:00 Temperature 97.9 F Pulse Rate 96 H 86 95 H Respiratory Rate 19 13 15 Blood Pressure 102/67 98/61 L 90/59 L Pulse Oximetry 93 L 93 L 91 L 04/12/18 06:00 04/12/18 07:00 04/12/18 08:00 Temperature 98 F Pulse Rate 100 H 97 H 102 H Respiratory Rate 18 14 15 Blood Pressure 88/56 L 85/56 L 87/55 L Pulse Oximetry 93 L 94 L 88 L 04/12/18 09:00 04/12/18 10:00 04/12/18 11:00 Temperature Pulse Rate 88 98 H 96 H Respiratory Rate 15 18 16 Blood Pressure 94/61 L 96/54 L 94/59 L Pulse Oximetry 93 L 93 L 92 L 04/12/18 12:33 Temperature Pulse Rate Respiratory Rate Blood Pressure 106/72 Pulse Oximetry Intake & Output 04/11/18 04/12/18 04/12/18 18:59 06:59 18:59 Intake Total 500 / 500 1500 / 1500 200 / 200 Output Total 180 / 180 Balance 500 / 500 1500 / 1500 20 / 20 Weight 43.4 kg 44 kg Intake: IV 300 / 300 1400 / 1400 200 / 200 NS Inj 1,000 ML @ 100 mls/hr IV 1000 / 1000 .CONT .Q10H FRANCA Rx#:[id number] Maxipime Inj 1,000 MG In NS Inj 100 / 100 100 / 100 100 ML @ 200 mls/hr IV.SIG Q12H FRANCA Rx#:[id number] KCl 10 mEq Premix Inj 10 meq In 100 / 100 200 / 200 100 ml @ 100 mls/hr IV.SIG Q1H FRANCA Rx#:[id number] KCl 20 mEq Premix Inj 20 meq In 100 / 100 100 ml @ 50 mls/hr IV.SIG Q2H PRN Rx#:[id number] Flagyl 500 MG Inj 100 ML @ 100 100 / 100 100 / 100 100 / 100 mls/hr IV.SIG Q8H FRANCA Rx#: [id number] Oral 200 / 200 100 / 100 Output: Gastric Drainage 180 / 180 Right Nare 180 / 180 Other: # Voids 2 4 Date of Last Bowel Movement 04/11/18 # Bowel Movements 1 Weight On Admission 43.4 kg <Ernestina Hernandez - Last Filed: 04/12/18 14:38> Results - Labs CBC & Chem 7: 04/12/18 05:46 04/12/18 05:46 Laboratory Results - last 24 hr 04/11/18 04/11/18 04/11/18 12:10 14:02 14:02 WBC RBC Hgb Hct MCV MCH MCHC RDW Plt Count MPV Neut % (Auto) Lymph % (Auto) [place] % (Auto) Eos % (Auto) Baso % (Auto) Neut # (Auto) Lymph # (Auto) [place] # (Auto) Eos # (Auto) Baso # (Auto) WBC Differential Differential Comment Sodium 138 Potassium 3.0 L Chloride 105 Carbon Dioxide 21.6 Anion Gap 11 BUN 10 Creatinine 0.63 Estimated GFR Greater than 89 Random Glucose 106 Lactic Acid Calcium 7.3 L* Prot Corrected Calcium 7.9 L Phosphorus 2.5 Magnesium 1.5 Total Protein 5.9 L Nasal Screen MRSA (PCR) Not detected 04/11/18 04/12/18 04/12/18 16:20 05:46 05:46 WBC 7.9 RBC 3.28 L Hgb 9.1 L D Hct 29.1 L MCV 88.6 MCH 27.8 MCHC 31.4 L RDW 18.1 H Plt Count 430 MPV 8.2 Neut % (Auto) 79.2 H Lymph % (Auto) 14.3 [place] % (Auto) 5.9 Eos % (Auto) 0.3 Baso % (Auto) 0.3 Neut # (Auto) 6.3 Lymph # (Auto) 1.1 [place] # (Auto) 0.5 Eos # (Auto) 0.0 Baso # (Auto) 0.0 WBC Differential . Differential Comment Auto diff final Sodium 141 Potassium 3.4 L Chloride 109 H Carbon Dioxide 19.1 L Anion Gap 13 BUN 8 Creatinine 0.57 Estimated GFR Greater than 89 Random Glucose 82 Lactic Acid 1.0 Calcium 6.7 L* Prot Corrected Calcium 7.9 L Phosphorus Magnesium 1.2 L Total Protein 4.8 L D Nasal Screen MRSA (PCR) - Imaging Impressions Abdomen MRA 04/11/18 00:00 CONCLUSION: 1. 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 2. 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 3. 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 <Khushboo [place] - Last Filed: 04/12/18 14:05> - Labs CBC & Chem 7: 04/12/18 14:12 04/12/18 05:46 Laboratory Results - last 24 hr 04/11/18 04/11/18 04/11/18 12:10 14:02 14:02 WBC RBC Hgb Hct MCV MCH MCHC RDW Plt Count MPV Neut % (Auto) Lymph % (Auto) [place] % (Auto) Eos % (Auto) Baso % (Auto) Neut # (Auto) Lymph # (Auto) [place] # (Auto) Eos # (Auto) Baso # (Auto) WBC Differential Differential Comment PT INR Sodium Potassium Chloride Carbon Dioxide Anion Gap BUN Creatinine Estimated GFR Random Glucose Lactic Acid Calcium Prot Corrected Calcium 7.9 L Phosphorus 2.5 Magnesium 1.5 Total Protein 5.9 L Nasal Screen MRSA (PCR) Not detected 04/11/18 04/12/18 04/12/18 16:20 05:46 05:46 WBC 7.9 RBC 3.28 L Hgb 9.1 L D Hct 29.1 L MCV 88.6 MCH 27.8 MCHC 31.4 L RDW 18.1 H Plt Count 430 MPV 8.2 Neut % (Auto) 79.2 H Lymph % (Auto) 14.3 [place] % (Auto) 5.9 Eos % (Auto) 0.3 Baso % (Auto) 0.3 Neut # (Auto) 6.3 Lymph # (Auto) 1.1 [place] # (Auto) 0.5 Eos # (Auto) 0.0 Baso # (Auto) 0.0 WBC Differential . Differential Comment Auto diff final PT INR Sodium 141 Potassium 3.4 L Chloride 109 H Carbon Dioxide 19.1 L Anion Gap 13 BUN 8 Creatinine 0.57 Estimated GFR Greater than 89 Random Glucose 82 Lactic Acid 1.0 Calcium 6.7 L* Prot Corrected Calcium 7.9 L Phosphorus Magnesium 1.2 L Total Protein 4.8 L D Nasal Screen MRSA (PCR) 04/12/18 04/12/18 14:12 14:12 WBC 7.3 RBC 3.30 L Hgb 10.2 L Hct 30.2 L MCV 91.7 MCH 30.9 MCHC 33.7 RDW 18.1 H Plt Count 383 MPV 7.8 Neut % (Auto) 78.2 H Lymph % (Auto) 15.3 [place] % (Auto) 5.7 Eos % (Auto) 0.5 Baso % (Auto) 0.3 Neut # (Auto) 5.7 Lymph # (Auto) 1.1 [place] # (Auto) 0.4 Eos # (Auto) 0.0 Baso # (Auto) 0.0 WBC Differential . Differential Comment Auto diff final PT 14.2 H INR 1.4 Sodium Potassium Chloride Carbon Dioxide Anion Gap BUN Creatinine Estimated GFR Random Glucose Lactic Acid Calcium Prot Corrected Calcium Phosphorus Magnesium Total Protein Nasal Screen MRSA (PCR) - Imaging Impressions Abdomen MRA 04/11/18 00:00 CONCLUSION: 1. 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 2. 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 3. 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 <Ernestina Hernandez - Last Filed: 04/12/18 14:38> Assessment and Plan (1) Abdominal pain Status: Acute Code(s): R10.9 - Unspecified abdominal pain (2) Ischemia, bowel Status: Acute Code(s): K55.9 - Vascular disorder of intestine, unspecified (3) Anemia Status: Acute Code(s): D64.9 - Anemia, unspecified - Plan Abdominal pain nausea, Ileus with symptoms noted on #1 Diarrhea 48 hours placed on Questran, continued worsening of her abdominal pain as well as nausea and vomiting on 04/11/2018. Gastroenterology was initially consulted to see her on rehab patient's condition worsened and was sent to CT scan now with an ileus. Initial diarrhea could have been partial ileus forming . NG tube is pending IV fluids are infusing at 100 cc an hour Patient is status post ileocecostomy in the [facility]. General surgery also reviewed and evaluated today. Questionable mesenteric ischemia. Currently patient is having pain and nausea scale of 9-10. Most of any information is being gathered from the record and she is being monitored in the intensive care setting now. 04/12/2018 patient continues to rest in the intensive care unit NG tube in place and has been connected to low intermittent suction all night light green bilious fluid noted. NG tube now clamped patient is going for further radiology testing Gastrografin small bowel follow-through pending. 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 Current hemoglobin 9.1 no obvious bleeding noted for now Plan N.p.o. NG tube clamped for transport Small bowel follow-through with Gastrografin pending Monitor labs and transfuse if necessary Cefepime IV Flagyl Protonix Pain management narcotic per attending Anti-emetics Further recommendations to follow Patient was seen per myself and Dr. Hernandez, note was written on his behalf <Khushboo [place] - Last Filed: 04/12/18 14:05> (1) Abdominal pain Status: Acute Code(s): R10.9 - Unspecified abdominal pain (2) Ischemia, bowel Status: Acute Code(s): K55.9 - Vascular disorder of intestine, unspecified (3) Anemia Status: Acute Code(s): D64.9 - Anemia, unspecified - Plan Seen and examined with [employer], still with abdominal pain. MRA reviewed. SBFT pending. GS on case. NG to LIS. - Attending Attestation The exam, history, and the medical decision-making described in the above note were completed with the assistance of the mid-level provider. I reviewed and agree with the findings presented. I attest that I had a [id number] encounter with the patient on the same day, and personally performed and documented my assessment and findings in the medical record. <Ernestina Heranndez - Last Filed: 04/12/18 14:38> <Khushboo [place] - Last Filed: 04/12/18 14:05> (3) Anemia Qualifiers: Anemia type: unspecified type Qualified Code(s): D64.9 - Anemia, unspecified <Ernestina Hernandez - Last Filed: 04/12/18 14:38> (3) Anemia Qualifiers: Anemia type: unspecified type Qualified Code(s): D64.9 - Anemia, unspecified
--- NOTE | 2018-04-12 14:10 | P.PNGS ---
Subjective Interval history: C/o persistent pain. Having loose stools. Currently undergoing SBFT. Physical Exam Vital signs: Vital Signs 04/11/18 16:00 04/11/18 16:33 04/11/18 17:00 Temperature 99 F Pulse Rate 94 H 93 H 93 H Respiratory Rate 14 14 14 Blood Pressure 174/126 H 119/71 Pulse Oximetry 96 95 93 L 04/11/18 18:09 04/11/18 18:10 04/11/18 19:00 Temperature Pulse Rate 98 H 97 H 93 H Respiratory Rate 15 16 16 Blood Pressure 106/70 104/69 Pulse Oximetry 93 L 93 L 95 04/11/18 20:00 04/11/18 21:00 04/11/18 22:00 Temperature 97.9 F Pulse Rate 92 H 92 H 92 H Respiratory Rate 15 15 14 Blood Pressure 98/68 L 97/60 L 93/63 L Pulse Oximetry 93 L 93 L 95 04/11/18 22:58 04/11/18 23:00 04/12/18 00:00 Temperature 98 F Pulse Rate 92 H 91 H 106 H Respiratory Rate 14 20 Blood Pressure 89/65 L 99/69 L Pulse Oximetry 93 L 94 L 04/12/18 00:01 04/12/18 01:00 04/12/18 02:00 Temperature Pulse Rate 104 H 90 93 H Respiratory Rate 17 11 L 14 Blood Pressure 99/69 L 108/65 96/56 L Pulse Oximetry 95 89 L 90 L 04/12/18 03:00 04/12/18 04:00 04/12/18 05:00 Temperature 97.9 F Pulse Rate 96 H 86 95 H Respiratory Rate 19 13 15 Blood Pressure 102/67 98/61 L 90/59 L Pulse Oximetry 93 L 93 L 91 L 04/12/18 06:00 04/12/18 07:00 04/12/18 08:00 Temperature 98 F Pulse Rate 100 H 97 H 102 H Respiratory Rate 18 14 15 Blood Pressure 88/56 L 85/56 L 87/55 L Pulse Oximetry 93 L 94 L 88 L 04/12/18 09:00 04/12/18 10:00 04/12/18 11:00 Temperature Pulse Rate 88 98 H 96 H Respiratory Rate 15 18 16 Blood Pressure 94/61 L 96/54 L 94/59 L Pulse Oximetry 93 L 93 L 92 L 04/12/18 12:33 Temperature Pulse Rate Respiratory Rate Blood Pressure 106/72 Pulse Oximetry Intake & Output 04/11/18 04/12/18 04/12/18 18:59 06:59 18:59 Intake Total 500 / 500 1500 / 1500 200 / 200 Output Total 180 / 180 Balance 500 / 500 1500 / 1500 20 / 20 Weight 43.4 kg 44 kg Intake: IV 300 / 300 1400 / 1400 200 / 200 NS Inj 1,000 ML @ 100 mls/hr IV 1000 / 1000 .CONT .Q10H [facility] Rx#:[id number] Maxipime Inj 1,000 MG In NS Inj 100 / 100 100 / 100 100 ML @ 200 mls/hr IV.SIG Q12H [facility] Rx#:[id number] KCl 10 mEq Premix Inj 10 meq In 100 / 100 200 / 200 100 ml @ 100 mls/hr IV.SIG Q1H [facility] Rx#:[id number] KCl 20 mEq Premix Inj 20 meq In 100 / 100 100 ml @ 50 mls/hr IV.SIG Q2H PRN Rx#:[id number] Flagyl 500 MG Inj 100 ML @ 100 100 / 100 100 / 100 100 / 100 mls/hr IV.SIG Q8H [facility] Rx#: [id number] Oral 200 / 200 100 / 100 Output: Gastric Drainage 180 / 180 Right Nare 180 / 180 Other: # Voids 2 4 Date of Last Bowel Movement 04/11/18 # Bowel Movements 1 Weight On Admission 43.4 kg Narrative: Uncomfortable Abd: mod distention, diffuse ttp, bandage in place, ng minimal output Assessment and Plan - Plan 72 yo F recent ex lap and ileocectomy. Severe peripheral vascular disease. ? occlusion of SMA. Now with ileus unclear etiology. MRA shows SMA occlusion. Vascular surgery consulted yesterday by me and d/w Dr. Mercado. Small bowel series pending. Unclear etiology of her ileus. Electrolytes need to be maintained. Consider transfer back to operating surgeon.
[2018-04-12] MEDS ORDERED: Mag Sulf 1 gm/100 ml Premix 100 ML IV.SIG ONE (14:11)
[2018-04-12 14:27] LABS: Baso % (Auto) 0.3 % (0.0-2.0); Eos % (Auto) 0.5 % (0.0-4.0); Hematocrit 30.2 % (35.0-46.0); Hemoglobin 10.2 gm/dL (11.6-15.3); Lymph # (Auto) 1.1 th/mm3 (1.0-4.8); Lymph % (Auto) 15.3 % (9.0-44.0); Mean Corpuscular HGB Conc 33.7 % (32.0-36.0); Mean Corpuscular Hemoglobin 30.9 pg (27.0-34.0); Mean Corpuscular Volume 91.7 fL (80.0-100.0); Mean Platelet Volume 7.8 fL (7.0-11.0); Mono # (Auto) 0.4 th/mm3 (0.0-0.9); Mono % (Auto) 5.7 % (0.0-8.0); Neut # (Auto) 5.7 th/mm3 (1.8-7.7); Neut % (Auto) 78.2 % (16.0-70.0); Platelet Count 383 th/mm3 (150-450); Red Cell Distribution Width 18.1 % (11.6-17.2); White Blood Count 7.3 th/mm3 (4.0-11.0)
[2018-04-12 14:35] LABS: INR 1.4 Ratio; Prothrombin Time 14.2 sec (9.8-11.6)
--- NOTE | 2018-04-12 14:52 | MB ---
cc: Iram Mercado MD DATE: 04/12/2018 CONSULTING PHYSICIAN: Dr. Mercado, vascular surgery. REASON FOR CONSULTATION: Superior mesenteric artery occlusion. HISTORY OF PRESENT ILLNESS: This 72-year-old female patient was in the hospital in [place], sometime in mid March and complained about general pain. The patient was noted to have mesenteric ischemia, occlusion of the SMA, and then she was transferred to [facility] in [place]. The patient underwent a right colon resection, ileum resection for a presumptive occlusion of the ileocolic flow in the right colic artery. The patient had then diffuse ischemia. Apparently, the patient was also found to have ischemic left leg, underwent thrombectomy, and then ended up with a BKA. The patient then went to the rehab and now comes back after 2 days in the rehab to our hospital with more abdominal pain. Question arises about vascular implication. PAST MEDICAL HISTORY: Obviously complex, in part is described as above noted. In addition, the patient has COPD, hypertension, and supraventricular tachycardia with periods of paroxysmal atrial fibrillation, which were probably the cause of the patient's obstruction of the leg blood flow and may be contributed to the flow interruption to the abdomen. SURGICAL HISTORY: Coronary artery angioplasty, stenting. Previous laminectomy. As above noted right colon resection, small bowel resection 2 weeks ago. SOCIAL HISTORY: The patient smokes about a pack a day for most of her adult life and drinks fairly heavily. PHYSICAL EXAMINATION: GENERAL: A 72-year-old female. HEENT: Normocephalic. No trauma to the head. Pupils are equal and reactive. Extraocular muscles are intact. NECK: Bilateral carotid pulses, faint carotid bruits. CHEST: Bilateral breath sounds, decreased over both lungs pierre, consistent with quite advanced COPD. HEART: Regular rhythm. While I was in the room, the patient had no arrhythmias. ABDOMEN: Mildly distended, soft, hypoactive bowel sounds. Tender in all 4 quadrants. Healing incision from previous surgery noted. There is no point tenderness or any area that looked suspicious as to acute ischemia. PELVIC: Normal. EXTREMITIES: Within normal limits. BACK: Normal. NEUROLOGIC: The patient is neurologically intact. Left leg, the patient has a BKA which is healing nicely. RECOMMENDATIONS: I reviewed laboratory and diagnostic procedures. 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 As far as that is concerned, this is not reconstructable disease at this time, especially by an open procedure. It looks old and chronically occluded. While we may make an attempt to cross this with a wire I do not believe this is actually doable in the face of chronicity. 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 As far as general further care is concerned, I believe, it should and would be most appropriate for this patient to return back to the original surgeons considering the short time between the operation and the patient's admission to this hospital. If this was my patient, I would want to see the patient within the first few months of surgery rather than have somebody else struggle to catch up with my work, but that is just a just suggestion. I will continue to follow up with you, and I will see if we can do something about the celiac. MD EDUARD García/guevara , 01:44 PM , 01:56 PM LEXIE
[2018-04-12 14:57] LABS: Alanine Aminotransferase 9 U/L (10-53); Albumin 1.8 g/dL (3.4-5.0); Alkaline Phosphatase 93 U/L (45-117); Anion Gap 14 meq/L (5-15); Aspartate Aminotransferase 17 U/L (15-37); Blood Urea Nitrogen 7 mg/dL (7-18); Carbon Dioxide 15.4 meq/L (21.0-32.0); Chloride 112 meq/L (98-107); Glomerular Filtration Rate Greater Than 89 mL/min (>89); Glucose,Random 68 mg/dL (74-106); Potassium 3.7 meq/L (3.5-5.1); Sodium 141 meq/L (136-145); Total Protein 5.4 g/dL (6.4-8.2)
[2018-04-12] MEDS: Pantoprazole Inj 40 MG Vial IV.PUSH SCH (14:58)
--- NOTE | 2018-04-12 16:33 | FL ---
EXAM DATE: 04/12/2018 4:06 PM EDT AGE/SEX: 72 years / Female INDICATIONS: Abdominal distention, concern for obstruction. CLINICAL DATA: This is the patient's initial encounter. Patient reports that signs and symptoms have been present for 2 days and indicates a pain score of 4/10. MEDICAL/SURGICAL HISTORY: Hypertension. Chronic obstructive pulmonary disease. . Coronary art enedina stent. Fusion, lumbar. BKA left, Ileocecectomy. COMPARISON: No prior exams available for comparison. FLUORO TIME: 0 IMAGE COUNT: 10 CONTRAST: FINDINGS: Stomach fills normally. NG tube is present. There is fairly slow progression of contrast through the proximal and distal small bowel but there is no evidence for obstruction or significant dilatation. C ontrast does reach the colon by 4 hours. Postoperative changes noted in the lumbar spine. CONCLUSION: Negative for small bowel obstruction or significant dilatation. Transit time is less than 4 hours. NG tip in distal stomach. Electronically signed by: Otoniel Morillo MD 04/12/2018 4:31 PM EDT
[2018-04-12] MEDS ORDERED: Heparin Central Flush 100 UNIT/ML 5 ML Vial IV.FLUSH PRN (17:48)
[2018-04-12] MEDS: Multivitamin Inj 10 ML, Folic Acid Inj 1 MG in AA 4.25 %/D5W - Electrolytes 2,000 ML IV.SIG SCH (19:49)
[2018-04-12] MEDS ORDERED: Adenosine Inj 6 MG/2 ML Syringe IV.PUSH ONE ×4 (23:29→23:40)
[2018-04-13] MEDS ORDERED: Sodium Bicarbonate 8.4% Inj 50 MEQ/50 ML Syringe ONE
[2018-04-13] MEDS ORDERED: Midazolam Inj 5 MG/ML 1 ML Vial ONE
[2018-04-13] MEDS ORDERED: fentaNYL Citrate Inj 100 MCG/2 ML Ampul ONE ×2 (00:01→00:21)
[2018-04-13] MEDS ORDERED: Metoprolol Inj 5 MG/5 ML Vial ONE (00:10)
[2018-04-13] MEDS ORDERED: Digoxin Inj 500 MCG/2 ML Ampul ONE (00:23)
[2018-04-13] MEDS ORDERED: Phenylephrine Inj 40 MG in Dextrose 5% in Water Inj 496 ML IV.CONT PRN ×2 (01:00)
--- NOTE | 2018-04-13 05:07 | P.CONCC ---
History of Present Illness Primary Care Provider: UNKNOWN Chief Complaint: Abdominal pain History of Present Illness: 72-year-old female with multiple medical issues admitted now with ileus, abdominal pain, and nausea. She underwent ileocectomy on 03/25/18 at [facility] for ischemia of the bowel and questionable acute mesenteric ischemia. 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 She was transferred to inpatient rehab here on 04/08/18 and has had persistent and worsening abdominal pain and nausea. She has started to have some nonbloody emesis. She has longstanding history of Clostridium difficile colitis but stool testing on 04/09/18 negative. MRA shows SMA occlusion. The patient has been followed by Dr. Nas Curiel/general surgery. Today shortly after midnight critical care medicine was consulted by hospitalist service for unstable SVT with hypotension. Patient was started on aggressive volume resuscitation, has received adenosine 02/18/12 without any response. Attempt of electric cardioversion multiple times again without improvement of tachycardia. Patient was then started with amiodarone infusion after bolus of 2 doses of 150 mg IV push and dose of digoxin 0.25 with improvement of hemodynamics. Review of Systems unobtainable due to mental condition PMFSH - History History Provided By: Patient, Medical Record - Medical History Medical History: Medical History (Last Reviewed 04/11/18 @ 17:36 by SAVAGE Kline) COPD (chronic obstructive pulmonary disease) History of hysterectomy Hypertension Insomnia SVT (supraventricular tachycardia) - Surgical History Surgical History: Surgical History (Last Reviewed 04/11/18 @ 17:36 by SAVAGE Kline) Previous back surgery Stented coronary artery - Family History Family History: Family History (Last Reviewed 04/11/18 @ 17:36 by SAVAGE Kline) Other Unknown family medical history - Tobacco History Second Hand Smoke Exposure: No Tobacco Use In Past 30 Days: No Smoking Status: Former smoker Tobacco Type: Cigarettes - Alcohol History How Often Do You Have a Drink Containing Alcohol: 4 or more times a week - Substance Use History Substance History: No History of Abuse Medications and Allergies Active Medications: Active Medications Acetaminophen (Tylenol) 650 mg PO Q4H PRN PRN Reason: Temp > 100.4 Dextrose (D50w Vial) 50 ml IV.PUSH UNSCH PRN PRN Reason: PER HYPOGLYCEMIA PROTOCOL Enalaprilat (Vasotec Inj) 1.25 mg IV.PUSH Q6H PRN PRN Reason: SEE LABEL COMMENTS Last Admin: 04/11/18 16:43 Dose: 1.25 mg Ergocalciferol (Vitamind2) 50,000 unit PO Q7D [facility] Last Admin: 04/11/18 14:06 Dose: Not Given Fluticasone/Vilanterol (Breo Ellipta 100/25 Mcg Inh) 1 puff INH DAILY [facility] Last Admin: 04/12/18 08:33 Dose: 1 puff Gabapentin (Neurontin) 100 mg PO BID [facility] Glucagon (Glucagon Inj) 1 mg OTHER PRN PRN PRN Reason: for Hypoglycemia Protocol Heparin Sodium (Porcine) (Heparin Central Flush) 0 unit IV.FLUSH PRN PRN PRN Reason: Flush PICC Line Heparin Sodium (Porcine) (Heparin Central Flush) 0 unit IV.FLUSH DAILY [facility] Metronidazole/Sodium Chloride (Flagyl 500 Mg Inj) 100 mls @ 100 mls/hr IV.SIG Q8H [facility] Stop: 04/17/18 14:00 Last Infusion: 04/12/18 23:16 Dose: Infused Cefepime HCl 1,000 mg/ Sodium (Chloride) 100 mls @ 200 mls/hr IV.SIG Q12H [facility] Stop: 04/16/18 13:59 Last Infusion: 04/13/18 02:20 Dose: Infused Multivitamins 10 ml/ Folic Acid 1 mg/ Amino Acids/Electrolytes/Dextrose 2, 010.2 mls @ 55 mls/hr IV.SIG Q24H [facility] Last Admin: 04/12/18 19:49 Dose: 55 mls/hr Fat Emulsion Intravenous (Intralipid 20% Inj) 250 mls @ 10 mls/hr IV.CENTRAL Q24H [facility] Last Admin: 04/12/18 19:49 Dose: 10 mls/hr Phenylephrine HCl 40 mg/ (Dextrose) 500 mls @ 30 mls/hr IV.CONT TITRATE PRN; Protocol PRN Reason: Per Protocol Last Admin: 04/13/18 01:19 Dose: 40 mcg/min, 30 mls/hr Amiodarone HCl 450 mg/ (Dextrose) 250 mls @ 33.33 mls/hr IV.CONT TITRATE PRN; Protocol PRN Reason: Per Protocol Last Admin: 04/13/18 01:20 Dose: 1 mg/min, 33.33 mls/hr Magnesium Oxide (Mag-Ox) 800 mg PO UNSCH PRN PRN Reason: For Magnesium 1.2 - 1.6 mg/dL Metoprolol Tartrate (Lopressor) 100 mg PO BID [facility] Morphine Sulfate (Morphine Inj) 2 mg IV.PUSH Q4H PRN PRN Reason: BREAKTHROUGH PAIN Last Admin: 04/12/18 22:16 Dose: 2 mg Naloxone HCl (Narcan Inj) 0.4 mg IV.PUSH UNSCH PRN PRN Reason: SEE LABEL COMMENTS Naloxone HCl (Narcan Inj) 0.4 mg IV.PUSH UNSCH PRN PRN Reason: SEE LABEL COMMENTS Ondansetron HCl (Zofran Inj) 4 mg IV.PUSH Q6H PRN PRN Reason: NAUSEA OR VOMITING Last Admin: 04/12/18 18:06 Dose: 4 mg Oxycodone/Acetaminophen (Percocet 10/325 Mg) 1 tab PO Q6H PRN PRN Reason: PAIN SCALE 6 TO 10 Oxycodone/Acetaminophen (Percocet 5/325 Mg) 1 tab PO Q6H PRN PRN Reason: PAIN SCALE 3 TO 5 Pantoprazole Sodium (Protonix Inj) 40 mg IV.PUSH Q24H [facility] Last Admin: 04/12/18 14:58 Dose: 40 mg Patch Removal (Remove Old Patch) 1 each T-DERMAL Q7D [facility] Sodium Chloride (Ns Flush) 0 ml IV.FLUSH DAILY [facility] Sodium Chloride (Ns Flush) 0 ml IV.FLUSH PRN PRN PRN Reason: Flush After Blood Draws Sodium Chloride (Ns Flush) 0 ml IV.FLUSH PRN PRN PRN Reason: FLUSH AFTER USING IV ACCESS Temazepam (Restoril) 15 mg PO HS PRN PRN Reason: SLEEP Terbutaline Sulfate (Brethine Inj) 1 mg SQ UNSCH PRN PRN Reason: For Extravasation Allergies Allergy/AdvReac Type Severity Reaction Status Date / Time No Known Allergies Allergy Unverified 01/29/18 22:40 Home Medications Medication Instructions Recorded Confirmed Type Saccharomyces boulardii 250 mg PO BID 04/08/18 04/11/18 History aspirin 81 mg PO DAILY 04/08/18 04/11/18 History ergocalciferol (vitamin D2) 50,000 unit PO QWEEK 04/08/18 04/11/18 History fluticasone-vilanterol 1 inh INHALATION DAILY 04/08/18 04/11/18 History gabapentin 100 mg PO BID 04/08/18 04/11/18 History metoprolol tartrate 100 mg PO BID 04/08/18 04/11/18 History metronidazole 500 mg PO TID 04/08/18 04/11/18 History nitroglycerin 0.4 mg SUBLINGUAL Q5-15M PRN 04/08/18 04/11/18 History oxycodone-acetaminophen [Percocet] 2 tab PO Q6H PRN 04/08/18 04/11/18 History simvastatin 40 mg PO QPM 04/08/18 04/11/18 History tramadol 50 mg PO Q4H PRN 04/08/18 04/11/18 History Physical Exam Vital signs: Vital Signs 04/12/18 06:00 04/12/18 07:00 04/12/18 08:00 Temperature 98 F Pulse Rate 100 H 97 H 102 H Respiratory Rate 18 14 15 Blood Pressure 88/56 L 85/56 L 87/55 L Pulse Oximetry 93 L 94 L 88 L 04/12/18 09:00 04/12/18 10:00 04/12/18 11:00 Temperature Pulse Rate 88 98 H 96 H Respiratory Rate 15 18 16 Blood Pressure 94/61 L 96/54 L 94/59 L Pulse Oximetry 93 L 93 L 92 L 04/12/18 12:33 04/12/18 13:36 04/12/18 13:47 Temperature Pulse Rate 102 H 108 H Respiratory Rate 18 19 Blood Pressure 106/72 103/67 Pulse Oximetry 91 L 93 L 04/12/18 14:00 04/12/18 15:00 04/12/18 16:00 Temperature 98.8 F Pulse Rate 101 H 100 H 105 H Respiratory Rate 18 17 19 Blood Pressure 105/73 110/71 115/68 Pulse Oximetry 93 L 04/12/18 18:00 04/12/18 20:00 04/12/18 22:00 Temperature 99 F Pulse Rate 113 H 112 H 116 H Respiratory Rate 20 Blood Pressure 102/75 Pulse Oximetry 96 04/13/18 00:00 04/13/18 02:00 04/13/18 04:00 Temperature 99.1 F 98.4 F Pulse Rate 200 H 93 H 200 H Respiratory Rate 21 16 Blood Pressure 108/57 L 99/64 L Pulse Oximetry 96 98 Intake & Output 04/12/18 04/12/18 04/13/18 06:59 18:59 06:59 Intake Total 1500 / 1500 500 / 500 2300 / 2300 Output Total / 205 Balance 1500 / 1500 295 / 295 2300 / 2300 Weight 44 kg Intake: IV 1400 / 1400 400 / 400 2300 / 2300 NS Inj 1,000 ML @ 100 mls/hr IV 1000 / 1000 .CONT .Q10H [facility] Rx#:[id number] Maxipime Inj 1,000 MG In NS Inj 100 / 100 100 / 100 100 / 100 100 ML @ 200 mls/hr IV.SIG Q12H [facility] Rx#:[id number] Magnesium Sulfate Inj 2 GM In 100 / 100 NS Inj 96 ML @ 50 mls/hr IV.SIG UNSCH PRN Rx#:[id number] KCl 10 mEq Premix Inj 10 meq In 200 / 200 100 ml @ 100 mls/hr IV.SIG Q1H [facility] Rx#:[id number] KCl 20 mEq Premix Inj 20 meq In 100 / 100 100 ml @ 50 mls/hr IV.SIG Q2H PRN Rx#:[id number] Flagyl 500 MG Inj 100 ML @ 100 100 / 100 200 / 200 100 / 100 mls/hr IV.SIG Q8H [facility] Rx#: [id number] Oral 100 / 100 100 / 100 Output: Urine Amount (Catheter) 0 / 0 Female External 0 / 0 Gastric Drainage Right Nare Other: # Voids 4 5 Date of Last Bowel Movement 04/12/18 04/12/18 # Bowel Movements 6 - Constitutional moderate distress - Routine HEENT Exam Head: Present: normocephalic, atraumatic Eye: Present: PERRL ENT: Present: mucous membranes moist - Routine Neck Exam Present: supple, full ROM. Absent: JVD, carotid bruit - Routine Respiratory Exam Absent: accessory muscle use, rhonchi, stridor, wheezes - Routine Cardiovascular Exam Present: S1, S2, gallop, tachycardia - Routine Abdominal Exam Present: soft, normoactive bowel sounds - Routine Extremities Exam Absent: cyanosis, clubbing, edema - Routine Skin Exam Present: intact. Absent: cyanosis, erythema - Routine Neurological Exam Present: alert - Routine Psychiatric Exam Present: normal affect - Urinary Catheter Management Female External Cath placed during this visit: no Assessment and Plan - Assessment and Plan Plan: Ischemic bowel S/P ileocecectomy -Management per surgical and GI consultants -Flagyl IV -Repeat CT abdomen/pelvis 04/11 -progressive ileus -MRA of the abdomen done 04/11 indicates occlusion of the SMA -NG tube to low wall suction -TPN while n.p.o. Unstable SVT -History of A. fib RVR (w prior episode of SVT) -No improvement with multiple synchronized electric shocks delivery -Initiated infusion of amiodarone -ASA Anemia - stable -due to chronic disease -Continue to monitor and transfuse to keep hemoglobin above 8 C. difficile -resolved -negative on 04/09 -Questran stopped by primary on 04/10 UTI - acute -E. coli and Enterobacter -cefepime tolerated 04/10. COPD -On Brio and PRN DuoNeb DVT GI prophylaxis -Teds SCDs -Subcu Lovenox -Pepcid Critical Care: The total critical care time was 35 minutes. Time to perform other separately billable procedures was not included in the critical care time.
[2018-04-13] MEDS ORDERED: Magnesium Sulfate Inj 4 GM in Sodium Chlor 0.9% Inj 92 ML IV.SIG ONE (05:15)
[2018-04-13] MEDS ORDERED: CALCIUM CHLORIDE IV.SIG ONE (05:15)
[2018-04-13] MEDS ORDERED: SODIUM CHLOR 0.9% IV.SIG ONE (05:15)
[2018-04-13 05:26] LABS: Baso % (Auto) 0.2 % (0.0-2.0); Eos % (Auto) 0.2 % (0.0-4.0); Hematocrit 24.7 % (35.0-46.0); Hemoglobin 8.2 gm/dL (11.6-15.3); Lymph # (Auto) 1.1 th/mm3 (1.0-4.8); Lymph % (Auto) 12.5 % (9.0-44.0); Mean Corpuscular HGB Conc 33.4 % (32.0-36.0); Mean Corpuscular Hemoglobin 29.3 pg (27.0-34.0); Mean Corpuscular Volume 87.9 fL (80.0-100.0); Mono # (Auto) 0.6 th/mm3 (0.0-0.9); Mono % (Auto) 6.9 % (0.0-8.0); Neut # (Auto) 7.2 th/mm3 (1.8-7.7); Neut % (Auto) 80.2 % (16.0-70.0); Platelet Count 479 th/mm3 (150-450); Red Blood Count 2.81 mil/mm3 (4.00-5.30); Red Cell Distribution Width 17.5 % (11.6-17.2)
[2018-04-13 05:52] LABS: Anion Gap 9 meq/L (5-15); Blood Urea Nitrogen 8 mg/dL (7-18); Calcium 6.5 mg/dL (8.5-10.1); Carbon Dioxide 21.7 meq/L (21.0-32.0); Chloride 113 meq/L (98-107); Glomerular Filtration Rate Greater Than 89 mL/min (>89); Glucose,Random 140 mg/dL (74-106); Magnesium 1.6 mg/dL (1.5-2.5); Sodium 144 meq/L (136-145)
[2018-04-13 05:59] LABS: Potassium 2.9 meq/L (3.5-5.1)
[2018-04-13 06:10] LABS: Total Protein 4.6 g/dL (6.4-8.2)
[2018-04-13] MEDS ORDERED: Potassium Phosphate 500 MG Soluble Tablet PO PRN ×2 (07:33)
[2018-04-13] MEDS ORDERED: Magnesium Oxide 400 MG Tablet PO PRN (07:33)
[2018-04-13] MEDS ORDERED: Potassium Chlor 20 mEq Premix 20 MEQ/100 ML PIGGYBACK IV.SIG PRN ×2 (07:33)
[2018-04-13] MEDS ORDERED: Magnesium Sulfate Inj 4 GM in Sodium Chlor 0.9% Inj 92 ML IV.SIG PRN (07:33)
[2018-04-13] MEDS ORDERED: Magnesium Sulfate Inj 2 GM in Sodium Chlor 0.9% Inj 96 ML IV.SIG PRN (07:33)
[2018-04-13] MEDS ORDERED: Potassium Chlor 40 mEq Premix 40 MEQ/100 ML PIGGYBACK IV.SIG PRN (07:33)
[2018-04-13] MEDS ORDERED: Potassium Chloride 25 MEQ Effervescent Tablet PO PRN (07:33)
[2018-04-13] MEDS ORDERED: Potassium Phosphate Inj 30 MMOL in Sodium Chlor 0.9% Inj 250 ML IV.SIG PRN (07:33)
[2018-04-13] MEDS ORDERED: Sodium Phosphate Inj 30 MMOL in Sodium Chlor 0.9% Inj 250 ML IV.SIG PRN (07:33)
[2018-04-13] MEDS: Morphine Inj 4 MG/ML Vial IV.PUSH PRN ×4 (07:37→20:30)
[2018-04-13] MEDS ORDERED: Dextrose 50% in Water 50 ML Vial IV.PUSH PRN (07:46)
[2018-04-13] MEDS: Heparin Central Flush 100 UNIT/ML 5 ML Vial IV.FLUSH SCH (09:16)
[2018-04-13] MEDS: Insulin NovoLIN Regular Correctional Sugar Inj SQ SCH ×3 (09:26→20:12)
--- NOTE | 2018-04-13 11:13 | P.PNGS ---
Subjective Interval history: Persistent abdominal pain. had SVT overnight was shocked multiple times now on amiodarone gtt. On small dose neosynpehrine. SBFT had normal transit through small bowel now she is having liquid stools. Physical Exam Vital signs: Vital Signs 04/12/18 12:33 04/12/18 13:36 04/12/18 13:47 Temperature Pulse Rate 102 H 108 H Respiratory Rate 18 19 Blood Pressure 106/72 103/67 Pulse Oximetry 91 L 93 L 04/12/18 14:00 04/12/18 15:00 04/12/18 16:00 Temperature 98.8 F Pulse Rate 101 H 100 H 105 H Respiratory Rate 18 17 19 Blood Pressure 105/73 110/71 115/68 Pulse Oximetry 93 L 04/12/18 18:00 04/12/18 20:00 04/12/18 22:00 Temperature 99 F Pulse Rate 113 H 112 H 116 H Respiratory Rate 20 Blood Pressure 102/75 Pulse Oximetry 96 04/13/18 00:00 04/13/18 02:00 04/13/18 02:30 Temperature 99.1 F Pulse Rate 200 H 93 H Respiratory Rate 21 Blood Pressure 108/57 L 112/63 Pulse Oximetry 96 04/13/18 02:45 04/13/18 03:00 04/13/18 03:15 Temperature Pulse Rate 84 81 81 Respiratory Rate 14 13 14 Blood Pressure 100/64 91/61 L 90/61 L Pulse Oximetry 100 100 100 04/13/18 03:30 04/13/18 03:45 04/13/18 04:00 Temperature 98.4 F Pulse Rate 80 87 95 H Respiratory Rate 15 16 16 Blood Pressure 96/60 L 94/60 L 99/64 L Pulse Oximetry 100 99 98 04/13/18 04:15 04/13/18 04:30 04/13/18 04:45 Temperature Pulse Rate 85 83 97 H Respiratory Rate 16 15 16 Blood Pressure 99/63 L 98/62 L 100/65 Pulse Oximetry 98 98 100 04/13/18 05:00 04/13/18 05:01 04/13/18 05:15 Temperature Pulse Rate 92 H 92 H 94 H Respiratory Rate 21 24 17 Blood Pressure 100/56 L 105/62 Pulse Oximetry 97 98 97 04/13/18 05:30 04/13/18 05:45 04/13/18 06:00 Temperature Pulse Rate 83 82 85 Respiratory Rate 16 15 17 Blood Pressure 98/67 L 104/69 106/68 Pulse Oximetry 99 100 99 04/13/18 06:15 04/13/18 06:30 04/13/18 06:45 Temperature Pulse Rate 87 79 85 Respiratory Rate 19 16 18 Blood Pressure 94/68 L 101/66 98/65 L Pulse Oximetry 98 99 99 04/13/18 07:00 04/13/18 07:15 04/13/18 07:30 Temperature Pulse Rate 81 86 83 Respiratory Rate 15 17 19 Blood Pressure 98/65 L 100/63 103/65 Pulse Oximetry 96 97 99 04/13/18 07:46 04/13/18 07:56 04/13/18 08:00 Temperature 97.5 F L Pulse Rate 83 83 Respiratory Rate 17 15 Blood Pressure 94/65 L 97/66 L Pulse Oximetry 100 97 100 04/13/18 08:15 04/13/18 08:30 04/13/18 10:00 Temperature Pulse Rate 80 81 85 Respiratory Rate 16 15 Blood Pressure 104/64 102/64 Pulse Oximetry 100 100 Intake & Output 04/12/18 04/13/18 04/13/18 18:59 06:59 18:59 Intake Total 500 / 500 2300 / 2300 250 / 250 Output Total 205 / 205 1400 / 1400 Balance 295 / 295 900 / 900 250 / 250 Weight 44 kg Intake: IV 400 / 400 2300 / 2300 250 / 250 Cordarone Inj 450 MG In D5W Inj 250 / 250 241 ML @ 1 MG/MIN 33.33 mls/hr IV.CONT TITRATE PRN Rx#: [id number] Maxipime Inj 1,000 MG In NS Inj 100 / 100 100 / 100 100 ML @ 200 mls/hr IV.SIG Q12H [facility] Rx#:[id number] Magnesium Sulfate Inj 2 GM In 100 / 100 NS Inj 96 ML @ 50 mls/hr IV.SIG UNSCH PRN Rx#:[id number] KCl 20 mEq Premix Inj 20 meq In 100 / 100 100 ml @ 50 mls/hr IV.SIG Q2H PRN Rx#:[id number] Flagyl 500 MG Inj 100 ML @ 100 200 / 200 100 / 100 mls/hr IV.SIG Q8H [facility] Rx#: [id number] Oral 100 / 100 Output: Urine 450 / 450 Stool 750 / 750 Urine Amount (Catheter) 0 / 0 Female External 0 / 0 Gastric Drainage 200 / 200 Right Nare 200 / 200 Other: # Voids 5 2 # Urine Diapers 3 Date of Last Bowel Movement 04/12/18 04/12/18 04/13/18 # Bowel Movements 6 Narrative: Appears weak and frail Abd: mild distention, soft, diffuse moderate ttp, inc intact with some old blood drainage - Urinary Catheter Management Female External Cath placed during this visit: no Assessment and Plan - Plan 72 yo F recent ex lap and ileocectomy. Severe peripheral vascular disease. ? occlusion of SMA. Now with ileus unclear etiology. MRA shows SMA occlusion. Dr. Galvez has seen her. IR consulted to consider SMA stent if feasible. Having bowel movts can likely remove NGT soon if no procedure planned.
[2018-04-13] MEDS ORDERED: fentaNYL Citrate Inj 250 MCG/5 ML Ampul ONE (13:43)
--- NOTE | 2018-04-13 14:41 | ECHRPT ---
Indication: ATRIAL FIB CONCLUSIONS The left ventricular systolic function is hyperdynamic with an estimated ejection fraction in the ra nge of 65- 70%. Normal left ventricular size. Mild concentric left ventricular hypertrophy. No regional wall motion abnormalities are present. Mild thickening of the mitral valve leaflets. Mitral annular calcification is present. There is trace tricuspid valve regurgitation. The estimated pulmonary arterial pressure is 48.7 mmHg. BP: / HR: Rhythm: Atrial fibrillation MEASUREMENTS (Male / Female) Normal Values Technical Quality:Fair 2D ECHO LV Diastolic Diameter PLAX 3.4 cm 4.2 - 5.9 / 3.9 - 5.3 cm LV Systolic Diameter PLAX 2.1 cm IVS Diastolic Thickness 1.3 cm 0.6 - 1.0 / 0.6 - 0.9 cm LVPW Diastolic Thickness 1.3 cm 0.6 - 1.0 / 0.6 - 0.9 cm LV Relative Wall Thickness 0.8 RV Internal Dim ED PLAX 2.2 cm LVOT Diameter 1.5 cm LA Systolic Diameter LX 2.2 cm 3.0 - 4.0 / 2.7 - 3.8 cm M-MODE Aortic Root Diameter MM 2.3 cm LA Systolic Diameter MM 2.6 cm LA Ao Ratio MM 1.1 AV Cusp Separation MM 1.7 cm DOPPLER AV Peak Velocity 126.0 cm/s AV Peak Gradient 6.4 mmHg LVOT Peak Velocity 107.0 cm/s LVOT Peak Gradient 4.6 mmHg AV Area Cont Eq pk 1.5 cm MV Area PHT 4.0 cm Mitral E Point Velocity 89.8 cm/s Mitral A Point Velocity 89.3 cm/s Mitral E to A Ratio 1.0 LV E' Lateral Velocity 4.8 cm/s Mitral E to LV E' Lateral Ratio 18.8 LV E' Septal Velocity 6.4 cm/s Mitral E to LV E' Septal Ratio 14.0 TR Peak Velocity 311.0 cm/s TR Peak Gradient 38.7 mmHg Right Atrial Pressure 10.0 mmHg Pulmonary Artery Systolic Pressu 48.7 mmHg Right Ventricular Systolic Press 48.7 mmHg PV Peak Velocity 137.0 cm/s PV Peak Gradient 7.5 mmHg FINDINGS LEFT VENTRICLE The left ventricular systolic function is hyperdynamic with an estimated ejection fraction in the ra nge of 65- 70%. Normal left ventricular size. Mild concentric left ventricular hypertrophy. No regional wall motion abnormalities are present. RIGHT VENTRICLE Normal right ventricular size and systolic function. LEFT ATRIUM The left atrial size is normal. RIGHT ATRIUM The right atrial size is normal. ATRIAL SEPTUM Normal atrial septal thickness without atrial level shunting by limited color doppler interrogation. AORTA The aortic root and proximal ascending aorta are normal in size on limited imaging. MITRAL VALVE Mild thickening of the mitral valve leaflets. Mitral annular calcification is present. AORTIC VALVE Trileaflet aortic valve. No aortic valve stenosis or regurgitation. TRICUSPID VALVE Structurally normal tricuspid valve. There is trace tricuspid valve regurgitation. The estimated pulmonary arterial pressure is 48.7 mmHg. PULMONARY VALVE No pulmonary valve regurgitation or stenosis. VESSELS The inferior vena cava is normal in size. PERICARDIUM No pericardial effusion. Phillip Peterson MD, FACC (Electronically Signed) Final Date:13 April 2018 14:40
--- NOTE | 2018-04-13 14:42 | P.CONCA ---
<Yamile Urrutia - Last Filed: 04/13/18 14:43> History of Present Illness Service: cardiology Consult date: 04/13/18 Reason for Consult: SVT Primary Care Provider: UNKNOWN Chief Complaint: Abdominal pain History of Present Illness: 72 yo F with HTN, HLD and paroxysmal atrial fibrillation presented with abdominal pain and nausea from inpatient rehab after recent hospitalization for ischemic bowel requiring colectomy (03/25/18) in [place]. This was complicated by left lower leg ischemia and unsuccessful thrombectomy ultimately requiring left BKA. patient has had persistent abdominal pain and nausea; RN reports she has missed several days of metoprolol due to stomach upset and developed SVT last night. Adenosine along with several shocks were administered without benefit; she was then given amiodarone and digoxin with improvement. SBP has been in the 90s, HR 80-90bpm. Patient currently down in IR for mesenteric artery stenting; RN provides history. Review of Systems All other systems reviewed negative except as stated in [facility] - History History Provided By: Patient, Medical Record - Medical History Medical History: Medical History (Last Reviewed 04/11/18 @ 17:36 by SAVAGE Kline) COPD (chronic obstructive pulmonary disease) History of hysterectomy Hypertension Insomnia SVT (supraventricular tachycardia) - Surgical History Surgical History: Surgical History (Last Reviewed 04/11/18 @ 17:36 by SAVAGE Kline) Previous back surgery Stented coronary artery - Family History Family History: Family History (Last Reviewed 04/11/18 @ 17:36 by SAVAGE Kline) Other Unknown family medical history - Tobacco History Second Hand Smoke Exposure: No Tobacco Use In Past 30 Days: No Smoking Status: Former smoker Tobacco Type: Cigarettes - Alcohol History How Often Do You Have a Drink Containing Alcohol: 4 or more times a week - Substance Use History Substance History: No History of Abuse Medications and Allergies Allergies Allergy/AdvReac Type Severity Reaction Status Date / Time No Known Allergies Allergy Unverified 01/29/18 22:40 Home Medications Medication Instructions Recorded Confirmed Type Saccharomyces boulardii 250 mg PO BID 04/08/18 04/11/18 History aspirin 81 mg PO DAILY 04/08/18 04/11/18 History ergocalciferol (vitamin D2) 50,000 unit PO QWEEK 04/08/18 04/11/18 History fluticasone-vilanterol 1 inh INHALATION DAILY 04/08/18 04/11/18 History gabapentin 100 mg PO BID 04/08/18 04/11/18 History metoprolol tartrate 100 mg PO BID 04/08/18 04/11/18 History metronidazole 500 mg PO TID 04/08/18 04/11/18 History nitroglycerin 0.4 mg SUBLINGUAL Q5-15M PRN 04/08/18 04/11/18 History oxycodone-acetaminophen [Percocet] 2 tab PO Q6H PRN 04/08/18 04/11/18 History simvastatin 40 mg PO QPM 04/08/18 04/11/18 History tramadol 50 mg PO Q4H PRN 04/08/18 04/11/18 History Active Medications: Active Medications Acetaminophen (Tylenol) 650 mg PO Q4H PRN PRN Reason: Temp > 100.4 Dextrose (D50w Vial) 50 ml IV.PUSH UNSCH PRN PRN Reason: PER HYPOGLYCEMIA PROTOCOL Dextrose (D50w Vial) 50 ml IV.PUSH UNSCH PRN PRN Reason: PER HYPOGLYCEMIA PROTOCOL Enalaprilat (Vasotec Inj) 1.25 mg IV.PUSH Q6H PRN PRN Reason: SEE LABEL COMMENTS Last Admin: 04/11/18 16:43 Dose: 1.25 mg Ergocalciferol (Vitamind2) 50,000 unit PO Q7D [facility] Last Admin: 04/11/18 14:06 Dose: Not Given Fluticasone/Vilanterol (Breo Ellipta 100/25 Mcg Inh) 1 puff INH DAILY [facility] Last Admin: 04/13/18 09:16 Dose: 1 puff Gabapentin (Neurontin) 100 mg PO BID [facility] Glucagon (Glucagon Inj) 1 mg OTHER PRN PRN PRN Reason: for Hypoglycemia Protocol Glucagon (Glucagon Inj) 1 mg OTHER PRN PRN PRN Reason: for Hypoglycemia Protocol Heparin Sodium (Porcine) (Heparin Central Flush) 0 unit IV.FLUSH PRN PRN PRN Reason: Flush PICC Line Heparin Sodium (Porcine) (Heparin Central Flush) 0 unit IV.FLUSH DAILY [facility] Last Admin: 04/13/18 09:16 Dose: Not Given Metronidazole/Sodium Chloride (Flagyl 500 Mg Inj) 100 mls @ 100 mls/hr IV.SIG Q8H [facility] Stop: 04/17/18 14:00 Last Admin: 04/13/18 05:43 Dose: 100 mls/hr Cefepime HCl 1,000 mg/ Sodium (Chloride) 100 mls @ 200 mls/hr IV.SIG Q12H [facility] Stop: 04/16/18 13:59 Last Infusion: 04/13/18 02:20 Dose: Infused Multivitamins 10 ml/ Folic Acid 1 mg/ Amino Acids/Electrolytes/Dextrose 2, 010.2 mls @ 55 mls/hr IV.SIG Q24H [facility] Last Admin: 04/12/18 19:49 Dose: 55 mls/hr Fat Emulsion Intravenous (Intralipid 20% Inj) 250 mls @ 10 mls/hr IV.CENTRAL Q24H [facility] Last Admin: 04/12/18 19:49 Dose: 10 mls/hr Phenylephrine HCl 40 mg/ (Dextrose) 500 mls @ 30 mls/hr IV.CONT TITRATE PRN; Protocol PRN Reason: Per Protocol Last Admin: 04/13/18 01:19 Dose: 40 mcg/min, 30 mls/hr Amiodarone HCl 450 mg/ (Dextrose) 250 mls @ 33.33 mls/hr IV.CONT TITRATE PRN; Protocol PRN Reason: Per Protocol Last Admin: 04/13/18 09:17 Dose: 1 mg/min, 33.33 mls/hr Magnesium Sulfate Inj 2 gm/ (Sodium Chloride) 100 mls @ 50 mls/hr IV.SIG UNSCH PRN PRN Reason: For Magnesium 1.2 - 1.6 mg/dL Potassium Chloride (Kcl 40 Meq Premix Inj) 40 meq in 100 mls @ 25 mls/hr IV.SIG Q2H PRN PRN Reason: For Potassium 2.8 - 3.2 mEq/L Potassium Chloride (Kcl 20 Meq Premix Inj) 20 meq in 100 mls @ 50 mls/hr IV.SIG Q2H PRN PRN Reason: For Potassium 3.3 - 3.5 mEq/L Potassium Chloride (Kcl 40 Meq Premix Inj) 40 meq in 100 mls @ 25 mls/hr IV.SIG UNSCH PRN PRN Reason: For Potassium 3.3 - 3.5 mEq/L Last Admin: 04/13/18 09:17 Dose: 25 mls/hr Potassium Chloride (Kcl 20 Meq Premix Inj) 20 meq in 100 mls @ 50 mls/hr IV.SIG Q2H PRN PRN Reason: For Potassium 2.8 - 3.2 mEq/L Potassium Phosphate 30 mmol/ (Sodium Chloride) 260 mls @ 42 mls/hr IV.SIG UNSCH PRN PRN Reason: SEE LABEL COMMENTS Sodium Phosphate 30 mmol/ (Sodium Chloride) 260 mls @ 42 mls/hr IV.SIG UNSCH PRN PRN Reason: For Phosphorus < 2.5 mg/dL Magnesium Sulfate Inj 4 gm/ (Sodium Chloride) 100 mls @ 50 mls/hr IV.SIG UNSCH PRN PRN Reason: For Magnesium 0.9 - 1.1 mg/dL Insulin Human Regular (Novolin R Correctional Sugar Inj) 0 units SQ Q4HR [facility]; Protocol Last Admin: 04/13/18 09:26 Dose: 1 units Magnesium Oxide (Mag-Ox) 800 mg PO UNSCH PRN PRN Reason: For Magnesium 1.2 - 1.6 mg/dL Magnesium Oxide (Mag-Ox) 800 mg PO UNSCH PRN PRN Reason: For Magnesium 1.2 - 1.6 mg/dL Metoprolol Tartrate (Lopressor) 100 mg PO BID [facility] Morphine Sulfate (Morphine Inj) 2 mg IV.PUSH Q4H PRN PRN Reason: BREAKTHROUGH PAIN Last Admin: 04/13/18 11:23 Dose: 2 mg Naloxone HCl (Narcan Inj) 0.4 mg IV.PUSH UNSCH PRN PRN Reason: SEE LABEL COMMENTS Naloxone HCl (Narcan Inj) 0.4 mg IV.PUSH UNSCH PRN PRN Reason: SEE LABEL COMMENTS Ondansetron HCl (Zofran Inj) 4 mg IV.PUSH Q6H PRN PRN Reason: NAUSEA OR VOMITING Last Admin: 04/13/18 07:38 Dose: 4 mg Oxycodone/Acetaminophen (Percocet 10/325 Mg) 1 tab PO Q6H PRN PRN Reason: PAIN SCALE 6 TO 10 Oxycodone/Acetaminophen (Percocet 5/325 Mg) 1 tab PO Q6H PRN PRN Reason: PAIN SCALE 3 TO 5 Pantoprazole Sodium (Protonix Inj) 40 mg IV.PUSH Q24H [facility] Last Admin: 04/12/18 14:58 Dose: 40 mg Patch Removal (Remove Old Patch) 1 each T-DERMAL Q7D [facility] Potassium Bicarb/Potassium Chloride (K-Lyte Cl Eff) 50 meq PO UNSCH PRN PRN Reason: For Potassium 3.3 - 3.5 mEq/L Potassium Phosphate (K-Phos Original) 2,000 mg PO Q4H PRN PRN Reason: Phosphorus Less Than 2.5 mg/dL Potassium Phosphate (K-Phos Original) 2,000 mg PO UNSCH PRN PRN Reason: SEE LABEL COMMENTS Sodium Chloride (Ns Flush) 0 ml IV.FLUSH DAILY [facility] Last Admin: 04/13/18 09:16 Dose: Not Given Sodium Chloride (Ns Flush) 0 ml IV.FLUSH PRN PRN PRN Reason: Flush After Blood Draws Sodium Chloride (Ns Flush) 0 ml IV.FLUSH PRN PRN PRN Reason: FLUSH AFTER USING IV ACCESS Temazepam (Restoril) 15 mg PO HS PRN PRN Reason: SLEEP Terbutaline Sulfate (Brethine Inj) 1 mg SQ UNSCH PRN PRN Reason: For Extravasation Exam Vital signs: Vital Signs 04/12/18 15:00 04/12/18 16:00 04/12/18 18:00 Temperature 98.8 F Pulse Rate 100 H 105 H 113 H Respiratory Rate 17 19 Blood Pressure 110/71 115/68 Pulse Oximetry 93 L 04/12/18 20:00 04/12/18 22:00 04/13/18 00:00 Temperature 99 F 99.1 F Pulse Rate 112 H 116 H 200 H Respiratory Rate 20 21 Blood Pressure 102/75 108/57 L Pulse Oximetry 96 96 04/13/18 02:00 04/13/18 02:30 04/13/18 02:45 Temperature Pulse Rate 93 H 84 Respiratory Rate 14 Blood Pressure 112/63 100/64 Pulse Oximetry 100 04/13/18 03:00 04/13/18 03:15 04/13/18 03:30 Temperature Pulse Rate 81 81 80 Respiratory Rate 13 14 15 Blood Pressure 91/61 L 90/61 L 96/60 L Pulse Oximetry 100 100 100 04/13/18 03:45 04/13/18 04:00 04/13/18 04:15 Temperature 98.4 F Pulse Rate 87 95 H 85 Respiratory Rate 16 16 16 Blood Pressure 94/60 L 99/64 L 99/63 L Pulse Oximetry 99 98 98 08/06/18 04:30 04/13/18 04:45 04/13/18 05:00 Temperature Pulse Rate 83 97 H 92 H Respiratory Rate 15 16 21 Blood Pressure 98/62 L 100/65 Pulse Oximetry 98 100 97 04/13/18 05:01 04/13/18 05:15 04/13/18 05:30 Temperature Pulse Rate 92 H 94 H 83 Respiratory Rate 24 17 16 Blood Pressure 100/56 L 105/62 98/67 L Pulse Oximetry 98 97 99 04/13/18 05:45 04/13/18 06:00 04/13/18 06:15 Temperature Pulse Rate 82 85 87 Respiratory Rate 15 17 19 Blood Pressure 104/69 106/68 94/68 L Pulse Oximetry 100 99 98 04/13/18 06:30 04/13/18 06:45 04/13/18 07:00 Temperature Pulse Rate 79 85 81 Respiratory Rate 16 18 15 Blood Pressure 101/66 98/65 L 98/65 L Pulse Oximetry 99 99 96 04/13/18 07:15 04/13/18 07:30 04/13/18 07:46 Temperature Pulse Rate 86 83 83 Respiratory Rate 17 19 17 Blood Pressure 100/63 103/65 94/65 L Pulse Oximetry 97 99 100 04/13/18 07:56 04/13/18 08:00 04/13/18 08:15 Temperature 97.5 F L Pulse Rate 83 80 Respiratory Rate 15 16 Blood Pressure 97/66 L 104/64 Pulse Oximetry 97 100 100 04/13/18 08:30 04/13/18 08:45 04/13/18 09:00 Temperature Pulse Rate 81 83 83 Respiratory Rate 15 17 14 Blood Pressure 102/64 104/64 101/63 Pulse Oximetry 100 100 100 04/13/18 09:15 04/13/18 09:30 04/13/18 09:45 Temperature Pulse Rate 92 H 92 H 82 Respiratory Rate 23 18 16 Blood Pressure 103/63 100/65 95/62 L Pulse Oximetry 100 100 99 04/13/18 10:00 04/13/18 10:15 04/13/18 10:30 Temperature Pulse Rate 85 95 H 89 Respiratory Rate 14 20 18 Blood Pressure 101/62 94/55 L 99/58 L Pulse Oximetry 100 100 100 04/13/18 10:45 04/13/18 11:00 04/13/18 11:15 Temperature Pulse Rate 82 90 85 Respiratory Rate 14 17 17 Blood Pressure 98/59 L 97/61 L 100/63 Pulse Oximetry 100 100 100 04/13/18 11:30 04/13/18 11:45 04/13/18 12:00 Temperature 97 F L Pulse Rate 88 90 88 Respiratory Rate 19 18 15 Blood Pressure 98/63 L 93/58 L 91/59 L Pulse Oximetry 100 100 100 04/13/18 12:15 04/13/18 12:30 04/13/18 12:45 Temperature Pulse Rate 89 91 H 93 H Respiratory Rate 16 16 18 Blood Pressure 90/61 L 90/64 L 96/60 L Pulse Oximetry 100 100 100 Intake & Output 04/12/18 04/13/18 04/13/18 18:59 06:59 18:59 Intake Total 500 / 500 2300 / 2300 250 / 250 Output Total 205 / 205 1400 / 1400 Balance 295 / 295 900 / 900 250 / 250 Weight 44 kg Intake: IV 400 / 400 2300 / 2300 250 / 250 Cordarone Inj 450 MG In D5W Inj 250 / 250 241 ML @ 1 MG/MIN 33.33 mls/hr IV.CONT TITRATE PRN Rx#: [id number] Maxipime Inj 1,000 MG In NS Inj 100 / 100 100 / 100 100 ML @ 200 mls/hr IV.SIG Q12H [facility] Rx#:[id number] Magnesium Sulfate Inj 2 GM In 100 / 100 NS Inj 96 ML @ 50 mls/hr IV.SIG UNSCH PRN Rx#:[id number] KCl 20 mEq Premix Inj 20 meq In 100 / 100 100 ml @ 50 mls/hr IV.SIG Q2H PRN Rx#:[id number] Flagyl 500 MG Inj 100 ML @ 100 200 / 200 100 / 100 mls/hr IV.SIG Q8H [facility] Rx#: [id number] Oral 100 / 100 Output: Urine 450 / 450 Stool 750 / 750 Urine Amount (Catheter) 0 / 0 Female External 0 / 0 Gastric Drainage 205 / 200 / 200 Right Nare 205 / 205 200 / 200 Other: # Voids 5 2 # Urine Diapers 3 Date of Last Bowel Movement 04/12/18 04/12/18 04/13/18 # Bowel Movements 6 Narrative: patient is currently out of the room with IR Results 04/13/18 04:40 04/13/18 04:40 Cardiac Enzymes 04/12/18 Range/Units 14:12 AST 17 (15-37) U/L Coagulation 04/12/18 Range/Units 14:12 PT 14.2 H (9.8-11.6) sec CBC 04/13/18 Range/Units 04:40 WBC 9.0 (4.0-11.0) th/mm3 RBC 2.81 L (4.00-5.30) mil/mm3 Hgb 8.2 L D (11.6-15.3) gm/dL Hct 24.7 L (35.0-46.0) % Plt Count 479 H (150-450) th/mm3 Neut # (Auto) 7.2 (1.8-7.7) th/mm3 Lymph # (Auto) 1.1 (1.0-4.8) th/mm3 Lake # (Auto) 0.6 (0.0-0.9) th/mm3 Eos # (Auto) 0.0 (0.0-0.4) th/mm3 Baso # (Auto) 0.0 (0.0-0.2) th/mm3 Comprehensive Metabolic Panel 04/12/18 04/13/18 Range/Units 14:12 04:40 Sodium 141 144 (136-145) meq/L Potassium 3.7 2.9 L* D (3.5-5.1) meq/L Chloride 112 H 113 H (98-107) meq/L Carbon Dioxide 15.4 L 21.7 (21.0-32.0) meq/L BUN 7 8 (7-18) mg/dL Creatinine 0.63 0.64 (0.50-1.00) mg/dL Calcium 7.0 L* 6.5 L* (8.5-10.1) mg/dL AST 17 (15-37) U/L ALT 9 L (10-53) U/L Alkaline Phosphatase 93 (45-117) U/L Total Protein 5.4 L D 4.6 L D (6.4-8.2) g/dL Albumin 1.8 L (3.4-5.0) g/dL Intake and Output 04/12/18 04/13/18 04/13/18 22:59 06:59 14:59 Intake Total 2400 / 2400 200 / 200 250 / 250 Output Total 25 / 25 1400 / 1400 Balance 2375 / 2375 -1200 / -1200 250 / 250 Intake: IV 2300 / 2300 200 / 200 250 / 250 Cordarone Inj 450 MG In D5W Inj 250 / 250 241 ML @ 1 MG/MIN 33.33 mls/hr IV.CONT TITRATE PRN Rx#: [id number] Maxipime Inj 1,000 MG In NS Inj 100 / 100 100 / 100 100 ML @ 200 mls/hr IV.SIG Q12H [facility] Rx#:[id number] Magnesium Sulfate Inj 2 GM In 100 / 100 NS Inj 96 ML @ 50 mls/hr IV.SIG UNSCH PRN Rx#:[id number] Flagyl 500 MG Inj 100 ML @ 100 100 / 100 100 / 100 mls/hr IV.SIG Q8H [facility] Rx#: [id number] Oral 100 / 100 Output: Urine 450 / 450 Stool 750 / 750 Urine Amount (Catheter) 0 / 0 Female External 0 / 0 Gastric Drainage 25 / 25 200 / 200 Right Nare 25 / 25 200 / 200 Other: # Voids 5 2 # Urine Diapers 3 Date of Last Bowel Movement 04/12/18 04/12/18 04/13/18 # Bowel Movements 6 Weight 44 kg Assessment and Plan - Plan 72 yo F with HTN, HLD and paroxysmal atrial fibrillation presented with abdominal pain and nausea from inpatient rehab after recent hospitalization for ischemic bowel requiring colectomy (03/25/18) in [place]. This was complicated by left lower leg ischemia and unsuccessful thrombectomy ultimately requiring left BKA. patient has had persistent abdominal pain and nausea; RN reports she has missed several days of metoprolol due to stomach upset and developed SVT last night. Adenosine along with several shocks were administered without benefit; she was then given amiodarone and digoxin with improvement. SBP has been in the 90s, HR 80-90bpm. SVT- continue amiodarone gtt hypokalemic- cont repletion and rehydration. 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 <Phillip Peterson - Last Filed: 04/13/18 16:09> History of Present Illness Primary Care Provider: UNKNOWN [facility] - Medical History Medical History: Medical History (Last Reviewed 04/11/18 @ 17:36 by SAVAGE Kline) COPD (chronic obstructive pulmonary disease) History of hysterectomy Hypertension Insomnia SVT (supraventricular tachycardia) - Surgical History Surgical History: Surgical History (Last Reviewed 04/11/18 @ 17:36 by SAVAGE Kline) Previous back surgery Stented coronary artery - Family History Family History: Family History (Last Reviewed 04/11/18 @ 17:36 by SAVAGE Kline) Other Unknown family medical history Medications and Allergies Active Medications: Active Medications Acetaminophen (Tylenol) 650 mg PO Q4H PRN PRN Reason: Temp > 100.4 Clopidogrel Bisulfate (Plavix) 300 mg PO ONCE ONE Stop: 04/13/18 18:01 Clopidogrel Bisulfate (Plavix) 75 mg PO DAILY [facility] Dextrose (D50w Vial) 50 ml IV.PUSH UNSCH PRN PRN Reason: PER HYPOGLYCEMIA PROTOCOL Dextrose (D50w Vial) 50 ml IV.PUSH UNSCH PRN PRN Reason: PER HYPOGLYCEMIA PROTOCOL Enalaprilat (Vasotec Inj) 1.25 mg IV.PUSH Q6H PRN PRN Reason: SEE LABEL COMMENTS Last Admin: 04/11/18 16:43 Dose: 1.25 mg Ergocalciferol (Vitamind2) 50,000 unit PO Q7D [facility] Last Admin: 04/11/18 14:06 Dose: Not Given Fluticasone/Vilanterol (Breo Ellipta 100/25 Mcg Inh) 1 puff INH DAILY [facility] Last Admin: 04/13/18 09:16 Dose: 1 puff Gabapentin (Neurontin) 100 mg PO BID [facility] Glucagon (Glucagon Inj) 1 mg OTHER PRN PRN PRN Reason: for Hypoglycemia Protocol Glucagon (Glucagon Inj) 1 mg OTHER PRN PRN PRN Reason: for Hypoglycemia Protocol Heparin Sodium (Porcine) (Heparin Central Flush) 0 unit IV.FLUSH PRN PRN PRN Reason: Flush PICC Line Heparin Sodium (Porcine) (Heparin Central Flush) 0 unit IV.FLUSH DAILY [facility] Last Admin: 04/13/18 09:16 Dose: Not Given Metronidazole/Sodium Chloride (Flagyl 500 Mg Inj) 100 mls @ 100 mls/hr IV.SIG Q8H [facility] Stop: 04/17/18 14:00 Last Admin: 04/13/18 15:42 Dose: 100 mls/hr Cefepime HCl 1,000 mg/ Sodium (Chloride) 100 mls @ 200 mls/hr IV.SIG Q12H [facility] Stop: 04/16/18 13:59 Last Admin: 04/13/18 15:41 Dose: 200 mls/hr Multivitamins 10 ml/ Folic Acid 1 mg/ Amino Acids/Electrolytes/Dextrose 2, 010.2 mls @ 55 mls/hr IV.SIG Q24H [facility] Last Admin: 04/12/18 19:49 Dose: 55 mls/hr Fat Emulsion Intravenous (Intralipid 20% Inj) 250 mls @ 10 mls/hr IV.CENTRAL Q24H [facility] Last Admin: 04/12/18 19:49 Dose: 10 mls/hr Phenylephrine HCl 40 mg/ (Dextrose) 500 mls @ 30 mls/hr IV.CONT TITRATE PRN; Protocol PRN Reason: Per Protocol Last Titration: 04/13/18 14:57 Dose: Infused Amiodarone HCl 450 mg/ (Dextrose) 250 mls @ 33.33 mls/hr IV.CONT TITRATE PRN; Protocol PRN Reason: Per Protocol Last Admin: 04/13/18 09:17 Dose: 1 mg/min, 33.33 mls/hr Magnesium Sulfate Inj 2 gm/ (Sodium Chloride) 100 mls @ 50 mls/hr IV.SIG UNSCH PRN PRN Reason: For Magnesium 1.2 - 1.6 mg/dL Potassium Chloride (Kcl 40 Meq Premix Inj) 40 meq in 100 mls @ 25 mls/hr IV.SIG Q2H PRN PRN Reason: For Potassium 2.8 - 3.2 mEq/L Potassium Chloride (Kcl 20 Meq Premix Inj) 20 meq in 100 mls @ 50 mls/hr IV.SIG Q2H PRN PRN Reason: For Potassium 3.3 - 3.5 mEq/L Potassium Chloride (Kcl 40 Meq Premix Inj) 40 meq in 100 mls @ 25 mls/hr IV.SIG UNSCH PRN PRN Reason: For Potassium 3.3 - 3.5 mEq/L Last Infusion: 04/13/18 14:57 Dose: Infused Potassium Chloride (Kcl 20 Meq Premix Inj) 20 meq in 100 mls @ 50 mls/hr IV.SIG Q2H PRN PRN Reason: For Potassium 2.8 - 3.2 mEq/L Potassium Phosphate 30 mmol/ (Sodium Chloride) 260 mls @ 42 mls/hr IV.SIG UNSCH PRN PRN Reason: SEE LABEL COMMENTS Sodium Phosphate 30 mmol/ (Sodium Chloride) 260 mls @ 42 mls/hr IV.SIG UNSCH PRN PRN Reason: For Phosphorus < 2.5 mg/dL Magnesium Sulfate Inj 4 gm/ (Sodium Chloride) 100 mls @ 50 mls/hr IV.SIG UNSCH PRN PRN Reason: For Magnesium 0.9 - 1.1 mg/dL Insulin Human Regular (Novolin R Correctional Sugar Inj) 0 units SQ Q4HR [facility]; Protocol Last Admin: 04/13/18 15:42 Dose: Not Given Magnesium Oxide (Mag-Ox) 800 mg PO UNSCH PRN PRN Reason: For Magnesium 1.2 - 1.6 mg/dL Magnesium Oxide (Mag-Ox) 800 mg PO UNSCH PRN PRN Reason: For Magnesium 1.2 - 1.6 mg/dL Metoprolol Tartrate (Lopressor) 100 mg PO BID [facility] Morphine Sulfate (Morphine Inj) 2 mg IV.PUSH Q4H PRN PRN Reason: BREAKTHROUGH PAIN Last Admin: 04/13/18 11:23 Dose: 2 mg Naloxone HCl (Narcan Inj) 0.4 mg IV.PUSH UNSCH PRN PRN Reason: SEE LABEL COMMENTS Naloxone HCl (Narcan Inj) 0.4 mg IV.PUSH UNSCH PRN PRN Reason: SEE LABEL COMMENTS Ondansetron HCl (Zofran Inj) 4 mg IV.PUSH Q6H PRN PRN Reason: NAUSEA OR VOMITING Last Admin: 04/13/18 07:38 Dose: 4 mg Oxycodone/Acetaminophen (Percocet 10/325 Mg) 1 tab PO Q6H PRN PRN Reason: PAIN SCALE 6 TO 10 Oxycodone/Acetaminophen (Percocet 5/325 Mg) 1 tab PO Q6H PRN PRN Reason: PAIN SCALE 3 TO 5 Pantoprazole Sodium (Protonix Inj) 40 mg IV.PUSH Q24H [facility] Last Admin: 04/13/18 15:42 Dose: 40 mg Patch Removal (Remove Old Patch) 1 each T-DERMAL Q7D [facility] Potassium Bicarb/Potassium Chloride (K-Lyte Cl Eff) 50 meq PO UNSCH PRN PRN Reason: For Potassium 3.3 - 3.5 mEq/L Potassium Phosphate (K-Phos Original) 2,000 mg PO Q4H PRN PRN Reason: Phosphorus Less Than 2.5 mg/dL Potassium Phosphate (K-Phos Original) 2,000 mg PO UNSCH PRN PRN Reason: SEE LABEL COMMENTS Sodium Chloride (Ns Flush) 0 ml IV.FLUSH DAILY [facility] Last Admin: 04/13/18 09:16 Dose: Not Given Sodium Chloride (Ns Flush) 0 ml IV.FLUSH PRN PRN PRN Reason: Flush After Blood Draws Sodium Chloride (Ns Flush) 0 ml IV.FLUSH PRN PRN PRN Reason: FLUSH AFTER USING IV ACCESS Temazepam (Restoril) 15 mg PO HS PRN PRN Reason: SLEEP Terbutaline Sulfate (Brethine Inj) 1 mg SQ UNSCH PRN PRN Reason: For Extravasation Exam Vital signs: Vital Signs 04/12/18 18:00 04/12/18 20:00 04/12/18 22:00 Temperature 99 F Pulse Rate 113 H 112 H 116 H Respiratory Rate 20 Blood Pressure 102/75 Pulse Oximetry 96 04/13/18 00:00 04/13/18 02:00 04/13/18 02:30 Temperature 99.1 F Pulse Rate 200 H 93 H Respiratory Rate 21 Blood Pressure 108/57 L 112/63 Pulse Oximetry 96 04/13/18 02:45 04/13/18 03:00 04/13/18 03:15 Temperature Pulse Rate 84 81 81 Respiratory Rate 14 13 14 Blood Pressure 100/64 91/61 L 90/61 L Pulse Oximetry 100 100 100 04/13/18 03:30 04/13/18 03:45 04/13/18 04:00 Temperature 98.4 F Pulse Rate 80 87 95 H Respiratory Rate 15 16 16 Blood Pressure 96/60 L 94/60 L 99/64 L Pulse Oximetry 100 99 98 04/13/18 04:15 04/13/18 04:30 04/13/18 04:45 Temperature Pulse Rate 85 83 97 H Respiratory Rate 16 15 16 Blood Pressure 99/63 L 98/62 L 100/65 Pulse Oximetry 98 98 100 04/13/18 05:00 04/13/18 05:01 04/13/18 05:15 Temperature Pulse Rate 92 H 92 H 94 H Respiratory Rate 21 24 17 Blood Pressure 100/56 L 105/62 Pulse Oximetry 97 98 97 04/13/18 05:30 04/13/18 05:45 04/13/18 06:00 Temperature Pulse Rate 83 82 85 Respiratory Rate 16 15 17 Blood Pressure 98/67 L 104/69 106/68 Pulse Oximetry 99 100 99 04/13/18 06:15 04/13/18 06:30 04/13/18 06:45 Temperature Pulse Rate 87 79 85 Respiratory Rate 19 16 18 Blood Pressure 94/68 L 101/66 98/65 L Pulse Oximetry 98 99 99 04/13/18 07:00 04/13/18 07:15 04/13/18 07:30 Temperature Pulse Rate 81 86 83 Respiratory Rate 15 17 19 Blood Pressure 98/65 L 100/63 103/65 Pulse Oximetry 96 97 99 04/13/18 07:46 04/13/18 07:56 04/13/18 08:00 Temperature 97.5 F L Pulse Rate 83 83 Respiratory Rate 17 15 Blood Pressure 94/65 L 97/66 L Pulse Oximetry 100 97 100 04/13/18 08:15 04/13/18 08:30 04/13/18 08:45 Temperature Pulse Rate 80 81 83 Respiratory Rate 16 15 17 Blood Pressure 104/64 102/64 104/64 Pulse Oximetry 100 100 100 04/13/18 09:00 04/13/18 09:15 04/13/18 09:30 Temperature Pulse Rate 83 92 H 92 H Respiratory Rate 14 23 18 Blood Pressure 101/63 103/63 100/65 Pulse Oximetry 100 100 100 04/13/18 09:45 04/13/18 10:00 04/13/18 10:15 Temperature Pulse Rate 82 85 95 H Respiratory Rate 16 14 20 Blood Pressure 95/62 L 101/62 94/55 L Pulse Oximetry 99 100 100 04/13/18 10:30 04/13/18 10:45 04/13/18 11:00 Temperature Pulse Rate 89 82 90 Respiratory Rate 18 14 17 Blood Pressure 99/58 L 98/59 L 97/61 L Pulse Oximetry 100 100 100 04/13/18 11:15 04/13/18 11:30 04/13/18 11:45 Temperature Pulse Rate 85 88 90 Respiratory Rate 17 19 18 Blood Pressure 100/63 98/63 L 93/58 L Pulse Oximetry 100 100 100 04/13/18 12:00 04/13/18 12:15 04/13/18 12:30 Temperature 97 F L Pulse Rate 88 89 91 H Respiratory Rate 15 16 16 Blood Pressure 91/59 L 90/61 L 90/64 L Pulse Oximetry 100 100 100 04/13/18 12:45 Temperature Pulse Rate 93 H Respiratory Rate 18 Blood Pressure 96/60 L Pulse Oximetry 100 Intake & Output 04/12/18 04/13/18 04/13/18 18:59 06:59 18:59 Intake Total 500 / 500 2400 / 2400 863 / 863 Output Total 205 / 205 1400 / 1400 450 / 450 Balance 295 / 295 1000 / 1000 413 / 413 Weight 44 kg Intake: IV 400 / 400 2400 / 2400 863 / 863 Cordarone Inj 450 MG In D5W Inj 250 / 250 241 ML @ 1 MG/MIN 33.33 mls/hr IV.CONT TITRATE PRN Rx#: [id number] Neosynephrine Inj 40 MG In D5W 306 / 306 Inj 496 ML @ 40 MCG/MIN 30 mls/ hr IV.CONT TITRATE PRN Rx#: [id number] Calcium Chloride Inj 0.667 GM 107 / 107 In NS Inj 100 ML @ 120 mls/hr IV.SIG ONCE ONE Rx#:[id number] Maxipime Inj 1,000 MG In NS Inj 100 / 100 100 / 100 100 ML @ 200 mls/hr IV.SIG Q12H FRANCA Rx#:[id number] Magnesium Sulfate Inj 4 GM In 100 / 100 100 / 100 NS Inj 92 ML @ 25 mls/hr IV.SIG ONCE ONE Rx#:[id number] KCl 20 mEq Premix Inj 20 meq In 100 / 100 100 ml @ 50 mls/hr IV.SIG Q2H PRN Rx#:[id number] KCl 40 mEq Premix Inj 40 meq In 100 / 100 100 ml @ 25 mls/hr IV.SIG UNSCH PRN Rx#:[id number] Flagyl 500 MG Inj 100 ML @ 100 200 / 200 200 / 200 mls/hr IV.SIG Q8H FRANCA Rx#: [id number] Oral 100 / 100 Output: Urine 450 / 450 Stool 750 / 750 Urine Amount (Catheter) 0 / 0 450 / 450 Female External 0 / 0 450 / 450 Gastric Drainage / 200 / 200 Right Nare 200 / 200 Other: # Voids 5 2 # Urine Diapers 3 Date of Last Bowel Movement 04/12/18 04/12/18 04/13/18 # Bowel Movements 6 Results 04/13/18 04:40 04/13/18 04:40 CBC 04/13/18 Range/Units 04:40 WBC 9.0 (4.0-11.0) th/mm3 RBC 2.81 L (4.00-5.30) mil/mm3 Hgb 8.2 L D (11.6-15.3) gm/dL Hct 24.7 L (35.0-46.0) % Plt Count 479 H (150-450) th/mm3 Neut # (Auto) 7.2 (1.8-7.7) th/mm3 Lymph # (Auto) 1.1 (1.0-4.8) th/mm3 [place] # (Auto) 0.6 (0.0-0.9) th/mm3 Eos # (Auto) 0.0 (0.0-0.4) th/mm3 Baso # (Auto) 0.0 (0.0-0.2) th/mm3 Comprehensive Metabolic Panel 04/13/18 Range/Units 04:40 Sodium 144 (136-145) meq/L Potassium 2.9 L* D (3.5-5.1) meq/L Chloride 113 H (98-107) meq/L Carbon Dioxide 21.7 (21.0-32.0) meq/L BUN 8 (7-18) mg/dL Creatinine 0.64 (0.50-1.00) mg/dL Calcium 6.5 L* (8.5-10.1) mg/dL Total Protein 4.6 L D (6.4-8.2) g/dL Intake and Output 04/13/18 04/13/18 04/13/18 06:59 14:59 22:59 Intake Total 300 / 300 863 / 863 Output Total 1400 / 1400 450 / 450 Balance -1100 / -1100 413 / 413 Intake: IV 300 / 300 863 / 863 Cordarone Inj 450 MG In D5W Inj 250 / 250 241 ML @ 1 MG/MIN 33.33 mls/hr IV.CONT TITRATE PRN Rx#: [id number] Neosynephrine Inj 40 MG In D5W 306 / 306 Inj 496 ML @ 40 MCG/MIN 30 mls/ hr IV.CONT TITRATE PRN Rx#: [id number] Calcium Chloride Inj 0.667 GM 107 / 107 In NS Inj 100 ML @ 120 mls/hr IV.SIG ONCE ONE Rx#:[id number] Maxipime Inj 1,000 MG In NS Inj 100 / 100 100 ML @ 200 mls/hr IV.SIG Q12H FRANCA Rx#:[id number] Magnesium Sulfate Inj 4 GM In 100 / 100 NS Inj 92 ML @ 25 mls/hr IV.SIG ONCE ONE Rx#:[id number] KCl 40 mEq Premix Inj 40 meq In 100 / 100 100 ml @ 25 mls/hr IV.SIG UNSCH PRN Rx#:[id number] Flagyl 500 MG Inj 100 ML @ 100 200 / 200 mls/hr IV.SIG Q8H FRANCA Rx#: [id number] Output: Urine 450 / 450 Stool 750 / 750 Urine Amount (Catheter) 450 / 450 Female External 450 / 450 Gastric Drainage 200 / 200 Right Nare 200 / 200 Other: # Voids 2 # Urine Diapers 3 Date of Last Bowel Movement 04/12/18 04/13/18 Weight 44 kg Assessment and Plan - Attending Attestation afib hypotension digoxin load + PO daily Cr normal hold BB due to hypotension. Dc amio gtt
[2018-04-13] MEDS ORDERED: ceFAZolin 2 GM Premix Inj 2 GM/50 ML PIGGYBACK IV.SIG ONE (15:35)
[2018-04-13] MEDS: Pantoprazole Inj 40 MG Vial IV.PUSH SCH (15:42)
--- NOTE | 2018-04-13 15:49 | P.PNVS ---
Subjective Subjective/Hospital Course: 04/13/2018 Patient with abdominal pain and vascular occlusive disease diffusely and particularly in the visceral branches of the aorta. 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 As I stated in my original consult, it is unclear whether this patient's abdominal pain is due to combination of abdominal incision GI propulsion issues and dynamics or does the vascular supply play any role. 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 I discussed this case with interventional radiology and patient was taken to the interventional suite today. Celiac axis initial opening gradient was over 100 mmHg and therefore patient underwent successful celiac axis balloon angioplasty and stenting. Grateful for expert work by Dr. Khan. Nothing further to add to care Objective Vital Signs / I&O: Vital Signs 04/12/18 16:00 04/12/18 18:00 04/12/18 20:00 Temperature 98.8 F 99 F Pulse Rate 105 H 113 H 112 H Respiratory Rate 19 20 Blood Pressure 115/68 102/75 Pulse Oximetry 93 L 96 04/12/18 22:00 04/13/18 00:00 04/13/18 02:00 Temperature 99.1 F Pulse Rate 116 H 200 H 93 H Respiratory Rate 21 Blood Pressure 108/57 L Pulse Oximetry 96 04/13/18 02:30 04/13/18 02:45 04/13/18 03:00 Temperature Pulse Rate 84 81 Respiratory Rate 14 13 Blood Pressure 112/63 100/64 91/61 L Pulse Oximetry 100 100 04/13/18 03:15 04/13/18 03:30 04/13/18 03:45 Temperature Pulse Rate 81 80 87 Respiratory Rate 14 15 16 Blood Pressure 90/61 L 96/60 L 94/60 L Pulse Oximetry 100 100 99 04/13/18 04:00 04/13/18 04:15 04/13/18 04:30 Temperature 98.4 F Pulse Rate 95 H 85 83 Respiratory Rate 16 16 15 Blood Pressure 99/64 L 99/63 L 98/62 L Pulse Oximetry 98 98 98 04/13/18 04:45 04/13/18 05:00 04/13/18 05:01 Temperature Pulse Rate 97 H 92 H 92 H Respiratory Rate 16 21 24 Blood Pressure 100/65 100/56 L Pulse Oximetry 100 97 98 04/13/18 05:15 04/13/18 05:30 04/13/18 05:45 Temperature Pulse Rate 94 H 83 82 Respiratory Rate 17 16 15 Blood Pressure 105/62 98/67 L 104/69 Pulse Oximetry 97 99 100 04/13/18 06:00 04/13/18 06:15 04/13/18 06:30 Temperature Pulse Rate 85 87 79 Respiratory Rate 17 19 16 Blood Pressure 106/68 94/68 L 101/66 Pulse Oximetry 99 98 99 04/13/18 06:45 04/13/18 07:00 04/13/18 07:15 Temperature Pulse Rate 85 81 86 Respiratory Rate 18 15 17 Blood Pressure 98/65 L 98/65 L 100/63 Pulse Oximetry 99 96 97 04/13/18 07:30 04/13/18 07:46 04/13/18 07:56 Temperature Pulse Rate 83 83 Respiratory Rate 19 17 Blood Pressure 103/65 94/65 L Pulse Oximetry 99 100 97 04/13/18 08:00 04/13/18 08:15 04/13/18 08:30 Temperature 97.5 F L Pulse Rate 83 80 81 Respiratory Rate 15 16 15 Blood Pressure 97/66 L 104/64 102/64 Pulse Oximetry 100 100 100 04/13/18 08:45 04/13/18 09:00 04/13/18 09:15 Temperature Pulse Rate 83 83 92 H Respiratory Rate 17 14 23 Blood Pressure 104/64 101/63 103/63 Pulse Oximetry 100 100 100 04/13/18 09:30 04/13/18 09:45 04/13/18 10:00 Temperature Pulse Rate 92 H 82 85 Respiratory Rate 18 16 14 Blood Pressure 100/65 95/62 L 101/62 Pulse Oximetry 100 99 100 04/13/18 10:15 04/13/18 10:30 04/13/18 10:45 Temperature Pulse Rate 95 H 89 82 Respiratory Rate 20 18 14 Blood Pressure 94/55 L 99/58 L 98/59 L Pulse Oximetry 100 100 100 04/13/18 11:00 04/13/18 11:15 04/13/18 11:30 Temperature Pulse Rate 90 85 88 Respiratory Rate 17 17 19 Blood Pressure 97/61 L 100/63 98/63 L Pulse Oximetry 100 100 100 04/13/18 11:45 08/06/18 12:00 04/13/18 12:15 Temperature 97 F L Pulse Rate 90 88 89 Respiratory Rate 18 15 16 Blood Pressure 93/58 L 91/59 L 90/61 L Pulse Oximetry 100 100 100 04/13/18 12:30 04/13/18 12:45 Temperature Pulse Rate 91 H 93 H Respiratory Rate 16 18 Blood Pressure 90/64 L 96/60 L Pulse Oximetry 100 100 Intake & Output 04/12/18 04/13/18 04/13/18 18:59 06:59 18:59 Intake Total 500 / 500 2400 / 2400 863 / 863 Output Total 205 / 205 1400 / 1400 450 / 450 Balance 295 / 295 1000 / 1000 413 / 413 Weight 44 kg Intake: IV 400 / 400 2400 / 2400 863 / 863 Cordarone Inj 450 MG In D5W Inj 250 / 250 241 ML @ 1 MG/MIN 33.33 mls/hr IV.CONT TITRATE PRN Rx#: [id number] Neosynephrine Inj 40 MG In D5W 306 / 306 Inj 496 ML @ 40 MCG/MIN 30 mls/ hr IV.CONT TITRATE PRN Rx#: [id number] Calcium Chloride Inj 0.667 GM 107 / 107 In NS Inj 100 ML @ 120 mls/hr IV.SIG ONCE ONE Rx#:[id number] Maxipime Inj 1,000 MG In NS Inj 100 / 100 100 / 100 100 ML @ 200 mls/hr IV.SIG Q12H FRANCA Rx#:[id number] Magnesium Sulfate Inj 4 GM In 100 / 100 100 / 100 NS Inj 92 ML @ 25 mls/hr IV.SIG ONCE ONE Rx#:[id number] KCl 20 mEq Premix Inj 20 meq In 100 / 100 100 ml @ 50 mls/hr IV.SIG Q2H PRN Rx#:[id number] KCl 40 mEq Premix Inj 40 meq In 100 / 100 100 ml @ 25 mls/hr IV.SIG UNSCH PRN Rx#:[id number] Flagyl 500 MG Inj 100 ML @ 100 200 / 200 200 / 200 mls/hr IV.SIG Q8H FRANCA Rx#: [id number] Oral 100 / 100 Output: Urine 450 / 450 Stool 750 / 750 Urine Amount (Catheter) 0 / 0 450 / 450 Female External 0 / 0 450 / 450 Gastric Drainage 205 / 205 200 / 200 Right Nare 205 / 200 / 200 Other: # Voids 5 2 # Urine Diapers 3 Date of Last Bowel Movement 04/12/18 04/12/18 04/13/18 # Bowel Movements 6 Laboratory Results - last 24 hr 04/13/18 04/13/18 04/13/18 04:40 04:40 09:23 WBC 9.0 RBC 2.81 L Hgb 8.2 L D Hct 24.7 L MCV 87.9 D MCH 29.3 MCHC 33.4 RDW 17.5 H Plt Count 479 H MPV 8.0 Neut % (Auto) 80.2 H Lymph % (Auto) 12.5 [place] % (Auto) 6.9 Eos % (Auto) 0.2 Baso % (Auto) 0.2 Neut # (Auto) 7.2 Lymph # (Auto) 1.1 [place] # (Auto) 0.6 Eos # (Auto) 0.0 Baso # (Auto) 0.0 WBC Differential . Differential Comment Auto diff final Sodium 144 Potassium 2.9 L* D Chloride 113 H Carbon Dioxide 21.7 Anion Gap 9 BUN 8 Creatinine 0.64 Estimated GFR Greater than 89 POC Glucose 159 H Random Glucose 140 H Calcium 6.5 L* Prot Corrected Calcium 7.8 L Magnesium 1.6 Total Protein 4.6 L D Microbiology 04/12/18 15:39 Stool Occult Blood (JESSICA) - Final Stool Hemoccult positive Impressions Abdomen MRA 04/11/18 00:00 CONCLUSION: 1. 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 2. 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 3. 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 Small Bowel X-Ray 04/12/18 00:00 CONCLUSION: Negative for small bowel obstruction or significant dilatation. Transit time is less than 4 hours. NG tip in distal stomach.
--- NOTE | 2018-04-13 15:59 | P.RAD ---
Post Procedure Progress Note - Pre Procedure Diagnosis (1) Ischemia, bowel - Post Procedure Diagnosis (1) Mesenteric artery stenosis (2) Ischemia, bowel (3) Abdominal pain - Procedure Information Procedure Date: 04/13/18 Supervising Radiologist: Mckay Khan MD Estimated blood loss (mL): 4 Anesthesia: Local, Analgesia, Conscious Sedation - Plan of Activity Patient to Unit: Critical Care Patient Condition: Good See PACS Report for procedural detail/treatment. Vascular - Arterial Procedure Celiac Procedure: Angiogram, Stent Placement - Access right Leg vascular closure device (PerClose) - Additional Information Findings: SMA appeared chronically occluded on CTA. 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 Stented with 7x17 Express stent with excellent angiographic result
[2018-04-13] MEDS ORDERED: Digoxin Inj 500 MCG/2 ML Ampul IV.PUSH ONE (16:07)
--- NOTE | 2018-04-13 16:22 | P.PNGI ---
Subjective Interval history: Pt resting in bed, just returned from IR for celiac stent placement. Pt with NG to LIWS. Rectal bag with liquid green stool. <Gloria Campos - Last Filed: 04/13/18 16:35> Physical Exam Vital signs: Vital Signs 04/12/18 18:00 04/12/18 20:00 04/12/18 22:00 Temperature 99 F Pulse Rate 113 H 112 H 116 H Respiratory Rate 20 Blood Pressure 102/75 Pulse Oximetry 96 04/13/18 00:00 04/13/18 02:00 04/13/18 02:30 Temperature 99.1 F Pulse Rate 200 H 93 H Respiratory Rate 21 Blood Pressure 108/57 L 112/63 Pulse Oximetry 96 04/13/18 02:45 04/13/18 03:00 04/13/18 03:15 Temperature Pulse Rate 84 81 81 Respiratory Rate 14 13 14 Blood Pressure 100/64 91/61 L 90/61 L Pulse Oximetry 100 100 100 04/13/18 03:30 04/13/18 03:45 04/13/18 04:00 Temperature 98.4 F Pulse Rate 80 87 95 H Respiratory Rate 15 16 16 Blood Pressure 96/60 L 94/60 L 99/64 L Pulse Oximetry 100 99 98 04/13/18 04:15 04/13/18 04:30 04/13/18 04:45 Temperature Pulse Rate 85 83 97 H Respiratory Rate 16 15 16 Blood Pressure 99/63 L 98/62 L 100/65 Pulse Oximetry 98 98 100 04/13/18 05:00 04/13/18 05:01 04/13/18 05:15 Temperature Pulse Rate 92 H 92 H 94 H Respiratory Rate 21 24 17 Blood Pressure 100/56 L 105/62 Pulse Oximetry 97 98 97 04/13/18 05:30 04/13/18 05:45 04/13/18 06:00 Temperature Pulse Rate 83 82 85 Respiratory Rate 16 15 17 Blood Pressure 98/67 L 104/69 106/68 Pulse Oximetry 99 100 99 04/13/18 06:15 04/13/18 06:30 04/13/18 06:45 Temperature Pulse Rate 87 79 85 Respiratory Rate 19 16 18 Blood Pressure 94/68 L 101/66 98/65 L Pulse Oximetry 98 99 99 04/13/18 07:00 04/13/18 07:15 04/13/18 07:30 Temperature Pulse Rate 81 86 83 Respiratory Rate 15 17 19 Blood Pressure 98/65 L 100/63 103/65 Pulse Oximetry 96 97 99 04/13/18 07:46 04/13/18 07:56 04/13/18 08:00 Temperature 97.5 F L Pulse Rate 83 83 Respiratory Rate 17 15 Blood Pressure 94/65 L 97/66 L Pulse Oximetry 100 97 100 04/13/18 08:15 04/13/18 08:30 04/13/18 08:45 Temperature Pulse Rate 80 81 83 Respiratory Rate 16 15 17 Blood Pressure 104/64 102/64 104/64 Pulse Oximetry 100 100 100 04/13/18 09:00 04/13/18 09:15 04/13/18 09:30 Temperature Pulse Rate 83 92 H 92 H Respiratory Rate 14 23 18 Blood Pressure 101/63 103/63 100/65 Pulse Oximetry 100 100 100 04/13/18 09:45 04/13/18 10:00 04/13/18 10:15 Temperature Pulse Rate 82 85 95 H Respiratory Rate 16 14 20 Blood Pressure 95/62 L 101/62 94/55 L Pulse Oximetry 99 100 100 04/13/18 10:30 04/13/18 10:45 04/13/18 11:00 Temperature Pulse Rate 89 82 90 Respiratory Rate 18 14 17 Blood Pressure 99/58 L 98/59 L 97/61 L Pulse Oximetry 100 100 100 04/13/18 11:15 04/13/18 11:30 04/13/18 11:45 Temperature Pulse Rate 85 88 90 Respiratory Rate 17 19 18 Blood Pressure 100/63 98/63 L 93/58 L Pulse Oximetry 100 100 100 04/13/18 12:00 04/13/18 12:15 04/13/18 12:30 Temperature 97 F L Pulse Rate 88 89 91 H Respiratory Rate 15 16 16 Blood Pressure 91/59 L 90/61 L 90/64 L Pulse Oximetry 100 100 100 04/13/18 12:45 Temperature Pulse Rate 93 H Respiratory Rate 18 Blood Pressure 96/60 L Pulse Oximetry 100 Intake & Output 04/12/18 04/13/18 04/13/18 18:59 06:59 18:59 Intake Total 500 / 500 2400 / 2400 863 / 863 Output Total 205 / 205 1400 / 1400 450 / 450 Balance 295 / 295 1000 / 1000 413 / 413 Weight 44 kg Intake: IV 400 / 400 2400 / 2400 863 / 863 Cordarone Inj 450 MG In D5W Inj 250 / 250 241 ML @ 1 MG/MIN 33.33 mls/hr IV.CONT TITRATE PRN Rx#: [id number] Neosynephrine Inj 40 MG In D5W 306 / 306 Inj 496 ML @ 40 MCG/MIN 30 mls/ hr IV.CONT TITRATE PRN Rx#: [id number] Calcium Chloride Inj 0.667 GM 107 / 107 In NS Inj 100 ML @ 120 mls/hr IV.SIG ONCE ONE Rx#:[id number] Maxipime Inj 1,000 MG In NS Inj 100 / 100 100 / 100 100 ML @ 200 mls/hr IV.SIG Q12H FRANCA Rx#:[id number] Magnesium Sulfate Inj 4 GM In 100 / 100 100 / 100 NS Inj 92 ML @ 25 mls/hr IV.SIG ONCE ONE Rx#:[id number] KCl 20 mEq Premix Inj 20 meq In 100 / 100 100 ml @ 50 mls/hr IV.SIG Q2H PRN Rx#:[id number] KCl 40 mEq Premix Inj 40 meq In 100 / 100 100 ml @ 25 mls/hr IV.SIG UNSCH PRN Rx#:[id number] Flagyl 500 MG Inj 100 ML @ 100 200 / 200 200 / 200 mls/hr IV.SIG Q8H FRANCA Rx#: [id number] Oral 100 / 100 Output: Urine 450 / 450 Stool 750 / 750 Urine Amount (Catheter) 0 / 0 450 / 450 Female External 0 / 0 450 / 450 Gastric Drainage 205 / 205 200 / 200 Right Nare 205 / 205 200 / 200 Other: # Voids 5 2 # Urine Diapers 3 Date of Last Bowel Movement 04/12/18 04/12/18 04/13/18 # Bowel Movements 6 - Constitutional no acute distress - Routine HEENT Exam Head: Present: normocephalic, atraumatic - Routine Abdominal Exam Comments: Abdominal exam deferred due to pain - Urinary Catheter Management Female External Cath placed during this visit: no <Gloria Campos - Last Filed: 04/13/18 16:35> Vital signs: Vital Signs 04/12/18 20:00 04/12/18 22:00 04/13/18 00:00 Temperature 99 F 99.1 F Pulse Rate 112 H 116 H 200 H Respiratory Rate 20 21 Blood Pressure 102/75 108/57 L Pulse Oximetry 96 96 04/13/18 02:00 04/13/18 02:30 04/13/18 02:45 Temperature Pulse Rate 93 H 84 Respiratory Rate 14 Blood Pressure 112/63 100/64 Pulse Oximetry 100 04/13/18 03:00 04/13/18 03:15 04/13/18 03:30 Temperature Pulse Rate 81 81 80 Respiratory Rate 13 14 15 Blood Pressure 91/61 L 90/61 L 96/60 L Pulse Oximetry 100 100 100 04/13/18 03:45 04/13/18 04:00 04/13/18 04:15 Temperature 98.4 F Pulse Rate 87 95 H 85 Respiratory Rate 16 16 16 Blood Pressure 94/60 L 99/64 L 99/63 L Pulse Oximetry 99 98 98 04/13/18 04:30 04/13/18 04:45 04/13/18 05:00 Temperature Pulse Rate 83 97 H 92 H Respiratory Rate 15 16 21 Blood Pressure 98/62 L 100/65 Pulse Oximetry 98 100 97 04/13/18 05:01 04/13/18 05:15 04/13/18 05:30 Temperature Pulse Rate 92 H 94 H 83 Respiratory Rate 24 17 16 Blood Pressure 100/56 L 105/62 98/67 L Pulse Oximetry 98 97 99 04/13/18 05:45 04/13/18 06:00 04/13/18 06:15 Temperature Pulse Rate 82 85 87 Respiratory Rate 15 17 19 Blood Pressure 104/69 106/68 94/68 L Pulse Oximetry 100 99 98 04/13/18 06:30 04/13/18 06:45 04/13/18 07:00 Temperature Pulse Rate 79 85 81 Respiratory Rate 16 18 15 Blood Pressure 101/66 98/65 L 98/65 L Pulse Oximetry 99 99 96 04/13/18 07:15 04/13/18 07:30 04/13/18 07:46 Temperature Pulse Rate 86 83 83 Respiratory Rate 17 19 17 Blood Pressure 100/63 103/65 94/65 L Pulse Oximetry 97 99 100 04/13/18 07:56 04/13/18 08:00 04/13/18 08:15 Temperature 97.5 F L Pulse Rate 83 80 Respiratory Rate 15 16 Blood Pressure 97/66 L 104/64 Pulse Oximetry 97 100 100 04/13/18 08:30 04/13/18 08:45 04/13/18 09:00 Temperature Pulse Rate 81 83 83 Respiratory Rate 15 17 14 Blood Pressure 102/64 104/64 101/63 Pulse Oximetry 100 100 100 04/13/18 09:15 04/13/18 09:30 04/13/18 09:45 Temperature Pulse Rate 92 H 92 H 82 Respiratory Rate 23 18 16 Blood Pressure 103/63 100/65 95/62 L Pulse Oximetry 100 100 99 04/13/18 10:00 04/13/18 10:15 04/13/18 10:30 Temperature Pulse Rate 85 95 H 89 Respiratory Rate 14 20 18 Blood Pressure 101/62 94/55 L 99/58 L Pulse Oximetry 100 100 100 04/13/18 10:45 04/13/18 11:00 04/13/18 11:15 Temperature Pulse Rate 82 90 85 Respiratory Rate 14 17 17 Blood Pressure 98/59 L 97/61 L 100/63 Pulse Oximetry 100 100 100 04/13/18 11:30 04/13/18 11:45 04/13/18 12:00 Temperature 97 F L Pulse Rate 88 90 88 Respiratory Rate 19 18 15 Blood Pressure 98/63 L 93/58 L 91/59 L Pulse Oximetry 100 100 100 04/13/18 12:15 04/13/18 12:30 04/13/18 12:45 Temperature Pulse Rate 89 91 H 93 H Respiratory Rate 16 16 18 Blood Pressure 90/61 L 90/64 L 96/60 L Pulse Oximetry 100 100 100 04/13/18 13:00 04/13/18 13:15 04/13/18 13:29 Temperature Pulse Rate 92 H 90 92 H Respiratory Rate 16 19 17 Blood Pressure 94/62 L 89/61 L 94/63 L Pulse Oximetry 100 100 98 04/13/18 13:45 04/13/18 15:44 04/13/18 15:50 Temperature Pulse Rate 91 H 90 90 Respiratory Rate 16 19 Blood Pressure 97/63 L 98/63 L Pulse Oximetry 98 100 100 04/13/18 16:00 04/13/18 17:00 04/13/18 18:00 Temperature 98 F Pulse Rate 92 H 95 H 93 H Respiratory Rate 20 17 16 Blood Pressure 98/63 L Pulse Oximetry 98 94 L 100 Intake & Output 08/05/18 08/06/18 08/06/18 18:59 06:59 18:59 Intake Total 500 / 500 2400 / 2400 4267 / 4267 Output Total 205 / 205 1400 / 1400 900 / 900 Balance 295 / 295 1000 / 1000 3367 / 3367 Weight 44 kg Intake: IV 400 / 400 2400 / 2400 3647 / 3647 Intralipid 20% Inj 250 ML @ 10 211 / 211 mls/hr IV.CENTRAL Q24H FRANCA Rx#: [id number] Cordarone Inj 450 MG In D5W Inj 405 / 405 241 ML @ 1 MG/MIN 33.33 mls/hr IV.CONT TITRATE PRN Rx#: [id number] Neosynephrine Inj 40 MG In D5W 306 / 306 Inj 496 ML @ 40 MCG/MIN 30 mls/ hr IV.CONT TITRATE PRN Rx#: [id number] Calcium Chloride Inj 0.667 GM 107 / 107 In NS Inj 100 ML @ 120 mls/hr IV.SIG ONCE ONE Rx#:[id number] Maxipime Inj 1,000 MG In NS Inj 100 / 100 100 / 100 100 / 100 100 ML @ 200 mls/hr IV.SIG Q12H FRANCA Rx#:[id number] Magnesium Sulfate Inj 4 GM In 100 / 100 100 / 100 NS Inj 92 ML @ 25 mls/hr IV.SIG ONCE ONE Rx#:[id number] MVI-12 Inj 10 ML Folvite Inj 1 1168 / 1168 MG In CLINIMIX E 4.25%/D5W Inj 2,000 ML @ 55 mls/hr IV.SIG Q24H FRANCA Rx#:[id number] KCl 20 mEq Premix Inj 20 meq In 100 / 100 100 ml @ 50 mls/hr IV.SIG Q2H PRN Rx#:[id number] KCl 40 mEq Premix Inj 40 meq In 100 / 100 100 ml @ 25 mls/hr IV.SIG UNSCH PRN Rx#:[id number] Ancef 2 GM Premix Inj 2 gm In 50 / 50 50 ml @ 0 mls/hr IV.SIG .STK- MED ONE Rx#:[id number] Flagyl 500 MG Inj 100 ML @ 100 200 / 200 200 / 200 100 / 100 mls/hr IV.SIG Q8H FRANCA Rx#: [id number] Oral 100 / 100 500 / 500 Tube Irrigant 120 / 120 Output: Urine 450 / 450 Stool 750 / 750 150 / 150 Urine Amount (Catheter) 0 / 0 700 / 700 Female External 0 / 0 700 / 700 Gastric Drainage 200 / 200 50 / 50 Right Nare 200 / 200 50 / 50 Other: # Voids 5 2 # Urine Diapers 3 Date of Last Bowel Movement 04/12/18 04/12/18 04/13/18 # Bowel Movements 6 - Urinary Catheter Management Female External Cath placed during this visit: no <Eda Adrian - Last Filed: 04/13/18 18:47> Results - Labs CBC & Chem 7: 04/13/18 04:40 04/13/18 04:40 Laboratory Results - last 24 hr 04/13/18 04/13/18 04/13/18 04:40 04:40 09:23 WBC 9.0 RBC 2.81 L Hgb 8.2 L D Hct 24.7 L MCV 87.9 D MCH 29.3 MCHC 33.4 RDW 17.5 H Plt Count 479 H MPV 8.0 Neut % (Auto) 80.2 H Lymph % (Auto) 12.5 [place] % (Auto) 6.9 Eos % (Auto) 0.2 Baso % (Auto) 0.2 Neut # (Auto) 7.2 Lymph # (Auto) 1.1 [place] # (Auto) 0.6 Eos # (Auto) 0.0 Baso # (Auto) 0.0 WBC Differential . Differential Comment Auto diff final Sodium 144 Potassium 2.9 L* D Chloride 113 H Carbon Dioxide 21.7 Anion Gap 9 BUN 8 Creatinine 0.64 Estimated GFR Greater than 89 POC Glucose 159 H Random Glucose 140 H Calcium 6.5 L* Prot Corrected Calcium 7.8 L Magnesium 1.6 Total Protein 4.6 L D Microbiology 04/12/18 15:39 Stool Stool Occult Blood (JESSICA) - Final Hemoccult positive - Imaging Impressions Small Bowel X-Ray 04/12/18 00:00 CONCLUSION: Negative for small bowel obstruction or significant dilatation. Transit time is less than 4 hours. NG tip in distal stomach. <Gloria Campos - Last Filed: 04/13/18 16:35> - Labs CBC & Chem 7: 04/13/18 16:42 04/13/18 16:42 Laboratory Results - last 24 hr 04/13/18 04/13/18 04/13/18 04:40 04:40 09:23 WBC 9.0 RBC 2.81 L Hgb 8.2 L D Hct 24.7 L MCV 87.9 D MCH 29.3 MCHC 33.4 RDW 17.5 H Plt Count 479 H MPV 8.0 Neut % (Auto) 80.2 H Lymph % (Auto) 12.5 [place] % (Auto) 6.9 Eos % (Auto) 0.2 Baso % (Auto) 0.2 Neut # (Auto) 7.2 Lymph # (Auto) 1.1 [place] # (Auto) 0.6 Eos # (Auto) 0.0 Baso # (Auto) 0.0 WBC Differential . Differential Comment Auto diff final Sodium 144 Potassium 2.9 L* D Chloride 113 H Carbon Dioxide 21.7 Anion Gap 9 BUN 8 Creatinine 0.64 Estimated GFR Greater than 89 POC Glucose 159 H Random Glucose 140 H Calcium 6.5 L* Prot Corrected Calcium 7.8 L Magnesium 1.6 Total Protein 4.6 L D 04/13/18 04/13/18 04/13/18 16:42 16:42 17:46 WBC RBC Hgb 8.4 L Hct 25.7 L MCV MCH MCHC RDW Plt Count MPV Neut % (Auto) Lymph % (Auto) [place] % (Auto) Eos % (Auto) Baso % (Auto) Neut # (Auto) Lymph # (Auto) [place] # (Auto) Eos # (Auto) Baso # (Auto) WBC Differential Differential Comment Sodium Potassium 3.2 L Chloride Carbon Dioxide Anion Gap BUN Creatinine Estimated GFR POC Glucose 126 H Random Glucose Calcium Prot Corrected Calcium Magnesium Total Protein Microbiology 04/12/18 15:39 Stool Stool Occult Blood (JESSICA) - Final Hemoccult positive <Eda Adrian - Last Filed: 04/13/18 18:47> Assessment and Plan (1) Abdominal pain Status: Acute Code(s): R10.9 - Unspecified abdominal pain (2) Ischemia, bowel Status: Acute Code(s): K55.9 - Vascular disorder of intestine, unspecified (3) Anemia Status: Acute Code(s): D64.9 - Anemia, unspecified - Plan Assessment: - Nausea, vomiting, abdominal pain, diarrhea Imaging consistent with mesenteric ischemia MRA --> Occlusion of the SMA proximally with reconstitution of small SMA approximately 3 cm distal to the origin. 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 S/P IR for stenting of celiac artery today- vascular surgery has signed off SBFT shows no obstruction (04/13) Pt just returned from IR procedure for celiac artery stent. NG to LIWS with small amount of yellow colored drainage. Rectal bag with liquid green stool. Pt went into SVT last night, cardioversion x 3, now on Amiodarone gtt. Of note , due to vomiting has not had Metoprolol in a few days Drop in hgb noted, stool heme (+). No obvious GIB. Loading dose of Plavix ordered due to stent placement Plan: NG to LIWS Diet based on symptom improvement Monitor stool output GS Following Stool studies Further recommendations to follow Pt has been seen and examined by myself and Dr. Adrian and this note is written on her behalf <Gloria Campos - Last Filed: 04/13/18 16:35> (1) Abdominal pain Status: Acute Code(s): R10.9 - Unspecified abdominal pain (2) Ischemia, bowel Status: Acute Code(s): K55.9 - Vascular disorder of intestine, unspecified (3) Anemia Status: Acute Code(s): D64.9 - Anemia, unspecified - Attending Attestation seen, examined agree with above keep npo for now <Eda Adrian - Last Filed: 04/13/18 18:47> <Gloria Campos - Last Filed: 04/13/18 16:35> (3) Anemia Qualifiers: Anemia type: unspecified type Qualified Code(s): D64.9 - Anemia, unspecified <Eda Adrian - Last Filed: 04/13/18 18:47> (3) Anemia Qualifiers: Anemia type: unspecified type Qualified Code(s): D64.9 - Anemia, unspecified
[2018-04-13 17:02] LABS: Hematocrit 25.7 % (35.0-46.0); Hemoglobin 8.4 gm/dL (11.6-15.3)
[2018-04-13] MEDS: Potassium Chlor 40 mEq Premix 40 MEQ/100 ML PIGGYBACK IV.SIG PRN ×2 (18:17→22:33)
[2018-04-13] MEDS: Multivitamin Inj 10 ML, Folic Acid Inj 1 MG in AA 4.25 %/D5W - Electrolytes 2,000 ML IV.SIG SCH (20:11)
[2018-04-14] MEDS: Insulin NovoLIN Regular Correctional Sugar Inj SQ SCH ×6 (00:22→20:44)
[2018-04-14] MEDS: Morphine Inj 4 MG/ML Vial IV.PUSH PRN ×6 (00:41→22:20)
[2018-04-14] MEDS: Temazepam 15 MG Capsule PO PRN (02:30)
[2018-04-14 05:37] LABS: Baso % (Auto) 0.4 % (0.0-2.0); Eos # (Auto) 0.2 th/mm3 (0.0-0.4); Eos % (Auto) 3.1 % (0.0-4.0); Hematocrit 22.7 % (35.0-46.0); Hemoglobin 7.5 gm/dL (11.6-15.3); Lymph # (Auto) 1.1 th/mm3 (1.0-4.8); Lymph % (Auto) 14.3 % (9.0-44.0); Mean Corpuscular HGB Conc 32.8 % (32.0-36.0); Mean Corpuscular Hemoglobin 28.5 pg (27.0-34.0); Mean Corpuscular Volume 86.8 fL (80.0-100.0); Mean Platelet Volume 8.2 fL (7.0-11.0); Mono # (Auto) 0.6 th/mm3 (0.0-0.9); Neut # (Auto) 5.6 th/mm3 (1.8-7.7); Neut % (Auto) 74.2 % (16.0-70.0); Platelet Count 391 th/mm3 (150-450); Red Blood Count 2.62 mil/mm3 (4.00-5.30); Red Cell Distribution Width 17.5 % (11.6-17.2); White Blood Count 7.5 th/mm3 (4.0-11.0)
[2018-04-14 05:58] LABS: Anion Gap 6 meq/L (5-15); Blood Urea Nitrogen 10 mg/dL (7-18); Calcium 6.9 mg/dL (8.5-10.1); Carbon Dioxide 22.1 meq/L (21.0-32.0); Chloride 110 meq/L (98-107); Glomerular Filtration Rate Greater Than 89 mL/min (>89); Glucose,Random 105 mg/dL (74-106); Magnesium 2.1 mg/dL (1.5-2.5); Phosphorus 2.1 mg/dL (2.5-4.9); Potassium 4.9 meq/L (3.5-5.1); Sodium 138 meq/L (136-145)
[2018-04-14 06:17] LABS: Total Protein 4.4 g/dL (6.4-8.2)
--- NOTE | 2018-04-14 07:41 | ECG ---
Date Performed: 04/12/2018 Time Performed: 23:27:36 PTAGE: 72 years EKG: Supraventricular tachycardia. Leftward axis Abnormal ECG NO PREVIOUS TRACING DOCTOR: Odalis Bennett Interpretating Date/Time 04/14/2018 07:36:44
[2018-04-14] MEDS: Heparin Central Flush 100 UNIT/ML 5 ML Vial IV.FLUSH SCH (08:10)
[2018-04-14] MEDS ORDERED: Digoxin 250 MCG Tablet PO SCH (09:00)
--- NOTE | 2018-04-14 11:01 | P.PNGS ---
Subjective Interval history: She continues to feel poorly overall. Has had liquid bowel movts. Had celiac stent placed yesterday in IR by Dr. Khan. Physical Exam Vital signs: Vital Signs 04/13/18 11:15 04/13/18 11:30 04/13/18 11:45 Temperature Pulse Rate 85 88 90 Respiratory Rate 17 19 18 Blood Pressure 100/63 98/63 L 93/58 L Pulse Oximetry 100 100 100 04/13/18 12:00 04/13/18 12:15 04/13/18 12:30 Temperature 97 F L Pulse Rate 88 89 91 H Respiratory Rate 15 16 16 Blood Pressure 91/59 L 90/61 L 90/64 L Pulse Oximetry 100 100 100 04/13/18 12:45 04/13/18 13:00 04/13/18 13:15 Temperature Pulse Rate 93 H 92 H 90 Respiratory Rate 18 16 19 Blood Pressure 96/60 L 94/62 L 89/61 L Pulse Oximetry 100 100 100 04/13/18 13:29 04/13/18 13:45 04/13/18 15:44 Temperature Pulse Rate 92 H 91 H 90 Respiratory Rate 17 16 Blood Pressure 94/63 L 97/63 L Pulse Oximetry 98 98 100 04/13/18 15:50 04/13/18 16:00 04/13/18 17:00 Temperature 98 F Pulse Rate 90 92 H 95 H Respiratory Rate 19 20 17 Blood Pressure 98/63 L 98/63 L Pulse Oximetry 100 98 94 L 04/13/18 18:00 04/13/18 18:42 04/13/18 19:00 Temperature Pulse Rate 93 H 96 H 101 H Respiratory Rate 16 17 21 Blood Pressure 90/61 L 90/65 L Pulse Oximetry 100 100 100 04/13/18 19:01 04/13/18 20:00 04/13/18 20:29 Temperature 100 F H Pulse Rate 102 H 93 H Respiratory Rate 21 18 Blood Pressure 90/65 L 92/62 L Pulse Oximetry 100 100 100 04/13/18 21:00 04/13/18 22:00 04/13/18 23:00 Temperature Pulse Rate 89 92 H 80 Respiratory Rate 17 19 15 Blood Pressure 88/63 L 90/57 L 83/57 L Pulse Oximetry 100 100 100 04/14/18 00:00 04/14/18 00:06 04/14/18 01:00 Temperature 98.6 F Pulse Rate 85 79 Respiratory Rate 16 16 Blood Pressure 91/64 L 86/57 L Pulse Oximetry 100 98 100 04/14/18 02:00 04/14/18 03:00 04/14/18 04:00 Temperature 99.1 F Pulse Rate 79 85 75 Respiratory Rate 17 15 15 Blood Pressure 87/60 L 87/61 L 87/61 L Pulse Oximetry 100 100 100 04/14/18 04:15 04/14/18 05:00 04/14/18 06:00 Temperature Pulse Rate 81 85 Respiratory Rate 20 14 Blood Pressure 97/63 L 93/65 L Pulse Oximetry 100 94 L 100 04/14/18 07:00 04/14/18 08:00 04/14/18 08:08 Temperature 98.7 F Pulse Rate 92 H 87 Respiratory Rate 15 14 Blood Pressure 104/72 105/70 Pulse Oximetry 100 100 100 Intake & Output 04/13/18 04/14/18 04/14/18 18:59 06:59 18:59 Intake Total 4267 / 4267 1376.2 / 1376.2 Output Total 900 / 900 475 / 475 Balance 3367 / 3367 901.2 / 901.2 Weight 44 kg Intake: IV 3647 / 3647 1376.2 / 1376.2 Intralipid 20% Inj 250 ML @ 10 211 / 211 39 / 39 mls/hr IV.CENTRAL Q24H [facility] Rx#: [id number] Cordarone Inj 450 MG In D5W Inj 405 / 405 95 / 95 241 ML @ 1 MG/MIN 33.33 mls/hr IV.CONT TITRATE PRN Rx#: [id number] Neosynephrine Inj 40 MG In D5W 306 / 306 Inj 496 ML @ 40 MCG/MIN 30 mls/ hr IV.CONT TITRATE PRN Rx#: [id number] Calcium Chloride Inj 0.667 GM 107 / 107 In NS Inj 100 ML @ 120 mls/hr IV.SIG ONCE ONE Rx#:[id number] Maxipime Inj 1,000 MG In NS Inj 100 / 100 100 / 100 100 ML @ 200 mls/hr IV.SIG Q12H [facility] Rx#:[id number] Magnesium Sulfate Inj 4 GM In 100 / 100 NS Inj 92 ML @ 25 mls/hr IV.SIG ONCE ONE Rx#:[id number] MVI-12 Inj 10 ML Folvite Inj 1 1168 / 1168 842.2 / 842.2 MG In CLINIMIX E 4.25%/D5W Inj 2,000 ML @ 55 mls/hr IV.SIG Q24H [facility] Rx#:[id number] KCl 40 mEq Premix Inj 40 meq In 100 / 100 200 / 200 100 ml @ 25 mls/hr IV.SIG Q2H [facility] Rx#:[id number] Ancef 2 GM Premix Inj 2 gm In 50 / 50 50 ml @ 0 mls/hr IV.SIG .STK- MED ONE Rx#:[id number] Flagyl 500 MG Inj 100 ML @ 100 100 / 100 100 / 100 mls/hr IV.SIG Q8H [facility] Rx#: [id number] Oral 500 / 500 Tube Irrigant 120 / 120 Output: Stool 150 / 150 Urine Amount (Catheter) 700 / 700 300 / 300 Female External 700 / 700 300 / 300 Gastric Drainage 50 / 50 175 / 175 Right Nare 50 / 50 175 / 175 Other: # Voids 3 Date of Last Bowel Movement 04/13/18 04/14/18 04/14/18 # Bowel Movements 2 Narrative: NAD Abd: mild distention, mild ttp, improved from recently - Urinary Catheter Management Female External Cath placed during this visit: no Assessment and Plan - Plan 72 yo F recent ex lap and ileocectomy. Severe peripheral vascular disease. ? occlusion of SMA. Now with ileus unclear etiology. Celiac artery stent placed yesterday. Try clamping ngt and start clears.
--- NOTE | 2018-04-14 12:18 | IR ---
EXAM DATE: 04/13/2018 4:20 PM EDT AGE/SEX: 72 years / Female INDICATIONS: Patient presents with stenosis of celiac artery in need of angiogram with possible sten t placement. CLINICAL DATA: This is the patient's initial encounter. Patient reports that signs and symptoms have been present for 2 days and indicates a pain score of 8/10. MEDICAL/SURGICAL HISTORY: Chronic obstructive pulmonary disease. HTN, Insomnia, SVT, A-Fib, Co ronary artery stent. Back surgery. COMPARISON: No prior exams available for comparison. FLUORO TIME (min): 19.7 IMAGE SERIES: 40 ACCESS SITE: Right femoral artery SEDATION TIME (min): 120 CONTRAST (cc): 85 Visipaque (iodixanol) MEDICATION(S): 1mg midazolam (Versed) IV 100mcg fentanyl (Sublimaze) IV 04/13/2018 DEVICE(S): Right celiac artery stent (balloon expanding) Express LD 7mm X 17mm 75cm Right Femoral artery, 6FR Perclose . . PROCEDURE : 1. Ultrasound-guided puncture of the access site. 2. Conscious sedation with continuous EKG and Oximetry monitoring. 3. Angiography of the splenic artery 4. Angiography of the 5. Angiography of the The risks, benefits and alternatives to the procedure were explained and verbal and written consent w as obtained. The site was prepped in sterile fashion. Full sterile technique was used, including ca p, mask, sterile gloves and gown and a large sterile sheet. Hand hygiene and 2% chlorhexidine and/or betadine/alcohol prep was utilized per protocol for cutaneous antisepsis. Sterile gel and sterile p robe cover were utilized for ultrasound guidance. The skin and subcutaneous tissues were infiltrated with local anesthetic solution. With ultrasound and fluoroscopic guidance the selected artery was punctured and a vascular sheath was placed. 90 0 EXAM DATE: 04/13/2018 4:20 PM EDT AGE/SEX: 72 years / Female INDICATIONS: Patient presents with stenosis of celiac artery in need of angiogram with possible sten t placement. CLINICAL DATA: This is the patient's initial encounter. Patient reports that signs and symptoms have been present for 2 days and indicates a pain score of 8/10. MEDICAL/SURGICAL HISTORY: Chronic obstructive pulmonary disease. HTN, Insomnia, SVT, A-Fib, Co ronary artery stent. Back surgery. COMPARISON: No prior exams available for comparison. FLUORO TIME (min): 19.7 IMAGE SERIES: 40 ACCESS SITE: Right femoral artery SEDATION TIME (min): 120 CONTRAST (cc): 85 Visipaque (iodixanol) MEDICATION(S): 1mg midazolam (Versed) IV 100mcg fentanyl (Sublimaze) IV DEVICE(S): Right celiac artery stent (balloon expanding) Express LD 7mm X 17mm 75cm Right Femoral artery, 6FR Perclose EXAM DATE: 04/13/2018 4:20 PM EDT AGE/SEX: 72 years / Female INDICATIONS: Patient presents with stenosis of celiac artery in need of angiogram with possible sten t placement. CLINICAL DATA: This is the patient's initial encounter. Patient reports that signs and symptoms have been present for 2 days and indicates a pain score of 8/10. MEDICAL/SURGICAL HISTORY: Chronic obstructive pulmonary disease. HTN, Insomnia, SVT, A-Fib, Co ronary artery stent. Back surgery. COMPARISON: No prior exams available for comparison. FLUORO TIME (min): 19.7 IMAGE SERIES: 40 ACCESS SITE: Right femoral artery SEDATION TIME (min): 120 CONTRAST (cc): 85 Visipaque (iodixanol) MEDICATION(S): 1mg midazolam (Versed) IV 100mcg fentanyl (Sublimaze) IV DEVICE(S): Right celiac artery stent (balloon expanding) Express LD 7mm X 17mm 75cm Right Femoral artery, 6FR Perclose . . PROCEDURE : 1. Ultrasound-guided puncture of the access site. 2. Angiography of the access site prior to closure device. 3. Conscious sedation with continuous EKG and Oximetry monitoring. 4. Percutaneous closure of the access site. 5. Angiography of the splenic artery 6. Angiography of the hepatic artery. 7. Stent placement, celiac axis. 8. Hemodynamic pressures, celiac axis. The risks, benefits and alternatives to the procedure were explained and verbal and written consent w as obtained. The site was prepped in sterile fashion. Full sterile technique was used, including ca p, mask, sterile gloves and gown and a large sterile sheet. Hand hygiene and 2% chlorhexidine and/or betadine/alcohol prep was utilized per protocol for cutaneous antisepsis. Sterile gel and sterile p robe cover were utilized for ultrasound guidance. The skin and subcutaneous tissues were infiltrated with local anesthetic solution. With ultrasound and fluoroscopic guidance the selected artery was punctured and a vascular sheath was placed. Angiography of the common femoral artery was performed for evaluation prior to percutaneous closure device placement. Patient's most recent CT of the abdomen was reviewed. This demonstrates dense calcification at the or igin of the SMA which appears to be a chronically occluded centrally. Collateral reconstitution of th e more distal, diminutive SMA. Celiac up there is to have a short segment, high-grade ostial stenosis with some poststenotic dilatation. A hook catheter was used to select the origin of the celiac. Contrast injection showed normal arboriz ation. Lateral projection confirmed high-grade ostial stenosis of the celiac. Due to the angle and th e high-grade ostial stenosis, it was somewhat difficult advancing a catheter across the area of narro wing. With the origin of the celiac engaged with the hook catheter, a Glidewire was advanced out into the hepatic artery over which a glide hockey-stick was placed into the hepatic artery. Position was confirmed with positive contrast. Pressure measurements in the hepatic artery revealed a systolic pre ssure of 79 mmHg. Systemic pressures through the side-port of the sheath demonstrated a systolic pres sure of 185 with a significant gradient across the stenosis. An attempt to advance the Garcia wire thr ough the hockey-stick catheter, the entire system was dislodged. Therefore, the ostium of the celiac was again engaged the hockey-stick but the sheath was exchanged f or an Darrin 2 to secure the origin. With this combination, the Glidewire and glide hockey-stick were advanced out into the splenic artery. Position was confirmed with positive contrast. The Garcia wire w as then easily passed into the splenic artery. From a lateral projection, contrast injection again showed the short segment high-grade ostial stenos is of the celiac. A 7 mm x 17 mm express balloon expandable stent was then advanced across the area o f narrowing and deployed with an excellent angiographic result. Findings were confirmed with positive contrast. Pressure measurements Hemostasis was obtained with the prescribed medicated closure device. Conscious sedation was perform ed with the prescribed dosages and duration as above in the presence of an independent trained radiol ogy nurse to assist in the monitoring of the patient. EKG and oximetry remained stable throughout th e procedure. CONCLUSION: 1. 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 Area was successfully akua ated with a 7 mm stent. 2. 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 Electronically signed by: Mckay Khan MD 04/14/2018 12:17 PM EDT
--- NOTE | 2018-04-14 12:38 | P.PNCC ---
Subjective Subjective Remarks/Hospital Course: 72-year-old female with multiple medical issues admitted now with ileus, abdominal pain, and nausea. She underwent ileocectomy on 03/25/18 at [facility] for ischemia of the bowel and questionable acute mesenteric ischemia. 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 She was transferred to inpatient rehab here on 04/08/18 and has had persistent and worsening abdominal pain and nausea. She has started to have some nonbloody emesis. She has longstanding history of Clostridium difficile colitis but stool testing on 04/09/18 negative. MRA shows SMA occlusion. The patient has been followed by Dr. Nas Curiel/general surgery. Today shortly after midnight critical care medicine was consulted by hospitalist service for unstable SVT with hypotension. Patient was started on aggressive volume resuscitation, has received adenosine 02/18/12 without any response. Attempt of electric cardioversion multiple times again without improvement of tachycardia. Patient was then started with amiodarone infusion after bolus of 2 doses of 150 mg IV push and dose of digoxin 0.25 with improvement of hemodynamics. SUBJECTIVE: 04/14: Restarted on amiodarone drip overnight. Remains on digoxin. Feels poorly. Clamp NG tube and attempt a clear liquid diet today. Objective Vital Signs / I&O: Vital Signs 04/13/18 12:45 04/13/18 13:00 04/13/18 13:15 Temperature Pulse Rate 93 H 92 H 90 Respiratory Rate 18 16 19 Blood Pressure 96/60 L 94/62 L 89/61 L Pulse Oximetry 100 100 100 04/13/18 13:29 04/13/18 13:45 04/13/18 15:44 Temperature Pulse Rate 92 H 91 H 90 Respiratory Rate 17 16 Blood Pressure 94/63 L 97/63 L Pulse Oximetry 98 98 100 04/13/18 15:50 04/13/18 16:00 04/13/18 17:00 Temperature 98 F Pulse Rate 90 92 H 95 H Respiratory Rate 19 20 17 Blood Pressure 98/63 L 98/63 L Pulse Oximetry 100 98 94 L 04/13/18 18:00 04/13/18 18:42 04/13/18 19:00 Temperature Pulse Rate 93 H 96 H 101 H Respiratory Rate 16 17 21 Blood Pressure 90/61 L 90/65 L Pulse Oximetry 100 100 100 04/13/18 19:01 04/13/18 20:00 04/13/18 20:29 Temperature 100 F H Pulse Rate 102 H 93 H Respiratory Rate 21 18 Blood Pressure 90/65 L 92/62 L Pulse Oximetry 100 100 100 04/13/18 21:00 04/13/18 22:00 04/13/18 23:00 Temperature Pulse Rate 89 92 H 80 Respiratory Rate 17 19 15 Blood Pressure 88/63 L 90/57 L 83/57 L Pulse Oximetry 100 100 100 04/14/18 00:00 04/14/18 00:06 04/14/18 01:00 Temperature 98.6 F Pulse Rate 85 79 Respiratory Rate 16 16 Blood Pressure 91/64 L 86/57 L Pulse Oximetry 100 98 100 04/14/18 02:00 04/14/18 03:00 04/14/18 04:00 Temperature 99.1 F Pulse Rate 79 85 75 Respiratory Rate 17 15 15 Blood Pressure 87/60 L 87/61 L 87/61 L Pulse Oximetry 100 100 100 04/14/18 04:15 04/14/18 05:00 04/14/18 06:00 Temperature Pulse Rate 81 85 Respiratory Rate 20 14 Blood Pressure 97/63 L 93/65 L Pulse Oximetry 100 94 L 100 04/14/18 07:00 04/14/18 08:00 04/14/18 08:08 Temperature 98.7 F Pulse Rate 92 H 87 Respiratory Rate 15 14 Blood Pressure 104/72 105/70 Pulse Oximetry 100 100 100 Intake & Output 04/13/18 04/14/18 04/14/18 18:59 06:59 18:59 Intake Total 4267 / 4267 1376.2 / 1376.2 Output Total 900 / 900 475 / 475 Balance 3367 / 3367 901.2 / 901.2 Weight 44 kg Intake: IV 3647 / 3647 1376.2 / 1376.2 Intralipid 20% Inj 250 ML @ 10 211 / 211 39 / 39 mls/hr IV.CENTRAL Q24H [facility] Rx#: [id number] Cordarone Inj 450 MG In D5W Inj 405 / 405 95 / 95 241 ML @ 1 MG/MIN 33.33 mls/hr IV.CONT TITRATE PRN Rx#: [id number] Neosynephrine Inj 40 MG In D5W 306 / 306 Inj 496 ML @ 40 MCG/MIN 30 mls/ hr IV.CONT TITRATE PRN Rx#: [id number] Calcium Chloride Inj 0.667 GM 107 / 107 In NS Inj 100 ML @ 120 mls/hr IV.SIG ONCE ONE Rx#:[id number] Maxipime Inj 1,000 MG In NS Inj 100 / 100 100 / 100 100 ML @ 200 mls/hr IV.SIG Q12H [facility] Rx#:[id number] Magnesium Sulfate Inj 4 GM In 100 / 100 NS Inj 92 ML @ 25 mls/hr IV.SIG ONCE ONE Rx#:[id number] MVI-12 Inj 10 ML Folvite Inj 1 1168 / 1168 842.2 / 842.2 MG In CLINIMIX E 4.25%/D5W Inj 2,000 ML @ 55 mls/hr IV.SIG Q24H [facility] Rx#:[id number] KCl 40 mEq Premix Inj 40 meq In 100 / 100 200 / 200 100 ml @ 25 mls/hr IV.SIG Q2H PRN Rx#:[id number] Ancef 2 GM Premix Inj 2 gm In 50 / 50 50 ml @ 0 mls/hr IV.SIG .STK- MED ONE Rx#:[id number] Flagyl 500 MG Inj 100 ML @ 100 100 / 100 100 / 100 mls/hr IV.SIG Q8H [facility] Rx#: [id number] Oral 500 / 500 Tube Irrigant 120 / 120 Output: Stool 150 / 150 Urine Amount (Catheter) 700 / 700 300 / 300 Female External 700 / 700 300 / 300 Gastric Drainage 50 / 50 175 / 175 Right Nare 50 / 50 175 / 175 Other: # Voids 3 Date of Last Bowel Movement 04/13/18 04/14/18 04/14/18 # Bowel Movements 2 Result Diagrams: 04/14/18 04:35 04/14/18 04:35 Other Results: Microbiology 04/13/18 16:45 Stool Cryptosporidium Antigen - Final Negative - No Cryptosporicium antigen detected In selected cases of patients with a history of immunosuppression or foreign travel, a full ova and parasites examination may be desired. Contact the microbiology lab if full workup is indicated and subit another specimen for testing. 04/13/18 16:45 Stool Giardia Antigen (JESSICA) - Final Negative - No Giardia Antigen detected In selected cases of patients with a history of immunosuppression or foreign travel, a full ova and parasites examination may be desired. Contact the microbiology lab if full workup is indicated and subit another specimen for testing. 04/13/18 16:45 Stool Enteric Pathogens (PCR) - Final No enteric pathogens detected by PCR (No Salmonella sp., Shigella sp., Campylobacter sp., Yersinia enterocolitica, Vibrio sp., Norovirus, or EHEC (Shiga Toxin 1 or Shiga Toxin 2) detected. 04/12/18 15:39 Stool Stool Occult Blood (JESSICA) - Final Hemoccult positive Imaging: Abdomen MRA 04/11/18 00:00 CONCLUSION: 1. 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 2. 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 3. 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 Small Bowel X-Ray 04/12/18 00:00 CONCLUSION: Negative for small bowel obstruction or significant dilatation. Transit time is less than 4 hours. NG tip in distal stomach. Celiac/Hepatic Arteriogram 04/13/18 00:00 CONCLUSION: 1. 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 Area was successfully treated with a 7 mm stent. 2. 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 Objective Remarks: GENERAL: SKIN: Warm and dry. HEAD: Atraumatic. Normocephalic. EYES: Pupils equal and round. No scleral icterus. No injection or drainage. ENT: No nasal bleeding or discharge. Mucous membranes pink and moist. NECK: Trachea midline. No JVD. CARDIOVASCULAR: Regular rate and rhythm. RESPIRATORY: No accessory muscle use. Clear to auscultation. Breath sounds equal bilaterally. GASTROINTESTINAL: Abdomen soft, non-tender, nondistended. Hepatic and splenic margins not palpable. MUSCULOSKELETAL: Extremities without clubbing, cyanosis, or edema. No obvious deformities. NEUROLOGICAL: Awake and alert. No obvious cranial nerve deficits. Motor grossly within normal limits. Five out of 5 muscle strength in the arms and legs. Normal speech. PSYCHIATRIC: Appropriate mood and affect; insight and judgment normal. Assessment and Plan - Assessment and Plan Plan: Neuro/Psych: Neuropathy Acute pain management Oxycodone/acetaminophen 5-10/325 one tab every 6 hours as needed pain Temazepam 15 mg at night as needed insomnia Gabapentin 100 mg twice daily continue Patient is on tramadol at home CV: Unstable SVT resolved Issue with RVR currently normal sinus rhythm Cardiology is following. Continue digoxin 0.25 mg daily. Check level in a.m. Discontinue amiodarone per recommendations of cardiology Resp: Acute respiratory insufficiency COPD Nasal cannula to maintain saturations greater than or equal to 92% Incentive spirometry while awake Fluticasone/Vilanterol 100/25 1 inhalation daily Albuterol/ipratropium aerosols every 4 hours with albuterol aerosols every 2 hours as needed for dyspnea GI: Ischemic bowel status post ileal cecectomy Stent placement to SMA Repeat CT abdomen/pelvis 04/11 -progressive ileus -MRA of the abdomen done 04/11 indicates occlusion of the SMA Stented with 7x17 Express stent Clopidogrel loaded with 3 mg. Currently at 75 mg daily. NG tube clamp. Clear liquid diet per general surgery/Dr. Curiel GI is also following Remains on Clinimix 4.25/25 at 55 cc an hour with lipids daily : Periwick placed Endo: Sliding scale insulin to maintain euglycemia Renal: Creatinine currently within normal limits Monitor urine output Accurate I's and O's Heme: Normocytic anemia Monitor CBC daily. Follow trends No indication for transfusion of blood products at this time ID: E. coli and Enterobacter urinary tract infection 04/08 -cefepime initiated 04/10. Remains on metronidazole to 04/17 FEN: Hypophosphatemia Currently being replaced per protocol. Recheck in a.m. MSK: PT evaluate and treat Access -Right upper extremity PICC day #2 dual-lumen Prophylaxis -GI -pantoprazole -DVT -SCDs/heparin subcu Level 2 follow-up
--- NOTE | 2018-04-14 12:51 | P.PNGI ---
Subjective Interval history: Pt with NG tube clamped, states she wants it removed. Has already been tolerating ice chips. Diet changed to clear liquids per GS, has not had any liquids yet. Pt reports continued soreness in her abdomen but some improvement. <Gloria Campos - Last Filed: 04/14/18 12:41> Physical Exam Vital signs: Vital Signs 04/13/18 12:45 04/13/18 13:00 04/13/18 13:15 Temperature Pulse Rate 93 H 92 H 90 Respiratory Rate 18 16 19 Blood Pressure 96/60 L 94/62 L 89/61 L Pulse Oximetry 100 100 100 04/13/18 13:29 04/13/18 13:45 04/13/18 15:44 Temperature Pulse Rate 92 H 91 H 90 Respiratory Rate 17 16 Blood Pressure 94/63 L 97/63 L Pulse Oximetry 98 98 100 04/13/18 15:50 04/13/18 16:00 04/13/18 17:00 Temperature 98 F Pulse Rate 90 92 H 95 H Respiratory Rate 19 20 17 Blood Pressure 98/63 L 98/63 L Pulse Oximetry 100 98 94 L 04/13/18 18:00 04/13/18 18:42 04/13/18 19:00 Temperature Pulse Rate 93 H 96 H 101 H Respiratory Rate 16 17 21 Blood Pressure 90/61 L 90/65 L Pulse Oximetry 100 100 100 04/13/18 19:01 04/13/18 20:00 04/13/18 20:29 Temperature 100 F H Pulse Rate 102 H 93 H Respiratory Rate 21 18 Blood Pressure 90/65 L 92/62 L Pulse Oximetry 100 100 100 04/13/18 21:00 04/13/18 22:00 04/13/18 23:00 Temperature Pulse Rate 89 92 H 80 Respiratory Rate 17 19 15 Blood Pressure 88/63 L 90/57 L 83/57 L Pulse Oximetry 100 100 100 04/14/18 00:00 04/14/18 00:06 04/14/18 01:00 Temperature 98.6 F Pulse Rate 85 79 Respiratory Rate 16 16 Blood Pressure 91/64 L 86/57 L Pulse Oximetry 100 98 100 04/14/18 02:00 04/14/18 03:00 04/14/18 04:00 Temperature 99.1 F Pulse Rate 79 85 75 Respiratory Rate 17 15 15 Blood Pressure 87/60 L 87/61 L 87/61 L Pulse Oximetry 100 100 100 04/14/18 04:15 04/14/18 05:00 04/14/18 06:00 Temperature Pulse Rate 81 85 Respiratory Rate 20 14 Blood Pressure 97/63 L 93/65 L Pulse Oximetry 100 94 L 100 04/14/18 07:00 04/14/18 08:00 04/14/18 08:08 Temperature 98.7 F Pulse Rate 92 H 87 Respiratory Rate 15 14 Blood Pressure 104/72 105/70 Pulse Oximetry 100 100 100 Intake & Output 04/13/18 04/14/18 04/14/18 18:59 06:59 18:59 Intake Total 4267 / 4267 1376.2 / 1376.2 Output Total 900 / 900 475 / 475 Balance 3367 / 3367 901.2 / 901.2 Weight 44 kg Intake: IV 3647 / 3647 1376.2 / 1376.2 Intralipid 20% Inj 250 ML @ 10 211 / 211 39 / 39 mls/hr IV.CENTRAL Q24H FRANCA Rx#: [id number] Cordarone Inj 450 MG In D5W Inj 405 / 405 95 / 95 241 ML @ 1 MG/MIN 33.33 mls/hr IV.CONT TITRATE PRN Rx#: [id number] Neosynephrine Inj 40 MG In D5W 306 / 306 Inj 496 ML @ 40 MCG/MIN 30 mls/ hr IV.CONT TITRATE PRN Rx#: [id number] Calcium Chloride Inj 0.667 GM 107 / 107 In NS Inj 100 ML @ 120 mls/hr IV.SIG ONCE ONE Rx#:[id number] Maxipime Inj 1,000 MG In NS Inj 100 / 100 100 / 100 100 ML @ 200 mls/hr IV.SIG Q12H FRANCA Rx#:[id number] Magnesium Sulfate Inj 4 GM In 100 / 100 NS Inj 92 ML @ 25 mls/hr IV.SIG ONCE ONE Rx#:[id number] MVI-12 Inj 10 ML Folvite Inj 1 1168 / 1168 842.2 / 842.2 MG In CLINIMIX E 4.25%/D5W Inj 2,000 ML @ 55 mls/hr IV.SIG Q24H FRANCA Rx#:[id number] KCl 40 mEq Premix Inj 40 meq In 100 / 100 200 / 200 100 ml @ 25 mls/hr IV.SIG Q2H PRN Rx#:[id number] Ancef 2 GM Premix Inj 2 gm In 50 / 50 50 ml @ 0 mls/hr IV.SIG .STK- MED ONE Rx#:[id number] Flagyl 500 MG Inj 100 ML @ 100 100 / 100 100 / 100 mls/hr IV.SIG Q8H FRANCA Rx#: [id number] Oral 500 / 500 Tube Irrigant 120 / 120 Output: Stool 150 / 150 Urine Amount (Catheter) 700 / 700 300 / 300 Female External 700 / 700 300 / 300 Gastric Drainage 50 / 50 175 / 175 Right Nare 50 / 50 175 / 175 Other: # Voids 3 Date of Last Bowel Movement 04/13/18 04/14/18 04/14/18 # Bowel Movements 2 - Constitutional no acute distress - Routine HEENT Exam Head: Present: normocephalic, atraumatic - Routine Respiratory Exam Absent: accessory muscle use - Routine Abdominal Exam Present: soft, normoactive bowel sounds Comments: gauze to midline abdomen, pt with generalized abdominal tenderness - Routine Skin Exam Present: dry, warm - Routine Neurological Exam Present: alert, oriented X3 - Urinary Catheter Management Female External Cath placed during this visit: no <Gloria Campos - Last Filed: 04/14/18 12:41> Vital signs: Vital Signs 04/13/18 18:42 04/13/18 19:00 04/13/18 19:01 Temperature Pulse Rate 96 H 101 H 102 H Respiratory Rate 17 21 21 Blood Pressure 90/61 L 90/65 L 90/65 L Pulse Oximetry 100 100 100 04/13/18 20:00 04/13/18 20:29 04/13/18 21:00 Temperature 100 F H Pulse Rate 93 H 89 Respiratory Rate 18 17 Blood Pressure 92/62 L 88/63 L Pulse Oximetry 100 100 100 04/13/18 22:00 04/13/18 23:00 04/14/18 00:00 Temperature 98.6 F Pulse Rate 92 H 80 85 Respiratory Rate 19 15 16 Blood Pressure 90/57 L 83/57 L 91/64 L Pulse Oximetry 100 100 100 04/14/18 00:06 04/14/18 01:00 04/14/18 02:00 Temperature Pulse Rate 79 79 Respiratory Rate 16 17 Blood Pressure 86/57 L 87/60 L Pulse Oximetry 98 100 100 04/14/18 03:00 04/14/18 04:00 04/14/18 04:15 Temperature 99.1 F Pulse Rate 85 75 Respiratory Rate 15 15 Blood Pressure 87/61 L 87/61 L Pulse Oximetry 100 100 100 04/14/18 05:00 04/14/18 06:00 04/14/18 07:00 Temperature Pulse Rate 81 85 92 H Respiratory Rate 20 14 15 Blood Pressure 97/63 L 93/65 L 104/72 Pulse Oximetry 94 L 100 100 04/14/18 08:00 04/14/18 08:08 04/14/18 09:00 Temperature 98.7 F Pulse Rate 87 92 H Respiratory Rate 14 15 Blood Pressure 105/70 98/68 L Pulse Oximetry 100 100 100 04/14/18 10:00 04/14/18 11:00 04/14/18 12:00 Temperature Pulse Rate 93 H 95 H 95 H Respiratory Rate 16 20 16 Blood Pressure 99/69 L 100/67 101/68 Pulse Oximetry 98 100 100 04/14/18 13:02 04/14/18 14:00 04/14/18 15:28 Temperature Pulse Rate 57 L Respiratory Rate 20 21 Blood Pressure Pulse Oximetry 04/14/18 16:00 04/14/18 16:23 04/14/18 17:24 Temperature Pulse Rate 49 L 97 H Respiratory Rate 17 Blood Pressure Pulse Oximetry 98 Intake & Output 04/13/18 04/14/18 04/14/18 18:59 06:59 18:59 Intake Total 4267 / 4267 1476.2 / 1476.2 Output Total 900 / 900 475 / 475 Balance 3367 / 3367 1001.2 / 1001.2 Weight 44 kg Intake: IV 3647 / 3647 1476.2 / 1476.2 Intralipid 20% Inj 250 ML @ 10 211 / 211 39 / 39 mls/hr IV.CENTRAL Q24H FRANCA Rx#: [id number] Cordarone Inj 450 MG In D5W Inj 405 / 405 95 / 95 241 ML @ 1 MG/MIN 33.33 mls/hr IV.CONT TITRATE PRN Rx#: [id number] Neosynephrine Inj 40 MG In D5W 306 / 306 Inj 496 ML @ 40 MCG/MIN 30 mls/ hr IV.CONT TITRATE PRN Rx#: [id number] Calcium Chloride Inj 0.667 GM 107 / 107 In NS Inj 100 ML @ 120 mls/hr IV.SIG ONCE ONE Rx#:[id number] Maxipime Inj 1,000 MG In NS Inj 100 / 100 100 / 100 100 ML @ 200 mls/hr IV.SIG Q12H [facility]ANCA Rx#:[id number] Magnesium Sulfate Inj 4 GM In 100 / 100 NS Inj 92 ML @ 25 mls/hr IV.SIG ONCE ONE Rx#:[id number] MVI-12 Inj 10 ML Folvite Inj 1 1168 / 1168 842.2 / 842.2 MG In CLINIMIX E 4.25%/D5W Inj 2,000 ML @ 55 mls/hr IV.SIG Q24H [facility]ANCA Rx#:[id number] KCl 40 mEq Premix Inj 40 meq In 100 / 100 200 / 200 100 ml @ 25 mls/hr IV.SIG Q2H PRN Rx#:[id number] Ancef 2 GM Premix Inj 2 gm In 50 / 50 50 ml @ 0 mls/hr IV.SIG .STK- MED ONE Rx#:[id number] Flagyl 500 MG Inj 100 ML @ 100 100 / 100 200 / 200 mls/hr IV.SIG Q8H FRANCA Rx#: [id number] Oral 500 / 500 Tube Irrigant 120 / 120 Output: Stool 150 / 150 Urine Amount (Catheter) 700 / 700 300 / 300 Female External 700 / 700 300 / 300 Gastric Drainage 50 / 50 175 / 175 Right Nare 50 / 50 175 / 175 Other: # Voids 3 Date of Last Bowel Movement 04/13/18 04/14/18 04/14/18 # Bowel Movements 2 - Urinary Catheter Management Female External Cath placed during this visit: no <Eda Adrian - Last Filed: 04/14/18 18:14> Results - Labs CBC & Chem 7: 04/14/18 04:35 04/14/18 04:35 Laboratory Results - last 24 hr 04/13/18 04/13/18 04/13/18 16:42 16:42 16:45 WBC RBC Hgb 8.4 L Hct 25.7 L MCV MCH MCHC RDW Plt Count MPV Neut % (Auto) Lymph % (Auto) Coal % (Auto) Eos % (Auto) Baso % (Auto) Neut # (Auto) Lymph # (Auto) Coal # (Auto) Eos # (Auto) Baso # (Auto) WBC Differential Differential Comment Sodium Potassium 3.2 L Chloride Carbon Dioxide Anion Gap BUN Creatinine Estimated GFR POC Glucose Random Glucose Calcium Prot Corrected Calcium Phosphorus Magnesium Total Protein Stl C.difficile Tox PCR Negative St C. diff Tox Epid 027 Negative 04/13/18 04/13/18 04/14/18 17:46 20:04 00:12 WBC RBC Hgb Hct MCV MCH MCHC RDW Plt Count MPV Neut % (Auto) Lymph % (Auto) Coal % (Auto) Eos % (Auto) Baso % (Auto) Neut # (Auto) Lymph # (Auto) Coal # (Auto) Eos # (Auto) Baso # (Auto) WBC Differential Differential Comment Sodium Potassium Chloride Carbon Dioxide Anion Gap BUN Creatinine Estimated GFR POC Glucose 126 H 119 H 98 Random Glucose Calcium Prot Corrected Calcium Phosphorus Magnesium Total Protein Stl C.difficile Tox PCR St C. diff Tox Epid 027 04/14/18 04/14/18 04/14/18 04:33 04:35 04:35 WBC 7.5 RBC 2.62 L Hgb 7.5 L Hct 22.7 L MCV 86.8 MCH 28.5 MCHC 32.8 RDW 17.5 H Plt Count 391 MPV 8.2 Neut % (Auto) 74.2 H Lymph % (Auto) 14.3 Coal % (Auto) 8.0 Eos % (Auto) 3.1 Baso % (Auto) 0.4 Neut # (Auto) 5.6 Lymph # (Auto) 1.1 Coal # (Auto) 0.6 Eos # (Auto) 0.2 Baso # (Auto) 0.0 WBC Differential . Differential Comment Auto diff final Sodium 138 Potassium 4.9 D Chloride 110 H Carbon Dioxide 22.1 Anion Gap 6 BUN 10 Creatinine 0.60 Estimated GFR Greater than 89 POC Glucose 176 H Random Glucose 105 Calcium 6.9 L* Prot Corrected Calcium 8.4 L Phosphorus 2.1 L Magnesium 2.1 Total Protein 4.4 L Stl C.difficile Tox PCR St C. diff Tox Epid 027 04/14/18 08:13 WBC RBC Hgb Hct MCV MCH MCHC RDW Plt Count MPV Neut % (Auto) Lymph % (Auto) Coal % (Auto) Eos % (Auto) Baso % (Auto) Neut # (Auto) Lymph # (Auto) Coal # (Auto) Eos # (Auto) Baso # (Auto) WBC Differential Differential Comment Sodium Potassium Chloride Carbon Dioxide Anion Gap BUN Creatinine Estimated GFR POC Glucose 107 Random Glucose Calcium Prot Corrected Calcium Phosphorus Magnesium Total Protein Stl C.difficile Tox PCR St C. diff Tox Epid 027 Microbiology 04/13/18 16:45 Stool Cryptosporidium Antigen - Final Negative - No Cryptosporicium antigen detected In selected cases of patients with a history of immunosuppression or foreign travel, a full ova and parasites examination may be desired. Contact the microbiology lab if full workup is indicated and subit another specimen for testing. 04/13/18 16:45 Stool Giardia Antigen (JESSICA) - Final Negative - No Giardia Antigen detected In selected cases of patients with a history of immunosuppression or foreign travel, a full ova and parasites examination may be desired. Contact the microbiology lab if full workup is indicated and subit another specimen for testing. 04/13/18 16:45 Stool Enteric Pathogens (PCR) - Final No enteric pathogens detected by PCR (No Salmonella sp., Shigella sp., Campylobacter sp., Yersinia enterocolitica, Vibrio sp., Norovirus, or EHEC (Shiga Toxin 1 or Shiga Toxin 2) detected. - Imaging Impressions Celiac/Hepatic Arteriogram 04/13/18 00:00 CONCLUSION: 1. 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 Area was successfully treated with a 7 mm stent. 2. 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 <Gloria Campos - Last Filed: 04/14/18 12:41> - Labs CBC & Chem 7: 04/14/18 04:35 04/14/18 04:35 Laboratory Results - last 24 hr 04/13/18 04/13/18 04/14/18 16:45 20:04 00:12 WBC RBC Hgb Hct MCV MCH MCHC RDW Plt Count MPV Neut % (Auto) Lymph % (Auto) Coal % (Auto) Eos % (Auto) Baso % (Auto) Neut # (Auto) Lymph # (Auto) Coal # (Auto) Eos # (Auto) Baso # (Auto) WBC Differential Differential Comment Sodium Potassium Chloride Carbon Dioxide Anion Gap BUN Creatinine Estimated GFR POC Glucose 119 H 98 Random Glucose Calcium Prot Corrected Calcium Phosphorus Magnesium Total Protein Stl C.difficile Tox PCR Negative St C. diff Tox Epid 027 Negative 04/14/18 04/14/18 04/14/18 04:33 04:35 04:35 WBC 7.5 RBC 2.62 L Hgb 7.5 L Hct 22.7 L MCV 86.8 MCH 28.5 MCHC 32.8 RDW 17.5 H Plt Count 391 MPV 8.2 Neut % (Auto) 74.2 H Lymph % (Auto) 14.3 Coal % (Auto) 8.0 Eos % (Auto) 3.1 Baso % (Auto) 0.4 Neut # (Auto) 5.6 Lymph # (Auto) 1.1 Coal # (Auto) 0.6 Eos # (Auto) 0.2 Baso # (Auto) 0.0 WBC Differential . Differential Comment Auto diff final Sodium 138 Potassium 4.9 D Chloride 110 H Carbon Dioxide 22.1 Anion Gap 6 BUN 10 Creatinine 0.60 Estimated GFR Greater than 89 POC Glucose 176 H Random Glucose 105 Calcium 6.9 L* Prot Corrected Calcium 8.4 L Phosphorus 2.1 L Magnesium 2.1 Total Protein 4.4 L Stl C.difficile Tox PCR St C. diff Tox Epid 027 04/14/18 04/14/18 04/14/18 08:13 12:59 17:42 WBC RBC Hgb Hct MCV MCH MCHC RDW Plt Count MPV Neut % (Auto) Lymph % (Auto) Coal % (Auto) Eos % (Auto) Baso % (Auto) Neut # (Auto) Lymph # (Auto) Coal # (Auto) Eos # (Auto) Baso # (Auto) WBC Differential Differential Comment Sodium Potassium Chloride Carbon Dioxide Anion Gap BUN Creatinine Estimated GFR POC Glucose 107 113 H 108 Random Glucose Calcium Prot Corrected Calcium Phosphorus Magnesium Total Protein Stl C.difficile Tox PCR St C. diff Tox Epid 027 Microbiology 04/13/18 16:45 Stool Cryptosporidium Antigen - Final Negative - No Cryptosporicium antigen detected In selected cases of patients with a history of immunosuppression or foreign travel, a full ova and parasites examination may be desired. Contact the microbiology lab if full workup is indicated and subit another specimen for testing. 04/13/18 16:45 Stool Giardia Antigen (JESSICA) - Final Negative - No Giardia Antigen detected In selected cases of patients with a history of immunosuppression or foreign travel, a full ova and parasites examination may be desired. Contact the microbiology lab if full workup is indicated and subit another specimen for testing. 04/13/18 16:45 Stool Enteric Pathogens (PCR) - Final No enteric pathogens detected by PCR (No Salmonella sp., Shigella sp., Campylobacter sp., Yersinia enterocolitica, Vibrio sp., Norovirus, or EHEC (Shiga Toxin 1 or Shiga Toxin 2) detected. - Imaging Impressions Celiac/Hepatic Arteriogram 04/13/18 00:00 CONCLUSION: 1. 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 Area was successfully treated with a 7 mm stent. 2. 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 <Eda Adrian - Last Filed: 04/14/18 18:14> Assessment and Plan (1) Abdominal pain Status: Acute Code(s): R10.9 - Unspecified abdominal pain (2) Ischemia, bowel Status: Acute Code(s): K55.9 - Vascular disorder of intestine, unspecified (3) Anemia Status: Acute Code(s): D64.9 - Anemia, unspecified - Plan Assessment: - Nausea, vomiting, abdominal pain, diarrhea Imaging consistent with mesenteric ischemia MRA --> Occlusion of the SMA proximally with reconstitution of small SMA approximately 3 cm distal to the origin. 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 S/P IR for stenting of celiac artery today- vascular surgery has signed off SBFT shows no obstruction (04/13) Pt just returned from IR procedure for celiac artery stent. NG to LIWS with small amount of yellow colored drainage. Rectal bag with liquid green stool. Pt went into SVT last night, cardioversion x 3, now on Amiodarone gtt. Of note , due to vomiting has not had Metoprolol in a few days Drop in hgb noted, stool heme (+). No obvious GIB. Loading dose of Plavix ordered due to stent placement (04/14) Pt resting in bed, continued abdominal pain but some improvement. Denies nausea and vomiting. NG tube clamped. Pt has been tolerating ice chips. Seen by GS who advanced diet to clear liquids. Stool studies negative Plan: NG clamped Clear liquids per GS Monitor stool output Further recommendations to follow Pt has been seen and examined by myself and Dr. Adrian and this note is written on her behalf <Gloria Campos - Last Filed: 04/14/18 12:41> (1) Abdominal pain Status: Acute Code(s): R10.9 - Unspecified abdominal pain (2) Ischemia, bowel Status: Acute Code(s): K55.9 - Vascular disorder of intestine, unspecified (3) Anemia Status: Acute Code(s): D64.9 - Anemia, unspecified - Attending Attestation seen, examined agree with above <Eda Adrian - Last Filed: 04/14/18 18:14> <Gloria Campos - Last Filed: 04/14/18 12:41> (3) Anemia Qualifiers: Anemia type: unspecified type Qualified Code(s): D64.9 - Anemia, unspecified <Eda Adrian - Last Filed: 04/14/18 18:14> (3) Anemia Qualifiers: Anemia type: unspecified type Qualified Code(s): D64.9 - Anemia, unspecified
[2018-04-14] MEDS: Pantoprazole Inj 40 MG Vial IV.PUSH SCH (13:16)
[2018-04-14] MEDS ORDERED: Sodium Phosphate Inj 30 MMOL in Sodium Chlor 0.9% Inj 250 ML IV.SIG ONE (15:00)
--- NOTE | 2018-04-14 17:44 | P.PNCA ---
Subjective Interval history: HR better controlled on telemetry with no further tachy events. Interval history noted. Physical Exam Vital signs: Vital Signs 04/13/18 18:00 04/13/18 18:42 04/13/18 19:00 Temperature Pulse Rate 93 H 96 H 101 H Respiratory Rate 16 17 21 Blood Pressure 90/61 L 90/65 L Pulse Oximetry 100 100 100 04/13/18 19:01 04/13/18 20:00 04/13/18 20:29 Temperature 100 F H Pulse Rate 102 H 93 H Respiratory Rate 21 18 Blood Pressure 90/65 L 92/62 L Pulse Oximetry 100 100 100 04/13/18 21:00 04/13/18 22:00 04/13/18 23:00 Temperature Pulse Rate 89 92 H 80 Respiratory Rate 17 19 15 Blood Pressure 88/63 L 90/57 L 83/57 L Pulse Oximetry 100 100 100 04/14/18 00:00 04/14/18 00:06 04/14/18 01:00 Temperature 98.6 F Pulse Rate 85 79 Respiratory Rate 16 16 Blood Pressure 91/64 L 86/57 L Pulse Oximetry 100 98 100 04/14/18 02:00 04/14/18 03:00 04/14/18 04:00 Temperature 99.1 F Pulse Rate 79 85 75 Respiratory Rate 17 15 15 Blood Pressure 87/60 L 87/61 L 87/61 L Pulse Oximetry 100 100 100 04/14/18 04:15 04/14/18 05:00 04/14/18 06:00 Temperature Pulse Rate 81 85 Respiratory Rate 20 14 Blood Pressure 97/63 L 93/65 L Pulse Oximetry 100 94 L 100 04/14/18 07:00 04/14/18 08:00 04/14/18 08:08 Temperature 98.7 F Pulse Rate 92 H 87 Respiratory Rate 15 14 Blood Pressure 104/72 105/70 Pulse Oximetry 100 100 100 04/14/18 09:00 04/14/18 10:00 04/14/18 11:00 Temperature Pulse Rate 92 H 93 H 95 H Respiratory Rate 15 16 20 Blood Pressure 98/68 L 99/69 L 100/67 Pulse Oximetry 100 98 100 04/14/18 12:00 04/14/18 13:02 04/14/18 14:00 Temperature Pulse Rate 95 H 57 L Respiratory Rate 16 20 Blood Pressure 101/68 Pulse Oximetry 100 04/14/18 15:28 04/14/18 16:00 04/14/18 16:23 Temperature Pulse Rate 49 L 97 H Respiratory Rate 21 17 Blood Pressure Pulse Oximetry 04/14/18 17:24 Temperature Pulse Rate Respiratory Rate Blood Pressure Pulse Oximetry 98 Intake & Output 04/13/18 04/14/18 04/14/18 18:59 06:59 18:59 Intake Total 4267 / 4267 1476.2 / 1476.2 Output Total 900 / 900 475 / 475 Balance 3367 / 3367 1001.2 / 1001.2 Weight 44 kg Intake: IV 3647 / 3647 1476.2 / 1476.2 Intralipid 20% Inj 250 ML @ 10 211 / 211 39 / 39 mls/hr IV.CENTRAL Q24H FRANCA Rx#: [id number] Cordarone Inj 450 MG In D5W Inj 405 / 405 95 / 95 241 ML @ 1 MG/MIN 33.33 mls/hr IV.CONT TITRATE PRN Rx#: [id number] Neosynephrine Inj 40 MG In D5W 306 / 306 Inj 496 ML @ 40 MCG/MIN 30 mls/ hr IV.CONT TITRATE PRN Rx#: [id number] Calcium Chloride Inj 0.667 GM 107 / 107 In NS Inj 100 ML @ 120 mls/hr IV.SIG ONCE ONE Rx#:[id number] Maxipime Inj 1,000 MG In NS Inj 100 / 100 100 / 100 100 ML @ 200 mls/hr IV.SIG Q12H FRANCA Rx#:[id number] Magnesium Sulfate Inj 4 GM In 100 / 100 NS Inj 92 ML @ 25 mls/hr IV.SIG ONCE ONE Rx#:[id number] MVI-12 Inj 10 ML Folvite Inj 1 1168 / 1168 842.2 / 842.2 MG In CLINIMIX E 4.25%/D5W Inj 2,000 ML @ 55 mls/hr IV.SIG Q24H FRANCA Rx#:[id number] KCl 40 mEq Premix Inj 40 meq In 100 / 100 200 / 200 100 ml @ 25 mls/hr IV.SIG Q2H PRN Rx#:[id number] Ancef 2 GM Premix Inj 2 gm In 50 / 50 50 ml @ 0 mls/hr IV.SIG .STK- MED ONE Rx#:[id number] Flagyl 500 MG Inj 100 ML @ 100 100 / 100 200 / 200 mls/hr IV.SIG Q8H FRANCA Rx#: [id number] Oral 500 / 500 Tube Irrigant 120 / 120 Output: Stool 150 / 150 Urine Amount (Catheter) 700 / 700 300 / 300 Female External 700 / 700 300 / 300 Gastric Drainage 50 / 50 175 / 175 Right Nare 50 / 50 175 / 175 Other: # Voids 3 Date of Last Bowel Movement 04/13/18 04/14/18 04/14/18 # Bowel Movements 2 Narrative: NAD CV RRR No MRG Chest: CTA Abd: mild distention, mild ttp Ext: s/p bka L - Urinary Catheter Management Female External Cath placed during this visit: no Assessment and Plan - Plan 72 yo F with HTN, HLD and paroxysmal atrial fibrillation presented with abdominal pain and nausea from inpatient rehab after recent hospitalization for ischemic bowel requiring colectomy (03/25/18) in [place]. This was complicated by left lower leg ischemia and unsuccessful thrombectomy ultimately requiring left BKA. patient has had persistent abdominal pain and nausea. Course complicated by episode of sustained SVT late night of 04/12/18. Adenosine along with several shocks were administered without benefit; she was then given amiodarone and digoxin with improvement. Amio has since been d/c'd. SBP has been in the 100s, HR 80-90bpm. SVT- continue digoxin, would change to 125mcg daily hypokalemia- resolved s/p repletion and rehydration. echo normal EF
[2018-04-14] MEDS: Heparin - SQ 10,000 UNITS/ML Vial SQ SCH (20:45)
[2018-04-14] MEDS: Multivitamin Inj 10 ML, Folic Acid Inj 1 MG in AA 4.25 %/D5W - Electrolytes 2,000 ML IV.SIG SCH (20:45)
[2018-04-14 20:49] LABS: Anion Gap 12 meq/L (5-15); Blood Urea Nitrogen 11 mg/dL (7-18); Calcium 6.8 mg/dL (8.5-10.1); Carbon Dioxide 20.2 meq/L (21.0-32.0); Chloride 95 meq/L (98-107); Glomerular Filtration Rate Greater Than 89 mL/min (>89); Glucose,Random 305 mg/dL (74-106); Magnesium 1.9 mg/dL (1.5-2.5); Phosphorus 6.3 mg/dL (2.5-4.9); Potassium 5.9 meq/L (3.5-5.1); Sodium 127 meq/L (136-145)
[2018-04-14 21:39] LABS: Total Protein 4.4 g/dL (6.4-8.2)
[2018-04-15] MEDS: Insulin NovoLIN Regular Correctional Sugar Inj SQ SCH ×6 (00:41→20:00)
[2018-04-15 01:31] LABS: Alanine Aminotransferase 7 U/L (10-53); Albumin 1.6 g/dL (3.4-5.0); Alkaline Phosphatase 61 U/L (45-117); Anion Gap 7 meq/L (5-15); Aspartate Aminotransferase 12 U/L (15-37); Blood Urea Nitrogen 13 mg/dL (7-18); Calcium 7.1 mg/dL (8.5-10.1); Carbon Dioxide 24.3 meq/L (21.0-32.0); Chloride 103 meq/L (98-107); Glomerular Filtration Rate Greater Than 89 mL/min (>89); Glucose,Random 99 mg/dL (74-106); Magnesium 1.7 mg/dL (1.5-2.5); Phosphorus 3.5 mg/dL (2.5-4.9); Potassium 4.4 meq/L (3.5-5.1); Sodium 134 meq/L (136-145); Total Protein 4.8 g/dL (6.4-8.2)
[2018-04-15] MEDS: Temazepam 15 MG Capsule PO PRN (02:45)
[2018-04-15] MEDS: Morphine Inj 4 MG/ML Vial IV.PUSH PRN ×3 (04:42→23:08)
--- NOTE | 2018-04-15 05:40 | XR ---
EXAM DATE: 04/15/2018 5:04 AM EDT AGE/SEX: 72 years / Female INDICATIONS: Shortness of breath. CLINICAL DATA: This is the patient's initial encounter. Patient reports that signs and symptoms have been present for 2 days and indicates a pain score of 0/10. MEDICAL/SURGICAL HISTORY: . Hypertension. Chronic obstructive pulmonary disease. SVT. Colon can cer. . Stent. COMPARISON: [facility] [place], CHEST SINGLE AP, 02/11/2018. . FINDINGS: Bilateral patchy parenchymal infiltrates are now seen greatest in the left lower lobe. Cardiomegaly. Aortic calcification. CONCLUSION: Worsening appearance of the chest. Electronically signed by: David Dias MD 04/15/2018 5:39 AM EDT
[2018-04-15 05:41] LABS: Baso % (Auto) 0.2 % (0.0-2.0); Eos # (Auto) 0.1 th/mm3 (0.0-0.4); Eos % (Auto) 1.7 % (0.0-4.0); Hemoglobin 8.2 gm/dL (11.6-15.3); Lymph # (Auto) 0.9 th/mm3 (1.0-4.8); Lymph % (Auto) 11.7 % (9.0-44.0); Mean Corpuscular HGB Conc 35.6 % (32.0-36.0); Mean Corpuscular Hemoglobin 31.6 pg (27.0-34.0); Mean Corpuscular Volume 88.8 fL (80.0-100.0); Mean Platelet Volume 8.4 fL (7.0-11.0); Mono # (Auto) 0.7 th/mm3 (0.0-0.9); Mono % (Auto) 8.8 % (0.0-8.0); Neut # (Auto) 6.3 th/mm3 (1.8-7.7); Neut % (Auto) 77.6 % (16.0-70.0); Platelet Count 382 th/mm3 (150-450); Red Blood Count 2.59 mil/mm3 (4.00-5.30); Red Cell Distribution Width 17.8 % (11.6-17.2); White Blood Count 8.1 th/mm3 (4.0-11.0)
[2018-04-15] MEDS: Digoxin 125 MCG Tablet PO SCH (08:25)
[2018-04-15] MEDS: Heparin Central Flush 100 UNIT/ML 5 ML Vial IV.FLUSH SCH (08:26)
[2018-04-15] MEDS: Heparin - SQ 10,000 UNITS/ML Vial SQ SCH ×2 (08:26→21:46)
--- NOTE | 2018-04-15 11:29 | P.PNGI ---
Subjective Interval history: Pt resting in bed, at bedside. She was only able to tolerate a few sips of broth from breakfast this morning. NG tube is clamped. Pt complaining of 8/ 10 abdominal pain. <Gloria Campos - Last Filed: 04/15/18 11:26> Physical Exam Vital signs: Vital Signs 04/14/18 12:00 04/14/18 13:02 04/14/18 14:00 Temperature Pulse Rate 95 H 57 L Respiratory Rate 16 20 Blood Pressure 101/68 Pulse Oximetry 100 04/14/18 15:28 04/14/18 16:00 04/14/18 16:23 Temperature Pulse Rate 49 L 97 H Respiratory Rate 21 17 Blood Pressure Pulse Oximetry 04/14/18 17:24 04/14/18 18:00 04/14/18 19:00 Temperature 98 F Pulse Rate 111 H 104 H Respiratory Rate 20 17 Blood Pressure 102/66 96/64 L Pulse Oximetry 98 99 98 04/14/18 20:00 04/14/18 20:31 04/14/18 21:00 Temperature Pulse Rate 101 H 107 H 106 H Respiratory Rate 18 18 18 Blood Pressure 100/72 97/68 L Pulse Oximetry 100 97 99 04/14/18 22:00 04/14/18 22:30 04/14/18 23:00 Temperature Pulse Rate 113 H 110 H Respiratory Rate 19 20 18 Blood Pressure 102/68 93/63 L Pulse Oximetry 99 99 04/15/18 00:00 04/15/18 00:28 04/15/18 01:00 Temperature Pulse Rate 109 H 107 H 114 H Respiratory Rate 17 14 16 Blood Pressure 97/69 L 92/63 L Pulse Oximetry 99 99 04/15/18 02:00 04/15/18 03:00 04/15/18 04:00 Temperature Pulse Rate 122 H 117 H 115 H Respiratory Rate 17 19 16 Blood Pressure 88/63 L 91/62 L 105/71 Pulse Oximetry 96 97 98 04/15/18 04:14 04/15/18 04:45 04/15/18 05:00 Temperature Pulse Rate 109 H 121 H Respiratory Rate 18 18 16 Blood Pressure 91/61 L Pulse Oximetry 97 04/15/18 06:00 04/15/18 07:00 04/15/18 08:00 Temperature 98.2 F Pulse Rate 118 H 119 H 114 H Respiratory Rate 14 16 13 Blood Pressure 94/71 L 92/63 L 91/63 L Pulse Oximetry 95 100 98 04/15/18 09:00 04/15/18 10:00 04/15/18 11:00 Temperature Pulse Rate 121 H 124 H 126 H Respiratory Rate 20 18 18 Blood Pressure 86/60 L 96/66 L 86/66 L Pulse Oximetry 98 98 97 Intake & Output 04/14/18 04/15/18 04/15/18 18:59 06:59 18:59 Intake Total 1050 / 1050 2360.2 / 2360.2 Output Total 2375 / 2375 1000 / 1000 Balance -1325 / -1325 1360.2 / 1360.2 Weight 44 kg Intake: IV 200 / 200 2360.2 / 2360.2 Intralipid 20% Inj 250 ML @ 10 250 / 250 mls/hr IV.CENTRAL Q24H [facility] Rx#: [id number] Maxipime Inj 1,000 MG In NS Inj 100 / 100 100 ML @ 200 mls/hr IV.SIG Q12H [facility] Rx#:[id number] MVI-12 Inj 10 ML Folvite Inj 1 2009.2 / 2009.2 MG In CLINIMIX E 4.25%/D5W Inj 2,000 ML @ 55 mls/hr IV.SIG Q24H [facility] Rx#:[id number] Flagyl 500 MG Inj 100 ML @ 100 100 / 100 100 / 100 mls/hr IV.SIG Q8H [facility] Rx#: [id number] Oral 700 / 700 Tube Irrigant 150 / 150 Output: Urine 1700 / 1700 Stool 200 / 200 Urine Amount (Catheter) 300 / 300 1000 / 1000 Female External 300 / 300 1000 / 1000 Gastric Drainage 175 / 175 Right Nare 175 / 175 Other: Date of Last Bowel Movement 04/14/18 04/14/18 04/15/18 # Bowel Movements 1 - Constitutional no acute distress - Routine HEENT Exam Head: Present: normocephalic, atraumatic - Routine Respiratory Exam Absent: accessory muscle use - Routine Abdominal Exam Present: soft, normoactive bowel sounds, tenderness. Absent: distended Comments: ABD pad to midline abdominal incision - Routine Skin Exam Present: dry, warm - Routine Neurological Exam Present: alert, oriented X3 - Urinary Catheter Management Female External Cath placed during this visit: no <Gloria Campos - Last Filed: 04/15/18 11:26> Vital signs: Vital Signs 04/14/18 19:00 04/14/18 20:00 04/14/18 20:31 Temperature Pulse Rate 104 H 101 H 107 H Respiratory Rate 17 18 18 Blood Pressure 96/64 L 100/72 Pulse Oximetry 98 100 97 04/14/18 21:00 04/14/18 22:00 04/14/18 22:30 Temperature Pulse Rate 106 H 113 H Respiratory Rate 18 19 20 Blood Pressure 97/68 L 102/68 Pulse Oximetry 99 99 04/14/18 23:00 04/15/18 00:00 04/15/18 00:28 Temperature Pulse Rate 110 H 109 H 107 H Respiratory Rate 18 17 14 Blood Pressure 93/63 L 97/69 L Pulse Oximetry 99 99 04/15/18 01:00 04/15/18 02:00 04/15/18 03:00 Temperature Pulse Rate 114 H 122 H 117 H Respiratory Rate 16 17 19 Blood Pressure 92/63 L 88/63 L 91/62 L Pulse Oximetry 99 96 97 04/15/18 04:00 04/15/18 04:14 04/15/18 04:45 Temperature Pulse Rate 115 H 109 H Respiratory Rate 16 18 18 Blood Pressure 105/71 Pulse Oximetry 98 04/15/18 05:00 04/15/18 06:00 04/15/18 07:00 Temperature Pulse Rate 121 H 118 H 119 H Respiratory Rate 16 14 16 Blood Pressure 91/61 L 94/71 L 92/63 L Pulse Oximetry 97 95 100 04/15/18 08:00 04/15/18 09:00 04/15/18 10:00 Temperature 98.2 F Pulse Rate 114 H 121 H 124 H Respiratory Rate 13 20 18 Blood Pressure 91/63 L 86/60 L 96/66 L Pulse Oximetry 98 98 98 04/15/18 11:00 04/15/18 12:00 04/15/18 13:00 Temperature 98.0 F Pulse Rate 108 H 119 H 119 H Respiratory Rate 18 16 17 Blood Pressure 86/66 L 89/66 L 97/67 L Pulse Oximetry 97 99 99 04/15/18 14:00 04/15/18 14:42 04/15/18 15:00 Temperature Pulse Rate 122 H 125 H 127 H Respiratory Rate 19 18 19 Blood Pressure 95/68 L 88/64 L Pulse Oximetry 97 95 Intake & Output 04/14/18 04/15/18 04/15/18 18:59 06:59 18:59 Intake Total 1050 / 1050 2460.2 / 2460.2 100 / 100 Output Total 2375 / 2375 1000 / 1000 Balance -1325 / -1325 1460.2 / 1460.2 100 / 100 Weight 44 kg Intake: IV 200 / 200 2460.2 / 2460.2 100 / 100 Intralipid 20% Inj 250 ML @ 10 250 / 250 mls/hr IV.CENTRAL Q24H [facility] Rx#: [id number] Maxipime Inj 1,000 MG In NS Inj 100 / 100 100 / 100 100 ML @ 200 mls/hr IV.SIG Q12H [facility] Rx#:[id number] Magnesium Sulfate 1 gm/D5W 100 100 / 100 ml Premix 100 ML @ 100 mls/hr IV.SIG Q1H [facility] Rx#:[id number] MVI-12 Inj 10 ML Folvite Inj 1 2009.2 / 2010.2 MG In CLINIMIX E 4.25%/D5W Inj 2,000 ML @ 55 mls/hr IV.SIG Q24H [facility] Rx#:[id number] Flagyl 500 MG Inj 100 ML @ 100 100 / 100 100 / 100 mls/hr IV.SIG Q8H [facility] Rx#: [id number] Oral 700 / 700 Tube Irrigant 150 / 150 Output: Urine 1700 / 1700 Stool 200 / 200 Urine Amount (Catheter) 300 / 300 1000 / 1000 Female External 300 / 300 1000 / 1000 Gastric Drainage 175 / 175 Right Nare 175 / 175 Other: Date of Last Bowel Movement 04/14/18 04/14/18 04/15/18 # Bowel Movements 1 - Urinary Catheter Management Female External Cath placed during this visit: no <Eda Adrian - Last Filed: 04/15/18 18:26> Results - Labs CBC & Chem 7: 04/15/18 05:00 04/15/18 00:15 Laboratory Results - last 24 hr 04/14/18 04/14/18 04/14/18 12:59 17:42 19:45 WBC RBC Hgb Hct MCV MCH MCHC RDW Plt Count MPV Neut % (Auto) Lymph % (Auto) [place] % (Auto) Eos % (Auto) Baso % (Auto) Neut # (Auto) Lymph # (Auto) [place] # (Auto) Eos # (Auto) Baso # (Auto) WBC Differential Differential Comment Sodium 127 L D Potassium 5.9 H D Chloride 95 L D Carbon Dioxide 20.2 L Anion Gap 12 BUN 11 Creatinine 0.46 L Estimated GFR Greater than 89 POC Glucose 113 H 108 Random Glucose 305 H D Calcium 6.8 L* Prot Corrected Calcium 8.2 L Phosphorus 6.3 H D Magnesium 1.9 Total Bilirubin AST ALT Alkaline Phosphatase Total Protein 4.4 L Albumin 04/14/18 04/15/18 04/15/18 20:23 00:15 00:25 WBC RBC Hgb Hct MCV MCH MCHC RDW Plt Count MPV Neut % (Auto) Lymph % (Auto) [place] % (Auto) Eos % (Auto) Baso % (Auto) Neut # (Auto) Lymph # (Auto) [place] # (Auto) Eos # (Auto) Baso # (Auto) WBC Differential Differential Comment Sodium 134 L Potassium 4.4 D Chloride 103 D Carbon Dioxide 24.3 Anion Gap 7 BUN 13 Creatinine 0.57 Estimated GFR Greater than 89 POC Glucose 113 H 111 H Random Glucose 99 D Calcium 7.1 L* Prot Corrected Calcium 8.4 L Phosphorus 3.5 D Magnesium 1.7 Total Bilirubin 0.2 AST 12 L ALT 7 L Alkaline Phosphatase 61 Total Protein 4.8 L Albumin 1.6 L 04/15/18 04/15/18 04/15/18 04:36 04:38 05:00 WBC 8.1 RBC 2.59 L Hgb 8.2 L Hct 23.0 L MCV 88.8 MCH 31.6 MCHC 35.6 RDW 17.8 H Plt Count 382 MPV 8.4 Neut % (Auto) 77.6 H Lymph % (Auto) 11.7 [place] % (Auto) 8.8 H Eos % (Auto) 1.7 Baso % (Auto) 0.2 Neut # (Auto) 6.3 Lymph # (Auto) 0.9 L [place] # (Auto) 0.7 Eos # (Auto) 0.1 Baso # (Auto) 0.0 WBC Differential . Differential Comment Auto diff final Sodium Potassium Chloride Carbon Dioxide Anion Gap BUN Creatinine Estimated GFR POC Glucose 299 H 298 H Random Glucose Calcium Prot Corrected Calcium Phosphorus Magnesium Total Bilirubin AST ALT Alkaline Phosphatase Total Protein Albumin 04/15/18 04/15/18 04/15/18 08:28 09:14 10:59 WBC RBC Hgb Hct MCV MCH MCHC RDW Plt Count MPV Neut % (Auto) Lymph % (Auto) [place] % (Auto) Eos % (Auto) Baso % (Auto) Neut # (Auto) Lymph # (Auto) [place] # (Auto) Eos # (Auto) Baso # (Auto) WBC Differential Differential Comment Sodium Potassium Chloride Carbon Dioxide Anion Gap BUN Creatinine Estimated GFR POC Glucose 64 L 149 H 114 H Random Glucose Calcium Prot Corrected Calcium Phosphorus Magnesium Total Bilirubin AST ALT Alkaline Phosphatase Total Protein Albumin Microbiology 04/13/18 16:45 Stool Cryptosporidium Antigen - Final Negative - No Cryptosporicium antigen detected In selected cases of patients with a history of immunosuppression or foreign travel, a full ova and parasites examination may be desired. Contact the microbiology lab if full workup is indicated and subit another specimen for testing. 04/13/18 16:45 Stool Giardia Antigen (JESSICA) - Final Negative - No Giardia Antigen detected In selected cases of patients with a history of immunosuppression or foreign travel, a full ova and parasites examination may be desired. Contact the microbiology lab if full workup is indicated and subit another specimen for testing. 04/13/18 16:45 Stool Enteric Pathogens (PCR) - Final No enteric pathogens detected by PCR (No Salmonella sp., Shigella sp., Campylobacter sp., Yersinia enterocolitica, Vibrio sp., Norovirus, or EHEC (Shiga Toxin 1 or Shiga Toxin 2) detected. - Imaging Impressions Celiac/Hepatic Arteriogram 04/13/18 00:00 CONCLUSION: 1. 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 Area was successfully treated with a 7 mm stent. 2. 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 Chest X-Ray 04/15/18 06:00 CONCLUSION: Worsening appearance of the chest. <Gloria Campos - Last Filed: 04/15/18 11:26> - Labs CBC & Chem 7: 04/15/18 05:00 04/15/18 00:15 Laboratory Results - last 24 hr 04/14/18 04/14/18 04/15/18 19:45 20:23 00:15 WBC RBC Hgb Hct MCV MCH MCHC RDW Plt Count MPV Neut % (Auto) Lymph % (Auto) [place] % (Auto) Eos % (Auto) Baso % (Auto) Neut # (Auto) Lymph # (Auto) [place] # (Auto) Eos # (Auto) Baso # (Auto) WBC Differential Differential Comment Sodium 127 L D 134 L Potassium 5.9 H D 4.4 D Chloride 95 L D 103 D Carbon Dioxide 20.2 L 24.3 Anion Gap 12 7 BUN 11 13 Creatinine 0.46 L 0.57 Estimated GFR Greater than 89 Greater than 89 POC Glucose 113 H Random Glucose 305 H D 99 D Calcium 6.8 L* 7.1 L* Prot Corrected Calcium 8.2 L 8.4 L Phosphorus 6.3 H D 3.5 D Magnesium 1.9 1.7 Total Bilirubin 0.2 AST 12 L ALT 7 L Alkaline Phosphatase 61 Total Protein 4.4 L 4.8 L Albumin 1.6 L 04/15/18 04/15/18 04/15/18 00:25 04:36 04:38 WBC RBC Hgb Hct MCV MCH MCHC RDW Plt Count MPV Neut % (Auto) Lymph % (Auto) [place] % (Auto) Eos % (Auto) Baso % (Auto) Neut # (Auto) Lymph # (Auto) [place] # (Auto) Eos # (Auto) Baso # (Auto) WBC Differential Differential Comment Sodium Potassium Chloride Carbon Dioxide Anion Gap BUN Creatinine Estimated GFR POC Glucose 111 H 299 H 298 H Random Glucose Calcium Prot Corrected Calcium Phosphorus Magnesium Total Bilirubin AST ALT Alkaline Phosphatase Total Protein Albumin 04/15/18 04/15/18 04/15/18 05:00 08:28 09:14 WBC 8.1 RBC 2.59 L Hgb 8.2 L Hct 23.0 L MCV 88.8 MCH 31.6 MCHC 35.6 RDW 17.8 H Plt Count 382 MPV 8.4 Neut % (Auto) 77.6 H Lymph % (Auto) 11.7 [place] % (Auto) 8.8 H Eos % (Auto) 1.7 Baso % (Auto) 0.2 Neut # (Auto) 6.3 Lymph # (Auto) 0.9 L [place] # (Auto) 0.7 Eos # (Auto) 0.1 Baso # (Auto) 0.0 WBC Differential . Differential Comment Auto diff final Sodium Potassium Chloride Carbon Dioxide Anion Gap BUN Creatinine Estimated GFR POC Glucose 64 L 149 H Random Glucose Calcium Prot Corrected Calcium Phosphorus Magnesium Total Bilirubin AST ALT Alkaline Phosphatase Total Protein Albumin 04/15/18 04/15/18 10:59 15:20 WBC RBC Hgb Hct MCV MCH MCHC RDW Plt Count MPV Neut % (Auto) Lymph % (Auto) [place] % (Auto) Eos % (Auto) Baso % (Auto) Neut # (Auto) Lymph # (Auto) [place] # (Auto) Eos # (Auto) Baso # (Auto) WBC Differential Differential Comment Sodium Potassium Chloride Carbon Dioxide Anion Gap BUN Creatinine Estimated GFR POC Glucose 114 H 132 H Random Glucose Calcium Prot Corrected Calcium Phosphorus Magnesium Total Bilirubin AST ALT Alkaline Phosphatase Total Protein Albumin - Imaging Impressions Chest CTA 04/15/18 00:00 CONCLUSION: 1. No pulmonary embolus. 2. Bilateral pleural effusions and atelectasis. 3. Patchy bilateral nonspecific infiltrate. 4. Thickened interlobular septa suggesting mild pulmonary edema. 5. Nonspecific mildly enlarged mediastinal lymph nodes and are larger than before. Chest X-Ray 04/15/18 06:00 CONCLUSION: Worsening appearance of the chest. 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 S/P IR for stenting of celiac artery today- vascular surgery has signed off SBFT shows no obstruction (04/13) Pt just returned from IR procedure for celiac artery stent. NG to LIWS with small amount of yellow colored drainage. Rectal bag with liquid green stool. Pt went into SVT last night, cardioversion x 3, now on Amiodarone gtt. Of note , due to vomiting has not had Metoprolol in a few days Drop in hgb noted, stool heme (+). No obvious GIB. Loading dose of Plavix ordered due to stent placement (04/14) Pt resting in bed, continued abdominal pain but some improvement. Denies nausea and vomiting. NG tube clamped. Pt has been tolerating ice chips. Seen by GS who advanced diet to clear liquids. Stool studies negative (04/15) Pt resting in bed, El at bedside. Pt only able to tolerate a few sips of broth from breakfast this morning. NG tube is clamped. Continues to have abdominal pain rates it 04/17. GS following Plan: NG clamped Clear liquids per GS Further recommendations per GS Our service will sign off, please reconsult as needed Have pt follow up with GI after DC Pt has been seen and examined by myself and Dr. Adrian and this note is written on her behalf <Gloria Campos - Last Filed: 04/15/18 11:26> (1) Abdominal pain Status: Acute Code(s): R10.9 - Unspecified abdominal pain (2) Ischemia, bowel Status: Acute Code(s): K55.9 - Vascular disorder of intestine, unspecified (3) Anemia Status: Acute Code(s): D64.9 - Anemia, unspecified - Attending Attestation agree with above poor prognosis consider palliative care <Eda Adrian - Last Filed: 04/15/18 18:26> <Gloria Campos - Last Filed: 04/15/18 11:26> (3) Anemia Qualifiers: Anemia type: unspecified type Qualified Code(s): D64.9 - Anemia, unspecified <Eda Adrian - Last Filed: 04/15/18 18:26> (3) Anemia Qualifiers: Anemia type: unspecified type Qualified Code(s): D64.9 - Anemia, unspecified
[2018-04-15] MEDS: Pantoprazole Inj 40 MG Vial IV.PUSH SCH (12:35)
[2018-04-15] MEDS ORDERED: Albumin Human 5% Inj 500 ML IV.SIG ONE (12:35)
--- NOTE | 2018-04-15 12:36 | P.PNCC ---
Subjective Subjective Remarks/Hospital Course: 72-year-old female with multiple medical issues admitted now with ileus, abdominal pain, and nausea. She underwent ileocectomy on 03/25/18 at [facility] for ischemia of the bowel and questionable acute mesenteric ischemia. 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 She was transferred to inpatient rehab here on 04/08/18 and has had persistent and worsening abdominal pain and nausea. She has started to have some nonbloody emesis. She has longstanding history of Clostridium difficile colitis but stool testing on 04/09/18 negative. MRA shows SMA occlusion. The patient has been followed by Dr. Nas Curiel/general surgery. Today shortly after midnight critical care medicine was consulted by hospitalist service for unstable SVT with hypotension. Patient was started on aggressive volume resuscitation, has received adenosine 02/18/12 without any response. Attempt of electric cardioversion multiple times again without improvement of tachycardia. Patient was then started with amiodarone infusion after bolus of 2 doses of 150 mg IV push and dose of digoxin 0.25 with improvement of hemodynamics. 04/14: Restarted on amiodarone drip overnight. Remains on digoxin. Feels poorly. Clamp NG tube and attempt a clear liquid diet today. SUBJECTIVE: 04/15: Afebrile. Blood pressure borderline. Became more tachycardic. We will bolus with albumin and LR now. Appears current: Resting in bed in no acute distress. NG tube is been clamped. Objective Vital Signs / I&O: Vital Signs 04/14/18 13:02 04/14/18 14:00 04/14/18 15:28 Temperature Pulse Rate 57 L Respiratory Rate 20 21 Blood Pressure Pulse Oximetry 04/14/18 16:00 04/14/18 16:23 04/14/18 17:24 Temperature Pulse Rate 49 L 97 H Respiratory Rate 17 Blood Pressure Pulse Oximetry 98 04/14/18 18:00 04/14/18 19:00 04/14/18 20:00 Temperature 98 F Pulse Rate 111 H 104 H 101 H Respiratory Rate 20 17 18 Blood Pressure 102/66 96/64 L 100/72 Pulse Oximetry 99 98 100 04/14/18 20:31 04/14/18 21:00 04/14/18 22:00 Temperature Pulse Rate 107 H 106 H 113 H Respiratory Rate 18 18 19 Blood Pressure 97/68 L 102/68 Pulse Oximetry 97 99 99 04/14/18 22:30 04/14/18 23:00 04/15/18 00:00 Temperature Pulse Rate 110 H 109 H Respiratory Rate 20 18 17 Blood Pressure 93/63 L 97/69 L Pulse Oximetry 99 99 04/15/18 00:28 04/15/18 01:00 04/15/18 02:00 Temperature Pulse Rate 107 H 114 H 122 H Respiratory Rate 14 16 17 Blood Pressure 92/63 L 88/63 L Pulse Oximetry 99 96 04/15/18 03:00 04/15/18 04:00 04/15/18 04:14 Temperature Pulse Rate 117 H 115 H 109 H Respiratory Rate 19 16 18 Blood Pressure 91/62 L 105/71 Pulse Oximetry 97 98 04/15/18 04:45 04/15/18 05:00 04/15/18 06:00 Temperature Pulse Rate 121 H 118 H Respiratory Rate 18 16 14 Blood Pressure 91/61 L 94/71 L Pulse Oximetry 97 95 04/15/18 07:00 04/15/18 08:00 04/15/18 09:00 Temperature 98.2 F Pulse Rate 119 H 114 H 121 H Respiratory Rate 16 13 20 Blood Pressure 92/63 L 91/63 L 86/60 L Pulse Oximetry 100 98 98 04/15/18 10:00 04/15/18 11:00 Temperature Pulse Rate 124 H 108 H Respiratory Rate 18 18 Blood Pressure 96/66 L 86/66 L Pulse Oximetry 98 97 Intake & Output 04/14/18 04/15/18 04/15/18 18:59 06:59 18:59 Intake Total 1050 / 1050 2360.2 / 2360.2 Output Total 2375 / 2375 1000 / 1000 Balance -1325 / -1325 1360.2 / 1360.2 Weight 44 kg Intake: IV 200 / 200 2360.2 / 2360.2 Intralipid 20% Inj 250 ML @ 10 250 / 250 mls/hr IV.CENTRAL Q24H FRANCA Rx#: [id number] Maxipime Inj 1,000 MG In NS Inj 100 / 100 100 ML @ 200 mls/hr IV.SIG Q12H FRANCA Rx#:[id number] MVI-12 Inj 10 ML Folvite Inj 1 2009.2 / 2010.2 MG In CLINIMIX E 4.25%/D5W Inj 2,000 ML @ 55 mls/hr IV.SIG Q24H FRANCA Rx#:[id number] Flagyl 500 MG Inj 100 ML @ 100 100 / 100 100 / 100 mls/hr IV.SIG Q8H FRANCA Rx#: [id number] Oral 700 / 700 Tube Irrigant 150 / 150 Output: Urine 1700 / 1700 Stool 200 / 200 Urine Amount (Catheter) 300 / 300 1000 / 1000 Female External 300 / 300 1000 / 1000 Gastric Drainage 175 / 175 Right Nare 175 / 175 Other: Date of Last Bowel Movement 04/14/18 04/14/18 04/15/18 # Bowel Movements 1 Result Diagrams: 04/15/18 05:00 04/15/18 00:15 Other Results: Microbiology 04/13/18 16:45 Stool Cryptosporidium Antigen - Final Negative - No Cryptosporicium antigen detected In selected cases of patients with a history of immunosuppression or foreign travel, a full ova and parasites examination may be desired. Contact the microbiology lab if full workup is indicated and subit another specimen for testing. 04/13/18 16:45 Stool Giardia Antigen (JESSICA) - Final Negative - No Giardia Antigen detected In selected cases of patients with a history of immunosuppression or foreign travel, a full ova and parasites examination may be desired. Contact the microbiology lab if full workup is indicated and subit another specimen for testing. 04/13/18 16:45 Stool Enteric Pathogens (PCR) - Final No enteric pathogens detected by PCR (No Salmonella sp., Shigella sp., Campylobacter sp., Yersinia enterocolitica, Vibrio sp., Norovirus, or EHEC (Shiga Toxin 1 or Shiga Toxin 2) detected. 04/12/18 15:39 Stool Stool Occult Blood (JESSICA) - Final Hemoccult positive Imaging: Abdomen MRA 04/11/18 00:00 CONCLUSION: 1. 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 2. 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 3. 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 Small Bowel X-Ray 04/12/18 00:00 CONCLUSION: Negative for small bowel obstruction or significant dilatation. Transit time is less than 4 hours. NG tip in distal stomach. Celiac/Hepatic Arteriogram 04/13/18 00:00 CONCLUSION: 1. 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 Area was successfully treated with a 7 mm stent. 2. 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 Chest X-Ray 04/15/18 06:00 CONCLUSION: Worsening appearance of the chest. Objective Remarks: GENERAL: 72-year-old female resting in bed in no acute distress SKIN: Warm and dry. HEAD: Atraumatic. Normocephalic. EYES: Pupils equal and round. No scleral icterus. No injection or drainage. ENT: No nasal bleeding or discharge. Mucous membranes pink and moist. NECK: Trachea midline. No JVD. CARDIOVASCULAR: Tachycardic, RR.. S1, S2. No S4. RESPIRATORY: No accessory muscle use. Clear to auscultation. Breath sounds equal bilaterally. GASTROINTESTINAL: Abdomen soft, tender incision site. Midline abdominal incision with staple without erythema. MUSCULOSKELETAL: Extremities without significant peripheral edema. No obvious deformities. Right antecubital PICC line dual-lumen NEUROLOGICAL: Awake and alert. No obvious cranial nerve deficits. Motor grossly within normal limits. Five out of 5 muscle strength in the arms and legs. Normal speech. PSYCHIATRIC: Appropriate mood and affect; insight and judgment normal. Assessment and Plan - Assessment and Plan Plan: Neuro/Psych: Neuropathy Acute pain management Oxycodone/acetaminophen 5-10/325 one tab every 6 hours as needed pain Temazepam 15 mg at night as needed insomnia Gabapentin 100 mg twice daily currently on hold Patient is on tramadol at home CV: Unstable SVT resolved Issue with RVR currently normal sinus rhythm Cardiology is following. Continue digoxin 0.125 mg daily. Check level in a.m. Discontinue amiodarone per recommendations of cardiology Resp: Acute respiratory insufficiency COPD Nasal cannula to maintain saturations greater than or equal to 92% Incentive spirometry while awake Fluticasone/Vilanterol 100/25 1 inhalation daily Albuterol/ipratropium aerosols every 4 hours with albuterol aerosols every 2 hours as needed for dyspnea GI: Ischemic bowel status post ileal cecectomy Stent placement to SMA Hypoalbuminemia Severe protein calorie malnutrition Repeat CT abdomen/pelvis 04/11 -progressive ileus -MRA of the abdomen done 04/11 indicates occlusion of the SMA Stented with 7x17 Express stent Clopidogrel loaded with 3 mg. Currently at 75 mg daily. NG tube clamp. Clear liquid diet per general surgery/Dr. Curiel GI is also following Remains on Clinimix 4.25/25 at 55 cc an hour with lipids daily : Periwick placed Endo: Sliding scale insulin to maintain euglycemia Renal: Creatinine currently within normal limits Monitor urine output Accurate I's and O's Heme: Normocytic anemia Monitor CBC daily. Follow trends No indication for transfusion of blood products at this time ID: E. coli and Enterobacter urinary tract infection 04/08 -cefepime initiated 04/10. Remains on metronidazole to 04/17 FEN: Currently electrolytes being replaced per protocol. Recheck in a.m. MSK: PT evaluate and treat Access -Right upper extremity PICC day #2 dual-lumen Prophylaxis -GI -pantoprazole -DVT -SCDs/heparin subcu Level 2 follow-up. Stable from critical care medicine standpoint. Assign care to hospitalist in a.m. 04/16.
[2018-04-15] MEDS: Mag Sulf 1 gm/100 ml Premix 100 ML IV.SIG SCH ×2 (13:45→14:39)
[2018-04-15] MEDS: metroNIDAZOLE 500 MG Tablet PO SCH ×2 (13:45→21:46)
[2018-04-15] MEDS ORDERED: Metoprolol Inj 5 MG/5 ML Vial IV.PUSH ONE ×2 (15:20→16:22)
--- NOTE | 2018-04-15 18:15 | CT ---
EXAM DATE: 04/15/2018 5:59 PM EDT AGE/SEX: 72 years / Female INDICATIONS: Abnormal heart rate CLINICAL DATA: This is the patient's initial encounter. Patient reports that signs and symptoms have been present for 1 day and indicates a pain score of Nonresponsive. MEDICAL/SURGICAL HISTORY: Chronic obstructive pulmonary disease. Hysterectomy. RADIATION DOSE: 5.62 CTDI (mGy) COMPARISON: POI, CT CHEST W/ CONTRAST, 02/04/2017. . TECHNIQUE: Volumetric scanning was performed using a multi-row detector CT scanner during bolus infu joyce of 50 ml Visipaque 320 (iodixanol) nonionic water-soluble contrast as a single exam dose. The d jarred was post processed with a variety of visualization algorithms including full volume maximum inten sity projection and sliding thin slab reformation. Using automated exposure control and adjustment o f the mA and/or kV according to patient size, radiation dose was kept as low as reasonably achievable to obtain optimal diagnostic quality images. DICOM format image data is available electronically fo r review and comparison. FINDINGS: There is no pulmonary embolus. Small moderate right and moderate left pleural effusions are present with dependent/compressive atele ctasis of both bases. There is patchy infiltrate of both upper lobes and thickening of the interlobul ar septa. Emphysema and scarring again noted. Mediastinal lymph nodes are present that are larger than on the prior CT. For example, subcarinal lym ph node measuring 15 x 31 mm and pretracheal lymph nodes measuring up to 12 x 15 mm. Heart size within normal limits. There is coronary artery calcification. CONCLUSION: 1. No pulmonary embolus. 2. Bilateral pleural effusions and atelectasis. 3. Patchy bilateral nonspecific infiltrate. 4. Thickened interlobular septa suggesting mild pulmonary edema. 5. Nonspecific mildly enlarged mediastinal lymph nodes and are larger than before. Electronically signed by: Silvino Gatica MD 04/15/2018 6:13 PM EDT
[2018-04-15] MEDS: Multivitamin Inj 10 ML, Folic Acid Inj 1 MG in AA 4.25 %/D5W - Electrolytes 2,000 ML IV.SIG SCH (19:59)
--- NOTE | 2018-04-15 22:00 | ECG ---
Date Performed: 04/15/2018 Time Performed: 17:29:44 PTAGE: 72 years EKG: SINUS TACHYCARDIA LOW QRS VOLTAGE IN EXTREMITY LEADS ABNORMAL RHYTHM ECG PREVIOUS TRACING : 04/12/2018 23.27 Compared to previous tracing, rate slower, fast SVT no gabo charu present DOCTOR: Rosalee Gonzalez Interpretating Date/Time 04/15/2018 21:58:50
[2018-04-16] MEDS: Insulin NovoLIN Regular Correctional Sugar Inj SQ SCH ×5 (00:59→20:06)
[2018-04-16] MEDS: Morphine Inj 4 MG/ML Vial IV.PUSH PRN ×2 (04:57→18:20)
[2018-04-16 05:38] LABS: Baso % (Auto) 0.6 % (0.0-2.0); Eos # (Auto) 0.3 th/mm3 (0.0-0.4); Lymph # (Auto) 1.1 th/mm3 (1.0-4.8); Lymph % (Auto) 13.8 % (9.0-44.0); Mean Corpuscular Hemoglobin 29.9 pg (27.0-34.0); Mean Corpuscular Volume 87.9 fL (80.0-100.0); Mean Platelet Volume 8.4 fL (7.0-11.0); Mono # (Auto) 0.9 th/mm3 (0.0-0.9); Mono % (Auto) 11.2 % (0.0-8.0); Neut # (Auto) 5.5 th/mm3 (1.8-7.7); Neut % (Auto) 70.4 % (16.0-70.0); Platelet Count 449 th/mm3 (150-450); Red Blood Count 2.31 mil/mm3 (4.00-5.30); Red Cell Distribution Width 17.9 % (11.6-17.2); White Blood Count 7.8 th/mm3 (4.0-11.0)
[2018-04-16 05:45] LABS: Hematocrit 20.3 % (35.0-46.0); Hemoglobin 6.9 gm/dL (11.6-15.3)
[2018-04-16 06:37] LABS: Alanine Aminotransferase 10 U/L (10-53); Albumin 2.1 g/dL (3.4-5.0); Alkaline Phosphatase 60 U/L (45-117); Anion Gap 11 meq/L (5-15); Aspartate Aminotransferase 15 U/L (15-37); Blood Urea Nitrogen 16 mg/dL (7-18); Calcium 7.8 mg/dL (8.5-10.1); Carbon Dioxide 21.6 meq/L (21.0-32.0); Chloride 94 meq/L (98-107); Digoxin 1.6 ng/mL (0.8-2.0); Glomerular Filtration Rate Greater Than 89 mL/min (>89); Glucose,Random 228 mg/dL (74-106); Phosphorus 4.7 mg/dL (2.5-4.9); Potassium 5.1 meq/L (3.5-5.1); Sodium 127 meq/L (136-145); Total Protein 5.4 g/dL (6.4-8.2)
[2018-04-16] MEDS: metroNIDAZOLE 500 MG Tablet PO SCH ×3 (06:44→23:02)
--- NOTE | 2018-04-16 08:28 | P.PNCA ---
Subjective Interval history: resting comfortably, denies chest pain, sob or palpitations Physical Exam Vital signs: Vital Signs 04/15/18 09:00 04/15/18 10:00 04/15/18 11:00 Temperature Pulse Rate 121 H 124 H 108 H Respiratory Rate 20 18 18 Blood Pressure 86/60 L 96/66 L 86/66 L Pulse Oximetry 98 98 97 04/15/18 12:00 04/15/18 13:00 04/15/18 14:00 Temperature 98.0 F Pulse Rate 119 H 119 H 122 H Respiratory Rate 16 17 19 Blood Pressure 89/66 L 97/67 L 95/68 L Pulse Oximetry 99 99 97 04/15/18 14:42 04/15/18 15:00 04/15/18 16:00 Temperature 98.3 F Pulse Rate 125 H 127 H 130 H Respiratory Rate 18 19 18 Blood Pressure 88/64 L 106/69 Pulse Oximetry 95 95 04/15/18 17:00 04/15/18 17:29 04/15/18 18:00 Temperature Pulse Rate 119 H 125 H 128 H Respiratory Rate 19 19 21 Blood Pressure 93/69 L 96/66 L 93/66 L Pulse Oximetry 96 95 86 L 04/15/18 18:03 04/15/18 19:00 04/15/18 20:00 Temperature 97.9 F Pulse Rate 128 H 137 H 140 H Respiratory Rate 19 20 22 Blood Pressure 103/73 105/75 100/74 Pulse Oximetry 93 L 95 96 04/15/18 20:30 04/15/18 21:00 04/15/18 22:00 Temperature Pulse Rate 137 H 135 H Respiratory Rate 22 25 H Blood Pressure 103/66 102/79 Pulse Oximetry 96 95 97 04/15/18 23:00 04/15/18 23:10 04/16/18 00:00 Temperature 98.2 F Pulse Rate 121 H 112 H Respiratory Rate 21 20 21 Blood Pressure 103/74 105/67 Pulse Oximetry 100 96 04/16/18 01:00 04/16/18 02:00 04/16/18 03:00 Temperature Pulse Rate 103 H 107 H 105 H Respiratory Rate 18 18 16 Blood Pressure 110/59 L 114/79 113/74 Pulse Oximetry 97 97 99 04/16/18 04:00 04/16/18 05:00 04/16/18 06:00 Temperature 98.4 F Pulse Rate 112 H 102 H 85 Respiratory Rate 19 13 16 Blood Pressure 113/78 106/67 100/67 Pulse Oximetry 97 97 97 Intake & Output 04/15/18 04/16/18 04/16/18 18:59 06:59 18:59 Intake Total 550 / 550 2510.2 / 2510.2 Output Total 1900 / 1900 1100 / 1100 Balance -1350 / -1350 1410.2 / 1410.2 Weight 47.9 kg Intake: IV 200 / 200 2510.2 / 2510.2 Intralipid 20% Inj 250 ML @ 10 250 / 250 mls/hr IV.CENTRAL Q24H FRANCA Rx#: [id number] Cordarone Inj 450 MG In D5W Inj 250 / 250 241 ML @ 1 MG/MIN 33.33 mls/hr IV.CONT TITRATE PRN Rx#: [id number] Maxipime Inj 1,000 MG In NS Inj 100 / 100 100 ML @ 200 mls/hr IV.SIG Q12H FRANCA Rx#:[id number] Magnesium Sulfate 1 gm/D5W 100 100 / 100 ml Premix 100 ML @ 100 mls/hr IV.SIG Q1H FRANCA Rx#:[id number] MVI-12 Inj 10 ML Folvite Inj 1 2009.2 / 2009.2 MG In CLINIMIX E 4.25%/D5W Inj 2,000 ML @ 55 mls/hr IV.SIG Q24H FRANCA Rx#:[id number] Oral 350 / 350 Output: Stool 50 / 50 Urine Amount (Catheter) 1850 / 1850 1100 / 1100 Female External 1850 / 1850 1100 / 1100 Other: Date of Last Bowel Movement 04/15/18 04/15/18 Narrative: NAD CV RRR No MRG Chest: CTA Abd: mild distention, mild ttp Ext: s/p bka L - Urinary Catheter Management Female External Cath placed during this visit: no Assessment and Plan - Plan 72 yo F with HTN, HLD and paroxysmal atrial fibrillation presented with abdominal pain and nausea from inpatient rehab after recent hospitalization for ischemic bowel requiring colectomy (03/25/18) in [place]. This was complicated by left lower leg ischemia and unsuccessful thrombectomy ultimately requiring left BKA. patient has had persistent abdominal pain and nausea. Course complicated by episode of sustained SVT late night of 04/12/18. Adenosine along with several shocks were administered without benefit; she was then given amiodarone and digoxin with improvement. She is s/p stenting of SMA occlusion on 04/13/18 SVT- sinus tachycardia remains on amiodarone gtt and digoxin (level normal) acute anemia- Hgb has dropped from 8.2 yesterday to 6.9 today GI has been following hyponatremic - cont repletion hypokalemia- resolved echo normal EF
[2018-04-16] MEDS: Digoxin 125 MCG Tablet PO SCH (08:51)
[2018-04-16] MEDS: Heparin - SQ 10,000 UNITS/ML Vial SQ SCH ×2 (08:53→21:00)
[2018-04-16] MEDS: Heparin Central Flush 100 UNIT/ML 5 ML Vial IV.FLUSH SCH (08:53)
--- NOTE | 2018-04-16 09:51 | P.PN ---
Subjective Interval history: Consulted by critical care medicine for transfer care medical management. 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 Telemetry shows sinus rhythm. Tolerating liquid diet. Improving intermittent brief abdominal cramping. Regular bowel movement yesterday. Still on TPN and lipids. Tolerated blood transfusion. Physical Exam Vital signs: Vital Signs 04/15/18 10:00 04/15/18 11:00 04/15/18 12:00 Temperature 98.0 F Pulse Rate 124 H 108 H 119 H Respiratory Rate 18 18 16 Blood Pressure 96/66 L 86/66 L 89/66 L Pulse Oximetry 98 97 99 04/15/18 13:00 04/15/18 14:00 04/15/18 14:42 Temperature Pulse Rate 119 H 122 H 125 H Respiratory Rate 17 19 18 Blood Pressure 97/67 L 95/68 L Pulse Oximetry 99 97 04/15/18 15:00 04/15/18 16:00 04/15/18 17:00 Temperature 98.3 F Pulse Rate 127 H 130 H 119 H Respiratory Rate 19 18 19 Blood Pressure 88/64 L 106/69 93/69 L Pulse Oximetry 95 95 96 04/15/18 17:29 04/15/18 18:00 04/15/18 18:03 Temperature Pulse Rate 125 H 128 H 128 H Respiratory Rate 19 21 19 Blood Pressure 96/66 L 93/66 L 103/73 Pulse Oximetry 95 86 L 93 L 04/15/18 19:00 04/15/18 20:00 04/15/18 20:30 Temperature 97.9 F Pulse Rate 137 H 140 H Respiratory Rate 20 22 Blood Pressure 105/75 100/74 Pulse Oximetry 95 96 96 04/15/18 21:00 04/15/18 22:00 04/15/18 23:00 Temperature Pulse Rate 137 H 135 H 121 H Respiratory Rate 22 25 H 21 Blood Pressure 103/66 102/79 103/74 Pulse Oximetry 95 97 100 04/15/18 23:10 04/16/18 00:00 04/16/18 01:00 Temperature 98.2 F Pulse Rate 112 H 103 H Respiratory Rate 20 21 18 Blood Pressure 105/67 110/59 L Pulse Oximetry 96 97 04/16/18 02:00 04/16/18 03:00 04/16/18 04:00 Temperature 98.4 F Pulse Rate 107 H 105 H 112 H Respiratory Rate 18 16 19 Blood Pressure 114/79 113/74 113/78 Pulse Oximetry 97 99 97 04/16/18 05:00 04/16/18 06:00 04/16/18 08:40 Temperature Pulse Rate 102 H 85 101 H Respiratory Rate 13 16 21 Blood Pressure 106/67 100/67 Pulse Oximetry 97 97 99 04/16/18 09:40 Temperature 98.1 F Pulse Rate 99 H Respiratory Rate 16 Blood Pressure Pulse Oximetry 99 Intake & Output 04/15/18 04/16/18 04/16/18 18:59 06:59 18:59 Intake Total 550 / 550 2510.2 / 2510.2 0 / 0 Output Total 1900 / 1900 1100 / 1100 Balance -1350 / -1350 1410.2 / 1410.2 0 / 0 Weight 47.9 kg Intake: IV 200 / 200 2510.2 / 2510.2 Intralipid 20% Inj 250 ML @ 10 250 / 250 mls/hr IV.CENTRAL Q24H FRANCA Rx#: [id number] Cordarone Inj 450 MG In D5W Inj 250 / 250 241 ML @ 1 MG/MIN 33.33 mls/hr IV.CONT TITRATE PRN Rx#: [id number] Maxipime Inj 1,000 MG In NS Inj 100 / 100 100 ML @ 200 mls/hr IV.SIG Q12H FRANCA Rx#:[id number] Magnesium Sulfate 1 gm/D5W 100 100 / 100 ml Premix 100 ML @ 100 mls/hr IV.SIG Q1H FRANCA Rx#:[id number] MVI-12 Inj 10 ML Folvite Inj 1 2009.2 / 2009.2 MG In CLINIMIX E 4.25%/D5W Inj 2,000 ML @ 55 mls/hr IV.SIG Q24H FRANCA Rx#:[id number] Oral 350 / 350 Intake (Blood Product) Amt 0 / 0 Rbc As-3 Leukoreduced Unit 0 / 0 [id number] Output: Stool 50 / 50 Urine Amount (Catheter) 1849 1100 1100 Female External 1849 1100 / 1100 Other: Date of Last Bowel Movement 04/15/18 04/15/18 Narrative: GENERAL: 72-year-old female resting in bed in no acute distress SKIN: Warm and dry. CARDIOVASCULAR: Regular rate and rhythm S1, S2. No S4. RESPIRATORY: No accessory muscle use. Clear to auscultation. Breath sounds equal bilaterally. GASTROINTESTINAL: Abdomen soft, tender incision site. Midline abdominal incision with staple without erythema. MUSCULOSKELETAL: Extremities without significant peripheral edema. No obvious deformities. Right antecubital PICC line dual-lumen NEUROLOGICAL: Awake and alert. No obvious cranial nerve deficits. Motor grossly within normal limits. Five out of 5 muscle strength in the arms and legs. Normal speech. - Urinary Catheter Management Female External Cath placed during this visit: no Results - Labs CBC & Chem 7: 04/16/18 05:00 04/16/18 05:00 Laboratory Results - last 24 hr 04/15/18 04/15/18 04/15/18 10:59 15:20 20:16 WBC RBC Hgb Hct MCV MCH MCHC RDW Plt Count MPV Prelim Diff (Auto) Neut % (Auto) Lymph % (Auto) [place] % (Auto) Eos % (Auto) Baso % (Auto) Neut # (Auto) Lymph # (Auto) [place] # (Auto) Eos # (Auto) Baso # (Auto) WBC Differential Diff Scan Differential Comment Sodium Potassium Chloride Carbon Dioxide Anion Gap BUN Creatinine Estimated GFR POC Glucose 114 H 132 H 121 H Random Glucose Calcium Phosphorus Magnesium Total Bilirubin AST ALT Alkaline Phosphatase Troponin I Total Protein Albumin Digoxin Blood Type Antibody Screen MTS Gel Crossmatch 04/16/18 04/16/18 04/16/18 00:47 04:53 04:55 WBC RBC Hgb Hct MCV MCH MCHC RDW Plt Count MPV Prelim Diff (Auto) Neut % (Auto) Lymph % (Auto) [place] % (Auto) Eos % (Auto) Baso % (Auto) Neut # (Auto) Lymph # (Auto) [place] # (Auto) Eos # (Auto) Baso # (Auto) WBC Differential Diff Scan Differential Comment Sodium Potassium Chloride Carbon Dioxide Anion Gap BUN Creatinine Estimated GFR POC Glucose 122 H 210 H 134 H Random Glucose Calcium Phosphorus Magnesium Total Bilirubin AST ALT Alkaline Phosphatase Troponin I Total Protein Albumin Digoxin Blood Type Antibody Screen MTS Gel Crossmatch 04/16/18 04/16/18 04/16/18 05:00 05:00 05:00 WBC 7.8 RBC 2.31 L Hgb 6.9 L* Hct 20.3 L* MCV 87.9 MCH 29.9 MCHC 34.0 RDW 17.9 H Plt Count 449 MPV 8.4 Prelim Diff (Auto) Slide review pending Neut % (Auto) 70.4 H Lymph % (Auto) 13.8 [place] % (Auto) 11.2 H Eos % (Auto) 4.0 Baso % (Auto) 0.6 Neut # (Auto) 5.5 Lymph # (Auto) 1.1 [place] # (Auto) 0.9 Eos # (Auto) 0.3 Baso # (Auto) 0.0 WBC Differential . Diff Scan Auto diff confirmed Differential Comment . Sodium 127 L Potassium 5.1 Chloride 94 L D Carbon Dioxide 21.6 Anion Gap 11 BUN 16 Creatinine 0.50 Estimated GFR Greater than 89 POC Glucose Random Glucose 228 H D Calcium 7.8 L Phosphorus 4.7 D Magnesium 2.0 Total Bilirubin 0.3 AST 15 ALT 10 Alkaline Phosphatase 60 Troponin I Cancelled 0.12 H Total Protein 5.4 L D Albumin 2.1 L Digoxin 1.6 Blood Type Antibody Screen MTS Gel Crossmatch 04/16/18 07:20 WBC RBC Hgb Hct MCV MCH MCHC RDW Plt Count MPV Prelim Diff (Auto) Neut % (Auto) Lymph % (Auto) [place] % (Auto) Eos % (Auto) Baso % (Auto) Neut # (Auto) Lymph # (Auto) [place] # (Auto) Eos # (Auto) Baso # (Auto) WBC Differential Diff Scan Differential Comment Sodium Potassium Chloride Carbon Dioxide Anion Gap BUN Creatinine Estimated GFR POC Glucose Random Glucose Calcium Phosphorus Magnesium Total Bilirubin AST ALT Alkaline Phosphatase Troponin I Total Protein Albumin Digoxin Blood Type A Positive Antibody Screen Negative MTS Gel Crossmatch See Detail - Imaging ITS Impressions Abdomen MRA 04/11/18 00:00 CONCLUSION: 1. 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 2. 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 3. 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 Small Bowel X-Ray 04/12/18 00:00 CONCLUSION: Negative for small bowel obstruction or significant dilatation. Transit time is less than 4 hours. NG tip in distal stomach. Celiac/Hepatic Arteriogram 04/13/18 00:00 CONCLUSION: 1. 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 Area was successfully treated with a 7 mm stent. 2. 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 Chest CTA 04/15/18 00:00 CONCLUSION: 1. No pulmonary embolus. 2. Bilateral pleural effusions and atelectasis. 3. Patchy bilateral nonspecific infiltrate. 4. Thickened interlobular septa suggesting mild pulmonary edema. 5. Nonspecific mildly enlarged mediastinal lymph nodes and are larger than before. Chest X-Ray 04/15/18 06:00 CONCLUSION: Worsening appearance of the chest. - Procedures Cardioversion Celiac stent by IR PICC Assessment and Plan - Plan Neuro/Psych: Neuropathy Acute pain management Oxycodone/acetaminophen 5-10/325 one tab every 6 hours as needed pain Temazepam 15 mg at night as needed insomnia Gabapentin 100 mg twice daily currently on hold Patient is on tramadol at home CV: Unstable SVT resolved Issue with RVR currently normal sinus rhythm Cardiology is following. Continue digoxin 0.125 mg daily. Amiodarone per recommendations of cardiology drip Resp: Acute respiratory insufficiency COPD Stable currently on room air A nasal cannula to maintain saturations greater than or equal to 92% Incentive spirometry while awake Fluticasone/Vilanterol 100/25 1 inhalation daily Albuterol/ipratropium aerosols every 4 hours with albuterol aerosols every 2 hours as needed for dyspnea GI: Ischemic bowel status post ileal cecectomy Stent placement to SMA Hypoalbuminemia Severe protein calorie malnutrition Repeat CT abdomen/pelvis 04/11 -progressive ileus -MRA of the abdomen done 04/11 indicates occlusion of the SMA Stented with 7x17 Express stent Clopidogrel loaded with 3 mg. Currently at 75 mg daily. NG tube clamp. Clear liquid diet per general surgery/Dr. Curiel GI is also following Remains on Clinimix 4.25/25 at 55 cc an hour with lipids daily : Periwick placed Endo: Sliding scale insulin to maintain euglycemia Renal: Creatinine currently within normal limits Monitor urine output Accurate I's and O's Heme: Normocytic anemia Monitor CBC daily. Follow trends No indication for transfusion of blood products at this time ID: E. coli and Enterobacter urinary tract infection 04/08 -cefepime last dose today. Remains on metronidazole to 04/17 FEN: Hyponatremia 127. Asymptomatic Electrolyte replacement protocol. Recheck in a.m. MSK: PT evaluate and treat Access -Right upper extremity PICC day #2 dual-lumen Prophylaxis -GI -pantoprazole -DVT -SCDs/heparin subcu Discharge Planning: Stable for transfer to [facility] then back to [place]
[2018-04-16] MEDS ORDERED: Sodium Chlor 0.9% Inj 250 ML IV.SIG SCH (10:00)
--- NOTE | 2018-04-16 10:25 | P.PNGI ---
Subjective Interval history: Pt resting in bed, at bedside. NG tube has been discontinued. Pt denies nausea and emesis. She has only had a few sips of her breakfast this morning. Remains on TPN <Gloria Campos - Last Filed: 04/16/18 10:22> Physical Exam Vital signs: Vital Signs 04/15/18 11:00 04/15/18 12:00 04/15/18 13:00 Temperature 98.0 F Pulse Rate 108 H 119 H 119 H Respiratory Rate 18 16 17 Blood Pressure 86/66 L 89/66 L 97/67 L Pulse Oximetry 97 99 99 04/15/18 14:00 04/15/18 14:42 04/15/18 15:00 Temperature Pulse Rate 122 H 125 H 127 H Respiratory Rate 19 18 19 Blood Pressure 95/68 L 88/64 L Pulse Oximetry 97 95 04/15/18 16:00 04/15/18 17:00 04/15/18 17:29 Temperature 98.3 F Pulse Rate 130 H 119 H 125 H Respiratory Rate 18 19 19 Blood Pressure 106/69 93/69 L 96/66 L Pulse Oximetry 95 96 95 04/15/18 18:00 04/15/18 18:03 04/15/18 19:00 Temperature Pulse Rate 128 H 128 H 137 H Respiratory Rate 21 19 20 Blood Pressure 93/66 L 103/73 105/75 Pulse Oximetry 86 L 93 L 95 04/15/18 20:00 04/15/18 20:30 04/15/18 21:00 Temperature 97.9 F Pulse Rate 140 H 137 H Respiratory Rate 22 22 Blood Pressure 100/74 103/66 Pulse Oximetry 96 96 95 04/15/18 22:00 04/15/18 23:00 04/15/18 23:10 Temperature Pulse Rate 135 H 121 H Respiratory Rate 25 H 21 20 Blood Pressure 102/79 103/74 Pulse Oximetry 97 100 04/16/18 00:00 04/16/18 01:00 04/16/18 02:00 Temperature 98.2 F Pulse Rate 112 H 103 H 107 H Respiratory Rate 21 18 18 Blood Pressure 105/67 110/59 L 114/79 Pulse Oximetry 96 97 97 04/16/18 03:00 04/16/18 04:00 04/16/18 05:00 Temperature 98.4 F Pulse Rate 105 H 112 H 102 H Respiratory Rate 16 19 13 Blood Pressure 113/74 113/78 106/67 Pulse Oximetry 99 97 97 04/16/18 06:00 04/16/18 08:40 04/16/18 09:40 Temperature 98.1 F Pulse Rate 85 101 H 99 H Respiratory Rate 16 21 16 Blood Pressure 100/67 Pulse Oximetry 97 99 99 04/16/18 09:56 Temperature 98.4 F Pulse Rate 98 H Respiratory Rate 12 Blood Pressure 104/66 Pulse Oximetry 97 Intake & Output 04/15/18 04/16/18 04/16/18 18:59 06:59 18:59 Intake Total 550 / 550 2510.2 / 2510.2 0 / 0 Output Total 1900 / 1900 1100 / 1100 Balance -1350 / -1350 1410.2 / 1410.2 0 / 0 Weight 47.9 kg Intake: IV 200 / 200 2510.2 / 2510.2 Intralipid 20% Inj 250 ML @ 10 250 / 250 mls/hr IV.CENTRAL Q24H [facility] Rx#: [id number] Cordarone Inj 450 MG In D5W Inj 250 / 250 241 ML @ 1 MG/MIN 33.33 mls/hr IV.CONT TITRATE PRN Rx#: [id number] Maxipime Inj 1,000 MG In NS Inj 100 / 100 100 ML @ 200 mls/hr IV.SIG Q12H [facility] Rx#:[id number] Magnesium Sulfate 1 gm/D5W 100 100 / 100 ml Premix 100 ML @ 100 mls/hr IV.SIG Q1H [facility] Rx#:[id number] MVI-12 Inj 10 ML Folvite Inj 1 2009.2 / 2009.2 MG In CLINIMIX E 4.25%/D5W Inj 2,000 ML @ 55 mls/hr IV.SIG Q24H [facility] Rx#:[id number] Oral 350 / 350 Intake (Blood Product) Amt 0 / 0 Rbc As-3 Leukoreduced Unit 0 / 0 [id number] Output: Stool 50 / 50 Urine Amount (Catheter) 1849 1100 / 1100 Female External 1849 1100 / 1100 Other: Date of Last Bowel Movement 04/15/18 04/15/18 - Constitutional no acute distress - Routine HEENT Exam Head: Present: normocephalic, atraumatic - Routine Respiratory Exam Absent: accessory muscle use - Routine Abdominal Exam Present: soft, normoactive bowel sounds, tenderness. Absent: distended - Routine Skin Exam Present: dry, warm - Routine Neurological Exam Present: alert - Urinary Catheter Management Female External Cath placed during this visit: no <Gloria Campos - Last Filed: 04/16/18 10:22> Vital signs: Vital Signs 04/15/18 16:00 04/15/18 17:00 04/15/18 17:29 Temperature 98.3 F Pulse Rate 130 H 119 H 125 H Respiratory Rate 18 19 19 Blood Pressure 106/69 93/69 L 96/66 L Pulse Oximetry 95 96 95 04/15/18 18:00 04/15/18 18:03 04/15/18 19:00 Temperature Pulse Rate 128 H 128 H 137 H Respiratory Rate 21 19 20 Blood Pressure 93/66 L 103/73 105/75 Pulse Oximetry 86 L 93 L 95 04/15/18 20:00 04/15/18 20:30 04/15/18 21:00 Temperature 97.9 F Pulse Rate 140 H 137 H Respiratory Rate 22 22 Blood Pressure 100/74 103/66 Pulse Oximetry 96 96 95 04/15/18 22:00 04/15/18 23:00 04/15/18 23:10 Temperature Pulse Rate 135 H 121 H Respiratory Rate 25 H 21 20 Blood Pressure 102/79 103/74 Pulse Oximetry 97 100 04/16/18 00:00 04/16/18 01:00 04/16/18 02:00 Temperature 98.2 F Pulse Rate 112 H 103 H 107 H Respiratory Rate 21 18 18 Blood Pressure 105/67 110/59 L 114/79 Pulse Oximetry 96 97 97 04/16/18 03:00 04/16/18 04:00 04/16/18 04:45 Temperature 98.4 F Pulse Rate 105 H 112 H 109 H Respiratory Rate 16 19 17 Blood Pressure 113/74 113/78 109/75 Pulse Oximetry 99 97 98 04/16/18 05:00 04/16/18 05:15 04/16/18 05:30 Temperature Pulse Rate 102 H 97 H 97 H Respiratory Rate 13 15 15 Blood Pressure 106/67 103/69 105/67 Pulse Oximetry 97 95 95 04/16/18 05:45 04/16/18 06:00 04/16/18 06:15 Temperature Pulse Rate 89 85 87 Respiratory Rate 15 16 17 Blood Pressure 104/67 100/67 102/68 Pulse Oximetry 95 97 97 04/16/18 06:30 04/16/18 06:45 04/16/18 07:00 Temperature Pulse Rate 88 88 87 Respiratory Rate 16 15 18 Blood Pressure 97/63 L 99/67 L 108/71 Pulse Oximetry 97 97 98 04/16/18 07:15 04/16/18 07:30 04/16/18 07:45 Temperature Pulse Rate 102 H 103 H 107 H Respiratory Rate 13 15 19 Blood Pressure 112/74 113/76 108/73 Pulse Oximetry 95 98 100 04/16/18 08:00 04/16/18 08:15 04/16/18 08:30 Temperature Pulse Rate 100 H 97 H 101 H Respiratory Rate 21 16 16 Blood Pressure 110/72 112/72 111/75 Pulse Oximetry 96 97 98 04/16/18 08:40 04/16/18 08:45 04/16/18 09:00 Temperature Pulse Rate 101 H 103 H 101 H Respiratory Rate 21 18 20 Blood Pressure 109/72 105/71 Pulse Oximetry 99 99 98 04/16/18 09:15 04/16/18 09:30 04/16/18 09:40 Temperature 98.1 F Pulse Rate 100 H 99 H 99 H Respiratory Rate 19 18 16 Blood Pressure 115/69 104/65 Pulse Oximetry 98 98 99 04/16/18 09:45 04/16/18 09:56 04/16/18 10:00 Temperature 98.4 F Pulse Rate 101 H 98 H 98 H Respiratory Rate 23 12 16 Blood Pressure 104/66 104/66 110/70 Pulse Oximetry 91 L 97 97 04/16/18 10:15 04/16/18 10:30 04/16/18 10:45 Temperature Pulse Rate 99 H 100 H 98 H Respiratory Rate 15 18 18 Blood Pressure 106/70 105/69 108/70 Pulse Oximetry 94 L 98 97 04/16/18 11:00 04/16/18 12:38 Temperature Pulse Rate 99 H 99 H Respiratory Rate 19 24 Blood Pressure 109/74 Pulse Oximetry 98 Intake & Output 04/15/18 04/16/18 04/16/18 18:59 06:59 18:59 Intake Total 550 / 550 2510.2 / 2510.2 0 / 0 Output Total 1900 / 1900 1100 / 1100 Balance -1350 / -1350 1410.2 / 1410.2 0 / 0 Weight 47.9 kg Intake: IV 200 / 200 2510.2 / 2510.2 Intralipid 20% Inj 250 ML @ 10 250 / 250 mls/hr IV.CENTRAL Q24H [facility] Rx#: [id number] Cordarone Inj 450 MG In D5W Inj 250 / 250 241 ML @ 1 MG/MIN 33.33 mls/hr IV.CONT TITRATE PRN Rx#: [id number] Maxipime Inj 1,000 MG In NS Inj 100 / 100 100 ML @ 200 mls/hr IV.SIG Q12H [facility] Rx#:[id number] Magnesium Sulfate 1 gm/D5W 100 100 / 100 ml Premix 100 ML @ 100 mls/hr IV.SIG Q1H [facility] Rx#:[id number] MVI-12 Inj 10 ML Folvite Inj 1 2009.2 / 2010.2 MG In CLINIMIX E 4.25%/D5W Inj 2,000 ML @ 55 mls/hr IV.SIG Q24H [facility] Rx#:[id number] Oral 350 / 350 Intake (Blood Product) Amt 0 / 0 Rbc As-3 Leukoreduced Unit 0 / 0 [id number] Output: Stool 50 / 50 Urine Amount (Catheter) 1850 / 1850 1100 / 1100 Female External 1850 / 1850 1100 / 1100 Other: Date of Last Bowel Movement 04/15/18 04/15/18 04/15/18 - Urinary Catheter Management Female External Cath placed during this visit: no <Eda Adrian - Last Filed: 04/16/18 15:40> Results - Labs CBC & Chem 7: 04/16/18 05:00 04/16/18 05:00 Laboratory Results - last 24 hr 04/15/18 04/15/18 04/15/18 10:59 15:20 20:16 WBC RBC Hgb Hct MCV MCH MCHC RDW Plt Count MPV Prelim Diff (Auto) Neut % (Auto) Lymph % (Auto) [place] % (Auto) Eos % (Auto) Baso % (Auto) Neut # (Auto) Lymph # (Auto) [place] # (Auto) Eos # (Auto) Baso # (Auto) WBC Differential Diff Scan Differential Comment Sodium Potassium Chloride Carbon Dioxide Anion Gap BUN Creatinine Estimated GFR POC Glucose 114 H 132 H 121 H Random Glucose Calcium Phosphorus Magnesium Total Bilirubin AST ALT Alkaline Phosphatase Troponin I Total Protein Albumin Digoxin Blood Type Antibody Screen MTS Gel Crossmatch 04/16/18 04/16/18 04/16/18 00:47 04:53 04:55 WBC RBC Hgb Hct MCV MCH MCHC RDW Plt Count MPV Prelim Diff (Auto) Neut % (Auto) Lymph % (Auto) [place] % (Auto) Eos % (Auto) Baso % (Auto) Neut # (Auto) Lymph # (Auto) [place] # (Auto) Eos # (Auto) Baso # (Auto) WBC Differential Diff Scan Differential Comment Sodium Potassium Chloride Carbon Dioxide Anion Gap BUN Creatinine Estimated GFR POC Glucose 122 H 210 H 134 H Random Glucose Calcium Phosphorus Magnesium Total Bilirubin AST ALT Alkaline Phosphatase Troponin I Total Protein Albumin Digoxin Blood Type Antibody Screen MTS Gel Crossmatch 04/16/18 04/16/18 04/16/18 05:00 05:00 05:00 WBC 7.8 RBC 2.31 L Hgb 6.9 L* Hct 20.3 L* MCV 87.9 MCH 29.9 MCHC 34.0 RDW 17.9 H Plt Count 449 MPV 8.4 Prelim Diff (Auto) Slide review pending Neut % (Auto) 70.4 H Lymph % (Auto) 13.8 [place] % (Auto) 11.2 H Eos % (Auto) 4.0 Baso % (Auto) 0.6 Neut # (Auto) 5.5 Lymph # (Auto) 1.1 [place] # (Auto) 0.9 Eos # (Auto) 0.3 Baso # (Auto) 0.0 WBC Differential . Diff Scan Auto diff confirmed Differential Comment . Sodium 127 L Potassium 5.1 Chloride 94 L D Carbon Dioxide 21.6 Anion Gap 11 BUN 16 Creatinine 0.50 Estimated GFR Greater than 89 POC Glucose Random Glucose 228 H D Calcium 7.8 L Phosphorus 4.7 D Magnesium 2.0 Total Bilirubin 0.3 AST 15 ALT 10 Alkaline Phosphatase 60 Troponin I Cancelled 0.12 H Total Protein 5.4 L D Albumin 2.1 L Digoxin 1.6 Blood Type Antibody Screen MTS Gel Crossmatch 04/16/18 07:20 WBC RBC Hgb Hct MCV MCH MCHC RDW Plt Count MPV Prelim Diff (Auto) Neut % (Auto) Lymph % (Auto) [place] % (Auto) Eos % (Auto) Baso % (Auto) Neut # (Auto) Lymph # (Auto) [place] # (Auto) Eos # (Auto) Baso # (Auto) WBC Differential Diff Scan Differential Comment Sodium Potassium Chloride Carbon Dioxide Anion Gap BUN Creatinine Estimated GFR POC Glucose Random Glucose Calcium Phosphorus Magnesium Total Bilirubin AST ALT Alkaline Phosphatase Troponin I Total Protein Albumin Digoxin Blood Type A Positive Antibody Screen Negative MTS Gel Crossmatch See Detail - Imaging Impressions Chest CTA 04/15/18 00:00 CONCLUSION: 1. No pulmonary embolus. 2. Bilateral pleural effusions and atelectasis. 3. Patchy bilateral nonspecific infiltrate. 4. Thickened interlobular septa suggesting mild pulmonary edema. 5. Nonspecific mildly enlarged mediastinal lymph nodes and are larger than before. - Procedures Cardioversion Celiac stent by IR PICC <Gloria Campos - Last Filed: 04/16/18 10:22> - Labs CBC & Chem 7: 04/16/18 14:15 04/16/18 14:15 Laboratory Results - last 24 hr 04/15/18 04/16/18 04/16/18 20:16 00:47 04:53 WBC RBC Hgb Hct MCV MCH MCHC RDW Plt Count MPV Prelim Diff (Auto) Neut % (Auto) Lymph % (Auto) [place] % (Auto) Eos % (Auto) Baso % (Auto) Neut # (Auto) Lymph # (Auto) [place] # (Auto) Eos # (Auto) Baso # (Auto) WBC Differential Diff Scan Differential Comment Sodium Potassium Chloride Carbon Dioxide Anion Gap BUN Creatinine Estimated GFR POC Glucose 121 H 122 H 210 H Random Glucose Calcium Phosphorus Magnesium Total Bilirubin AST ALT Alkaline Phosphatase Troponin I Total Protein Albumin Digoxin Blood Type Antibody Screen MTS Gel Crossmatch 04/16/18 04/16/18 04/16/18 04:55 05:00 05:00 WBC 7.8 RBC 2.31 L Hgb 6.9 L* Hct 20.3 L* MCV 87.9 MCH 29.9 MCHC 34.0 RDW 17.9 H Plt Count 449 MPV 8.4 Prelim Diff (Auto) Slide review pending Neut % (Auto) 70.4 H Lymph % (Auto) 13.8 [place] % (Auto) 11.2 H Eos % (Auto) 4.0 Baso % (Auto) 0.6 Neut # (Auto) 5.5 Lymph # (Auto) 1.1 [place] # (Auto) 0.9 Eos # (Auto) 0.3 Baso # (Auto) 0.0 WBC Differential . Diff Scan Auto diff confirmed Differential Comment . Sodium 127 L Potassium 5.1 Chloride 94 L D Carbon Dioxide 21.6 Anion Gap 11 BUN 16 Creatinine 0.50 Estimated GFR Greater than 89 POC Glucose 134 H Random Glucose 228 H D Calcium 7.8 L Phosphorus 4.7 D Magnesium 2.0 Total Bilirubin 0.3 AST 15 ALT 10 Alkaline Phosphatase 60 Troponin I Cancelled Total Protein 5.4 L D Albumin 2.1 L Digoxin 1.6 Blood Type Antibody Screen MTS Gel Crossmatch 04/16/18 04/16/18 04/16/18 05:00 07:20 09:58 WBC RBC Hgb Hct MCV MCH MCHC RDW Plt Count MPV Prelim Diff (Auto) Neut % (Auto) Lymph % (Auto) [place] % (Auto) Eos % (Auto) Baso % (Auto) Neut # (Auto) Lymph # (Auto) [place] # (Auto) Eos # (Auto) Baso # (Auto) WBC Differential Diff Scan Differential Comment Sodium Potassium Chloride Carbon Dioxide Anion Gap BUN Creatinine Estimated GFR POC Glucose Random Glucose Calcium Phosphorus Magnesium Total Bilirubin AST ALT Alkaline Phosphatase Troponin I 0.12 H Total Protein Albumin Digoxin Blood Type A Positive Antibody Screen Negative MTS Gel Crossmatch See Detail See Detail 04/16/18 04/16/18 14:15 14:15 WBC 8.2 RBC 3.31 L Hgb 11.1 L D Hct 28.1 L MCV 84.9 MCH 33.4 MCHC 39.3 H RDW 17.4 H Plt Count 346 MPV 8.0 Prelim Diff (Auto) Slide review pending Neut % (Auto) 76.5 H Lymph % (Auto) 11.0 [place] % (Auto) 8.6 H Eos % (Auto) 3.4 Baso % (Auto) 0.5 Neut # (Auto) 6.3 Lymph # (Auto) 0.9 L [place] # (Auto) 0.7 Eos # (Auto) 0.3 Baso # (Auto) 0.0 WBC Differential Diff Scan Differential Comment . Sodium 123 L* Potassium 6.0 H D Chloride 91 L Carbon Dioxide 24.3 Anion Gap 8 BUN 18 Creatinine 0.60 Estimated GFR Greater than 89 POC Glucose Random Glucose 305 H Calcium 7.3 L* Phosphorus Magnesium Total Bilirubin AST ALT Alkaline Phosphatase Troponin I Total Protein Albumin Digoxin Blood Type Antibody Screen MTS Gel Crossmatch - Imaging Impressions Chest CTA 04/15/18 00:00 CONCLUSION: 1. No pulmonary embolus. 2. Bilateral pleural effusions and atelectasis. 3. Patchy bilateral nonspecific infiltrate. 4. Thickened interlobular septa suggesting mild pulmonary edema. 5. Nonspecific mildly enlarged mediastinal lymph nodes and are larger than before. 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 S/P IR for stenting of celiac artery today- vascular surgery has signed off SBFT shows no obstruction (04/13) Pt just returned from IR procedure for celiac artery stent. NG to LIWS with small amount of yellow colored drainage. Rectal bag with liquid green stool. Pt went into SVT last night, cardioversion x 3, now on Amiodarone gtt. Of note , due to vomiting has not had Metoprolol in a few days Drop in hgb noted, stool heme (+). No obvious GIB. Loading dose of Plavix ordered due to stent placement (04/14) Pt resting in bed, continued abdominal pain but some improvement. Denies nausea and vomiting. NG tube clamped. Pt has been tolerating ice chips. Seen by GS who advanced diet to clear liquids. Stool studies negative (04/15) Pt resting in bed, El at bedside. Pt only able to tolerate a few sips of broth from breakfast this morning. NG tube is clamped. Continues to have abdominal pain rates it 04/17. GS following (04/16) NG tube has been discontinued, pt with no nausea or vomiting. Has had a few sips of her breakfast. Remains on TPN. Plan: Diet per GS Poor prognosis, palliative consult would be appropriate Not much to add from a GI perspective, our service will sign off, please reconsult as needed Pt has been seen and examined by myself and Dr. Adrian and this note is written on her behalf <Gloria Campos - Last Filed: 04/16/18 10:22> (1) Abdominal pain Status: Acute Code(s): R10.9 - Unspecified abdominal pain (2) Ischemia, bowel Status: Acute Code(s): K55.9 - Vascular disorder of intestine, unspecified (3) Anemia Status: Acute Code(s): D64.9 - Anemia, unspecified - Attending Attestation seen, examined agree with above <Eda Adrian - Last Filed: 04/16/18 15:40> <Gloria Campos - Last Filed: 04/16/18 10:22> (3) Anemia Qualifiers: Anemia type: unspecified type Qualified Code(s): D64.9 - Anemia, unspecified <Eda Adrian - Last Filed: 04/16/18 15:40> (3) Anemia Qualifiers: Anemia type: unspecified type Qualified Code(s): D64.9 - Anemia, unspecified
[2018-04-16] MEDS: Pantoprazole Inj 40 MG Vial IV.PUSH SCH (12:47)
[2018-04-16] MEDS: oxyCODONE/Acetaminophen 10/325 Tablet PO PRN (12:48)
[2018-04-16 14:47] LABS: Baso % (Auto) 0.5 % (0.0-2.0); Eos # (Auto) 0.3 th/mm3 (0.0-0.4); Eos % (Auto) 3.4 % (0.0-4.0); Hematocrit 28.1 % (35.0-46.0); Hemoglobin 11.1 gm/dL (11.6-15.3); Lymph # (Auto) 0.9 th/mm3 (1.0-4.8); Mean Corpuscular Hemoglobin 33.4 pg (27.0-34.0); Mean Corpuscular Volume 84.9 fL (80.0-100.0); Mono # (Auto) 0.7 th/mm3 (0.0-0.9); Mono % (Auto) 8.6 % (0.0-8.0); Neut # (Auto) 6.3 th/mm3 (1.8-7.7); Neut % (Auto) 76.5 % (16.0-70.0); Platelet Count 346 th/mm3 (150-450); Red Blood Count 3.31 mil/mm3 (4.00-5.30); Red Cell Distribution Width 17.4 % (11.6-17.2); White Blood Count 8.2 th/mm3 (4.0-11.0)
[2018-04-16 15:18] LABS: Anion Gap 8 meq/L (5-15); Calcium 7.3 mg/dL (8.5-10.1); Carbon Dioxide 24.3 meq/L (21.0-32.0); Chloride 91 meq/L (98-107); Glomerular Filtration Rate Greater Than 89 mL/min (>89); Glucose,Random 305 mg/dL (74-106)
[2018-04-16 15:27] LABS: Mean Corpuscular HGB Conc 39.3 % (32.0-36.0)
[2018-04-16 15:31] LABS: Blood Urea Nitrogen 18 mg/dL (7-18)
[2018-04-16 15:33] LABS: Sodium 123 meq/L (136-145)
[2018-04-16 16:02] LABS: Platelet Estimate Normal (Normal); Platelet Morphology Normal (Normal)
[2018-04-16 16:23] LABS: Total Protein 5.2 g/dL (6.4-8.2)
--- NOTE | 2018-04-16 17:34 | P.PNGS ---
Subjective Interval history: Tolerating some clears. Still c/o abdominal pain. Physical Exam Vital signs: Vital Signs 04/15/18 18:00 04/15/18 18:03 04/15/18 19:00 Temperature Pulse Rate 128 H 128 H 137 H Respiratory Rate 21 19 20 Blood Pressure 93/66 L 103/73 105/75 Pulse Oximetry 86 L 93 L 95 04/15/18 20:00 04/15/18 20:30 04/15/18 21:00 Temperature 97.9 F Pulse Rate 140 H 137 H Respiratory Rate 22 22 Blood Pressure 100/74 103/66 Pulse Oximetry 96 96 95 04/15/18 22:00 04/15/18 23:00 04/15/18 23:10 Temperature Pulse Rate 135 H 121 H Respiratory Rate 25 H 21 20 Blood Pressure 102/79 103/74 Pulse Oximetry 97 100 04/16/18 00:00 04/16/18 01:00 04/16/18 02:00 Temperature 98.2 F Pulse Rate 112 H 103 H 107 H Respiratory Rate 21 18 18 Blood Pressure 105/67 110/59 L 114/79 Pulse Oximetry 96 97 97 04/16/18 03:00 04/16/18 04:00 04/16/18 04:45 Temperature 98.4 F Pulse Rate 105 H 112 H 109 H Respiratory Rate 16 19 17 Blood Pressure 113/74 113/78 109/75 Pulse Oximetry 99 97 98 04/16/18 05:00 04/16/18 05:15 04/16/18 05:30 Temperature Pulse Rate 102 H 97 H 97 H Respiratory Rate 13 15 15 Blood Pressure 106/67 103/69 105/67 Pulse Oximetry 97 95 95 04/16/18 05:45 04/16/18 06:00 04/16/18 06:15 Temperature Pulse Rate 89 85 87 Respiratory Rate 15 16 17 Blood Pressure 104/67 100/67 102/68 Pulse Oximetry 95 97 97 04/16/18 06:30 04/16/18 06:45 04/16/18 07:00 Temperature Pulse Rate 88 88 87 Respiratory Rate 16 15 18 Blood Pressure 97/63 L 99/67 L 108/71 Pulse Oximetry 97 97 98 04/16/18 07:15 04/16/18 07:30 04/16/18 07:45 Temperature Pulse Rate 102 H 103 H 107 H Respiratory Rate 13 15 19 Blood Pressure 112/74 113/76 108/73 Pulse Oximetry 95 98 100 04/16/18 08:00 04/16/18 08:15 04/16/18 08:30 Temperature Pulse Rate 100 H 97 H 101 H Respiratory Rate 21 16 16 Blood Pressure 110/72 112/72 111/75 Pulse Oximetry 96 97 98 04/16/18 08:40 04/16/18 08:45 04/16/18 09:00 Temperature Pulse Rate 101 H 103 H 101 H Respiratory Rate 21 18 20 Blood Pressure 109/72 105/71 Pulse Oximetry 99 99 98 04/16/18 09:15 04/16/18 09:30 04/16/18 09:40 Temperature 98.1 F Pulse Rate 100 H 99 H 99 H Respiratory Rate 19 18 16 Blood Pressure 115/69 104/65 Pulse Oximetry 98 98 99 04/16/18 09:45 04/16/18 09:56 04/16/18 10:00 Temperature 98.4 F Pulse Rate 101 H 98 H 98 H Respiratory Rate 23 12 16 Blood Pressure 104/66 104/66 110/70 Pulse Oximetry 91 L 97 97 04/16/18 10:15 04/16/18 10:30 04/16/18 10:45 Temperature Pulse Rate 99 H 100 H 98 H Respiratory Rate 15 18 18 Blood Pressure 106/70 105/69 108/70 Pulse Oximetry 94 L 98 97 04/16/18 11:00 04/16/18 12:38 Temperature Pulse Rate 99 H 99 H Respiratory Rate 19 24 Blood Pressure 109/74 Pulse Oximetry 98 Intake & Output 04/15/18 04/16/18 04/16/18 18:59 06:59 18:59 Intake Total 550 / 550 2510.2 / 2510.2 0 / 0 Output Total 1900 / 1900 1100 / 1100 Balance -1350 / -1350 1410.2 / 1410.2 0 / 0 Weight 47.9 kg Intake: IV 200 / 200 2510.2 / 2510.2 Intralipid 20% Inj 250 ML @ 10 250 / 250 mls/hr IV.CENTRAL Q24H [facility] Rx#: [id number] Cordarone Inj 450 MG In D5W Inj 250 / 250 241 ML @ 1 MG/MIN 33.33 mls/hr IV.CONT TITRATE PRN Rx#: [id number] Maxipime Inj 1,000 MG In NS Inj 100 / 100 100 ML @ 200 mls/hr IV.SIG Q12H [facility] Rx#:[id number] Magnesium Sulfate 1 gm/D5W 100 100 / 100 ml Premix 100 ML @ 100 mls/hr IV.SIG Q1H [facility] Rx#:[id number] MVI-12 Inj 10 ML Folvite Inj 1 2009.2 / 2009.2 MG In CLINIMIX E 4.25%/D5W Inj 2,000 ML @ 55 mls/hr IV.SIG Q24H [facility] Rx#:[id number] Oral 350 / 350 Intake (Blood Product) Amt 0 / 0 Rbc As-3 Leukoreduced Unit 0 / 0 [id number] Output: Stool 50 / 50 Urine Amount (Catheter) 1850 / 1850 1100 / 1100 Female External 1850 / 1850 1100 / 1100 Other: Date of Last Bowel Movement 04/15/18 04/15/18 04/15/18 Narrative: Moderate abdominal ttp, patrick intact; hematoma present under midline incision with small amt drainage - Urinary Catheter Management Female External Cath placed during this visit: no Assessment and Plan - Plan 72 yo F recent ex lap and ileocectomy. Severe peripheral vascular disease. S/p celiac artery stent. Fulls, d/c patrick.
[2018-04-16] MEDS ORDERED: Dextrose 50% in Water 50 ML Vial IV.PUSH ONE (18:33)
[2018-04-16] MEDS: Multivitamin Inj 10 ML, Folic Acid Inj 1 MG in AA 4.25 %/D5W - Electrolytes 2,000 ML IV.SIG SCH (20:06)
[2018-04-16] MEDS: Sod Chloride 0.9% Inj 1,000 ML IV.CONT SCH (20:48)
[2018-04-16] MEDS ORDERED: Calcium Chloride Inj 1 GM in Sodium Chlor 0.9% Inj 100 ML IV.SIG ONE (21:00)
[2018-04-17] MEDS: Morphine Inj 4 MG/ML Vial IV.PUSH PRN ×3 (02:00→10:32)
[2018-04-17] MEDS: Insulin NovoLIN Regular Correctional Sugar Inj SQ SCH ×6 (04:00→23:19)
[2018-04-17] MEDS: Sod Chloride 0.9% Inj 1,000 ML IV.CONT SCH (05:30)
[2018-04-17] MEDS: metroNIDAZOLE 500 MG Tablet PO SCH (06:26)
[2018-04-17 06:49] LABS: Baso # (Auto) 0.1 th/mm3 (0.0-0.2); Baso % (Auto) 0.8 % (0.0-2.0); Eos # (Auto) 0.3 th/mm3 (0.0-0.4); Eos % (Auto) 3.9 % (0.0-4.0); Hematocrit 31.4 % (35.0-46.0); Hemoglobin 11.3 gm/dL (11.6-15.3); Lymph % (Auto) 12.5 % (9.0-44.0); Mean Corpuscular HGB Conc 35.9 % (32.0-36.0); Mean Corpuscular Volume 83.4 fL (80.0-100.0); Mean Platelet Volume 8.2 fL (7.0-11.0); Mono # (Auto) 0.8 th/mm3 (0.0-0.9); Mono % (Auto) 10.9 % (0.0-8.0); Neut # (Auto) 5.6 th/mm3 (1.8-7.7); Neut % (Auto) 71.9 % (16.0-70.0); Platelet Count 388 th/mm3 (150-450); Red Blood Count 3.77 mil/mm3 (4.00-5.30); Red Cell Distribution Width 17.7 % (11.6-17.2); White Blood Count 7.7 th/mm3 (4.0-11.0)
[2018-04-17 07:31] LABS: Anion Gap 9 meq/L (5-15); Blood Urea Nitrogen 13 mg/dL (7-18); Calcium 8.1 mg/dL (8.5-10.1); Carbon Dioxide 24.7 meq/L (21.0-32.0); Chloride 98 meq/L (98-107); Glomerular Filtration Rate Greater Than 89 mL/min (>89); Glucose,Random 94 mg/dL (74-106); Magnesium 1.7 mg/dL (1.5-2.5); Potassium 4.2 meq/L (3.5-5.1); Sodium 132 meq/L (136-145)
[2018-04-17] MEDS: Digoxin 125 MCG Tablet PO SCH (10:30)
[2018-04-17] MEDS: Heparin - SQ 10,000 UNITS/ML Vial SQ SCH ×2 (10:31→20:43)
[2018-04-17] MEDS: Heparin Central Flush 100 UNIT/ML 5 ML Vial IV.FLUSH SCH (10:31)
--- NOTE | 2018-04-17 10:38 | P.DIET ---
Nutritional Evaluation Type of nutrition evaluation: follow-up Nutrition consult regarding: TPN/PPN Nutrition screening: [facility] [place] Subjective Subjective Comments: Pt w/a 60kg(132-lb)Actual wt during previous admission here 02/11/18 Objective - Diagnosis Critical Care Unit - Objective Part of Body Amputated: Left below knee (6%) Perkins body weight: 47 kg % IBW: 93 Body Weight Used for Calculations: Actual (43.4kg) Energy Needs - Lower Range (kCal/kg): 25 Energy Needs - Upper Range (kCal/kg): 30 Lower Limit kCal/kg (kCals): 1,085 Upper Limit kCal/kg (kCals): 1,302 Lower Limit Protein Factor (Grams per Kg): 1.2 Upper Limit Protein Factor (Grams per Kg): 1.5 Lower Protein Needs (Protein): 52 Upper Protein Needs (Protein): 65 Dietitian Reviewed in Medical Record: Current diet, Curent medications, Intake & Output, Labs, Medical history, Wound/DTI Diet Order: NPO Objective Comments: PMH: COPD, HTN, Insomnia, SVT, Alcohol abuse, hyperlipidemia, paroximal AFib, Ileocectomy 03/25 for ischemic bowel, questionale acute mesenteric ischemia, left lower below knee amputation; h/o [id number] 04/09/18; CT abd/pelvis 04/11 progressive ileus Assessment Assessment: Pt is at high nutritional risk r/t current clinical status and the need for alternative method of nutrition. Pt with severe peripheral vascular disease. s/ p recent ex lap and ileocectomy, s/p celiac artery stent. Pt on [place] diet, taking only sips. She continues on Clinimix E 4.25/5 @ 55ml/hr and 20% Lipids @ 10ml/hr to offer 56g Protein and 929 kcal. PPN provides 100% for protein needs and 86% for kcal needs. For PPN greater than 7-days, then Rec TPN w/ Clinimix E 5/25 @ 50ml/hr and 20% Lipids @ 31.25ml/hr twice weekly over 8-hours to offer 60g Protein and 1260 kcal. Lipids will offer an additional 1000 kcal/week. Additional Recs to follow r/t Clinical Course. Recommendations: 1. For PPN, Rec Clinimix E 4.25/5 @ 55ml/hr and 20% Lipids @ 10ml/hr 2. For PPN greater than 7-days, then Rec TPN w/ Clinimix E / @ 50ml/hr and 20 % Lipids @ 31.25ml/hr twice weekly over 8-hours Dietitian to Monitor: Lab values, Electrolytes, Glucose level, Intake & Output, TPN/PPN tolerance, Weight change, PO Intake, Medical course (TG level)
--- NOTE | 2018-04-17 11:51 | P.PN ---
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 Improving abdominal pain. Still with poor p.o. intake. TPN discontinued yesterday because of electrolyte abnormalities likely specimen drawn from TPN line. Regular bowel movement yesterday. Seen with discussed with nurse Physical Exam Vital signs: Vital Signs 04/16/18 12:00 04/16/18 12:15 04/16/18 12:30 Temperature Pulse Rate 93 H 99 H 100 H Respiratory Rate 16 14 Blood Pressure 145/88 H 126/81 Pulse Oximetry 97 98 04/16/18 12:38 04/16/18 12:45 04/16/18 13:00 Temperature Pulse Rate 99 H 100 H 98 H Respiratory Rate 24 26 H 18 Blood Pressure 115/77 111/71 Pulse Oximetry 96 97 04/16/18 13:15 04/16/18 13:30 04/16/18 13:45 Temperature Pulse Rate 98 H 98 H 98 H Respiratory Rate 17 17 15 Blood Pressure 103/73 109/70 118/67 Pulse Oximetry 98 97 98 04/16/18 14:00 04/16/18 14:28 04/16/18 14:30 Temperature Pulse Rate 97 H 97 H 96 H Respiratory Rate 15 17 16 Blood Pressure 119/68 109/76 114/74 Pulse Oximetry 96 98 98 04/16/18 14:45 04/16/18 15:00 04/16/18 15:15 Temperature Pulse Rate 97 H 100 H 99 H Respiratory Rate 11 L 16 18 Blood Pressure 119/76 113/81 113/78 Pulse Oximetry 97 98 98 04/16/18 15:30 04/16/18 15:45 04/16/18 16:00 Temperature Pulse Rate 97 H 96 H 96 H Respiratory Rate 17 16 15 Blood Pressure 106/74 108/77 111/77 Pulse Oximetry 98 99 98 04/16/18 16:15 04/16/18 16:30 04/16/18 16:45 Temperature Pulse Rate 97 H 97 H 97 H Respiratory Rate 15 15 17 Blood Pressure 117/78 113/79 112/79 Pulse Oximetry 99 98 99 04/16/18 17:00 04/16/18 17:15 04/16/18 17:30 Temperature Pulse Rate 97 H 98 H 97 H Respiratory Rate 17 15 18 Blood Pressure 112/79 122/81 108/73 Pulse Oximetry 99 98 99 04/16/18 17:45 04/16/18 18:00 04/16/18 18:15 Temperature Pulse Rate 98 H 100 H 97 H Respiratory Rate 17 17 16 Blood Pressure 104/70 109/74 113/77 Pulse Oximetry 100 98 98 04/16/18 19:00 04/16/18 20:00 04/16/18 20:57 Temperature 98.1 F Pulse Rate 97 H 107 H Respiratory Rate 20 22 20 Blood Pressure 108/73 Pulse Oximetry 99 95 04/17/18 00:00 04/17/18 03:00 04/17/18 03:15 Temperature 98.5 F Pulse Rate 113 H 106 H 106 H Respiratory Rate 17 14 17 Blood Pressure 106/73 119/76 113/83 Pulse Oximetry 96 99 98 04/17/18 03:30 04/17/18 03:45 04/17/18 04:00 Temperature 98.6 F Pulse Rate 103 H 104 H 104 H Respiratory Rate 15 16 15 Blood Pressure 115/83 115/82 118/77 Pulse Oximetry 100 99 97 04/17/18 04:15 04/17/18 04:30 04/17/18 04:45 Temperature Pulse Rate 104 H 102 H 103 H Respiratory Rate 16 16 15 Blood Pressure 120/85 111/83 112/76 Pulse Oximetry 99 99 98 04/17/18 05:00 04/17/18 05:15 04/17/18 05:30 Temperature Pulse Rate 104 H 104 H 103 H Respiratory Rate 14 15 15 Blood Pressure 115/68 118/86 117/80 Pulse Oximetry 98 96 98 04/17/18 05:45 04/17/18 06:00 04/17/18 06:15 Temperature Pulse Rate 104 H 104 H 104 H Respiratory Rate 16 17 16 Blood Pressure 119/79 115/76 113/77 Pulse Oximetry 95 98 99 04/17/18 06:27 04/17/18 06:30 04/17/18 06:45 Temperature Pulse Rate 104 H 101 H Respiratory Rate 13 20 13 Blood Pressure 118/79 107/73 Pulse Oximetry 97 96 04/17/18 07:00 04/17/18 07:15 04/17/18 07:30 Temperature Pulse Rate 101 H 102 H 101 H Respiratory Rate 14 14 14 Blood Pressure 109/75 109/75 110/86 Pulse Oximetry 96 100 97 04/17/18 07:45 04/17/18 08:00 04/17/18 08:15 Temperature 98.0 F Pulse Rate 106 H 103 H 106 H Respiratory Rate 16 14 16 Blood Pressure 101/81 102/72 117/74 Pulse Oximetry 99 98 99 04/17/18 08:30 04/17/18 08:45 04/17/18 09:00 Temperature Pulse Rate 105 H 104 H 104 H Respiratory Rate 14 14 16 Blood Pressure 107/72 100/65 94/64 L Pulse Oximetry 99 99 98 Intake & Output 04/16/18 04/17/18 04/17/18 18:59 06:59 18:59 Intake Total 480 / 480 3260.2 / 3260.2 Output Total 1000 / 1000 450 / 450 Balance -520 / -520 2810.2 / 2810.2 Weight 47.9 kg Intake: IV 3260.2 / 3260.2 Intralipid 20% Inj 250 ML @ 10 250 / 250 mls/hr IV.CENTRAL Q24H [facility] Rx#: [id number] NS Inj 1,000 ML @ 100 mls/hr IV 1000 / 1000 .CONT .Q10H [facility] Rx#:[id number] MVI-12 Inj 10 ML Folvite Inj 1 2009.2 / 2009.2 MG In CLINIMIX E 4.25%/D5W Inj 2,000 ML @ 55 mls/hr IV.SIG Q24H [facility] Rx#:[id number] Oral 480 / 480 Intake (Blood Product) Amt 0 / 0 Rbc As-3 Leukoreduced Unit 0 / 0 [id number] Output: Urine 1000 / 1000 Urine Amount (Catheter) 450 / 450 Female External 450 / 450 Other: Date of Last Bowel Movement 04/15/18 04/15/18 04/16/18 Narrative: Moderate abdominal ttp, patrick intact; hematoma present under midline incision with small amt drainage - Urinary Catheter Management Female External Cath placed during this visit: no Results - Labs CBC & Chem 7: 04/17/18 05:10 04/17/18 05:10 Laboratory Results - last 24 hr 04/16/18 04/16/18 04/16/18 07:20 14:15 14:15 WBC 8.2 RBC 3.31 L Hgb 11.1 L D Hct 28.1 L MCV 84.9 MCH 33.4 MCHC 39.3 H RDW 17.4 H Plt Count 346 MPV 8.0 Prelim Diff (Auto) Slide review pending Neut % (Auto) 76.5 H Lymph % (Auto) 11.0 Evans % (Auto) 8.6 H Eos % (Auto) 3.4 Baso % (Auto) 0.5 Neut # (Auto) 6.3 Lymph # (Auto) 0.9 L [place] # (Auto) 0.7 Eos # (Auto) 0.3 Baso # (Auto) 0.0 WBC Differential . Diff Scan Auto diff confirmed Differential Comment . Platelet Estimate Normal Platelet Morphology Normal Hematology Comments Sodium 123 L* Potassium 6.0 H D Chloride 91 L Carbon Dioxide 24.3 Anion Gap 8 BUN 18 Creatinine 0.60 Estimated GFR Greater than 89 POC Glucose Random Glucose 305 H Calcium 7.3 L* Prot Corrected Calcium 8.3 L Magnesium Total Protein 5.2 L MTS Gel Crossmatch See Detail 04/16/18 04/16/18 04/17/18 18:11 20:02 00:47 WBC RBC Hgb Hct MCV MCH MCHC RDW Plt Count MPV Prelim Diff (Auto) Neut % (Auto) Lymph % (Auto) [place] % (Auto) Eos % (Auto) Baso % (Auto) Neut # (Auto) Lymph # (Auto) [place] # (Auto) Eos # (Auto) Baso # (Auto) WBC Differential Diff Scan Differential Comment Platelet Estimate Platelet Morphology Hematology Comments Sodium Potassium Chloride Carbon Dioxide Anion Gap BUN Creatinine Estimated GFR POC Glucose 99 93 88 Random Glucose Calcium Prot Corrected Calcium Magnesium Total Protein MTS Gel Crossmatch 04/17/18 04/17/18 04/17/18 05:10 05:10 06:35 WBC 7.7 RBC 3.77 L Hgb 11.3 L Hct 31.4 L MCV 83.4 MCH 30.0 MCHC 35.9 RDW 17.7 H Plt Count 388 MPV 8.2 Prelim Diff (Auto) Neut % (Auto) 71.9 H Lymph % (Auto) 12.5 Evans % (Auto) 10.9 H Eos % (Auto) 3.9 Baso % (Auto) 0.8 Neut # (Auto) 5.6 Lymph # (Auto) 1.0 [place] # (Auto) 0.8 Eos # (Auto) 0.3 Baso # (Auto) 0.1 WBC Differential . Diff Scan Differential Comment Auto diff final Platelet Estimate Platelet Morphology Hematology Comments Sodium 132 L Potassium 4.2 D Chloride 98 Carbon Dioxide 24.7 Anion Gap 9 BUN 13 Creatinine 0.57 Estimated GFR Greater than 89 POC Glucose 92 Random Glucose 94 D Calcium 8.1 L D Prot Corrected Calcium Magnesium 1.7 Total Protein MTS Gel Crossmatch - Imaging ITS Impressions Abdomen MRA 04/11/18 00:00 CONCLUSION: 1. 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 2. 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 3. 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 Small Bowel X-Ray 04/12/18 00:00 CONCLUSION: Negative for small bowel obstruction or significant dilatation. Transit time is less than 4 hours. NG tip in distal stomach. Celiac/Hepatic Arteriogram 04/13/18 00:00 CONCLUSION: 1. 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 Area was successfully treated with a 7 mm stent. 2. 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 Chest CTA 04/15/18 00:00 CONCLUSION: 1. No pulmonary embolus. 2. Bilateral pleural effusions and atelectasis. 3. Patchy bilateral nonspecific infiltrate. 4. Thickened interlobular septa suggesting mild pulmonary edema. 5. Nonspecific mildly enlarged mediastinal lymph nodes and are larger than before. Chest X-Ray 04/15/18 06:00 CONCLUSION: Worsening appearance of the chest. - Procedures Cardioversion Celiac stent by IR PICC Assessment and Plan - Plan Neuro/Psych: Neuropathy Acute pain management Oxycodone/acetaminophen 5-10/325 one tab every 6 hours as needed pain Temazepam 15 mg at night as needed insomnia Gabapentin 100 mg twice daily currently on hold Patient is on tramadol at home CV: Unstable SVT resolved Issue with RVR currently normal sinus rhythm Cardiology is following. Continue digoxin 0.125 mg daily. Amiodarone drip per recommendations of cardiology. Switch to p.o. if improved oral intake Resp: Acute respiratory insufficiency COPD Stable currently on room air A nasal cannula to maintain saturations greater than or equal to 92% Incentive spirometry while awake Fluticasone/Vilanterol 100/25 1 inhalation daily Albuterol/ipratropium aerosols every 4 hours with albuterol aerosols every 2 hours as needed for dyspnea GI: Ischemic bowel status post ileal cecectomy Stent placement to SMA Hypoalbuminemia Severe protein calorie malnutrition Repeat CT abdomen/pelvis 04/11 -progressive ileus -MRA of the abdomen done 04/11 indicates occlusion of the SMA Stented with 7x17 Express stent Clopidogrel loaded with 3 mg. Currently at 75 mg daily. NG tube clamp. Clear liquid diet per general surgery/Dr. Curiel GI is also following Restart TPN and lipids : Periwick placed Endo: Sliding scale insulin to maintain euglycemia Renal: Multiple electrolyte abnormalities including hyponatremia, hypochloremia hyperkalemia and hypocalcemia likely from specimen drawn from TPN line. Rpt labs improved Creatinine currently within normal limits Monitor urine output Accurate I's and O's Heme: Normocytic anemia Follow trends No indication for transfusion of blood products at this time ID: E. coli and Enterobacter urinary tract infection 04/08 -s/p cefepime and metronidazole FEN: Hyponatremia 127. Asymptomatic Electrolyte replacement protocol. Recheck in a.m. MSK: PT evaluate and treat Access -Right upper extremity PICC Prophylaxis -GI -pantoprazole -DVT -SCDs/heparin subcu Discharge Planning: Stable for transfer to [facility] then back to [place]
[2018-04-17] MEDS: Pantoprazole Inj 40 MG Vial IV.PUSH SCH (14:33)
--- NOTE | 2018-04-17 14:37 | P.PNGS ---
Subjective Interval history: Nursing reports more confused today. She is tolerating small amts of fulls. Physical Exam Vital signs: Vital Signs 04/16/18 14:45 04/16/18 15:00 04/16/18 15:15 Temperature Pulse Rate 97 H 100 H 99 H Respiratory Rate 11 L 16 18 Blood Pressure 119/76 113/81 113/78 Pulse Oximetry 97 98 98 04/16/18 15:30 04/16/18 15:45 04/16/18 16:00 Temperature Pulse Rate 97 H 96 H 96 H Respiratory Rate 17 16 15 Blood Pressure 106/74 108/77 111/77 Pulse Oximetry 98 99 98 04/16/18 16:15 04/16/18 16:30 04/16/18 16:45 Temperature Pulse Rate 97 H 97 H 97 H Respiratory Rate 15 15 17 Blood Pressure 117/78 113/79 112/79 Pulse Oximetry 99 98 99 04/16/18 17:00 04/16/18 17:15 04/16/18 17:30 Temperature Pulse Rate 97 H 98 H 97 H Respiratory Rate 17 15 18 Blood Pressure 112/79 122/81 108/73 Pulse Oximetry 99 98 99 04/16/18 17:45 04/16/18 18:00 04/16/18 18:15 Temperature Pulse Rate 98 H 100 H 97 H Respiratory Rate 17 17 16 Blood Pressure 104/70 109/74 113/77 Pulse Oximetry 100 98 98 04/16/18 19:00 04/16/18 20:00 04/16/18 20:57 Temperature 98.1 F Pulse Rate 97 H 107 H Respiratory Rate 20 22 20 Blood Pressure 108/73 Pulse Oximetry 99 95 04/17/18 00:00 04/17/18 03:00 04/17/18 03:15 Temperature 98.5 F Pulse Rate 113 H 106 H 106 H Respiratory Rate 17 14 17 Blood Pressure 106/73 119/76 113/83 Pulse Oximetry 96 99 98 04/17/18 03:30 04/17/18 03:45 04/17/18 04:00 Temperature 98.6 F Pulse Rate 103 H 104 H 104 H Respiratory Rate 15 16 15 Blood Pressure 115/83 115/82 118/77 Pulse Oximetry 100 99 97 04/17/18 04:15 04/17/18 04:30 04/17/18 04:45 Temperature Pulse Rate 104 H 102 H 103 H Respiratory Rate 16 16 15 Blood Pressure 120/85 111/83 112/76 Pulse Oximetry 99 99 98 04/17/18 05:00 04/17/18 05:15 04/17/18 05:30 Temperature Pulse Rate 104 H 104 H 103 H Respiratory Rate 14 15 15 Blood Pressure 115/68 118/86 117/80 Pulse Oximetry 98 96 98 04/17/18 05:45 04/17/18 06:00 04/17/18 06:15 Temperature Pulse Rate 104 H 104 H 104 H Respiratory Rate 16 17 16 Blood Pressure 119/79 115/76 113/77 Pulse Oximetry 95 98 99 04/17/18 06:27 04/17/18 06:30 04/17/18 06:45 Temperature Pulse Rate 104 H 101 H Respiratory Rate 13 20 13 Blood Pressure 118/79 107/73 Pulse Oximetry 97 96 04/17/18 07:00 04/17/18 07:15 04/17/18 07:30 Temperature Pulse Rate 101 H 102 H 101 H Respiratory Rate 14 14 14 Blood Pressure 109/75 109/75 110/86 Pulse Oximetry 96 100 97 04/17/18 07:45 04/17/18 08:00 04/17/18 08:15 Temperature 98.0 F Pulse Rate 106 H 103 H 106 H Respiratory Rate 16 14 16 Blood Pressure 101/81 102/72 117/74 Pulse Oximetry 99 98 99 04/17/18 08:30 04/17/18 08:45 04/17/18 09:00 Temperature Pulse Rate 105 H 104 H 104 H Respiratory Rate 14 14 16 Blood Pressure 107/72 100/65 94/64 L Pulse Oximetry 99 99 98 04/17/18 11:00 04/17/18 14:15 Temperature Pulse Rate 110 H 105 H Respiratory Rate 18 18 Blood Pressure Pulse Oximetry Intake & Output 04/16/18 04/17/18 04/17/18 18:59 06:59 18:59 Intake Total 480 / 480 3260.2 / 3260.2 Output Total 1000 / 1000 450 / 450 Balance -520 / -520 2810.2 / 2810.2 Weight 47.9 kg Intake: IV 3260.2 / 3260.2 Intralipid 20% Inj 250 ML @ 10 250 / 250 mls/hr IV.CENTRAL Q24H [facility] Rx#: [id number] NS Inj 1,000 ML @ 100 mls/hr IV 1000 / 1000 .CONT .Q10H [facility] Rx#:[id number] MVI-12 Inj 10 ML Folvite Inj 1 2009.2009.2 MG In CLINIMIX E 4.25%/D5W Inj 2,000 ML @ 55 mls/hr IV.SIG Q24H [facility] Rx#:[id number] Oral 480 / 480 Intake (Blood Product) Amt 0 / 0 Rbc As-3 Leukoreduced Unit 0 / 0 [id number] Output: Urine 1000 / 1000 Urine Amount (Catheter) 450 / 450 Female External 450 / 450 Other: Date of Last Bowel Movement 04/15/18 04/15/18 04/16/18 Narrative: NAD Abd: soft, incision intact with steris, small amt draingae of old blood from underlying hematoma - Urinary Catheter Management Female External Cath placed during this visit: no Assessment and Plan - Plan 72 yo F recent ex lap and ileocectomy. Severe peripheral vascular disease. S/p celiac artery stent. Diet as tolerated. Will s/o. She ideally would follow up with her operating general and vascular surgeons. Call with any issues.
[2018-04-17 22:50] LABS: Amorphous Sediment,Urine Rare /hpf; Bilirubin,Urine Negative (Negative); Clarity,Urine Clear (Clear); Color,Urine Yellow (Yellw/Straw); Glucose,Urine (UA) 50 mg/dL (Negative); Leukocyte Esterase,Urine Trace (Negative); Mucus,Urine Few /lpf (Occasional); Nitrite,Urine Negative (Negative); Specific Gravity,Urine 1.008 (1.002-1.035); Squamous Epithelial Cell,Urine <1 /hpf (0-5)
[2018-04-17 22:51] LABS: Bacteria,Urine Rare /hpf
[2018-04-18] MEDS: Insulin NovoLIN Regular Correctional Sugar Inj SQ SCH ×5 (05:45→23:21)
[2018-04-18 05:59] LABS: Baso # (Auto) 0.1 th/mm3 (0.0-0.2); Baso % (Auto) 0.9 % (0.0-2.0); Eos # (Auto) 0.3 th/mm3 (0.0-0.4); Eos % (Auto) 3.6 % (0.0-4.0); Hematocrit 28.4 % (35.0-46.0); Hemoglobin 9.7 gm/dL (11.6-15.3); Lymph # (Auto) 0.9 th/mm3 (1.0-4.8); Lymph % (Auto) 11.8 % (9.0-44.0); Mean Corpuscular HGB Conc 34.3 % (32.0-36.0); Mean Corpuscular Hemoglobin 29.2 pg (27.0-34.0); Mono # (Auto) 0.9 th/mm3 (0.0-0.9); Mono % (Auto) 11.3 % (0.0-8.0); Neut # (Auto) 5.8 th/mm3 (1.8-7.7); Neut % (Auto) 72.4 % (16.0-70.0); Platelet Count 343 th/mm3 (150-450); Red Blood Count 3.34 mil/mm3 (4.00-5.30); Red Cell Distribution Width 17.4 % (11.6-17.2); White Blood Count 7.9 th/mm3 (4.0-11.0)
[2018-04-18 06:18] LABS: Alanine Aminotransferase 8 U/L (10-53); Albumin 1.8 g/dL (3.4-5.0); Alkaline Phosphatase 75 U/L (45-117); Anion Gap 8 meq/L (5-15); Aspartate Aminotransferase 16 U/L (15-37); Blood Urea Nitrogen 11 mg/dL (7-18); Calcium 7.3 mg/dL (8.5-10.1); Carbon Dioxide 26.3 meq/L (21.0-32.0); Chloride 102 meq/L (98-107); Glomerular Filtration Rate Greater Than 89 mL/min (>89); Glucose,Random 119 mg/dL (74-106); Magnesium 1.7 mg/dL (1.5-2.5); Potassium 3.7 meq/L (3.5-5.1); Sodium 136 meq/L (136-145); Total Protein 4.8 g/dL (6.4-8.2)
[2018-04-18] MEDS: Heparin - SQ 10,000 UNITS/ML Vial SQ SCH ×2 (10:11→20:50)
[2018-04-18] MEDS: Digoxin 125 MCG Tablet PO SCH (10:11)
[2018-04-18] MEDS: Heparin Central Flush 100 UNIT/ML 5 ML Vial IV.FLUSH SCH (10:12)
--- NOTE | 2018-04-18 11:56 | P.PN ---
Subjective Interval history: Follow-up s/p celiac artery stent April 18, 2018-patient seen and examined, no acute event overnight, alert and oriented to self but not to date. Afebrile. And currently on amiodarone drip Physical Exam Vital signs: Vital Signs 04/17/18 11:45 04/17/18 12:00 04/17/18 12:15 Temperature Pulse Rate 110 H 109 H 109 H Respiratory Rate 15 16 15 Blood Pressure 97/65 L 97/72 L 97/69 L Pulse Oximetry 95 94 L 93 L 04/17/18 12:30 04/17/18 12:45 04/17/18 13:00 Temperature Pulse Rate 108 H 108 H 108 H Respiratory Rate 14 16 15 Blood Pressure 100/74 112/75 100/68 Pulse Oximetry 93 L 93 L 93 L 04/17/18 13:15 04/17/18 13:30 04/17/18 13:45 Temperature Pulse Rate 109 H 107 H 109 H Respiratory Rate 13 14 16 Blood Pressure 104/69 106/70 101/68 Pulse Oximetry 94 L 95 94 L 04/17/18 14:00 04/17/18 14:15 04/17/18 14:30 Temperature Pulse Rate 108 H 109 H 109 H Respiratory Rate 15 16 14 Blood Pressure 105/72 103/72 107/73 Pulse Oximetry 93 L 97 94 L 04/17/18 14:45 04/17/18 15:00 04/17/18 15:01 Temperature Pulse Rate 106 H 109 H 109 H Respiratory Rate 13 15 15 Blood Pressure 110/72 131/60 Pulse Oximetry 95 94 L 94 L 04/17/18 15:49 04/17/18 16:00 04/17/18 16:15 Temperature 98.5 F Pulse Rate 109 H 108 H 108 H Respiratory Rate 15 16 15 Blood Pressure 102/71 101/70 104/75 Pulse Oximetry 95 94 L 94 L 04/17/18 16:30 04/17/18 20:00 04/17/18 21:40 Temperature 98 F Pulse Rate 108 H 111 H 109 H Respiratory Rate 16 18 20 Blood Pressure 108/76 110/68 Pulse Oximetry 95 97 95 04/18/18 00:00 04/18/18 01:15 04/18/18 04:00 Temperature 97.8 F 98 F Pulse Rate 112 H 104 H 112 H Respiratory Rate 16 18 15 Blood Pressure 100/68 121/77 Pulse Oximetry 96 96 04/18/18 08:00 04/18/18 09:37 Temperature 98.3 F Pulse Rate 107 H 109 H Respiratory Rate 16 18 Blood Pressure 95/58 L Pulse Oximetry 96 100 Intake & Output 04/17/18 04/18/18 04/18/18 18:59 06:59 18:59 Intake Total 480 / 480 200 / 200 250 / 250 Output Total 1000 / 1000 Balance -520 / -520 200 / 200 250 / 250 Weight 45.2 kg Intake: IV 250 / 250 Cordarone Inj 450 MG In D5W Inj 250 / 250 241 ML @ 1 MG/MIN 33.33 mls/hr IV.CONT TITRATE [facility]N Rx#: [id number] Oral 480 / 480 200 / 200 Output: Urine 1000 / 1000 Other: # Voids 4 Date of Last Bowel Movement 04/17/18 04/18/18 04/18/18 # Bowel Movements 1 3 Narrative: GENERAL: NAD SKIN: Warm and dry. HEAD: Normocephalic. EYES: No scleral icterus. No injection or drainage. NECK: Supple, trachea midline. No JVD or lymphadenopathy. CARDIOVASCULAR: Regular rate and rhythm without murmurs, gallops, or rubs. RESPIRATORY: Breath sounds equal bilaterally. No accessory muscle use. GASTROINTESTINAL: Abdomen soft, non-tender, nondistended. MUSCULOSKELETAL: No cyanosis, or edema. BACK: Nontender without obvious deformity. No CVA tenderness. - Urinary Catheter Management Female External Cath placed during this visit: no Results - Labs CBC & Chem 7: 04/18/18 05:25 04/18/18 05:25 Laboratory Results - last 24 hr 04/17/18 04/17/18 04/17/18 16:40 19:59 22:00 WBC RBC Hgb Hct MCV MCH MCHC RDW Plt Count MPV Neut % (Auto) Lymph % (Auto) [place] % (Auto) Eos % (Auto) Baso % (Auto) Neut # (Auto) Lymph # (Auto) [place] # (Auto) Eos # (Auto) Baso # (Auto) WBC Differential Differential Comment Sodium Potassium Chloride Carbon Dioxide Anion Gap BUN Creatinine Estimated GFR POC Glucose 96 102 Random Glucose Calcium Prot Corrected Calcium Magnesium Total Bilirubin AST ALT Alkaline Phosphatase Total Protein Albumin Urine Color Yellow Urine Clarity Clear Urine pH 7.0 Ur Specific [place] 1.008 Urine Protein 100 H Urine Glucose (UA) 50 Urine Ketones Negative Urine Occult Blood Small H Urine Nitrate Negative Urine Bilirubin Negative Urine Urobilinogen Less than 2 Ur Leukocyte Esterase Trace H Urine RBC 1 Urine WBC 13 H Ur Squamous Epith Cells <1 Amorphous Sediment Rare H Urine Bacteria Rare H Urine Mucus Few H Micro UA Comment Culture indicated Urine Culture Comments Culture indicated 04/17/18 04/18/18 04/18/18 23:18 04:51 05:25 WBC 7.9 RBC 3.34 L Hgb 9.7 L Hct 28.4 L MCV 85.0 MCH 29.2 MCHC 34.3 RDW 17.4 H Plt Count 343 MPV 8.0 Neut % (Auto) 72.4 H Lymph % (Auto) 11.8 [place] % (Auto) 11.3 H Eos % (Auto) 3.6 Baso % (Auto) 0.9 Neut # (Auto) 5.8 Lymph # (Auto) 0.9 L [place] # (Auto) 0.9 Eos # (Auto) 0.3 Baso # (Auto) 0.1 WBC Differential . Differential Comment Auto diff final Sodium Potassium Chloride Carbon Dioxide Anion Gap BUN Creatinine Estimated GFR POC Glucose 126 H 139 H Random Glucose Calcium Prot Corrected Calcium Magnesium Total Bilirubin AST ALT Alkaline Phosphatase Total Protein Albumin Urine Color Urine Clarity Urine pH Ur Specific [place] Urine Protein Urine Glucose (UA) Urine Ketones Urine Occult Blood Urine Nitrate Urine Bilirubin Urine Urobilinogen Ur Leukocyte Esterase Urine RBC Urine WBC Ur Squamous Epith Cells Amorphous Sediment Urine Bacteria Urine Mucus Micro UA Comment Urine Culture Comments 04/18/18 04/18/18 05:25 07:49 WBC RBC Hgb Hct MCV MCH MCHC RDW Plt Count MPV Neut % (Auto) Lymph % (Auto) [place] % (Auto) Eos % (Auto) Baso % (Auto) Neut # (Auto) Lymph # (Auto) [place] # (Auto) Eos # (Auto) Baso # (Auto) WBC Differential Differential Comment Sodium 136 Potassium 3.7 Chloride 102 Carbon Dioxide 26.3 Anion Gap 8 BUN 11 Creatinine 0.65 Estimated GFR Greater than 89 POC Glucose 138 H Random Glucose 119 H Calcium 7.3 L* D Prot Corrected Calcium 8.6 Magnesium 1.7 Total Bilirubin 0.3 AST 16 ALT 8 L Alkaline Phosphatase 75 Total Protein 4.8 L Albumin 1.8 L Urine Color Urine Clarity Urine pH Ur Specific [place] Urine Protein Urine Glucose (UA) Urine Ketones Urine Occult Blood Urine Nitrate Urine Bilirubin Urine Urobilinogen Ur Leukocyte Esterase Urine RBC Urine WBC Ur Squamous Epith Cells Amorphous Sediment Urine Bacteria Urine Mucus Micro UA Comment Urine Culture Comments - Procedures Cardioversion Celiac stent by IR PICC Assessment and Plan - Plan 72-year-old female with Neuropathy Acute pain management Oxycodone/acetaminophen 5-10/325 one tab every 6 hours as needed pain Temazepam 15 mg at night as needed insomnia Gabapentin 100 mg twice daily currently on hold Unstable SVT resolved Issue with RVR currently normal sinus rhythm Cardiology is following. Continue digoxin 0.125 mg daily. Currently on amiodarone drip per recommendations of cardiology. Acute respiratory insufficiency-improving COPD A nasal cannula to maintain saturations greater than or equal to 92% Incentive spirometry while awake Fluticasone/Vilanterol 100/25 1 inhalation daily Albuterol/ipratropium aerosols every 4 hours with albuterol aerosols every 2 hours as needed for dyspnea Ischemic bowel status post ileal cecectomy Stent placement to SMA Hypoalbuminemia Severe protein calorie malnutrition Repeat CT abdomen/pelvis 04/11 -progressive ileus -MRA of the abdomen done 04/11 indicates occlusion of the SMA Stented with 7x17 Express stent Clopidogrel 75 mg daily. Appreciate input from general surgery, will sign off April 17 2018 GI is also following Currently on TPN and lipids Multiple electrolyte abnormalities including hyponatremia, hypochloremia hyperkalemia and hypocalcemia likely from specimen drawn from TPN line. Creatinine currently within normal limits Monitor urine output Accurate I's and O's Normocytic anemia Follow trends E. coli and Enterobacter urinary tract infection 04/08 -s/p cefepime and metronidazole Prophylaxis -GI -pantoprazole -DVT -SCDs/heparin subcu
[2018-04-18] MEDS ORDERED: MULTIVITAMIN IV.SIG SCH (12:30)
[2018-04-18] MEDS ORDERED: TPN FLUID IV.SIG SCH (12:30)
[2018-04-18] MEDS ORDERED: FOLIC ACID IV.SIG SCH (12:30)
[2018-04-18] MEDS: Pantoprazole Inj 40 MG Vial IV.PUSH SCH (15:07)
[2018-04-18] MEDS: Multivitamin Inj 10 ML, Folic Acid Inj 1 MG in TPN Fluid 2 Liter 2,000 ML IV.SIG SCH (19:00)
[2018-04-18] MEDS: Temazepam 15 MG Capsule PO PRN (23:00)
[2018-04-18] MEDS: Acetaminophen 325 MG Tablet PO PRN (23:00)
[2018-04-19] MEDS: Insulin NovoLIN Regular Correctional Sugar Inj SQ SCH ×6 (00:17→21:41)
[2018-04-19] MEDS: Digoxin 125 MCG Tablet PO SCH (08:31)
[2018-04-19] MEDS: Heparin - SQ 10,000 UNITS/ML Vial SQ SCH ×2 (08:32→20:47)
[2018-04-19] MEDS: oxyCODONE/Acetaminophen 10/325 Tablet PO PRN ×2 (08:32→16:02)
[2018-04-19] MEDS: Heparin Central Flush 100 UNIT/ML 5 ML Vial IV.FLUSH SCH (12:53)
--- NOTE | 2018-04-19 14:27 | P.PNIM ---
Subjective Interval history: Patient says she is feeling about the same as yesterday. Denies any chest pain or shortness of breath. She reports very poor appetite. Physical Exam Vital signs: Vital Signs 04/18/18 16:00 04/18/18 19:00 04/18/18 20:00 Temperature 97.9 F 98.3 F Pulse Rate 107 H 118 H 116 H Respiratory Rate 16 Blood Pressure 101/77 112/81 Pulse Oximetry 97 99 04/18/18 21:00 04/18/18 22:00 04/18/18 23:00 Temperature Pulse Rate 108 H 114 H 114 H Respiratory Rate Blood Pressure Pulse Oximetry 04/19/18 00:00 04/19/18 01:00 04/19/18 01:07 Temperature 97.5 F L Pulse Rate 110 H 114 H Respiratory Rate Blood Pressure 119/86 Pulse Oximetry 100 100 04/19/18 02:00 04/19/18 03:00 04/19/18 04:00 Temperature 98.6 F Pulse Rate 108 H 113 H 118 H Respiratory Rate Blood Pressure 117/66 Pulse Oximetry 100 04/19/18 05:00 04/19/18 06:00 04/19/18 07:00 Temperature Pulse Rate 116 H 108 H 104 H Respiratory Rate Blood Pressure Pulse Oximetry 04/19/18 07:35 04/19/18 08:00 04/19/18 09:00 Temperature 97.9 F Pulse Rate 120 H 106 H Respiratory Rate 18 Blood Pressure 113/88 Pulse Oximetry 99 100 04/19/18 10:00 04/19/18 11:00 04/19/18 12:00 Temperature 97.9 F Pulse Rate 98 H 103 H 107 H Respiratory Rate 18 Blood Pressure 125/82 Pulse Oximetry 100 Intake & Output 04/18/18 04/19/18 04/19/18 18:59 06:59 18:59 Intake Total 450 / 450 590 / 590 Output Total 800 / 800 Balance -350 / -350 590 / 590 Weight 44.8 kg Intake: IV 250 / 250 350 / 350 Cordarone Inj 450 MG In D5W Inj 250 / 250 250 / 250 241 ML @ 1 MG/MIN 33.33 mls/hr IV.CONT TITRATE PRN Rx#: [id number] Rocephin Inj 1,000 MG In NS Inj 100 / 100 100 ML @ 200 mls/hr IV.SIG Q24H [facility] Rx#:[id number] Oral 200 / 200 240 / 240 Output: Urine 500 / 500 Stool 300 / 300 Other: # Voids 3 # Incontinent Voids 3 Date of Last Bowel Movement 04/18/18 04/19/18 # Bowel Movements 2 3 Narrative: GENERAL: Patient lying in bed. No acute distress. SKIN: Warm and dry. HEAD: Normocephalic. EYES: No scleral icterus. No injection or drainage. NECK: Supple, trachea midline. No JVD. CARDIOVASCULAR: Regular rate and rhythm without murmurs, gallops, or rubs. RESPIRATORY: Breath sounds equal bilaterally. No accessory muscle use. GASTROINTESTINAL: Abdomen soft, non-tender, nondistended. Midline abdominal incision with Steri-Strips intact. There is very slight area of mild dehiscence with serosanguineous drainage. No surrounding erythema. No fluctuance or signs of infection. MUSCULOSKELETAL: No cyanosis, or edema. BACK: Nontender without obvious deformity. No CVA tenderness. - Urinary Catheter Management Female External Cath placed during this visit: no Results - Labs CBC & Chem 7: 04/18/18 05:25 04/18/18 05:25 Laboratory Results - last 24 hr 04/16/18 04/18/18 04/18/18 09:58 16:29 20:41 POC Glucose 140 H 133 H MTS Gel Crossmatch See Detail 04/19/18 04/19/18 04/19/18 00:09 04:00 08:29 POC Glucose 143 H 104 112 H MTS Gel Crossmatch 04/19/18 13:23 POC Glucose 128 H MTS Gel Crossmatch Microbiology 04/17/18 22:00 Random Urine Urine Culture - Preliminary Yeast - ID to follow - Procedures Cardioversion Celiac stent by IR PICC Assessment and Plan - Plan 72-year-old female with Neuropathy Acute pain management Oxycodone/acetaminophen 5-10/325 one tab every 6 hours as needed pain Temazepam 15 mg at night as needed insomnia Gabapentin 100 mg twice daily currently on hold Unstable SVT resolved Issue with RVR currently normal sinus rhythm Cardiology is following. Continue digoxin 0.125 mg daily. Currently on amiodarone drip per recommendations of cardiology. = 04/19. Call cardiology to figure out why patient is still on amiodarone drip. From notes it appears that she is to only be on digoxin. Appreciate nursing assistance. Acute respiratory insufficiency-improving COPD A nasal cannula to maintain saturations greater than or equal to 92% Incentive spirometry while awake Fluticasone/Vilanterol 100/25 1 inhalation daily Albuterol/ipratropium aerosols every 4 hours with albuterol aerosols every 2 hours as needed for dyspnea Ischemic bowel status post ileal cecectomy Stent placement to SMA Hypoalbuminemia Severe protein calorie malnutrition Repeat CT abdomen/pelvis 04/11 -progressive ileus -MRA of the abdomen done 04/11 indicates occlusion of the SMA Stented with 7x17 Express stent Clopidogrel 75 mg daily. Appreciate input from general surgery, will sign off April 17 2018 GI is also following Currently on TPN and lipids Multiple electrolyte abnormalities including hyponatremia, hypochloremia hyperkalemia and hypocalcemia likely from specimen drawn from TPN line. Creatinine currently within normal limits Monitor urine output Accurate I's and O's = 04/19. Continue TPN. Very mild wound dehiscence. Nursing will discuss with general surgery tomorrow morning Normocytic anemia Follow trends E. coli and Enterobacter urinary tract infection 04/08 -s/p cefepime and metronidazole Prophylaxis -GI -pantoprazole -DVT -SCDs/heparin subcu Discharge Planning: To rehab. We will need TPN Cardiology to comment on continued amiodarone drip.
[2018-04-19] MEDS: Pantoprazole Inj 40 MG Vial IV.PUSH SCH (15:42)
[2018-04-19] MEDS: Multivitamin Inj 10 ML, Folic Acid Inj 1 MG in TPN Fluid 2 Liter 2,000 ML IV.SIG SCH (20:48)
[2018-04-19] MEDS: Temazepam 15 MG Capsule PO PRN (22:04)
[2018-04-20] MEDS: oxyCODONE/Acetaminophen 10/325 Tablet PO PRN ×3 (00:37→22:22)
[2018-04-20 06:56] LABS: Baso # (Auto) 0.1 th/mm3 (0.0-0.2); Baso % (Auto) 0.7 % (0.0-2.0); Eos # (Auto) 0.4 th/mm3 (0.0-0.4); Eos % (Auto) 3.2 % (0.0-4.0); Hematocrit 32.6 % (35.0-46.0); Hemoglobin 10.8 gm/dL (11.6-15.3); Lymph # (Auto) 1.6 th/mm3 (1.0-4.8); Lymph % (Auto) 13.7 % (9.0-44.0); Mean Corpuscular HGB Conc 33.2 % (32.0-36.0); Mean Corpuscular Hemoglobin 28.8 pg (27.0-34.0); Mean Corpuscular Volume 86.5 fL (80.0-100.0); Mean Platelet Volume 8.7 fL (7.0-11.0); Mono # (Auto) 1.2 th/mm3 (0.0-0.9); Mono % (Auto) 10.1 % (0.0-8.0); Neut # (Auto) 8.3 th/mm3 (1.8-7.7); Neut % (Auto) 72.3 % (16.0-70.0); Platelet Count 349 th/mm3 (150-450); Red Blood Count 3.77 mil/mm3 (4.00-5.30); Red Cell Distribution Width 17.9 % (11.6-17.2); White Blood Count 11.5 th/mm3 (4.0-11.0)
[2018-04-20 07:01] LABS: Albumin 1.9 g/dL (3.4-5.0); Anion Gap 12 meq/L (5-15); Blood Urea Nitrogen 12 mg/dL (7-18); Calcium 7.8 mg/dL (8.5-10.1); Carbon Dioxide 20.5 meq/L (21.0-32.0); Chloride 100 meq/L (98-107); Glomerular Filtration Rate Greater Than 89 mL/min (>89); Glucose,Random 107 mg/dL (74-106); Magnesium 1.5 mg/dL (1.5-2.5); Phosphorus 3.1 mg/dL (2.5-4.9); Potassium 3.9 meq/L (3.5-5.1); Sodium 132 meq/L (136-145)
[2018-04-20] MEDS: Digoxin 125 MCG Tablet PO SCH (09:10)
[2018-04-20] MEDS: Heparin Central Flush 100 UNIT/ML 5 ML Vial IV.FLUSH SCH (09:10)
[2018-04-20] MEDS: Heparin - SQ 10,000 UNITS/ML Vial SQ SCH ×2 (09:10→21:17)
[2018-04-20] MEDS: Insulin NovoLIN Regular Correctional Sugar Inj SQ SCH ×4 (09:22→20:00)
--- NOTE | 2018-04-20 13:12 | P.PNIM ---
Subjective Interval history: Patient says she is feeling all right. Denies any chest pain or shortness of breath. She had some nausea earlier this has resolved however. Physical Exam Vital signs: Vital Signs 04/19/18 14:00 04/19/18 15:00 04/19/18 16:00 Temperature 97.8 F Pulse Rate 98 H 98 H 101 H Respiratory Rate 16 Blood Pressure 92/70 L Pulse Oximetry 100 04/19/18 17:00 04/19/18 18:00 04/19/18 19:00 Temperature Pulse Rate 102 H 96 H 96 H Respiratory Rate Blood Pressure Pulse Oximetry 04/19/18 20:00 04/19/18 21:00 04/19/18 22:00 Temperature 98.5 F Pulse Rate 94 H 94 H 94 H Respiratory Rate 18 Blood Pressure 156/66 H Pulse Oximetry 100 04/19/18 23:00 04/20/18 00:00 04/20/18 01:00 Temperature Pulse Rate 103 H 100 H 100 H Respiratory Rate 18 Blood Pressure 152/81 H Pulse Oximetry 100 04/20/18 02:00 04/20/18 03:00 04/20/18 04:00 Temperature Pulse Rate 104 H 105 H 104 H Respiratory Rate Blood Pressure Pulse Oximetry 04/20/18 05:00 04/20/18 06:00 04/20/18 07:00 Temperature Pulse Rate 102 H 100 H 102 H Respiratory Rate Blood Pressure Pulse Oximetry 04/20/18 08:00 04/20/18 09:00 04/20/18 10:00 Temperature 98.4 F Pulse Rate 104 H 113 H 107 H Respiratory Rate 16 Blood Pressure 173/90 H Pulse Oximetry 100 04/20/18 11:00 Temperature Pulse Rate 108 H Respiratory Rate Blood Pressure Pulse Oximetry Intake & Output 04/19/18 04/20/18 04/20/18 18:59 06:59 18:59 Intake Total 970 / 970 2490.2 / 2490.2 Balance 970 / 970 2490.2 / 2490.2 Weight 44.7 kg Intake: IV 250 / 250 2009.2 Cordarone Inj 450 MG In D5W Inj 250 / 250 241 ML @ 1 MG/MIN 33.33 mls/hr IV.CONT TITRATE PRN Rx#: [id number] MVI-12 Inj 10 ML Folvite Inj 1 2009.2 MG In TPN Fluid 2 Liter 2,000 ML @ 31.25 mls/hr IV.SIG Q24H [facility] Rx#:[id number] Oral 720 / 720 480 / 480 Other: # Voids 3 # Incontinent Voids 5 Date of Last Bowel Movement 04/19/18 04/19/18 # Bowel Movements 1 # Incontinent Bowel Movements 5 Narrative: GENERAL: Patient lying in bed. No acute distress. SKIN: Warm and dry. HEAD: Normocephalic. EYES: No scleral icterus. No injection or drainage. NECK: Supple, trachea midline. No JVD. CARDIOVASCULAR: Regular rate and rhythm without murmurs, gallops, or rubs. RESPIRATORY: Breath sounds equal bilaterally. No accessory muscle use. GASTROINTESTINAL: Abdomen soft, non-tender, nondistended. Midline abdominal incision with Steri-Strips intact. There is very slight area of mild dehiscence with serosanguineous drainage. No surrounding erythema. No fluctuance or signs of infection. No change. MUSCULOSKELETAL: No cyanosis, or edema. BACK: Nontender without obvious deformity. No CVA tenderness. - Urinary Catheter Management Female External Cath placed during this visit: no Results - Labs CBC & Chem 7: 04/20/18 04:50 04/20/18 04:50 Laboratory Results - last 24 hr 04/19/18 04/19/18 04/19/18 13:23 17:03 21:37 WBC RBC Hgb Hct MCV MCH MCHC RDW Plt Count MPV Neut % (Auto) Lymph % (Auto) [place] % (Auto) Eos % (Auto) Baso % (Auto) Neut # (Auto) Lymph # (Auto) [place] # (Auto) Eos # (Auto) Baso # (Auto) WBC Differential Differential Comment Sodium Potassium Chloride Carbon Dioxide Anion Gap BUN Creatinine Estimated GFR POC Glucose 128 H 121 H 112 H Random Glucose Calcium Phosphorus Magnesium Albumin 04/20/18 04/20/18 04/20/18 04:39 04:50 04:50 WBC 11.5 H RBC 3.77 L Hgb 10.8 L Hct 32.6 L MCV 86.5 MCH 28.8 MCHC 33.2 RDW 17.9 H Plt Count 349 MPV 8.7 Neut % (Auto) 72.3 H Lymph % (Auto) 13.7 [place] % (Auto) 10.1 H Eos % (Auto) 3.2 Baso % (Auto) 0.7 Neut # (Auto) 8.3 H Lymph # (Auto) 1.6 [place] # (Auto) 1.2 H Eos # (Auto) 0.4 Baso # (Auto) 0.1 WBC Differential . Differential Comment Auto diff final Sodium 132 L Potassium 3.9 Chloride 100 Carbon Dioxide 20.5 L Anion Gap 12 BUN 12 Creatinine 0.54 Estimated GFR Greater than 89 POC Glucose 115 H Random Glucose 107 H Calcium 7.8 L Phosphorus 3.1 Magnesium 1.5 Albumin 1.9 L 04/20/18 04/20/18 08:26 12:08 WBC RBC Hgb Hct MCV MCH MCHC RDW Plt Count MPV Neut % (Auto) Lymph % (Auto) [place] % (Auto) Eos % (Auto) Baso % (Auto) Neut # (Auto) Lymph # (Auto) [place] # (Auto) Eos # (Auto) Baso # (Auto) WBC Differential Differential Comment Sodium Potassium Chloride Carbon Dioxide Anion Gap BUN Creatinine Estimated GFR POC Glucose 114 H 120 H Random Glucose Calcium Phosphorus Magnesium Albumin Microbiology 04/17/18 22:00 Random Urine Urine Culture - Preliminary Yeast - ID to follow - Procedures Cardioversion Celiac stent by IR PICC Assessment and Plan - Plan 72-year-old female with Neuropathy Acute pain management Oxycodone/acetaminophen 5-10/325 one tab every 6 hours as needed pain Temazepam 15 mg at night as needed insomnia Gabapentin 100 mg twice daily currently on hold Unstable SVT resolved Issue with RVR currently normal sinus rhythm Cardiology is following. Continue digoxin 0.125 mg daily. Currently on amiodarone drip per recommendations of cardiology. = 04/19. Call cardiology to figure out why patient is still on amiodarone drip. From notes it appears that she is to only be on digoxin. Appreciate nursing assistance. = 04/20. Patient continues on amiodarone drip. Discussed with nurse who will contact cardiology. Acute respiratory insufficiency-improving COPD A nasal cannula to maintain saturations greater than or equal to 92% Incentive spirometry while awake Fluticasone/Vilanterol 100/25 1 inhalation daily Albuterol/ipratropium aerosols every 4 hours with albuterol aerosols every 2 hours as needed for dyspnea Ischemic bowel status post ileal cecectomy Stent placement to SMA Hypoalbuminemia Severe protein calorie malnutrition Repeat CT abdomen/pelvis 04/11 -progressive ileus -MRA of the abdomen done 04/11 indicates occlusion of the SMA Stented with 7x17 Express stent Clopidogrel 75 mg daily. Appreciate input from general surgery, will sign off April 17 2018 GI is also following Currently on TPN and lipids Multiple electrolyte abnormalities including hyponatremia, hypochloremia hyperkalemia and hypocalcemia likely from specimen drawn from TPN line. Creatinine currently within normal limits Monitor urine output Accurate I's and O's = 04/19. Continue TPN. Very mild wound dehiscence. Nursing will discuss with general surgery tomorrow morning = 04/20. Slight wound dehiscence. General surgery to be contacted. Appreciate nursing and general surgery assistance. Normocytic anemia Follow trends E. coli and Enterobacter urinary tract infection 04/08 -s/p cefepime and metronidazole Prophylaxis -GI -pantoprazole -DVT -SCDs/heparin subcu Discharge Planning: To rehab. We will need TPN Cardiology to comment on continued amiodarone drip.
[2018-04-20] MEDS: Pantoprazole Inj 40 MG Vial IV.PUSH SCH (14:09)
--- NOTE | 2018-04-20 15:10 | P.DIET ---
Nutritional Evaluation Type of nutrition evaluation: follow-up Nutrition consult regarding: TPN/PPN Nutrition screening: [facility] [place] Objective - Diagnosis Critical Care Unit - Objective Part of Body Amputated: Left below knee (6%) Weight Subtracted: Other (6.6lb(3kg)for LBKA) [place] body weight: 47 kg % IBW: 93 Body Weight Used for Calculations: Actual (43.4kg) Energy Needs - Lower Range (kCal/kg): 25 Energy Needs - Upper Range (kCal/kg): 30 Lower Limit kCal/kg (kCals): 1,085 Upper Limit kCal/kg (kCals): 1,302 Lower Limit Protein Factor (Grams per Kg): 1.2 Upper Limit Protein Factor (Grams per Kg): 1.5 Lower Protein Needs (Protein): 52 Upper Protein Needs (Protein): 65 Dietitian Reviewed in Medical Record: Current diet, Curent medications, Intake & Output, Labs, Medical history, Wound/DTI Diet Order: NPO Objective Comments: PMH: COPD, HTN, Insomnia, SVT, Alcohol abuse, hyperlipidemia, paroximal AFib, Ileocectomy 03/25 for ischemic bowel, questionale acute mesenteric ischemia, left lower below knee amputation; h/o [id number] 04/09/18; CT abd/pelvis 04/11 progressive ileus Feeding - Current PO Supplement Current Supplement: Ensure Original Current kCals Provided by Supplement: 250 (per 8 oz) Current Protein Provided by Supplement: 9 (per 8 oz) Supplement Comments: Pt likes chocolate and strawberry, not vanilla - Current TPN/PPN Current TPN: Clinimix E 01/25 Current TPN/PPN Rate (ml/hr): 31 Amino Acid and Dextrose Current kCals Provided: 634 Amino Acid and Dextrose Current Protein Provided: 36 Current Lipid Concentration: 20% Current Lipids Rate: 250 mls daily over 8 hours Current kCal Provided by TPN/PPN: 1,134 Assessment Assessment: Pt is at high nutritional risk r/t current clinical status and the need for alternative method of nutrition. Pt with severe peripheral vascular disease. s/ p recent ex lap and ileocecotomy, s/p celiac artery stent. Pt is on [place] diet with Ensure supplements and is receiving TPN/lipids as stated above. To better meet needs while po intake is minimal, recommend increase current TPN rate to 50 mls/hr with the same lipids to provide a total of 1556 kcals and 60 gms protein. Labs, wts and clinical course reviewed. Recommendations: 1. Diet per surgery 2. TPN: Clinimix E 01/25 @ 50 mls/hr 3. Lipids: 20% lipids as ordered Dietitian to Monitor: Lab values, Intake & Output, Diet tolerance, TPN/PPN tolerance, Weight change, PO Intake, Diet advancement, Medical course
[2018-04-20] MEDS: Multivitamin Inj 10 ML, Folic Acid Inj 1 MG in TPN Fluid 2 Liter 2,000 ML IV.SIG SCH (22:47)
[2018-04-20] MEDS: Temazepam 15 MG Capsule PO PRN (23:01)
[2018-04-21] MEDS: Insulin NovoLIN Regular Correctional Sugar Inj SQ SCH ×7 (00:31→20:00)
[2018-04-21 06:11] LABS: Baso # (Auto) 0.1 th/mm3 (0.0-0.2); Eos # (Auto) 0.2 th/mm3 (0.0-0.4); Eos % (Auto) 2.7 % (0.0-4.0); Hematocrit 28.9 % (35.0-46.0); Hemoglobin 9.6 gm/dL (11.6-15.3); Lymph # (Auto) 1.3 th/mm3 (1.0-4.8); Lymph % (Auto) 16.2 % (9.0-44.0); Mean Corpuscular HGB Conc 33.1 % (32.0-36.0); Mean Corpuscular Hemoglobin 28.6 pg (27.0-34.0); Mean Corpuscular Volume 86.2 fL (80.0-100.0); Mean Platelet Volume 8.5 fL (7.0-11.0); Mono % (Auto) 12.6 % (0.0-8.0); Neut # (Auto) 5.3 th/mm3 (1.8-7.7); Neut % (Auto) 67.5 % (16.0-70.0); Platelet Count 313 th/mm3 (150-450); Red Blood Count 3.35 mil/mm3 (4.00-5.30); Red Cell Distribution Width 17.6 % (11.6-17.2); White Blood Count 7.8 th/mm3 (4.0-11.0)
[2018-04-21 06:25] LABS: Albumin 1.7 g/dL (3.4-5.0); Anion Gap 7 meq/L (5-15); Blood Urea Nitrogen 14 mg/dL (7-18); Calcium 7.8 mg/dL (8.5-10.1); Carbon Dioxide 24.9 meq/L (21.0-32.0); Chloride 101 meq/L (98-107); Glomerular Filtration Rate Greater Than 89 mL/min (>89); Glucose,Random 95 mg/dL (74-106); Magnesium 1.7 mg/dL (1.5-2.5); Phosphorus 4.4 mg/dL (2.5-4.9); Potassium 4.1 meq/L (3.5-5.1); Sodium 133 meq/L (136-145)
[2018-04-21] MEDS: Digoxin 125 MCG Tablet PO SCH (09:12)
[2018-04-21] MEDS: oxyCODONE/Acetaminophen 10/325 Tablet PO PRN ×3 (09:12→22:12)
[2018-04-21] MEDS: Heparin - SQ 10,000 UNITS/ML Vial SQ SCH ×2 (09:13→20:32)
[2018-04-21] MEDS: Heparin Central Flush 100 UNIT/ML 5 ML Vial IV.FLUSH SCH (09:13)
[2018-04-21] MEDS: Pantoprazole Inj 40 MG Vial IV.PUSH SCH (15:00)
--- NOTE | 2018-04-21 17:14 | P.PNIM ---
Subjective Interval history: Patient says she is feeling right. Reports pain under control. Denies any chest pain shortness of breath. She reports some nausea today. She is tried to drink some Ensure today, however very minimal p.o. intake. Physical Exam Vital signs: Vital Signs 04/20/18 18:00 04/20/18 19:00 04/20/18 20:00 Temperature 98.2 F Pulse Rate 98 H 96 H 98 H Respiratory Rate 16 Blood Pressure 90/69 L Pulse Oximetry 100 04/20/18 21:00 04/20/18 22:00 04/20/18 23:00 Temperature Pulse Rate 100 H 102 H 102 H Respiratory Rate Blood Pressure Pulse Oximetry 04/21/18 00:00 04/21/18 01:00 04/21/18 02:00 Temperature 97.7 F Pulse Rate 102 H 96 H 102 H Respiratory Rate 16 Blood Pressure 174/84 H Pulse Oximetry 100 04/21/18 03:00 04/21/18 04:00 04/21/18 05:00 Temperature 97.8 F Pulse Rate 99 H 99 H 98 H Respiratory Rate 16 Blood Pressure 178/82 H Pulse Oximetry 100 04/21/18 06:00 04/21/18 07:00 04/21/18 08:00 Temperature 97.7 F Pulse Rate 100 H 103 H 101 H Respiratory Rate 16 Blood Pressure 173/92 H Pulse Oximetry 100 04/21/18 09:00 04/21/18 10:00 04/21/18 11:00 Temperature Pulse Rate 98 H 88 101 H Respiratory Rate Blood Pressure Pulse Oximetry 04/21/18 12:00 04/21/18 13:00 04/21/18 14:00 Temperature 98.1 F Pulse Rate 99 H 98 H 96 H Respiratory Rate 16 Blood Pressure 158/78 H Pulse Oximetry 100 04/21/18 15:00 04/21/18 16:00 Temperature 98.0 F Pulse Rate 94 H 94 H Respiratory Rate 18 Blood Pressure 168/82 H Pulse Oximetry 100 Intake & Output 04/20/18 04/21/18 04/21/18 18:59 06:59 18:59 Intake Total 530 / 530 2738 / 2738 Balance 530 / 530 2738 / 2738 Weight 45.7 kg Intake: IV 50 / 50 2618 / 2618 Cordarone Inj 450 MG In D5W Inj 50 / 50 241 ML @ 1 MG/MIN 33.33 mls/hr IV.CONT TITRATE PRN Rx#: [id number] MVI-12 Inj 10 ML Folvite Inj 1 2518 / 2518 MG In TPN Fluid 2 Liter 2,000 ML @ 31.25 mls/hr IV.SIG Q24H [facility] Rx#:[id number] Rocephin Inj 1,000 MG In NS Inj 100 / 100 100 ML @ 200 mls/hr IV.SIG Q24H [facility] Rx#:[id number] Oral 480 / 480 120 / 120 Other: # Voids 3 # Incontinent Voids 3 3 Date of Last Bowel Movement 04/19/18 04/20/18 04/20/18 # Incontinent Bowel Movements 1 Narrative: GENERAL: Patient lying in bed. No acute distress. SKIN: Warm and dry. HEAD: Normocephalic. EYES: No scleral icterus. No injection or drainage. NECK: Supple, trachea midline. No JVD. CARDIOVASCULAR: Regular rate and rhythm without murmurs, gallops, or rubs. RESPIRATORY: Breath sounds equal bilaterally. No accessory muscle use. GASTROINTESTINAL: Abdomen soft, non-tender, nondistended. Midline abdominal incision with Steri-Strips intact. 04/20 There is very slight area of mild dehiscence with serosanguineous drainage. no surrounding erythema. No fluctuance or signs of infection. No change. MUSCULOSKELETAL: No cyanosis, or edema. BACK: Nontender without obvious deformity. No CVA tenderness. - Urinary Catheter Management Female External Cath placed during this visit: no Results - Labs CBC & Chem 7: 04/21/18 04:00 04/21/18 04:00 Laboratory Results - last 24 hr 04/20/18 04/20/18 04/21/18 17:08 20:27 00:19 WBC RBC Hgb Hct MCV MCH MCHC RDW Plt Count MPV Neut % (Auto) Lymph % (Auto) [place] % (Auto) Eos % (Auto) Baso % (Auto) Neut # (Auto) Lymph # (Auto) [place] # (Auto) Eos # (Auto) Baso # (Auto) WBC Differential Differential Comment Sodium Potassium Chloride Carbon Dioxide Anion Gap BUN Creatinine Estimated GFR POC Glucose 122 H 106 115 H Random Glucose Calcium Phosphorus Magnesium Albumin 04/21/18 04/21/18 04/21/18 03:53 04:00 04:00 WBC 7.8 RBC 3.35 L Hgb 9.6 L Hct 28.9 L MCV 86.2 MCH 28.6 MCHC 33.1 RDW 17.6 H Plt Count 313 MPV 8.5 Neut % (Auto) 67.5 Lymph % (Auto) 16.2 [place] % (Auto) 12.6 H Eos % (Auto) 2.7 Baso % (Auto) 1.0 Neut # (Auto) 5.3 Lymph # (Auto) 1.3 [place] # (Auto) 1.0 H Eos # (Auto) 0.2 Baso # (Auto) 0.1 WBC Differential . Differential Comment Auto diff final Sodium 133 L Potassium 4.1 Chloride 101 Carbon Dioxide 24.9 Anion Gap 7 BUN 14 Creatinine 0.55 Estimated GFR Greater than 89 POC Glucose 98 Random Glucose 95 Calcium 7.8 L Phosphorus 4.4 D Magnesium 1.7 Albumin 1.7 L 04/21/18 04/21/18 07:48 16:13 WBC RBC Hgb Hct MCV MCH MCHC RDW Plt Count MPV Neut % (Auto) Lymph % (Auto) [place] % (Auto) Eos % (Auto) Baso % (Auto) Neut # (Auto) Lymph # (Auto) [place] # (Auto) Eos # (Auto) Baso # (Auto) WBC Differential Differential Comment Sodium Potassium Chloride Carbon Dioxide Anion Gap BUN Creatinine Estimated GFR POC Glucose 126 H 128 H Random Glucose Calcium Phosphorus Magnesium Albumin Microbiology 04/17/18 22:00 Random Urine Urine Culture - Final Kristina glabrata - Procedures Cardioversion Celiac stent by IR PICC Assessment and Plan - Plan 72-year-old female with Neuropathy Acute pain management Oxycodone/acetaminophen 5-10/325 one tab every 6 hours as needed pain Temazepam 15 mg at night as needed insomnia Gabapentin 100 mg twice daily currently on hold Unstable SVT resolved Issue with RVR currently normal sinus rhythm Cardiology is following. Continue digoxin 0.125 mg daily. Currently on amiodarone drip per recommendations of cardiology. = 04/19. Call cardiology to figure out why patient is still on amiodarone drip. From notes it appears that she is to only be on digoxin. Appreciate nursing assistance. = 04/20. Patient continues on amiodarone drip. Discussed with nurse who will contact cardiology. = 04/21. Amiodarone drip discontinued. Continue on digoxin. Acute respiratory insufficiency-improving COPD A nasal cannula to maintain saturations greater than or equal to 92% Incentive spirometry while awake Fluticasone/Vilanterol 100/25 1 inhalation daily Albuterol/ipratropium aerosols every 4 hours with albuterol aerosols every 2 hours as needed for dyspnea Ischemic bowel status post ileal cecectomy Stent placement to SMA Hypoalbuminemia Severe protein calorie malnutrition Repeat CT abdomen/pelvis 04/11 -progressive ileus -MRA of the abdomen done 04/11 indicates occlusion of the SMA Stented with 7x17 Express stent Clopidogrel 75 mg daily. Appreciate input from general surgery, will sign off April 17 2018 GI is also following Currently on TPN and lipids = 04/21. Still very poor p.o. intake. Start Megace for appetite stimulation. Continue TPN. Multiple electrolyte abnormalities including hyponatremia, hypochloremia hyperkalemia and hypocalcemia likely from specimen drawn from TPN line. Creatinine currently within normal limits Monitor urine output Accurate I's and O's = 04/19. Continue TPN. Very mild wound dehiscence. Nursing will discuss with general surgery tomorrow morning = 04/20. Slight wound dehiscence. General surgery to be contacted. Appreciate nursing and general surgery assistance. Normocytic anemia Follow trends E. coli and Enterobacter urinary tract infection 04/08 -s/p cefepime and metronidazole Prophylaxis -GI -pantoprazole -DVT -SCDs/heparin subcu Discharge Planning: To rehab. We will need TPN Cardiology to comment on continued amiodarone drip.
[2018-04-21] MEDS: Multivitamin Inj 10 ML, Folic Acid Inj 1 MG in TPN Fluid 2 Liter 2,000 ML IV.SIG SCH (20:08)
[2018-04-22] MEDS: oxyCODONE/Acetaminophen 10/325 Tablet PO PRN ×2 (05:39→21:16)
[2018-04-22] MEDS: Insulin NovoLIN Regular Correctional Sugar Inj SQ SCH ×8 (06:21→23:24)
[2018-04-22] MEDS: Heparin - SQ 10,000 UNITS/ML Vial SQ SCH ×2 (11:31→21:17)
[2018-04-22] MEDS: Heparin Central Flush 100 UNIT/ML 5 ML Vial IV.FLUSH SCH (11:31)
[2018-04-22] MEDS: Digoxin 125 MCG Tablet PO SCH (11:31)
[2018-04-22] MEDS ORDERED: Metoprolol Tartrate 25 MG Tablet PO SCH (12:00)
[2018-04-22] MEDS ORDERED: hydrALAZINE 25 MG Tablet PO SCH (13:00)
[2018-04-22] MEDS: Pantoprazole Inj 40 MG Vial IV.PUSH SCH (13:37)
--- NOTE | 2018-04-22 13:50 | P.PNIM ---
Subjective Interval history: Patient says she is feeling all right. Denies any chest pain or shortness breath. She has some nausea earlier but no vomiting. She has had about half an Ensure today Physical Exam Vital signs: Vital Signs 04/21/18 14:00 04/21/18 15:00 04/21/18 16:00 Temperature 98.0 F Pulse Rate 96 H 94 H 94 H Respiratory Rate 18 Blood Pressure 168/82 H Pulse Oximetry 100 04/21/18 17:00 04/21/18 18:00 04/21/18 19:00 Temperature Pulse Rate 91 H 89 92 H Respiratory Rate Blood Pressure Pulse Oximetry 04/21/18 20:00 04/21/18 20:30 04/21/18 21:00 Temperature 97.7 F Pulse Rate 96 H 100 H 98 H Respiratory Rate 16 Blood Pressure 207/88 H 176/74 H Pulse Oximetry 100 04/21/18 22:00 04/21/18 23:00 04/22/18 00:00 Temperature 97.8 F Pulse Rate 98 H 100 H 104 H Respiratory Rate 16 Blood Pressure 187/81 H Pulse Oximetry 100 04/22/18 01:00 04/22/18 02:00 04/22/18 03:00 Temperature Pulse Rate 103 H 106 H 103 H Respiratory Rate Blood Pressure Pulse Oximetry 04/22/18 04:00 04/22/18 05:00 04/22/18 06:00 Temperature 98.1 F Pulse Rate 106 H 101 H 101 H Respiratory Rate 16 Blood Pressure 179/80 H Pulse Oximetry 100 04/22/18 07:00 04/22/18 08:00 04/22/18 09:00 Temperature 97.9 F Pulse Rate 104 H 104 H 101 H Respiratory Rate 16 Blood Pressure 183/91 H Pulse Oximetry 100 04/22/18 09:30 04/22/18 10:00 04/22/18 11:00 Temperature Pulse Rate 104 H 100 H Respiratory Rate Blood Pressure 197/85 H Pulse Oximetry Intake & Output 04/21/18 04/22/18 04/22/18 18:59 06:59 18:59 Intake Total 490 / 490 974 / 974 Output Total 150 / 150 Balance 490 / 490 824 / 824 Weight 45.7 kg Intake: IV 854 / 854 MVI-12 Inj 10 ML Folvite Inj 1 754 / 754 MG In TPN Fluid 2 Liter 2,000 ML @ 31.25 mls/hr IV.SIG Q24H FRANCA Rx#:[id number] Rocephin Inj 1,000 MG In NS Inj 100 / 100 100 ML @ 200 mls/hr IV.SIG Q24H [facility]ANCA Rx#:[id number] Oral 240 / 240 120 / 120 Oral Supplement 240 / 240 Other 10 10 Output: Urine 150 / 150 Other: Other Intake Source Saline Solution # Voids 3 2 Date of Last Bowel Movement 04/20/18 04/22/18 04/22/18 # Bowel Movements 2 Narrative: GENERAL: Patient lying in bed. No acute distress. Exam unchanged from yesterday. SKIN: Warm and dry. HEAD: Normocephalic. EYES: No scleral icterus. No injection or drainage. NECK: Supple, trachea midline. No JVD. CARDIOVASCULAR: Regular rate and rhythm without murmurs, gallops, or rubs. RESPIRATORY: Breath sounds equal bilaterally. No accessory muscle use. GASTROINTESTINAL: Abdomen soft, non-tender, nondistended. Midline abdominal incision with Steri-Strips intact. 04/20 There is very slight area of mild dehiscence with serosanguineous drainage. no surrounding erythema. No fluctuance or signs of infection. No change. MUSCULOSKELETAL: No cyanosis, or edema. BACK: Nontender without obvious deformity. No CVA tenderness. - Urinary Catheter Management Female External Cath placed during this visit: no Results - Labs CBC & Chem 7: 04/21/18 04:00 04/21/18 04:00 Laboratory Results - last 24 hr 04/21/18 04/21/18 04/21/18 16:13 20:38 23:49 POC Glucose 128 H 123 H 100 04/22/18 04/22/18 04:30 07:48 POC Glucose 127 H 130 H - Procedures Cardioversion Celiac stent by IR PICC Assessment and Plan - Plan 72-year-old female with Neuropathy Acute pain management Oxycodone/acetaminophen 5-10/325 one tab every 6 hours as needed pain Temazepam 15 mg at night as needed insomnia Gabapentin 100 mg twice daily currently on hold Unstable SVT resolved Issue with RVR currently normal sinus rhythm Cardiology is following. Continue digoxin 0.125 mg daily. Currently on amiodarone drip per recommendations of cardiology. = 04/19. Call cardiology to figure out why patient is still on amiodarone drip. From notes it appears that she is to only be on digoxin. Appreciate nursing assistance. = 04/20. Patient continues on amiodarone drip. Discussed with nurse who will contact cardiology. = Amiodarone drip discontinued. Continue on digoxin. Acute respiratory insufficiency-improving COPD A nasal cannula to maintain saturations greater than or equal to 92% Incentive spirometry while awake Fluticasone/Vilanterol 100/25 1 inhalation daily Albuterol/ipratropium aerosols every 4 hours with albuterol aerosols every 2 hours as needed for dyspnea Ischemic bowel status post ileal cecectomy Stent placement to SMA Hypoalbuminemia Severe protein calorie malnutrition Repeat CT abdomen/pelvis 04/11 -progressive ileus -MRA of the abdomen done 04/11 indicates occlusion of the SMA Stented with 7x17 Express stent Clopidogrel 75 mg daily. Appreciate input from general surgery, will sign off April 17 2018 GI is also following Currently on TPN and lipids = 04/21. Still very poor p.o. intake. Start Megace for appetite stimulation. Continue TPN. //Multiple electrolyte abnormalities including hyponatremia, hypochloremia hyperkalemia and hypocalcemia likely from specimen drawn from TPN line. Creatinine currently within normal limits Monitor urine output Accurate I's and O's = 04/19. Continue TPN. Very mild wound dehiscence. Nursing will discuss with general surgery tomorrow morning = 04/20. Slight wound dehiscence. General surgery to be contacted. Appreciate nursing and general surgery assistance. = 04/22. Continues on TPN. Poor p.o. intake. Continue on Megace. Normocytic anemia Follow trends E. coli and Enterobacter urinary tract infection 04/08 -s/p cefepime and metronidazole //Asymptomatic candiduria. Kristina glabrata and urine. No dysuria. //Hypertension. Systolic blood pressures measured in the 190, however this is right wrist. Apparently patient had low blood pressures in the 80s systolic on the left upper arm and the decision was made by nursing several days ago to use the right wrist instead because it was measuring higher blood pressures, likely secondary to poor fit. Cannot use right upper arm due to central line. We will go back to using the left upper arm for blood pressures. Discussed with nursing. Appreciate assistance. Prophylaxis -GI -pantoprazole -DVT -SCDs/heparin subcu Discharge Planning: To rehab. We will need TPN Cardiology to comment on continued amiodarone drip.
[2018-04-22] MEDS: Multivitamin Inj 10 ML, Folic Acid Inj 1 MG in TPN Fluid 2 Liter 2,000 ML IV.SIG SCH (19:36)
[2018-04-23] MEDS: oxyCODONE/Acetaminophen 10/325 Tablet PO PRN ×3 (03:06→15:51)
[2018-04-23] MEDS: Insulin NovoLIN Regular Correctional Sugar Inj SQ SCH ×5 (03:06→23:24)
[2018-04-23] MEDS: Heparin Central Flush 100 UNIT/ML 5 ML Vial IV.FLUSH SCH (09:40)
[2018-04-23] MEDS: Digoxin 125 MCG Tablet PO SCH (09:40)
[2018-04-23] MEDS: Heparin - SQ 10,000 UNITS/ML Vial SQ SCH ×2 (09:40→20:57)
--- NOTE | 2018-04-23 10:24 | P.PNIM ---
Subjective Interval history: in no acute distress- but somewhat ill-looking. has mild epigastric pain. says that het appetite is slightly better today. Physical Exam Vital signs: Vital Signs 04/22/18 11:00 04/22/18 12:00 04/22/18 13:00 Temperature 97.9 F Pulse Rate 100 H 106 H 101 H Respiratory Rate 16 Blood Pressure 88/56 L Pulse Oximetry 99 04/22/18 14:00 04/22/18 15:00 04/22/18 16:00 Temperature 98.2 F Pulse Rate 101 H 97 H 98 H Respiratory Rate 20 Blood Pressure 82/58 L Pulse Oximetry 100 04/22/18 17:00 04/22/18 18:00 04/22/18 18:28 Temperature 97.8 F Pulse Rate 99 H 98 H 92 H Respiratory Rate 16 Blood Pressure 84/61 L Pulse Oximetry 100 04/22/18 20:00 04/23/18 00:00 04/23/18 04:00 Temperature 97.5 F L 97.9 F 98.0 F Pulse Rate 99 H 96 H 77 Respiratory Rate 16 18 16 Blood Pressure 92/70 L 107/66 87/77 L Pulse Oximetry 100 100 97 04/23/18 07:08 Temperature 97.9 F Pulse Rate 96 H Respiratory Rate 18 Blood Pressure 107/66 Pulse Oximetry 100 Intake & Output 04/22/18 04/23/18 04/23/18 18:59 06:59 18:59 Intake Total 200 / 200 240 / 240 Output Total 800 / 800 Balance -600 / -600 240 / 240 Weight 44 kg 44.3 kg Intake: Oral 200 / 200 240 / 240 Output: Stool 400 / 400 Urine Amount (Catheter) 400 / 400 Female External 400 / 400 Other: # Voids 3 Date of Last Bowel Movement 04/22/18 04/23/18 # Bowel Movements 2 0 # Incontinent Bowel Movements 1 - Constitutional no acute distress (but somewhat ill-looking.) - Routine Respiratory Exam Present: CTA bilaterally - Routine Cardiovascular Exam Present: RRR - Routine Abdominal Exam Present: soft - Routine Extremities Exam Comments: s/p left BKA. - Routine Neurological Exam Present: alert, oriented X3 - Urinary Catheter Management Female External Cath placed during this visit: no Results - Labs CBC & Chem 7: 04/21/18 04:00 04/21/18 04:00 Laboratory Results - last 24 hr 04/23/18 04/23/18 03:05 07:34 POC Glucose 123 H 115 H - Procedures Cardioversion Celiac stent by IR PICC Assessment and Plan - Plan Neuropathy Acute pain management Oxycodone/acetaminophen 5-10/325 one tab every 6 hours as needed pain Temazepam 15 mg at night as needed insomnia Gabapentin 100 mg twice daily currently on hold Unstable SVT resolved Issue with RVR currently normal sinus rhythm Cardiology is following. Continue digoxin 0.125 mg daily. Amiodarone drip discontinued. Continue on digoxin. Acute respiratory insufficiency-improving COPD A nasal cannula to maintain saturations greater than or equal to 92% Incentive spirometry while awake Fluticasone/Vilanterol 100/25 1 inhalation daily Albuterol/ipratropium aerosols every 4 hours with albuterol aerosols every 2 hours as needed for dyspnea Ischemic bowel status post ileal cecectomy Stent placement to SMA Hypoalbuminemia Severe protein calorie malnutrition -MRA of the abdomen done 04/11 indicates occlusion of the SMA Stented with 7x17 Express stent Clopidogrel 75 mg daily. Appreciate input from general surgery,signed off. GI is also following Currently on TPN and lipids Started on Megace for appetite stimulation. Continue TPN. Multiple electrolyte abnormalities including hyponatremia, hypochloremia hyperkalemia and hypocalcemia likely from specimen drawn from TPN line. Creatinine currently within normal limits Monitor urine output Accurate I's and O's Normocytic anemia Follow trends E. coli and Enterobacter urinary tract infection 04/08 -s/p cefepime and metronidazole //Asymptomatic candiduria. Kristina glabrata and urine. No dysuria. Prophylaxis -GI -pantoprazole -DVT -SCDs/heparin subcu Discharge Planning: dc planning; rehab. currently on TPN.
[2018-04-23 12:54] LABS: Baso # (Auto) 0.1 th/mm3 (0.0-0.2); Baso % (Auto) 1.1 % (0.0-2.0); Eos # (Auto) 0.2 th/mm3 (0.0-0.4); Eos % (Auto) 1.8 % (0.0-4.0); Hematocrit 28.9 % (35.0-46.0); Hemoglobin 9.6 gm/dL (11.6-15.3); Lymph % (Auto) 11.5 % (9.0-44.0); Mean Corpuscular HGB Conc 33.2 % (32.0-36.0); Mean Corpuscular Hemoglobin 28.6 pg (27.0-34.0); Mean Corpuscular Volume 86.2 fL (80.0-100.0); Mean Platelet Volume 8.3 fL (7.0-11.0); Mono # (Auto) 0.6 th/mm3 (0.0-0.9); Mono % (Auto) 6.7 % (0.0-8.0); Neut # (Auto) 6.6 th/mm3 (1.8-7.7); Neut % (Auto) 78.9 % (16.0-70.0); Platelet Count 347 th/mm3 (150-450); Red Blood Count 3.35 mil/mm3 (4.00-5.30); Red Cell Distribution Width 17.6 % (11.6-17.2); White Blood Count 8.4 th/mm3 (4.0-11.0)
[2018-04-23] MEDS: Pantoprazole Inj 40 MG Vial IV.PUSH SCH (13:20)
[2018-04-23 13:26] LABS: Albumin 1.8 g/dL (3.4-5.0); Anion Gap 9 meq/L (5-15); Blood Urea Nitrogen 17 mg/dL (7-18); Carbon Dioxide 22.7 meq/L (21.0-32.0); Chloride 99 meq/L (98-107); Glomerular Filtration Rate Greater Than 89 mL/min (>89); Glucose,Random 111 mg/dL (74-106); Magnesium 1.6 mg/dL (1.5-2.5); Potassium 4.4 meq/L (3.5-5.1); Sodium 131 meq/L (136-145)
[2018-04-23 13:27] LABS: Phosphorus 4.4 mg/dL (2.5-4.9)
--- NOTE | 2018-04-23 14:46 | P.DIET ---
Nutritional Evaluation Type of nutrition evaluation: follow-up Nutrition consult regarding: TPN/PPN ([facility] for TPN/PPN) Subjective Subjective Comments: Pt remains on Full Liquid diet and is not eating much. She's receiving Ensure TID, but does not drink very much of them. She is known to me from the few days she was in [place]. Objective - Diagnosis Critical Care Unit - Objective Part of Body Amputated: Left below knee (6%) Weight Subtracted: Other (6.6# for BKA) % IBW: 94 (GZO=332.4#) Body Weight Used for Calculations: Actual (44.3kg) Energy Needs - Lower Range (kCal/kg): 28 Energy Needs - Upper Range (kCal/kg): 32 Lower Limit kCal/kg (kCals): 1,240 Upper Limit kCal/kg (kCals): 1,415 Lower Limit Protein Factor (Grams per Kg): 1.1 Upper Limit Protein Factor (Grams per Kg): 1.4 Lower Protein Needs (Protein): 49 Upper Protein Needs (Protein): 62 Fluid Factor (ml/kg): 32 Estimated Fluid Needs (ml): 1,415 Dietitian Reviewed in Medical Record: Current diet, Curent medications, Intake & Output, Labs Diet Order: Full Liquids Objective Comments: Meds: Megace 40mg BID 04/13 celiac stent 03/25 ileocectomy Feeding - Current PO Supplement Current Supplement: Ensure Original Current Supplement Flavor: [place] Current kCals Provided by Supplement: 250 Current Protein Provided by Supplement: 9 - Current TPN/PPN Current TPN: Clinimix E 01/25 Current TPN/PPN Rate (ml/hr): 31 Amino Acid and Dextrose Current kCals Provided: 634 Amino Acid and Dextrose Current Protein Provided: 36 Current Lipid Concentration: 20% Current Lipids Rate: Twice weekly (infuse 250 mls over 8 hours) (Friday, Friday) Current kCal Provided by TPN/PPN: 1,134 Assessment Assessment: Pt remains at high nutritional risk 2/2 her poor PO intake and difficulty tolerating some PO foods, plus her need for TPN. Current TPN is providing little nutrition, recommend increasing rate to 50mls/hr and continuing lipids twice weekly. This would then provide 1200mls fluid, 1056kcals (1556kcals when lipids infused), 60g PRO, and a GIR of 3.8. Currently, pt is not consuming enough PO to maintain her nutritional status, plus she is only on a full liquid diet anyway. So recommend continuing TPN for now as it is difficult to maintain an adequate nutritional status on liquids alone. Dietitian following. Recommendations: 1. Recommend Clinimix E 01/25 @ 50mls/hr. 2. Continue twice weekly lipids at same rate. 3. Continue nutrition support as pt is not meeting adequate nutrition via PO intake alone and she remains only on a full liquid diet. 4. Ensure TID. Dietitian to Monitor: Lab values, Supplement acceptance, Intake & Output, Diet tolerance, TPN/PPN tolerance, Weight change, PO Intake, Diet advancement, Medical course
[2018-04-23] MEDS: Multivitamin Inj 10 ML, Folic Acid Inj 1 MG in TPN Fluid 2 Liter 2,000 ML IV.SIG SCH (20:55)
[2018-04-24] MEDS: Insulin NovoLIN Regular Correctional Sugar Inj SQ SCH ×6 (00:28→21:21)
[2018-04-24] MEDS: oxyCODONE/Acetaminophen 10/325 Tablet PO PRN (04:36)
[2018-04-24] MEDS: Heparin - SQ 10,000 UNITS/ML Vial SQ SCH ×2 (09:35→20:18)
[2018-04-24] MEDS: Digoxin 125 MCG Tablet PO SCH (09:35)
[2018-04-24] MEDS: Heparin Central Flush 100 UNIT/ML 5 ML Vial IV.FLUSH SCH (09:36)
--- NOTE | 2018-04-24 10:42 | P.PNIM ---
Subjective Interval history: ill looking but in no acute distress. denies pain, nausea, vomiting. no fever. Physical Exam Vital signs: Vital Signs 04/23/18 12:00 04/23/18 16:00 04/23/18 20:00 Temperature 97.5 F L 97.3 F L 97.6 F Pulse Rate 95 H 92 H 88 Respiratory Rate 18 18 18 Blood Pressure 100/72 82/53 L 91/63 L Pulse Oximetry 96 95 99 04/24/18 00:00 04/24/18 04:00 04/24/18 08:00 Temperature 97.6 F 98.7 F 98.1 F Pulse Rate 96 H 103 H 99 H Respiratory Rate 18 18 18 Blood Pressure 103/68 108/76 98/63 L Pulse Oximetry 98 98 97 Intake & Output 04/23/18 04/24/18 04/24/18 18:59 06:59 18:59 Intake Total 2449.6 / 2449.6 Balance 2449.6 / 2449.6 Weight 43 kg Intake: IV 2039.6 / 2039.6 MVI-12 Inj 10 ML Folvite Inj 1 2039.6 / 2039.6 MG In TPN Fluid 2 Liter 2,000 ML @ 31.25 mls/hr IV.SIG Q24H [facility] Rx#:[id number] Oral 410 / 410 Other: Date of Last Bowel Movement 04/23/18 04/24/18 # Bowel Movements 2 - Constitutional no acute distress (but ill looking.) - Routine Respiratory Exam Present: CTA bilaterally - Routine Cardiovascular Exam Present: RRR - Routine Abdominal Exam Present: soft - Routine Extremities Exam Comments: no pedal edema. - Routine Neurological Exam Present: alert - Urinary Catheter Management Female External Cath placed during this visit: no Results - Labs CBC & Chem 7: 04/23/18 12:11 04/23/18 12:11 Laboratory Results - last 24 hr 04/23/18 04/23/18 04/23/18 11:53 12:11 12:11 WBC 8.4 RBC 3.35 L Hgb 9.6 L Hct 28.9 L MCV 86.2 MCH 28.6 MCHC 33.2 RDW 17.6 H Plt Count 347 MPV 8.3 Neut % (Auto) 78.9 H Lymph % (Auto) 11.5 [place] % (Auto) 6.7 Eos % (Auto) 1.8 Baso % (Auto) 1.1 Neut # (Auto) 6.6 Lymph # (Auto) 1.0 [place] # (Auto) 0.6 Eos # (Auto) 0.2 Baso # (Auto) 0.1 WBC Differential . Differential Comment Auto diff final Sodium 131 L Potassium 4.4 Chloride 99 Carbon Dioxide 22.7 Anion Gap 9 BUN 17 Creatinine 0.61 Estimated GFR Greater than 89 POC Glucose 136 H Random Glucose 111 H Calcium 8.0 L Phosphorus 4.4 Magnesium 1.6 Albumin 1.8 L 04/23/18 04/23/18 04/24/18 17:19 22:20 05:04 WBC RBC Hgb Hct MCV MCH MCHC RDW Plt Count MPV Neut % (Auto) Lymph % (Auto) [place] % (Auto) Eos % (Auto) Baso % (Auto) Neut # (Auto) Lymph # (Auto) [place] # (Auto) Eos # (Auto) Baso # (Auto) WBC Differential Differential Comment Sodium Potassium Chloride Carbon Dioxide Anion Gap BUN Creatinine Estimated GFR POC Glucose 140 H 89 112 H Random Glucose Calcium Phosphorus Magnesium Albumin 04/24/18 07:41 WBC RBC Hgb Hct MCV MCH MCHC RDW Plt Count MPV Neut % (Auto) Lymph % (Auto) [place] % (Auto) Eos % (Auto) Baso % (Auto) Neut # (Auto) Lymph # (Auto) [place] # (Auto) Eos # (Auto) Baso # (Auto) WBC Differential Differential Comment Sodium Potassium Chloride Carbon Dioxide Anion Gap BUN Creatinine Estimated GFR POC Glucose 125 H Random Glucose Calcium Phosphorus Magnesium Albumin - Procedures Cardioversion Celiac stent by IR PICC Assessment and Plan - Plan Neuropathy Acute pain management Oxycodone/acetaminophen 5-10/325 one tab every 6 hours as needed pain Temazepam 15 mg at night as needed insomnia Gabapentin 100 mg twice daily currently on hold Unstable SVT resolved Issue with RVR currently normal sinus rhythm evaluated by cardiology. Continue digoxin 0.125 mg daily. Amiodarone drip discontinued. Continue on digoxin. Acute respiratory insufficiency-improving COPD A nasal cannula to maintain saturations greater than or equal to 92% Incentive spirometry while awake Fluticasone/Vilanterol 100/25 1 inhalation daily Albuterol/ipratropium aerosols every 4 hours with albuterol aerosols every 2 hours as needed for dyspnea Ischemic bowel status post ileal cecectomy Stent placement to SMA Hypoalbuminemia Severe protein calorie malnutrition -MRA of the abdomen done 04/11 indicates occlusion of the SMA Stented with 7x17 Express stent Clopidogrel 75 mg daily. Appreciate input from general surgery,signed off. GI has signed off. Currently on TPN and lipids Started on Megace for appetite stimulation. Continue TPN. Multiple electrolyte abnormalities including hyponatremia, hypochloremia hyperkalemia and hypocalcemia likely from specimen drawn from TPN line. Creatinine currently within normal limits Monitor urine output Accurate I's and O's Normocytic anemia Follow trends E. coli and Enterobacter urinary tract infection 04/08 -s/p cefepime and metronidazole //Asymptomatic candiduria. Kristina glabrata and urine. No dysuria. Prophylaxis -GI -pantoprazole -DVT -SCDs/heparin subcu will consult palliative care. Discharge Planning: dc planning; rehab. currently on TPN. consulted palliative care.
--- NOTE | 2018-04-24 12:09 | P.CONPAL ---
Consult Service: Palliative Care Requesting Physician: Latricia Kent Reason for Consult: a. To assist with evaluation and management of symptoms including: Nausea, pain , malnutrition. b. To assist medical decision maker(s) with: better understanding of current medical conditions; weighing benefits/burdens of medical treatment options; making medical treatment decisions. Primary Care Provider: UNKNOWN History of Present Illness History of Present Illness: On 03/21/18 for complaints of weakness and palpitations. She presented from [facility]. Upon EMS arrival they attempted cardioversion for the heart rate in the 170s, required repeat cardioversion. She later had atrial fibrillation with RVR, requiring Cardizem drip at [facility]. CT of abdomen and pelvis indicated mesenteric ischemia and occlusion of the SMA. She was sent to [facility] as an emergency transfer. She underwent ileocecectomy with primary anastomosis and abdominal closure on March 25 for necrotic sternal ileum and diffuse ischemia. She apparently was also found to have ischemia to left lower extremity a thrombectomy was performed but this failed. Status post left BKA. Her postoperative course was complicated by SVT , acute renal failure. She was being treated with IV Flagyl, vancomycin, and transition to p.o. Flagyl. She was on TPN at one point. She was admitted to [facility] for rehab on 04/08/18. while there she continued to have nausea and vomiting with ileus ; required transfer back to hospital setting 04/11/18. On evaluation on 04/11 by medical attending she reports reports increased abdominal pain and constant nausea. She vomits any p.o. intake including medications. She was having diarrhea , cramping. * abdomen MRA = . 1 Occlusion of the SMA proximally with reconstitution of small SMA approximately 3 cm distal to the origin.2. 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 * GI was consulted : NGT in place to low int sx. Small bowel series pending . suspected mesenteric ischemia * Gen surgery consulted: concern for persistent chronic or subacute vascular disease at the SMA. will Obtain op report. May require CTA or angiogram for further evaluation. 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 Surgery will discuss with IR if this can be addressed by IR. Not recommended for open surgery. Consider transfer back to [place] for follow-up with original surgeon. IR consulted to consider SMA stent if feasible. * 04/13 To IR: Celiac axis initial opening gradient was over 100 mmHg and therefore patient underwent successful celiac axis balloon angioplasty and stenting. * 2D echo EF 65-70%. * Overnight 04/13/18 patient developed unstable SVT, hypotension. Received fluid volume resuscitation, adenosine. She was started on amiodarone. Hemodynamics improved after amiodarone, digoxin. NG tube remains to suction. May start TPN. Cardiology was consulted patient to receive digoxin load, as well as digoxin daily. DC amiodarone. * 04/14 having liquid bowel movements. Generally still not feeling well. Trial of clamping NG tube. * 04/15 CTA-negative for pulmonary embolus. Bilateral pleural effusions and atelectasis. Patchy nonspecific infiltrate bilateral. Nonspecific mildly enlarged mediastinal lymph nodes. * 04/16 hemoglobin dropped from 8.2-6.9. She was transfused NG tube clamped. Taking a few sips of broth. Still with abdominal pain. On TPN and lipids. NG tube discontinued poor prognosis per GI. Recommends palliative consultation. Nothing else to add from GI standpoint available as needed. * 04/17 general surgery signed off recommends following up with original operating surgeon. * 04/21 PT has seen a few times claimed to get out of bed. Still with very poor oral intake. Intermittent nausea. Started on Megace. * 04/23 dietitian has been following. Patient remains on a liquid diet , she is on Ensure 3 times daily but she does not drink much of them. Currently receiving TPN recommends increasing rate continue lipids twice weekly to meet work needs. Patient not meeting her needs with p.o. intake especially on full liquid diet. * 04/24 palliative care consulted to assist with clarification of goals of medical treatment Per review of records appear she has had past episodes of SVT, as well as electrolyte abnormalities--hospitalized here January 2018. Discharge to rehab. Patient seen in room no visitors present. She is awake. She appears oriented to self. When asked how she is doing today she said "not very well ". She does deny nausea. She denies pain. Does not further qualify what his not feeling well for me. Answer my other orientation questions. She follows some simple commands. Told her I would call her to give him an update and talk with him, she says yes to this. She complains of being cold during exam. Assisted her to place blankets around her. She does not appear able at this time to have insightful discussion regarding her goals. She is unable to provide additional information about current history. She is unable to provide me with additional information regarding family history. Following exam attempted to call her , voicemail left. I also left contact information at bedside and discussed with primary nurse. arrived to unit shortly after my exam, was able to meet with him at length at bedside. Met with him approximately 60 minutes. He details a study trajectory of decline since January of this year. Patient has been in out of the hospital in rehab setting since January. She is only spent a few days at home. In November and December of this year her baseline was ambulatory around independent with ADLs. She used a cane. She was cognitively sharp. did most of the access services representative, cooking etc. indicates over the past 4 months patient has had one thing after another, related to dysrhythmia, electrolytes, infections etc. --Discussed with medical attending Function/Cognitive Trajectory: Patient has been in the hospital or inpatient rehab setting since at least March of this year. Appears at March hospital presentation she was actually at an SNF at that time. She has primarily been bedbound for the past couple of weeks here at the hospital reluctant to participate in out of bed activities with PT. Patient has been in out of the hospital in rehab setting since January. She is only spent a few days at home. In November and December of this year her baseline was ambulatory around independent with ADLs. She used a cane. -- indicates at discharge from hospital to rehab 04/08 she was able to stand at bedside assisted. Review of Systems unobtainable due to mental status (Poor historian, limited ROS from review of records) Constitutional: Reports anorexia, Reports weakness, Reports weight loss Gastrointestinal: Reports abdominal pain, Reports nausea, Reports vomiting PMFSH - History History Provided By: Patient, Medical Record - Medical History Medical History: Medical History (Last Updated 04/24/18 @ 11:42 by SAVAGE Nichols) History of Clostridium difficile colitis History of alcohol abuse Ischemia, bowel Paroxysmal atrial fibrillation COPD (chronic obstructive pulmonary disease) History of hysterectomy Hypertension Insomnia SVT (supraventricular tachycardia) - Surgical History Surgical History: Surgical History (Last Updated 04/24/18 @ 11:31 by SAVAGE Nichols) History of hysterectomy (Resolved) Status post below knee amputation of left lower extremity Previous back surgery Stented coronary artery - Family History Family History: Family History (Last Reviewed 04/24/18 @ 12:41 by SAVAGE Nichols) Other Unknown family medical history - Tobacco History Second Hand Smoke Exposure: No Tobacco Use In Past 30 Days: No Smoking Status: Former smoker Tobacco Type: Cigarettes Packs Per Day: 0.5 - Alcohol History How Often Do You Have a Drink Containing Alcohol: 4 or more times a week (prev 3 drinks per day) - Substance Use History Substance History: No History of Abuse - Travel History History of Recent Travel: No Recent Travel in the [place] Within the Last 8 Weeks: No Recent Travel Out of the Country Within the Last 8 Weeks: No Medications and Allergies Active Medications: Active Medications Acetaminophen (Tylenol) 650 mg PO Q4H PRN PRN Reason: Temp > 100.4 Last Admin: 04/18/18 23:00 Dose: 650 mg Albuterol (Albuterol Neb (Prn)) 2.5 mg NEB Q2HR NEB PRN PRN Reason: DYSPNEA Clopidogrel Bisulfate (Plavix) 75 mg PO DAILY [facility] Last Admin: 04/24/18 09:35 Dose: 75 mg Dextrose (D50w Vial) 50 ml IV.PUSH UNSCH PRN PRN Reason: PER HYPOGLYCEMIA PROTOCOL Last Admin: 04/15/18 08:29 Dose: 50 ml Digoxin (Lanoxin) 125 mcg PO DAILY [facility] Last Admin: 04/24/18 09:35 Dose: 125 mcg Enalaprilat (Vasotec Inj) 1.25 mg IV.PUSH Q6H PRN PRN Reason: SEE LABEL COMMENTS Last Admin: 04/21/18 20:22 Dose: 1.25 mg Ergocalciferol (Vitamind2) 50,000 unit PO Q7D [facility] Last Admin: 04/18/18 15:07 Dose: 50,000 unit Fluticasone/Vilanterol (Breo Ellipta 100/25 Mcg Inh) 1 puff INH DAILY [facility] Last Admin: 04/24/18 09:35 Dose: 1 puff Gabapentin (Neurontin) 100 mg PO BID [facility] Glucagon (Glucagon Inj) 1 mg OTHER PRN PRN PRN Reason: for Hypoglycemia Protocol Heparin Sodium (Porcine) (Heparin Central Flush) 0 unit IV.FLUSH PRN PRN PRN Reason: Flush PICC Line Last Admin: 04/14/18 18:48 Dose: 200 unit Heparin Sodium (Porcine) (Heparin Central Flush) 0 unit IV.FLUSH DAILY [facility] Last Admin: 04/24/18 09:36 Dose: 400 unit Heparin Sodium (Porcine) (Heparin Inj) 5,000 units SQ Q12HR [facility] Last Admin: 04/24/18 09:35 Dose: 5,000 units Potassium Chloride (Kcl 20 Meq Premix Inj) 20 meq in 100 mls @ 50 mls/hr IV.SIG Q2H PRN PRN Reason: For Potassium 2.8 - 3.2 mEq/L Multivitamins 10 ml/ Folic Acid 1 mg/ Amino Acids/Electrolytes/Dextrose 2, 010.2 mls @ 31.25 mls/hr IV.SIG Q24H [facility] Last Infusion: 04/24/18 05:42 Dose: 31.25 mls/hr Fat Emulsion Intravenous (Intralipid 20% Inj) 250 mls @ 31.25 mls/hr IV.CENTRAL Q3D@2000 [facility] Insulin Human Regular (Novolin R Correctional Sugar Inj) 0 units SQ Q4HR [facility]; Protocol Last Admin: 04/24/18 09:33 Dose: Not Given Megestrol Acetate (Megace) 40 mg PO BID [facility] Last Admin: 04/24/18 09:35 Dose: 40 mg Naloxone HCl (Narcan Inj) 0.4 mg IV.PUSH UNSCH PRN PRN Reason: SEE LABEL COMMENTS Ondansetron HCl (Zofran Inj) 4 mg IV.PUSH Q6H PRN PRN Reason: NAUSEA OR VOMITING Last Admin: 04/20/18 17:54 Dose: 4 mg Oxycodone/Acetaminophen (Percocet 10/325 Mg) 1 tab PO Q6H PRN PRN Reason: PAIN SCALE 6 TO 10 Last Admin: 04/24/18 04:36 Dose: 1 tab Oxycodone/Acetaminophen (Percocet 5/325 Mg) 1 tab PO Q6H PRN PRN Reason: PAIN SCALE 3 TO 5 Last Admin: 04/22/18 13:36 Dose: 1 tab Pantoprazole Sodium (Protonix Inj) 40 mg IV.PUSH Q24H [facility] Last Admin: 04/23/18 13:20 Dose: 40 mg Patch Removal (Remove Old Patch) 1 each T-DERMAL Q7D [facility] Last Admin: 04/18/18 15:08 Dose: 1 each Sodium Chloride (Ns Flush) 0 ml IV.FLUSH DAILY [facility] Last Admin: 04/24/18 09:36 Dose: 10 ml Sodium Chloride (Ns Flush) 0 ml IV.FLUSH PRN PRN PRN Reason: Flush After Blood Draws Sodium Chloride (Ns Flush) 0 ml IV.FLUSH PRN PRN PRN Reason: FLUSH AFTER USING IV ACCESS Temazepam (Restoril) 15 mg PO HS PRN PRN Reason: SLEEP Last Admin: 04/20/18 23:01 Dose: 15 mg Allergies Allergy/AdvReac Type Severity Reaction Status Date / Time No Known Allergies Allergy Unverified 01/29/18 22:40 Home Medications Medication Instructions Recorded Confirmed Type Saccharomyces boulardii 250 mg PO BID 04/08/18 04/11/18 History aspirin 81 mg PO DAILY 04/08/18 04/11/18 History ergocalciferol (vitamin D2) 50,000 unit PO QWEEK 04/08/18 04/11/18 History fluticasone-vilanterol 1 inh INHALATION DAILY 04/08/18 04/11/18 History gabapentin 100 mg PO BID 04/08/18 04/11/18 History metoprolol tartrate 100 mg PO BID 04/08/18 04/11/18 History metronidazole 500 mg PO TID 04/08/18 04/11/18 History nitroglycerin 0.4 mg SUBLINGUAL Q5-15M PRN 04/08/18 04/11/18 History oxycodone-acetaminophen [Percocet] 2 tab PO Q6H PRN 04/08/18 04/11/18 History simvastatin 40 mg PO QPM 04/08/18 04/11/18 History tramadol 50 mg PO Q4H PRN 04/08/18 04/11/18 History Advance Directives Living Will: Unknown Healthcare Surrogate: No Power of Director Of Database Marketing: No Physical Exam Vital Signs: Vital Signs - 24 hr 04/23/18 12:00 04/23/18 16:00 04/23/18 20:00 Temperature 97.5 F L 97.3 F L 97.6 F Pulse Rate 95 H 92 H 88 Respiratory Rate Blood Pressure 100/72 82/53 L 91/63 L Pulse Oximetry 96 95 99 04/24/18 00:00 04/24/18 04:00 04/24/18 08:00 Temperature 97.6 F 98.7 F 98.1 F Pulse Rate 96 H 103 H 99 H Respiratory Rate Blood Pressure 103/68 108/76 98/63 L Pulse Oximetry 98 98 97 I&O: Intake & Output 04/22/18 04/23/18 04/24/18 04/25/18 06:59 06:59 06:59 06:59 Intake Total 1464 / 1464 440 / 440 2449.6 / 2449.6 Output Total 150 / 150 800 / 800 Balance 1314 / 1314 -360 / -360 2449.6 / 2449.6 Weight 45.7 kg 44.3 kg 43 kg Physical Exam: CONSTITUTIONAL/GENERAL: This is a frail, ill-appearing female. TUBES/LINES/DRAINS: PICC right upper extremity. External female catheter. SKIN: No jaundice, rashes, or lesions. Vertical mid abdominal dressing clean and dry. Left BKA incision well-healed. Skin warm and dry. Pale. HEAD: Atraumatic. Normocephalic. EYES: Pupils equal and round and reactive. Extraocular motions intact. No scleral icterus. No injection or drainage. Fundi not examined. ENT: Hearing grossly normal. Nose without bleeding or purulent drainage. Throat without visible erythema, exudates, masses, or lesions. Mucous membranes dry. NECK: Trachea midline. Supple, nontender. No palpable thyroid enlargement or nodularity. CARDIOVASCULAR: Regular rate and rhythm without murmur. Mildly tachycardic rate 100. No JVD. Peripheral pulses symmetric. RESPIRATORY/CHEST: Symmetric, unlabored respirations. On room air. Clear to auscultation. Breath sounds equal bilaterally. GASTROINTESTINAL: Abdomen soft, non-tender, nondistended. No hepato-splenomegaly , or palpable masses. No guarding. Bowel sounds present. GENITOURINARY: Without palpable bladder distension. External female catheter in place MUSCULOSKELETAL: Extremities without clubbing, cyanosis, or edema. Left BKA healing. No joint tenderness or effusion noted. LYMPHATICS: No palpable cervical or supraclavicular adenopathy. NEUROLOGICAL: Awake and alert. Appears oriented to self does not answer other orientation questions. Unable to fully assess orientation or insight. Follows simple commands. Moves all 4 extremities. PSYCHIATRIC: Appears mildly anxious with exam Diagnostic Tests Laboratory: Laboratory Results - last 72 hr 04/21/18 04/21/18 04/21/18 16:13 20:38 23:49 WBC RBC Hgb Hct MCV MCH MCHC RDW Plt Count MPV Neut % (Auto) Lymph % (Auto) [place] % (Auto) Eos % (Auto) Baso % (Auto) Neut # (Auto) Lymph # (Auto) [place] # (Auto) Eos # (Auto) Baso # (Auto) WBC Differential Differential Comment Sodium Potassium Chloride Carbon Dioxide Anion Gap BUN Creatinine Estimated GFR POC Glucose 128 H 123 H 100 Random Glucose Calcium Phosphorus Magnesium Albumin 04/22/18 04/22/18 04/23/18 04:30 07:48 03:05 WBC RBC Hgb Hct MCV MCH MCHC RDW Plt Count MPV Neut % (Auto) Lymph % (Auto) [place] % (Auto) Eos % (Auto) Baso % (Auto) Neut # (Auto) Lymph # (Auto) [place] # (Auto) Eos # (Auto) Baso # (Auto) WBC Differential Differential Comment Sodium Potassium Chloride Carbon Dioxide Anion Gap BUN Creatinine Estimated GFR POC Glucose 127 H 130 H 123 H Random Glucose Calcium Phosphorus Magnesium Albumin 04/23/18 04/23/18 04/23/18 07:34 11:53 12:11 WBC 8.4 RBC 3.35 L Hgb 9.6 L Hct 28.9 L MCV 86.2 MCH 28.6 MCHC 33.2 RDW 17.6 H Plt Count 347 MPV 8.3 Neut % (Auto) 78.9 H Lymph % (Auto) 11.5 [place] % (Auto) 6.7 Eos % (Auto) 1.8 Baso % (Auto) 1.1 Neut # (Auto) 6.6 Lymph # (Auto) 1.0 [place] # (Auto) 0.6 Eos # (Auto) 0.2 Baso # (Auto) 0.1 WBC Differential . Differential Comment Auto diff final Sodium Potassium Chloride Carbon Dioxide Anion Gap BUN Creatinine Estimated GFR POC Glucose 115 H 136 H Random Glucose Calcium Phosphorus Magnesium Albumin 04/23/18 04/23/18 04/23/18 12:11 17:19 22:20 WBC RBC Hgb Hct MCV MCH MCHC RDW Plt Count MPV Neut % (Auto) Lymph % (Auto) [place] % (Auto) Eos % (Auto) Baso % (Auto) Neut # (Auto) Lymph # (Auto) [place] # (Auto) Eos # (Auto) Baso # (Auto) WBC Differential Differential Comment Sodium 131 L Potassium 4.4 Chloride 99 Carbon Dioxide 22.7 Anion Gap 9 BUN 17 Creatinine 0.61 Estimated GFR Greater than 89 POC Glucose 140 H 89 Random Glucose 111 H Calcium 8.0 L Phosphorus 4.4 Magnesium 1.6 Albumin 1.8 L 04/24/18 04/24/18 05:04 07:41 WBC RBC Hgb Hct MCV MCH MCHC RDW Plt Count MPV Neut % (Auto) Lymph % (Auto) [place] % (Auto) Eos % (Auto) Baso % (Auto) Neut # (Auto) Lymph # (Auto) [place] # (Auto) Eos # (Auto) Baso # (Auto) WBC Differential Differential Comment Sodium Potassium Chloride Carbon Dioxide Anion Gap BUN Creatinine Estimated GFR POC Glucose 112 H 125 H Random Glucose Calcium Phosphorus Magnesium Albumin Result Diagrams: 04/23/18 12:11 04/23/18 12:11 Microbiology: Microbiology 04/17/18 22:00 Random Urine Urine Culture - Final Kristina glabrata 04/13/18 16:45 Stool Cryptosporidium Antigen - Final Negative - No Cryptosporicium antigen detected In selected cases of patients with a history of immunosuppression or foreign travel, a full ova and parasites examination may be desired. Contact the microbiology lab if full workup is indicated and subit another specimen for testing. 04/13/18 16:45 Stool Giardia Antigen (JESSICA) - Final Negative - No Giardia Antigen detected In selected cases of patients with a history of immunosuppression or foreign travel, a full ova and parasites examination may be desired. Contact the microbiology lab if full workup is indicated and subit another specimen for testing. 04/13/18 16:45 Stool Enteric Pathogens (PCR) - Final No enteric pathogens detected by PCR (No Salmonella sp., Shigella sp., Campylobacter sp., Yersinia enterocolitica, Vibrio sp., Norovirus, or EHEC (Shiga Toxin 1 or Shiga Toxin 2) detected. 04/12/18 15:39 Stool Stool Occult Blood (JESSICA) - Final Hemoccult positive Imaging: Abdomen MRA 04/11/18 00:00 CONCLUSION: 1. 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 2. 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 3. 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 Small Bowel X-Ray 04/12/18 00:00 CONCLUSION: Negative for small bowel obstruction or significant dilatation. Transit time is less than 4 hours. NG tip in distal stomach. Celiac/Hepatic Arteriogram 04/13/18 00:00 CONCLUSION: 1. 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 Area was successfully treated with a 7 mm stent. 2. 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 Chest CTA 04/15/18 00:00 CONCLUSION: 1. No pulmonary embolus. 2. Bilateral pleural effusions and atelectasis. 3. Patchy bilateral nonspecific infiltrate. 4. Thickened interlobular septa suggesting mild pulmonary edema. 5. Nonspecific mildly enlarged mediastinal lymph nodes and are larger than before. Chest X-Ray 04/15/18 06:00 CONCLUSION: Worsening appearance of the chest. Procedures: 04/13/18 IR celiac axis balloon angioplasty and stenting Patient/Family Conference Family Conference Time: 60 Family Conference Location: Bedside Issues Discussed: Pending, voicemail left for . Patient unable to participate in discussion today. -- later arrived and met with him 60 minutes at bedside. Discussion included the following: -Palliative care role, purpose, approach -Additional medical, psychosocial, and spiritual history -Patients general health, functional status, and cognitive changes in the months leading up to the current hospitalization -family understanding of the current medical problems; review potential trajectories going forward, patient likely to require rehabilitation going forward and possibly long-term SNF placement not clear she will be able to return to her prior independent at home status. -family understanding of prognosis -Patients goals of care as best understood from advance directives and/or conversations and/or values -Current medical treatment options and benefits/burdens of those options -Likely scenarios comparing ongoing aggressive care with a transition to `` comfort measures only - CODE STATUS-review of benefits/burdens/limitations of CPR, resuscitation -Legal decision makers -Questions answered to the best of my ability -Palliative care contact information provided details a study trajectory of decline since January of this year. Patient has been in out of the hospital in rehab setting since January. She is only spent a few days at home. In November and December of this year her baseline was ambulatory around independent with ADLs. She used a cane. She was cognitively sharp. did most of the access services representative, cooking etc. indicates over the past 4 months patient has had one thing after another, related to dysrhythmia, electrolytes, infections etc. he is worried that she will continue to have decline even with ongoing aggressive treatments. Explore with him that that is a very possible trajectory given her now very fragile, malnourished status. He understands she remains high risk for ongoing decline. We have explored possible trajectories going forward including continued aggressive care versus transition to comfort focus and hospice role, services. He feels like in the past 2 days patient has "given up" and that she is no longer fighting and she may not want to continue trying to rehabilitate. On the other hand he would like to try to talk with her more in the coming days if she does become a little bit more clear and participative. She has not done any written advanced directives. Review of CODE STATUS and what resuscitation entails. He is hopeful to talk more with her in the coming days about this. No decisions made at this time though he is open to follow-up discussion on Friday, will see how patient weekend goes. Assessment and Plan - Disease Oriented Problem List (1) Hypertension (2) Ischemia, bowel Comment: s/p ileocecectomy with anastomosis (3) Ischemia of left lower extremity Comment: s/p BKA (4) SVT (supraventricular tachycardia) (5) A-fib (6) Diarrhea (7) S/P BKA (below knee amputation) unilateral - Symptom Scale (1) Pain 0-10 Scale: Unable to quantify (2) Nausea 0-10 Scale: Unable to quantify (3) Malnutrition 0-10 Scale: Unable to quantify Pertinent Non-Medical Issues: Psychosocial: . Previously lived at home with her of 29 years. has been in and out of hospital and rehab setting for at least the past few months. 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 Spiritual:Jain though no local affiliation, would not want metal mover visits at this time Legal: Patient today with limited ability to participate with my assessment. She appears oriented to self and . She does not answer other orientation questions. At best today she appears to have limited to poor insight. Unable to discuss medical treatment goals, decisions with her. Possible she is having fluctuating mental status she may be able to participate in medical decision making but this would be best supported by her who would be appropriate legal proxy per [place] statutes. Ethical issues impacting care: No ethical issues identified Important Contacts: Anthony Zhou [phone] . Prognosis: This patient is a very complex recent medical history. She has had multiple recent hospitalizations between this hospital and [facility], as well as [facility], all of these records are not available currently for my review. She apparently initially presented with some weakness and palpitations has had atrial fibrillation, SVT. She apparently has some history of SVT as well as electrolyte abnormalities. She appears to have been in the rehab setting for at least the past few months. Most recently she had findings of significant mesenteric ischemia and occlusion of SMA requiring emergent transfer to [facility] and surgery, underwent ileocecectomy with primary anastomosis on March 25. At that time she also had ischemia to her left lower extremity and underwent an unsuccessful thrombectomy and ended up requiring left BKA. She had a complicated postoperative course including acute renal failure, SVT. She was transferred to [facility] on 04/08/18. During that course she continued to have nausea, weakness, findings of an ileus and was transferred back to the acute hospital setting 04/11. She continues to have very poor oral intake. She is quite malnourished. She has required multiple diagnostics and ongoing evaluation for continued nausea and abdominal issues. She is on TPN. Given her advanced age and very frail status and recent complicated history she remains very high risk for continued trajectory of decline and complications. Not clear that even with ongoing aggressive interventions she could be restored to her prior level of health, though baseline is not entirely known at this time. Code Status: Full Code Plan: * Legal decision maker: Patient today with limited ability to participate with my assessment. She appears oriented to self and . She does not answer other orientation questions. At best today she appears to have limited to poor insight. Unable to discuss medical treatment goals, decisions with her. Possible she is having fluctuating mental status she may be able to participate in medical decision making but this would be best supported by her who would be appropriate legal proxy per [place] statutes. * Goals: Patient has detailed a steady trajectory of decline since January of this year. He feels in the past couple of days she is no longer "fighting", and that she may no longer be trying to rehabilitate/restore her health. He is worried she might continue to have a trajectory of decline even with aggressive treatments. We have discussed hospice, as well as CODE STATUS. He is hopeful the patient will become sharper in the coming days and be able to participate more he would like to assess further what her wishes are. He is open to follow- up meeting Friday with palliative to further discuss hospice, possible transition to comfort measures only. No decisions made yet today. He wishes to think further about CODE STATUS. * CODE STATUS: full code * SYMPTOMS: --Pain- abdominal pain. appears to have had for weeks during current hospital , rehab course. Unable to quantify for me today. +tender to exam. Has prn Percocet 10mg, 5mg available. has received 1 dose Percocet 10 today. 3 doses yesterday. generally 2 doses on days prior. Appears effective per documentation. 2/2 mechanical/abdominal process;s/p abdominal surgery for mesenteric ischemia. s/p IR balloon, stent celiac axis. + also documented to have some chronic neuropathic pain. Has been on gabapentin for, currently HELD, could consider uptitration if needed, if pt tolerates PO --Nausea- intermittent, persistent nausea, for what appears to be weeks--->> +during [facility] course 04/08, s/p abdominal surgery for mesenteric ischemia. s/p IR balloon, stent celiac axis. still w intermittent nausea. PRN zofran available - last dose 04/20/18. 2/2 mechanical/abdominal process? Has prn zofran, last dose 04/20/18. If Zofran ineffective may consider low dose Haldol --Malnutrition-on TPN. Very little oral intake for what appears to be weeks- -->> prolonged hospitalization, s/p abdominal surgery for mesenteric ischemia. Started on Megace earlier this week. Albumin 1.8. Dietitian following. Patient oral intake well below caloric, nutrient requirements. On Ensure supplements 3 times daily. Weight 44 kg-- January 2018 weight recorded 46kg. persistent, intermittent nausea. 2/2 mechanical/abdominal process? Has prn zofran, last dose 04/20/18. If Zofran ineffective may consider low dose Haldol. She will likely require longer term TPN, which puts her at risk for infection. * Palliative care will continue to follow during hospital course as condition evolves, to assist patient/decision-maker with understanding of medical conditions, weighing benefits/burdens of treatment options, for clarification of goals of treatment. Additionally will assist with any symptoms of palliative concern Time Spent Total Floor Time (mins): 70 (chart review, PE, d/w family, d/w med attending, d/ w nurse) Appreciation Thank you for the opportunity to participate in the care of Maria L Zhou. Attestation Attestation: To help prompt me to consider important information that might be impacting today's encounter and assessment, information from prior notes written by myself or my colleagues may have been "brought forward" into today's note. My signature on this note, however, is an attestation that I personally performed the exam, history, and/or decision-making noted today, and, unless otherwise indicated, the interactions with patient, family, and staff as well as the review of records all occurred today. I also attest that the listed assessment and stated plan reflect my best clinical judgment today based on the combination of historical information, prior notes, and today's exam/ interactions. When time spent is documented, it refers only to time spent today by the signer, or if indicated, combined time spent today by collaborating physician/nurse practitioner.
[2018-04-24] MEDS: Pantoprazole Inj 40 MG Vial IV.PUSH SCH (12:19)
[2018-04-24] MEDS: Multivitamin Inj 10 ML, Folic Acid Inj 1 MG in TPN Fluid 2 Liter 2,000 ML IV.SIG SCH (21:19)
[2018-04-25] MEDS: Insulin NovoLIN Regular Correctional Sugar Inj SQ SCH ×6 (01:24→23:53)
[2018-04-25] MEDS: Acetaminophen 325 MG Tablet PO PRN (04:06)
--- NOTE | 2018-04-25 11:17 | P.PNIM ---
Subjective Interval history: ill-looking and somewhat confused but in no acute distress. at the bedside. he says that he tried to feed her earlier today but she didn't want to. had a fever earlier today. Physical Exam Vital signs: Vital Signs 04/24/18 12:00 04/24/18 16:00 04/24/18 20:00 Temperature 97.9 F 98.2 F 98.1 F Pulse Rate 96 H 95 H 103 H Respiratory Rate 18 20 18 Blood Pressure 109/77 109/73 120/73 Pulse Oximetry 100 97 93 L 04/25/18 00:00 04/25/18 04:00 Temperature 98.8 F 101.3 F H Pulse Rate 112 H 115 H Respiratory Rate 18 18 Blood Pressure 114/71 123/78 Pulse Oximetry 96 90 L Intake & Output 04/24/18 04/25/18 04/25/18 18:59 06:59 18:59 Intake Total 120 / 120 2015.8 / 2015. Output Total 300 / 300 1000 / 1000 Balance -180 / -180 1016.8 / 1016.8 Weight 42.8 kg Intake: IV 1916.8 / 191.8 Intralipid 20% Inj 250 ML @ 31. 250 / 250 25 mls/hr IV.CENTRAL Q3D@2000 [facility] Rx#:[id number] MVI-12 Inj 10 ML Folvite Inj 1 1666.8 / 1666.8 MG In TPN Fluid 2 Liter 2,000 ML @ 31.25 mls/hr IV.SIG Q24H [facility] Rx#:[id number] Oral 120 / 120 100 / 100 Output: Urine 300 / 300 Urine Amount (Catheter) 1000 / 1000 Female External 1000 / 1000 Other: Date of Last Bowel Movement 04/24/18 04/24/18 # Bowel Movements 1 - Constitutional chronically ill appearing - Routine Respiratory Exam Present: CTA bilaterally - Routine Cardiovascular Exam Present: RRR - Routine Abdominal Exam Present: soft - Routine Extremities Exam Comments: on pedal edema. s/p left BKA. - Routine Neurological Exam awake but confused. - Urinary Catheter Management Female External Cath placed during this visit: no Results - Labs CBC & Chem 7: 04/23/18 12:11 04/23/18 12:11 Laboratory Results - last 24 hr 04/24/18 04/25/18 04/25/18 19:53 04:20 08:45 POC Glucose 116 H 124 H 127 H - Procedures Cardioversion Celiac stent by IR PICC Assessment and Plan - Plan Neuropathy Acute pain management Oxycodone/acetaminophen 5-10/325 one tab every 6 hours as needed pain Temazepam 15 mg at night as needed insomnia Gabapentin 100 mg twice daily currently on hold Unstable SVT resolved Issue with RVR currently normal sinus rhythm evaluated by cardiology. Continue digoxin 0.125 mg daily. Amiodarone drip discontinued. Continue on digoxin. Acute respiratory insufficiency-improving COPD A nasal cannula to maintain saturations greater than or equal to 92% Incentive spirometry while awake Fluticasone/Vilanterol 100/25 1 inhalation daily Albuterol/ipratropium aerosols every 4 hours with albuterol aerosols every 2 hours as needed for dyspnea Ischemic bowel status post ileal cecectomy Stent placement to SMA Hypoalbuminemia Severe protein calorie malnutrition -MRA of the abdomen done 04/11 indicates occlusion of the SMA Stented with 7x17 Express stent Clopidogrel 75 mg daily. Appreciate input from general surgery,signed off. GI has signed off. Currently on TPN and lipids Started on Megace for appetite stimulation. Continue TPN. Multiple electrolyte abnormalities including hyponatremia, hypochloremia hyperkalemia and hypocalcemia likely from specimen drawn from TPN line. Creatinine currently within normal limits Monitor urine output Accurate I's and O's fever; check the UA again- will send blood cultures with recurrent fever. Normocytic anemia Follow trends E. coli and Enterobacter urinary tract infection 04/08 -s/p cefepime and metronidazole //Asymptomatic candiduria. Kristina glabrata and urine. Prophylaxis -GI -pantoprazole -DVT -SCDs/heparin subcu patient is ill-looking but seems to be declining. d/w the at the bedside; code status will be changed to " No code". he spoke with palliative care yesterday and will meet with them again on Friday ; hospice is being considered. prognosis is poor. Discharge Planning: patient is ill-looking- still on TPN. to meet with the palliative care on Friday. dc planning; likely hospice early this week.
[2018-04-25] MEDS: Heparin Central Flush 100 UNIT/ML 5 ML Vial IV.FLUSH SCH (11:26)
[2018-04-25] MEDS: Heparin - SQ 10,000 UNITS/ML Vial SQ SCH ×2 (11:26→23:53)
[2018-04-25] MEDS: Digoxin 125 MCG Tablet PO SCH (11:28)
[2018-04-25] MEDS: Pantoprazole Inj 40 MG Vial IV.PUSH SCH (13:10)
[2018-04-25] MEDS: Multivitamin Inj 10 ML, Folic Acid Inj 1 MG in TPN Fluid 2 Liter 2,000 ML IV.SIG SCH (23:47)
[2018-04-26] MEDS: Insulin NovoLIN Regular Correctional Sugar Inj SQ SCH ×6 (01:18→21:19)
[2018-04-26] MEDS ORDERED: Dextrose 50% in Water Syringe 50 ML ONE (08:40)
--- NOTE | 2018-04-26 10:01 | P.PNIM ---
Subjective Interval history: ill-looking but in no acute distress. is not eating and currently on TPN. had an episode of hypoglycemia earlier today which resolved after D50. at the bedside. d/w the RN at the bedside. Physical Exam Vital signs: Vital Signs 04/25/18 12:00 04/25/18 16:00 04/25/18 20:00 Temperature 97.6 F 98.3 F 97.3 F L Pulse Rate 110 H 105 H 111 H Respiratory Rate 16 20 18 Blood Pressure 128/56 L 118/90 120/76 Pulse Oximetry 100 100 96 04/26/18 00:00 04/26/18 04:00 04/26/18 08:00 Temperature 97.6 F 97.4 F L 97.2 F L Pulse Rate 114 H 113 H 112 H Respiratory Rate 19 19 14 Blood Pressure 128/83 115/82 142/76 H Pulse Oximetry 96 92 L 100 Intake & Output 04/25/18 04/26/18 04/26/18 18:59 06:59 18:59 Intake Total 1010.2 / 1010.2 Balance 1010.2 / 1010.2 Weight 66.2 kg Intake: IV 1010.2 / 1010.2 MVI-12 Inj 10 ML Folvite Inj 1 1010.2 / 1010.2 MG In TPN Fluid 2 Liter 2,000 ML @ 31.25 mls/hr IV.SIG Q24H [facility] Rx#:[id number] Other: # Voids 2 Date of Last Bowel Movement 04/24/18 # Bowel Movements 5 - Constitutional chronically ill appearing - Routine Respiratory Exam Present: CTA bilaterally - Routine Cardiovascular Exam Present: RRR - Routine Abdominal Exam Present: soft - Routine Extremities Exam Comments: s/p left BKA. - Routine Neurological Exam awake but not as responsive as before. - Urinary Catheter Management Female External Cath placed during this visit: no Results - Labs CBC & Chem 7: 04/23/18 12:11 04/23/18 12:11 Laboratory Results - last 24 hr 04/25/18 04/25/18 04/25/18 13:11 17:14 19:57 POC Glucose 107 95 96 04/26/18 04/26/18 01:15 08:39 POC Glucose 92 30 L* - Procedures Cardioversion Celiac stent by IR PICC Assessment and Plan - Plan Neuropathy Acute pain management Oxycodone/acetaminophen 5-10/325 one tab every 6 hours as needed pain Temazepam 15 mg at night as needed insomnia Gabapentin 100 mg twice daily currently on hold Unstable SVT resolved Issue with RVR currently normal sinus rhythm evaluated by cardiology. Continue digoxin 0.125 mg daily. Amiodarone drip discontinued. Continue on digoxin. Acute respiratory insufficiency-improving COPD A nasal cannula to maintain saturations greater than or equal to 92% Incentive spirometry while awake Fluticasone/Vilanterol 100/25 1 inhalation daily Albuterol/ipratropium aerosols every 4 hours with albuterol aerosols every 2 hours as needed for dyspnea Ischemic bowel status post ileal cecectomy Stent placement to SMA Hypoalbuminemia Severe protein calorie malnutrition -MRA of the abdomen done 04/11 indicates occlusion of the SMA Stented with 7x17 Express stent Clopidogrel 75 mg daily. Appreciate input from general surgery,signed off. GI has signed off. Currently on TPN and lipids Started on Megace for appetite stimulation. Continue TPN. Multiple electrolyte abnormalities including hyponatremia, hypochloremia hyperkalemia and hypocalcemia likely from specimen drawn from TPN line. Creatinine currently within normal limits Monitor urine output Accurate I's and O's fever; has resolved. Hypoglycemia- resolved- will continue to monitor. Normocytic anemia Follow trends E. coli and Enterobacter urinary tract infection 04/08 -s/p cefepime and metronidazole //Asymptomatic candiduria. Kristina glabrata and urine. Prophylaxis -GI -pantoprazole -DVT -SCDs/heparin subcu patient is ill-looking and seems to be declining. d/w the at the bedside again; code status was changed to " No code". hospice consult was offered but he wants to wait to meet with the palliative care team tomorrow. prognosis is poor. Discharge Planning: patient is ill-looking- still on TPN. to meet with the palliative care on Friday. dc planning; likely hospice early this week.
[2018-04-26] MEDS: Heparin Central Flush 100 UNIT/ML 5 ML Vial IV.FLUSH SCH (11:10)
[2018-04-26] MEDS: Heparin - SQ 10,000 UNITS/ML Vial SQ SCH ×2 (11:10→21:19)
[2018-04-26] MEDS: Digoxin 125 MCG Tablet PO SCH (11:10)
[2018-04-26] MEDS: Pantoprazole Inj 40 MG Vial IV.PUSH SCH (17:10)
[2018-04-27] MEDS: Multivitamin Inj 10 ML, Folic Acid Inj 1 MG in TPN Fluid 2 Liter 2,000 ML IV.SIG SCH ×2 (00:16→23:37)
[2018-04-27] MEDS: Insulin NovoLIN Regular Correctional Sugar Inj SQ SCH ×7 (00:18→23:36)
[2018-04-27] MEDS: Digoxin 125 MCG Tablet PO SCH (08:36)
[2018-04-27] MEDS: Heparin - SQ 10,000 UNITS/ML Vial SQ SCH ×2 (08:42→22:25)
[2018-04-27] MEDS: Heparin Central Flush 100 UNIT/ML 5 ML Vial IV.FLUSH SCH (08:42)
[2018-04-27] MEDS ORDERED: Morphine Inj 4 MG/ML Vial IV.PUSH PRN (08:58)
--- NOTE | 2018-04-27 09:02 | P.PNIM ---
Subjective Interval history: f/u; mesenteric ischemia ill looking but in no acute distress. still with no oral intake. awake but seems confused. d/w the RN. Physical Exam Vital signs: Vital Signs 04/26/18 12:00 04/26/18 16:00 04/26/18 20:00 Temperature 98.1 F 97.9 F 97.4 F L Pulse Rate 110 H 117 H 112 H Respiratory Rate 16 16 18 Blood Pressure 114/79 115/66 126/72 Pulse Oximetry 97 94 L 93 L 04/27/18 00:00 04/27/18 04:00 04/27/18 08:00 Temperature 97.4 F L 97.4 F L 98.3 F Pulse Rate 116 H 121 H 135 H Respiratory Rate 18 18 18 Blood Pressure 127/68 126/78 122/83 Pulse Oximetry 92 L 92 L Intake & Output 04/26/18 04/27/18 04/27/18 18:59 06:59 18:59 Intake Total 999 / 999 Output Total 100 / 100 Balance 899 / 899 Weight 59.2 kg Intake: IV 999 / 999 D50W Syringe 50 ML @ 0 mls/hr . 50 / [address] Rx#:[id number] MVI-12 Inj 10 ML Folvite Inj 1 949 / 949 MG In TPN Fluid 2 Liter 2,000 ML @ 31.25 mls/hr IV.SIG Q24H [facility] Rx#:[id number] Oral 0 / 0 Output: Emesis 100 / 100 Other: Date of Last Bowel Movement 04/26/18 # Bowel Movements 1 3 - Constitutional chronically ill appearing - Routine Respiratory Exam Present: CTA bilaterally - Routine Cardiovascular Exam Present: RRR - Routine Abdominal Exam Present: soft - Routine Extremities Exam Comments: s/p left BKA - Routine Neurological Exam awake but confused. - Urinary Catheter Management Female External Cath placed during this visit: no Results - Labs CBC & Chem 7: 04/23/18 12:11 04/23/18 12:11 Laboratory Results - last 24 hr 04/26/18 04/26/18 04/26/18 09:28 11:06 14:02 POC Glucose 181 H 112 H 106 04/26/18 04/26/18 04/27/18 17:36 19:41 00:18 POC Glucose 131 H 110 125 H 04/27/18 04:14 POC Glucose 146 H - Procedures Cardioversion Celiac stent by IR PICC Assessment and Plan - Plan Neuropathy Acute pain management Oxycodone/acetaminophen 5-10/325 one tab every 6 hours as needed pain Temazepam 15 mg at night as needed insomnia Gabapentin 100 mg twice daily currently on hold Unstable SVT resolved Issue with RVR currently normal sinus rhythm evaluated by cardiology. Continue digoxin 0.125 mg daily. Amiodarone drip discontinued. Continue on digoxin. Acute respiratory insufficiency-improving COPD A nasal cannula to maintain saturations greater than or equal to 92% Incentive spirometry while awake Fluticasone/Vilanterol 100/25 1 inhalation daily Albuterol/ipratropium aerosols every 4 hours with albuterol aerosols every 2 hours as needed for dyspnea Ischemic bowel status post ileal cecectomy Stent placement to SMA Hypoalbuminemia Severe protein calorie malnutrition -MRA of the abdomen done 04/11 indicates occlusion of the SMA Stented with 7x17 Express stent Clopidogrel 75 mg daily. Appreciate input from general surgery,signed off. GI has signed off. Currently on TPN and lipids Started on Megace for appetite stimulation. Continue TPN. Multiple electrolyte abnormalities including hyponatremia, hypochloremia hyperkalemia and hypocalcemia likely from specimen drawn from TPN line. Creatinine currently within normal limits Monitor urine output Accurate I's and O's fever; has resolved. Hypoglycemia- resolved- will continue to monitor. Normocytic anemia Follow trends E. coli and Enterobacter urinary tract infection 04/08 -s/p cefepime and metronidazole //Asymptomatic candiduria. Kristina glabrata and urine. Prophylaxis -GI -pantoprazole -DVT -SCDs/heparin subcu patient is ill-looking and seems to be declining. d/w the at the bedside yesterday; code status was changed to " No code". hospice consult was offered but he wanted to wait to meet with the palliative care team today. prognosis is poor. Discharge Planning: patient is ill-looking- still on TPN. to meet with the palliative care today. dc planning; likely hospice . continue with pain control- E- Foarsce was reviewed.
[2018-04-27] MEDS: Pantoprazole Inj 40 MG Vial IV.PUSH SCH (12:17)
--- NOTE | 2018-04-27 13:43 | P.DIET ---
Nutritional Evaluation Type of nutrition evaluation: follow-up Nutrition consult regarding: TPN/PP[place] [place] Nutrition screening: [facility] [place] Subjective Subjective Comments: Confused. Still not eating much. Objective - Diagnosis Critical Care Unit - Objective Part of Body Amputated: Left below knee (6%) Weight Subtracted: Other (6.6# for BKA) [place] body weight: 47 kg % IBW: 94 (PZV=141.4#) Body Weight Used for Calculations: Actual (44.3kg) Energy Needs - Lower Range (kCal/kg): 28 Energy Needs - Upper Range (kCal/kg): 32 Lower Limit kCal/kg (kCals): 1,240 Upper Limit kCal/kg (kCals): 1,415 Lower Limit Protein Factor (Grams per Kg): 1.1 Upper Limit Protein Factor (Grams per Kg): 1.4 Lower Protein Needs (Protein): 49 Upper Protein Needs (Protein): 62 Fluid Factor (ml/kg): 32 Estimated Fluid Needs (ml): 1,415 Dietitian Reviewed in Medical Record: Current diet, Curent medications, Intake & Output, Labs Diet Order: Full Liquids Objective Comments: Meds: Megace 40mg BID 04/13 celiac stent 03/25 ileocectomy Feeding - Current PO Supplement Current Supplement: Ensure Original Current Supplement Flavor: [place] Current kCals Provided by Supplement: 250 Current Protein Provided by Supplement: 9 Supplement Comments: Pt likes chocolate and strawberry, not vanilla - Current TPN/PPN Current TPN: Clinimix E 01/25 Current TPN/PPN Rate (ml/hr): 31 Amino Acid and Dextrose Current kCals Provided: 634 Amino Acid and Dextrose Current Protein Provided: 36 Current Lipid Concentration: 20% Current Lipids Rate: Twice weekly (infuse 250 mls over 8 hours) (Friday, Friday) Current kCal Provided by TPN/PPN: 1,134 Assessment Assessment: Pt remains at high nutritional risk 2/2 her poor PO intake and difficulty tolerating some PO foods, plus her need for TPN. Current TPN is providing little nutrition, recommend increasing rate to 50mls/hr and continuing lipids twice weekly. This would then provide 1200mls fluid, 1056kcals (1556kcals when lipids infused), 60g PRO, and a GIR of 3.8. Currently, pt is not consuming enough PO to maintain her nutritional status. Recommend continuing TPN for now as it is difficult to maintain an adequate nutritional status on liquids alone. Erratic wts noted: 04/25 42.8 kg, 05/06 66.2 kg, 04/27 59.2 kg. LBM 04/26. Recommendations: 1. Recommend Clinimix E 01/25 @ 50mls/hr. 2. Continue twice weekly lipids at same rate. 3. Continue nutrition support as pt is not meeting adequate nutrition via PO intake alone and she remains only on a full liquid diet. 4. Ensure TID. Dietitian to Monitor: Lab values, Supplement acceptance, Intake & Output, Diet tolerance, TPN/PPN tolerance, Weight change, PO Intake, Diet advancement, Medical course
--- NOTE | 2018-04-27 14:49 | P.PNPAL ---
Reason for Visit Reason for visit: a. To assist with evaluation and management of symptoms including: Nausea, pain , malnutrition. b. To assist medical decision maker(s) with: better understanding of current medical conditions; weighing benefits/burdens of medical treatment options; making medical treatment decisions. Subjective Subjective/Interval History: Pt seen today to follow up on nausea, pain, and goals w . Remains on TPN. Not taking PO. Difficulty taking PO meds,has been refusing PO. No new labs or imaging. PT notes on 04/25 that pt resistant to participate in activity, attempted to stand at bedside, unable to keep rt foot under her. Medical attending discussed code status this weekend, pt elected DNR status. She is seen in her room today. at bedside. She is awake, tracks examiner , . She is holding his hand. She does not answer most of my questions. When repeated question about pain she says No. She says no to nausea. Ask her who is the man sitting next to her, she smiles but does not answer. She follows some simple commands. She is guarded,anxious with physical exam, grimaces. Says ow when rt lower leg/foot examined, no clear source of pain. She does not answer questions for her . Review with him briefly her hospital course, review with him the past few days, limited to no PT participation. Review refusing PO, he indicates has been unable to even provide oral care because she refuses. He does tell me that he feels she is much more alert and interactive today, than she was over the weekend. he feels she recognizes him and knows he is here. Ask her if she is thirsty, wants a drink, she says yes- however when he brings straw to her mouth she grimaces and repeats no. review with him overall conditions, that she cont to be malnourished, not likely to rehabilitate well, and may continue to experience complications and continued decline . He tells me she is more alert today, and how will he know when or what to decide. Review of hospice role, services, and option if comfort is patient's wishes, alternatively review w continued aggressive tx pt may still have above noted issues. Review He may make these decisions whenever he feels that the patient may want comfort only. Review that hospice generally does not do invasive diagnostics or continuous IV. He appears to be struggling and wonders if pt continues to be more alert, that she may experience overall improvement. He indicates he doesn't want to "give up" on her yet. He wishes to cont aggressive medical treatments for another day or so and monitor for any further signs of improvement. He is also going to talk to a close family friend who works hospice in [facility] about what is going on. Affirms DNR status. All questions answered to the best of my ability, he has my contact information. . Objective Vital Signs: Vital Signs 04/26/18 16:00 04/26/18 20:00 04/27/18 00:00 Temperature 97.9 F 97.4 F L 97.4 F L Pulse Rate 117 H 112 H 116 H Respiratory Rate 18 Blood Pressure 115/66 126/72 127/68 Pulse Oximetry 94 L 93 L 92 L 04/27/18 04:00 04/27/18 08:00 04/27/18 12:00 Temperature 97.4 F L 98.3 F 98.4 F Pulse Rate 121 H 137 H 133 H Respiratory Rate 22 Blood Pressure 126/78 122/83 132/84 Pulse Oximetry 92 L 94 L Intake & Output 04/26/18 04/27/18 04/27/18 18:59 06:59 18:59 Intake Total 999 / 999 Output Total 100 / 100 Balance 899 / 899 Weight 59.2 kg Intake: IV 999 / 999 [id number] Syringe 50 ML @ 0 mls/hr . 50 / 50 ROUTE .[facility] Rx#:[id number] MVI-12 Inj 10 ML Folvite Inj 1 949 / 949 MG In TPN Fluid 2 Liter 2,000 ML @ 31.25 mls/hr IV.SIG Q24H [facility] Rx#:[id number] Oral 0 / 0 Output: Emesis 100 / 100 Other: Date of Last Bowel Movement 04/26/18 # Bowel Movements 1 3 Physical Exam: CONSTITUTIONAL/GENERAL: This is a frail, ill-appearing female. TUBES/LINES/DRAINS: PICC right upper extremity. SKIN: No jaundice, rashes, or lesions. Vertical mid abdominal dressing clean and dry. Left BKA incision well-healed. Skin warm and dry. Pale. HEAD: Atraumatic. Normocephalic. EYES: Pupils equal and round and reactive. Extraocular motions intact. No scleral icterus. No injection or drainage. Fundi not examined. CARDIOVASCULAR: Regular rate and rhythm without murmur. Mildly tachycardic rate 115. No JVD. Peripheral pulses symmetric. RESPIRATORY/CHEST: Symmetric, unlabored respirations. On room air. Clear to auscultation. Breath sounds equal bilaterally. GASTROINTESTINAL: Abdomen soft, tender, nondistended. No hepato-splenomegaly, or palpable masses. + guards. Bowel sounds present. MUSCULOSKELETAL: Extremities without clubbing, cyanosis, or edema. Left BKA healing. No joint tenderness or effusion noted. NEUROLOGICAL: Awake and alert. Appears oriented to self does not answer other orientation questions. Unable to fully assess orientation or insight. Follows simple commands. Moves all 4 extremities. PSYCHIATRIC: Appears mildly anxious with exam Diagnostic Tests Laboratory: Laboratory Results - last 72 hr 04/24/18 04/25/18 04/25/18 19:53 04:20 08:45 POC Glucose 116 H 124 H 127 H 04/25/18 04/25/18 04/25/18 13:11 17:14 19:57 POC Glucose 107 95 96 04/26/18 04/26/18 04/26/18 01:15 08:39 09:28 POC Glucose 92 30 L* 181 H 04/26/18 04/26/18 04/26/18 11:06 14:02 17:36 POC Glucose 112 H 106 131 H 04/26/18 04/27/18 04/27/18 19:41 00:18 04:14 POC Glucose 110 125 H 146 H 04/27/18 04/27/18 09:07 12:16 POC Glucose 151 H 167 H Result Diagrams: 04/23/18 12:11 04/23/18 12:11 Procedures: 04/13/18 IR celiac axis balloon angioplasty and stenting Assessment and Plan - Disease Oriented Problem List (1) Hypertension (2) Ischemia, bowel Comment: s/p ileocecectomy with anastomosis (3) Ischemia of left lower extremity Comment: s/p BKA (4) SVT (supraventricular tachycardia) (5) A-fib (6) Diarrhea (7) S/P BKA (below knee amputation) unilateral - Symptom Scale (1) Pain 0-10 Scale: Unable to quantify (2) Nausea 0-10 Scale: Unable to quantify (3) Malnutrition 0-10 Scale: Unable to quantify Pertinent Non-Medical Issues: Psychosocial: . Previously lived at home with her of 29 years. has been in and out of hospital and rehab setting for at least the past few months. 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 Spiritual:Hoahaoism though no local affiliation, would not want comber operator visits at this time Legal: Patient today with limited ability to participate with my assessment. She appears oriented to self and . She does not answer other orientation questions. At best today she appears to have limited to poor insight. Unable to discuss medical treatment goals, decisions with her. Possible she is having fluctuating mental status she may be able to participate in medical decision making but this would be best supported by her who would be appropriate legal proxy per [place] statutes. Ethical issues impacting care: No ethical issues identified Important Contacts: Anthony Zhou [phone] . Prognosis: This patient is a very complex recent medical history. She has had multiple recent hospitalizations between this hospital and [facility], as well as [facility], all of these records are not available currently for my review. She apparently initially presented with some weakness and palpitations has had atrial fibrillation, SVT. She apparently has some history of SVT as well as electrolyte abnormalities. She appears to have been in the rehab setting for at least the past few months. Most recently she had findings of significant mesenteric ischemia and occlusion of SMA requiring emergent transfer to [place] and surgery, underwent ileocecectomy with primary anastomosis on March 25. At that time she also had ischemia to her left lower extremity and underwent an unsuccessful thrombectomy and ended up requiring left BKA. She had a complicated postoperative course including acute renal failure, SVT. She was transferred to [facility] on 04/08/18. During that course she continued to have nausea, weakness, findings of an ileus and was transferred back to the acute hospital setting 04/11. She continues to have very poor oral intake. She is quite malnourished. She has required multiple diagnostics and ongoing evaluation for continued nausea and abdominal issues. She is on TPN. Given her advanced age and very frail status and recent complicated history she remains very high risk for continued trajectory of decline and complications. Not clear that even with ongoing aggressive interventions she could be restored to her prior level of health, though baseline is not entirely known at this time. Code Status: No Code DNR Plan: * Legal decision maker: Patient today with limited ability to participate with my assessment. She appears oriented to self and . She does not answer other orientation questions. At best today she appears to have limited to poor insight. Unable to discuss medical treatment goals, decisions with her. Possible she is having fluctuating mental status she may be able to participate in medical decision making but this would be best supported by her who would be appropriate legal proxy per [place] statutes. * Goals: Initial meeting: Patient has detailed a steady trajectory of decline since January of this year. He feels in the past couple of days she is no longer "fighting", and that she may no longer be trying to rehabilitate/restore her health. He is worried she might continue to have a trajectory of decline even with aggressive treatments. We have discussed hospice, as well as CODE STATUS. * 04/27/18 Follow up meeting with pt . He appears to be struggling and wonders if pt continues to be more alert, that she may experience overall improvement. He indicates he doesn't want to "give up" on her yet. He wishes to cont aggressive medical treatments for another day or so and monitor for any further signs of improvement. He is also going to talk to a close family friend who works hospice in [facility] about what is going on. . * CODE STATUS: DNR * SYMPTOMS: --Pain- abdominal pain. appears to have had for weeks during current hospital , rehab course. Unable to quantify for me today. +tender to exam. Has prn Percocet 10mg, 5mg available. has received 1 dose Percocet 10 today. 3 doses yesterday. generally 2 doses on days prior. Appears effective per documentation. 2/2 mechanical/abdominal process;s/p abdominal surgery for mesenteric ischemia. s/p IR balloon, stent celiac axis. + also documented to have some chronic neuropathic pain. Has been on gabapentin for, currently HELD, could consider uptitration if needed, if pt tolerates PO. PO meds d/c as refused --has PRN iv morphine , has not required, documented pain scores 0 --Nausea- intermittent, persistent nausea, for what appears to be weeks--->> +during [facility] course 04/08, s/p abdominal surgery for mesenteric ischemia. s/p IR balloon, stent celiac axis. still w intermittent nausea. PRN zofran available - last dose 04/20/18. 2/2 mechanical/abdominal process? Has prn zofran, last dose 04/20/18. If Zofran ineffective may consider low dose Haldol. no c/o nausea --Malnutrition-on TPN. Very little oral intake for what appears to be weeks- -->> prolonged hospitalization, s/p abdominal surgery for mesenteric ischemia. Started on Megace earlier this week. Albumin 1.8. Dietitian following. Patient oral intake well below caloric, nutrient requirements. On Ensure supplements 3 times daily. Weight 44 kg-- January 2018 weight recorded 46kg. persistent, intermittent nausea. 2/2 mechanical/abdominal process? Has prn zofran, last dose 04/20/18. If Zofran ineffective may consider low dose Haldol. She will likely require longer term TPN, which puts her at risk for infection. * Palliative care will continue to follow during hospital course as condition evolves, to assist patient/decision-maker with understanding of medical conditions, weighing benefits/burdens of treatment options, for clarification of goals of treatment. Additionally will assist with any symptoms of palliative concern Attestation Attestation: To help prompt me to consider important information that might be impacting today's encounter and assessment, information from prior notes written by myself or my colleagues may have been "brought forward" into today's note. My signature on this note, however, is an attestation that I personally performed the exam, history, and/or decision-making noted today, and, unless otherwise indicated, the interactions with patient, family, and staff as well as the review of records all occurred today. I also attest that the listed assessment and stated plan reflect my best clinical judgment today based on the combination of historical information, prior notes, and today's exam/ interactions. When time spent is documented, it refers only to time spent today by the signer, or if indicated, combined time spent today by collaborating physician/nurse practitioner.
[2018-04-28] MEDS ORDERED: Metoprolol Inj 5 MG/5 ML Vial IV.PUSH ONE (01:52)
[2018-04-28] MEDS: Insulin NovoLIN Regular Correctional Sugar Inj SQ SCH ×4 (03:39→17:09)
[2018-04-28] MEDS: Digoxin 125 MCG Tablet PO SCH (08:21)
[2018-04-28] MEDS: Heparin Central Flush 100 UNIT/ML 5 ML Vial IV.FLUSH SCH (08:22)
[2018-04-28] MEDS: Heparin - SQ 10,000 UNITS/ML Vial SQ SCH (08:23)
--- NOTE | 2018-04-28 09:59 | P.PNIM ---
Subjective Interval history: f/u; mesenteric ischemia in no acute distress- but ill-looking. refusing to eat or taking her medications. d/w the RN. Physical Exam Vital signs: Vital Signs 04/27/18 12:00 04/27/18 15:40 04/27/18 16:00 Temperature 98.4 F 97.6 F Pulse Rate 134 H 127 H Respiratory Rate 22 20 20 Blood Pressure 132/84 118/85 Pulse Oximetry 94 L 95 04/27/18 20:00 04/28/18 00:00 04/28/18 00:04 Temperature 97.3 F L 97.8 F Pulse Rate 136 H 120 H 120 H Respiratory Rate 18 20 Blood Pressure 99/70 L 100/71 Pulse Oximetry 94 L 94 L 04/28/18 01:03 04/28/18 01:22 04/28/18 03:30 Temperature 98.3 F Pulse Rate 124 H 122 H 115 H Respiratory Rate 20 18 Blood Pressure 118/74 104/66 112/76 Pulse Oximetry 95 04/28/18 04:14 04/28/18 08:00 Temperature 97.2 F L Pulse Rate 116 H 121 H Respiratory Rate 25 H Blood Pressure 117/83 Pulse Oximetry 93 L Intake & Output 04/27/18 04/28/18 04/28/18 18:59 06:59 18:59 Intake Total 120 / 120 2009.2 250 / 250 Balance 120 / 120 2009.2 250 / 250 Weight 40.3 kg Intake: IV 2009.2 250 / 250 Intralipid 20% Inj 250 ML @ 31. 250 / 250 25 mls/hr IV.CENTRAL Q3D@2000 [facility] Rx#:[id number] MVI-12 Inj 10 ML Folvite Inj 1 2009.2 MG In TPN Fluid 2 Liter 2,000 ML @ 31.25 mls/hr IV.SIG Q24H [facility] Rx#:[id number] Oral 120 / 120 0 / 0 Other: # Voids 2 2 # Bowel Movements 1 - Constitutional chronically ill appearing - Routine Respiratory Exam Present: CTA bilaterally - Routine Cardiovascular Exam Present: RRR - Routine Abdominal Exam Present: soft - Routine Extremities Exam Comments: s/p left BKA - Routine Neurological Exam awake but confused. - Urinary Catheter Management Female External Cath placed during this visit: no Results - Labs CBC & Chem 7: 04/23/18 12:11 04/23/18 12:11 Laboratory Results - last 24 hr 04/27/18 04/27/18 04/27/18 12:16 20:21 23:34 POC Glucose 167 H 150 H 131 H 04/28/18 03:38 POC Glucose 146 H - Procedures Cardioversion Celiac stent by IR PICC Assessment and Plan - Plan Neuropathy Acute pain management Oxycodone/acetaminophen 5-10/325 one tab every 6 hours as needed pain Temazepam 15 mg at night as needed insomnia Gabapentin 100 mg twice daily currently on hold Unstable SVT resolved Issue with RVR currently normal sinus rhythm evaluated by cardiology. Continue digoxin 0.125 mg daily. Amiodarone drip discontinued. Continue on digoxin. Acute respiratory insufficiency-improving COPD A nasal cannula to maintain saturations greater than or equal to 92% Incentive spirometry while awake Fluticasone/Vilanterol 100/25 1 inhalation daily Albuterol/ipratropium aerosols every 4 hours with albuterol aerosols every 2 hours as needed for dyspnea Ischemic bowel status post ileal cecectomy Stent placement to SMA Hypoalbuminemia Severe protein calorie malnutrition -MRA of the abdomen done 04/11 indicates occlusion of the SMA Stented with 7x17 Express stent Clopidogrel 75 mg daily. Appreciate input from general surgery,signed off. GI has signed off. Currently on TPN and lipids Started on Megace for appetite stimulation. Continue TPN. Multiple electrolyte abnormalities including hyponatremia, hypochloremia hyperkalemia and hypocalcemia likely from specimen drawn from TPN line. Creatinine currently within normal limits Monitor urine output Accurate I's and O's fever; has resolved. Hypoglycemia- resolved- will continue to monitor. Normocytic anemia Follow trends E. coli and Enterobacter urinary tract infection 04/08 -s/p cefepime and metronidazole //Asymptomatic candiduria. Kristina glabrata and urine. Prophylaxis -GI -pantoprazole -DVT -SCDs/heparin subcu patient is ill-looking and seems to be declining. d/w the at the bedside yesterday; he said that he'd like to wait one more day. DNR status. prognosis is poor. Discharge Planning: patient is ill-looking- still on TPN. dc planning; likely hospice when the agrees. continue with pain control- EFrederic Villarreal was reviewed. time spent 35 min.
--- NOTE | 2018-04-28 10:44 | P.PNPAL ---
Reason for Visit Reason for visit: a. To assist with evaluation and management of symptoms including: Nausea, pain , malnutrition. b. To assist medical decision maker(s) with: better understanding of current medical conditions; weighing benefits/burdens of medical treatment options; making medical treatment decisions. Subjective Subjective/Interval History: Pt seen today to follow up on nausea, pain, and goals w . called personal friend who works for hospice yesterday. He arranged to meet with hospice this morning. I spoke with hospice admissions nurse MERLIN, dual meeting with hospice digitizer operator Eros, pt spouse. He is tearful. He endorses not wanting to further prolong her suffering. Review hospital course and possible trajectory with continued aggressive tx pt may cont to experience complications, decline; verus transition to hospice/comfort in which she will receive comfort tx only. He requests hospice, with care center placement if possible. He feels she is more painful today though difficult to determine where /or quantify. d/w medical attending. Will need to wean TPN. Remains on TPN. Refusing PO. No new labs or imaging. She is seen in her room awake, left side lying, holding her husbands hand. She does not answer any of my questions. She says "ohhh ohhh" and moans. She appears painful/anxious. She does not follow commands. Asked if she wants a drink she says yes however when I put straw from her cup near her she moans "no no no". . Objective Vital Signs: Vital Signs 04/27/18 12:00 04/27/18 15:40 04/27/18 16:00 Temperature 98.4 F 97.6 F Pulse Rate 134 H 127 H Respiratory Rate 22 20 20 Blood Pressure 132/84 118/85 Pulse Oximetry 94 L 95 04/27/18 20:00 04/28/18 00:00 04/28/18 00:04 Temperature 97.3 F L 97.8 F Pulse Rate 136 H 120 H 120 H Respiratory Rate 18 20 Blood Pressure 99/70 L 100/71 Pulse Oximetry 94 L 94 L 04/28/18 01:03 04/28/18 01:22 04/28/18 03:30 Temperature 98.3 F Pulse Rate 124 H 122 H 115 H Respiratory Rate 20 18 Blood Pressure 118/74 104/66 112/76 Pulse Oximetry 95 04/28/18 04:14 04/28/18 08:00 Temperature 97.2 F L Pulse Rate 116 H 121 H Respiratory Rate 25 H Blood Pressure 117/83 Pulse Oximetry 93 L Intake & Output 04/27/18 04/28/18 04/28/18 18:59 06:59 18:59 Intake Total 120 / 120 2009.2 250 / 250 Balance 120 / 120 2009.2 250 / 250 Weight 40.3 kg Intake: IV 2009.2 250 / 250 Intralipid 20% Inj 250 ML @ 31. 250 / 250 25 mls/hr IV.CENTRAL Q3D@2000 [facility] Rx#:[id number] MVI-12 Inj 10 ML Folvite Inj 1 2009.2 MG In TPN Fluid 2 Liter 2,000 ML @ 31.25 mls/hr IV.SIG Q24H [facility] Rx#:[id number] Oral 120 / 120 0 / 0 Other: # Voids 2 2 # Bowel Movements 1 Physical Exam: CONSTITUTIONAL/GENERAL: This is a frail, ill-appearing female. TUBES/LINES/DRAINS: PICC right upper extremity. SKIN: No jaundice, rashes, or lesions. Vertical mid abdominal dressing clean and dry. Left BKA incision well-healed. Skin warm and dry. Pale. HEAD: Atraumatic. Normocephalic. EYES: Pupils equal and round and reactive. Extraocular motions intact. No scleral icterus. No injection or drainage. Fundi not examined. CARDIOVASCULAR: Regular rate and rhythm without murmur. Mildly tachycardic. No JVD. Peripheral pulses symmetric. RESPIRATORY/CHEST: Symmetric, unlabored respirations. On room air. Clear to auscultation. Breath sounds equal bilaterally. GASTROINTESTINAL: Abdomen soft, tender, nondistended. No hepato-splenomegaly, or palpable masses. + guards. Bowel sounds present. MUSCULOSKELETAL: Extremities without clubbing, cyanosis, or edema. Left BKA healing. No joint tenderness or effusion noted. + muscle atrophy x 4 extremities. NEUROLOGICAL: Awake and alert. Appears oriented to self does not answer any other questions. Unable to fully assess orientation or insight. does not follow simple commands. Moves all 4 extremities. moaning at times. PSYCHIATRIC: Appears mildly anxious with exam Diagnostic Tests Laboratory: Laboratory Results - last 72 hr 04/25/18 04/25/18 04/25/18 13:11 17:14 19:57 POC Glucose 107 95 96 04/26/18 04/26/18 04/26/18 01:15 08:39 09:28 POC Glucose 92 30 L* 181 H 04/26/18 04/26/18 04/26/18 11:06 14:02 17:36 POC Glucose 112 H 106 131 H 04/26/18 04/27/18 04/27/18 19:41 00:18 04:14 POC Glucose 110 125 H 146 H 04/27/18 04/27/18 04/27/18 09:07 12:16 20:21 POC Glucose 151 H 167 H 150 H 04/27/18 04/28/18 23:34 03:38 POC Glucose 131 H 146 H Result Diagrams: 04/23/18 12:11 04/23/18 12:11 Procedures: 04/13/18 IR celiac axis balloon angioplasty and stenting Assessment and Plan - Disease Oriented Problem List (1) Hypertension (2) Ischemia, bowel Comment: s/p ileocecectomy with anastomosis (3) Ischemia of left lower extremity Comment: s/p BKA (4) SVT (supraventricular tachycardia) (5) A-fib (6) Diarrhea (7) S/P BKA (below knee amputation) unilateral Pertinent Non-Medical Issues: Psychosocial: . Previously lived at home with her of 29 years. has been in and out of hospital and rehab setting for at least the past few months. 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 Spiritual:Confucianist though no local affiliation, would not want piece meat trimmer visits at this time Legal: Patient today with limited ability to participate with my assessment. She appears oriented to self and . She does not answer other orientation questions. At best today she appears to have limited to poor insight. Unable to discuss medical treatment goals, decisions with her. Possible she is having fluctuating mental status she may be able to participate in medical decision making but this would be best supported by her who would be appropriate legal proxy per [place] statutes. Ethical issues impacting care: No ethical issues identified Important Contacts: Anthony Zhou [phone] . Prognosis: This patient is a very complex recent medical history. She has had multiple recent hospitalizations between this hospital and [facility], as well as [facility], all of these records are not available currently for my review. She apparently initially presented with some weakness and palpitations has had atrial fibrillation, SVT. She apparently has some history of SVT as well as electrolyte abnormalities. She appears to have been in the rehab setting for at least the past few months. Most recently she had findings of significant mesenteric ischemia and occlusion of SMA requiring emergent transfer to [place] and surgery, underwent ileocecectomy with primary anastomosis on March 25. At that time she also had ischemia to her left lower extremity and underwent an unsuccessful thrombectomy and ended up requiring left BKA. She had a complicated postoperative course including acute renal failure, SVT. She was transferred to [place] rehab on 04/08/18. During that course she continued to have nausea, weakness, findings of an ileus and was transferred back to the acute hospital setting 04/11. She continues to have very poor oral intake. She is quite malnourished. She has required multiple diagnostics and ongoing evaluation for continued nausea and abdominal issues. She is on TPN. Given her advanced age and very frail status and recent complicated history she remains very high risk for continued trajectory of decline and complications. Not clear that even with ongoing aggressive interventions she could be restored to her prior level of health, though baseline is not entirely known at this time. Code Status: No Code DNR Plan: * Legal decision maker: Patient today with limited ability to participate with my assessment. She appears oriented to self and . She does not answer other orientation questions. At best today she appears to have limited to poor insight. Unable to discuss medical treatment goals, decisions with her. Possible she is having fluctuating mental status she may be able to participate in medical decision making but this would be best supported by her who would be appropriate legal proxy per [place] statutes. * Goals: Initial meeting: Patient has detailed a steady trajectory of decline since January of this year. He feels in the past couple of days she is no longer "fighting", and that she may no longer be trying to rehabilitate/restore her health. He is worried she might continue to have a trajectory of decline even with aggressive treatments. We have discussed hospice, as well as CODE STATUS. * 04/28/18 dual meeting with pt and hospice, he requests transition to comfort focus, care center placement for pain management requested. HOSPICE order entered. D/w hospice, d/w med attending. * CODE STATUS: DNR * SYMPTOMS: --Pain- abdominal pain. appears to have had for weeks during current hospital , rehab course. +tender to exam. Has prn Percocet 10mg, 5mg available. has received 1 dose Percocet 10 today. 3 doses yesterday. generally 2 doses on days prior. Appears effective per documentation. 2/2 mechanical/abdominal process;s/ p abdominal surgery for mesenteric ischemia. s/p IR balloon, stent celiac axis. + also documented to have some chronic neuropathic pain. Has been on gabapentin for, currently HELD, could consider uptitration if needed, if pt tolerates PO. PO meds HELD as refused PO--has PRN iv morphine . Pt unable to quantify/qualify pain but moaning today. Received (1) 2mg dose of morphine around 1am which was documented as effective. Will require additional prns, increased frequency if goals comfort oriented. --Nausea- intermittent, persistent nausea, for what appears to be weeks--->> +during [place] [facility] course 04/08, s/p abdominal surgery for mesenteric ischemia. s/p IR balloon, stent celiac axis. still w intermittent nausea. PRN zofran available - last dose 04/20/18. 2/2 mechanical/abdominal process? Has prn zofran, last dose 04/20/18. If Zofran ineffective may consider low dose Haldol. no c/o nausea --Malnutrition-on TPN. Very little oral intake for what appears to be weeks- -->> prolonged hospitalization, s/p abdominal surgery for mesenteric ischemia. Started on Megace earlier this week. Albumin 1.8. Dietitian following. Patient oral intake well below caloric, nutrient requirements. On Ensure supplements 3 times daily. Weight 44 kg-- January 2018 weight recorded 46kg. persistent, intermittent nausea. 2/2 mechanical/abdominal process? Has prn zofran, last dose 04/20/18. If Zofran ineffective may consider low dose Haldol. She will likely require longer term TPN, which puts her at risk for infection. elects HOSPICE, comfort only, TPN to be weaned. ordered to decrease rate by 1/2. * Palliative care will continue to follow during hospital course as condition evolves, to assist patient/decision-maker with understanding of medical conditions, weighing benefits/burdens of treatment options, for clarification of goals of treatment. Additionally will assist with any symptoms of palliative concern Attestation Attestation: To help prompt me to consider important information that might be impacting today's encounter and assessment, information from prior notes written by myself or my colleagues may have been "brought forward" into today's note. My signature on this note, however, is an attestation that I personally performed the exam, history, and/or decision-making noted today, and, unless otherwise indicated, the interactions with patient, family, and staff as well as the review of records all occurred today. I also attest that the listed assessment and stated plan reflect my best clinical judgment today based on the combination of historical information, prior notes, and today's exam/ interactions. When time spent is documented, it refers only to time spent today by the signer, or if indicated, combined time spent today by collaborating physician/nurse practitioner.
--- NOTE | 2018-04-28 10:55 | P.DS ---
Date of admission: 04/11/18 12:10 Primary care physician: UNKNOWN Brief History from admission: Patient is a 72-year-old female with past medical history of alcohol abuse, hypertension, hyperlipidemia, paroxysmal A. fib that initially presented to the emergency department 03/21/18 with complaints of generalized weakness and palpitations. She was found to be in A. fib with RVR and placed on a Cardizem drip. CT abdomen and pelvis revealed mesenteric ischemia and occlusion of the SMA and she was transferred to [facility] as an emergency transfer. She is now status post ileocecectomy with primary anastomosis and abdominal closure on March 25 for necrotic sternal ileum and diffuse ischemia. Patient was also found to have an ischemic left lower extremity apparently a thrombectomy was performed but failed. She is now status post left BKA. Postoperative course was complicated by supraventricular tachycardia and patient was treated with amiodarone, metoprolol heart rate was noted to have improved. Also was treated for acute renal failure that apparently resolved. Prior to admit, her last set of labs appears to be April 01, 2018 at that time her white blood cell count was again 15.5, INR was 0.97, sodium 133, potassium 4.8, creatinine was down to 0.7. Hemoglobin was 10.4, platelet count 310. Leukocytosis was treated with IV Flagyl and vancomycin she was then transitioned to p.o. Flagyl 500 mg 3 times daily for 7 days. Admitted to [facility] for inpatient rehab on April 08, 2018 -patient continued to have uncontrolled nausea vomiting w/ ileus so was transferred back to [place]. Patient is seen lying in bed. Patient reports that she is experiencing increasing abdominal pain as well as near constant nausea. She has vomited all p.o. intake including meds. She is complaining of some midsternal chest pain that she describes as a "burning". Denies any left-sided chest pain, radiating pain, or palpitations. No dizziness. No shortness of breath. She continues to have diarrhea and stomach cramping. DS: Medications - Discharge Medications Prescriptions: clopidogrel [Plavix] 75 mg PO DAILY 30 Days #30 tab digoxin 125 mcg PO DAILY 30 Days #30 tab megestrol 40 mg PO BID 30 Days #60 tab DS: Summary Hospital Course: patient was admitted with Unstable SVT and Acute respiratory insufficiency along with ischemic bowel. he was seen by cardiology ; initially started on Amiodarone but this was later switched to Digoxin. her respiratory status improved. she underwent Stent placement to SMA. she was started on TPN but her condition started to decline. she refused eating and taking her medications. palliative care was consulted and after a few discussions with the , decision was made to proceed with hospice. - Time Spent with Patient Total time spent providing and/or coordinating discharge services: Greater than 30 minutes (35 min.) - Quality: VTE Deep Vein Thrombosis/Pulmonary Embolism Present on Admission: Yes Exam Vital signs: Vital Signs 04/27/18 12:00 04/27/18 15:40 04/27/18 16:00 Temperature 98.4 F 97.6 F Pulse Rate 134 H 127 H Respiratory Rate 22 20 20 Blood Pressure 132/84 118/85 Pulse Oximetry 94 L 95 04/27/18 20:00 04/28/18 00:00 04/28/18 00:04 Temperature 97.3 F L 97.8 F Pulse Rate 136 H 120 H 120 H Respiratory Rate 18 20 Blood Pressure 99/70 L 100/71 Pulse Oximetry 94 L 94 L 04/28/18 01:03 04/28/18 01:22 04/28/18 03:30 Temperature 98.3 F Pulse Rate 124 H 122 H 115 H Respiratory Rate 20 18 Blood Pressure 118/74 104/66 112/76 Pulse Oximetry 95 04/28/18 04:14 04/28/18 08:00 Temperature 97.2 F L Pulse Rate 116 H 121 H Respiratory Rate 25 H Blood Pressure 117/83 Pulse Oximetry 93 L Intake & Output 04/27/18 04/28/18 04/28/18 18:59 06:59 18:59 Intake Total 120 / 120 2009.2009.2 250 / 250 Balance 120 / 120 2009.2009.2 250 / 250 Weight 40.3 kg Intake: IV 2009.2 250 / 250 Intralipid 20% Inj 250 ML @ 31. 250 / 250 25 mls/hr IV.CENTRAL Q3D@2000 [facility] Rx#:[id number] MVI-12 Inj 10 ML Folvite Inj 1 2009.2 MG In TPN Fluid 2 Liter 2,000 ML @ 31.25 mls/hr IV.SIG Q24H [facility] Rx#:[id number] Oral 120 / 120 0 / 0 Other: # Voids 2 2 # Bowel Movements 1 - Constitutional chronically ill appearing - Routine Respiratory Exam Present: CTA bilaterally - Routine Cardiovascular Exam Present: RRR - Routine Abdominal Exam Present: soft - Routine Extremities Exam Comments: s/p left BKA. - Routine Neurological Exam awake but no as alert as yesterday. Results Procedures completed during hospitalization: Cardioversion Celiac stent by IR PICC Labs on day of discharge: Labs from last 24 hours 04/28/18 04/27/18 04/27/18 03:38 23:34 20:21 POC Glucose 146 H 131 H 150 H 04/27/18 12:16 POC Glucose 167 H - Impressions ITS Impressions Abdomen MRA 04/11/18 00:00 CONCLUSION: 1. 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 2. 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 3. 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 Small Bowel X-Ray 04/12/18 00:00 CONCLUSION: Negative for small bowel obstruction or significant dilatation. Transit time is less than 4 hours. NG tip in distal stomach. Celiac/Hepatic Arteriogram 04/13/18 00:00 CONCLUSION: 1. 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 Area was successfully treated with a 7 mm stent. 2. 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 Chest CTA 04/15/18 00:00 CONCLUSION: 1. No pulmonary embolus. 2. Bilateral pleural effusions and atelectasis. 3. Patchy bilateral nonspecific infiltrate. 4. Thickened interlobular septa suggesting mild pulmonary edema. 5. Nonspecific mildly enlarged mediastinal lymph nodes and are larger than before. Chest X-Ray 04/15/18 06:00 CONCLUSION: Worsening appearance of the chest. Discharge Plan - Discharge Disposition Patient Disposition: 51 Hospice/Med Facility - Discharge Condition Condition: Critical - Discharge Order Discharge Orders: Discharge Order (Routine); Ordered 04/28/18 Ordered By: Latricia Kent - Physicians Team Primary Care Provider: UNKNOWN, Attending Provider: Latricia Kent Other Providers: Ernestina Hernandez MD ; Iram Mercado MD ; Westley Lynch MD ; Phillip Peterson MD ; Carlos Peters MD - Rxs /Orders / Referrals /Forms Prescriptions: New clopidogrel [Plavix] 75 mg Tablet 75 mg PO DAILY 30 Days Qty: 30 RF: 0 digoxin 125 mcg Tablet 125 mcg PO DAILY 30 Days Qty: 30 RF: 0 megestrol 40 mg Tablet 40 mg PO BID 30 Days Qty: 60 RF: 0 Continue aspirin 81 mg Tablet,Chewable 81 mg PO DAILY ergocalciferol (vitamin D2) 50,000 unit Capsule 50,000 unit PO QWEEK fluticasone-vilanterol 100-25 mcg/dose Blister With Device 1 inh INHALATION DAILY gabapentin 100 mg Capsule 100 mg PO BID nitroglycerin 0.4 mg Tablet, Sublingual 0.4 mg SUBLINGUAL Q5-15M PRN (Reason: Chest Pain) oxycodone-acetaminophen [Percocet] 5-325 mg Tablet 2 tab PO Q6H PRN (Reason: Pain) Saccharomyces boulardii 250 mg Capsule 250 mg PO BID simvastatin 40 mg Tablet 40 mg PO QPM Discontinued metoprolol tartrate 100 mg Tablet 100 mg PO BID metronidazole 500 mg Tablet 500 mg PO TID tramadol 50 mg Tablet 50 mg PO Q4H PRN (Reason: Pain) Referrals: UNKNOWN, [Primary Care Provider] - See Instructions - Discharge Instructions Patient Printed Instructions: A-fib (Atrial Fibrillation) (DC), Supraventricular Tachycardia (DC)
[2018-04-28] MEDS: Pantoprazole Inj 40 MG Vial IV.PUSH SCH (12:30)
[2018-04-28 17:25] VITALS: BP 99/72; RESP 22; TEMP 97.4; O2SAT 97
[2018-04-28 17:39] VITALS: PULSE 115
== END 2018-04-28 19:37 | disposition hospice, inpatient (51) ==
LOC: HIMC 12:10 → HCIS 04-18 19:40 → N04 04-22 18:19
PROVIDERS: ADMIT Internal Medicine; ATTEND Internal Medicine